=== PATIENT | male | born 1970 | race Two or more races ===

== ENCOUNTER 2016-03-01 10:13 | Inpatient (IN) | payer BC ==
[2016-03-01 10:29] VITALS: BMI 18.6
--- NOTE | 2016-03-01 12:00 | HP ---
CIWA Score - CIWA Score Nausea/Vomitin-No Nausea/No Vomiting Muscle Tremors: 4-Moderate,w/Arms Extend Anxiety: 4-Mod. Anxious/Guarded Agitation: 4-Moderately Restless Paroxysmal Sweats: 3 Orientation: 0-Oriented Tacttile Disturbances: 0-None Auditory Disturbances: 0-None Visual Disturbances: 0-None Headache: 0-None Present CIWA-Ar Total Score: 15 Admission ROS BHS - HPI Chief Complaint: I want to stop using and go to rehab. Allergies/Adverse Reactions: Allergies Allergy/AdvReac Type Severity Reaction Status Date / Time No Known Allergies Allergy Verified 03/01/16 11:36 History of Present Illness: pt is a 46yr old male with a history of alcohol and benzodiazapine dependence seeking detox for treatment. Exam Limitations: No Limitations - Ebola screening Have you traveled outside of the country in the last 21 days: No Have you had contact with anyone from an Ebola affected area: No Have you been sick,other than usual withdrawal symptoms: No Do you have a fever: No - Review of Systems Constitutional: Chills, Diaphoresis, Loss of Appetite, Night Sweats, Changes in sleep, Unintentional Wgt. Loss EENT: reports: No Symptoms Reported Respiratory: reports: No Symptoms reported Cardiac: reports: No Symptoms Reported GI: reports: Poor Appetite, Poor Fluid Intake : reports: No Symptoms Reported Musculoskeletal: reports: Back Pain, Joint Pain, Muscle Pain Integumentary: reports: Flushing, Sweating Neuro: reports: Headache, Tingling, Tremors Endocrine: reports: Excessive Sweating, Flushing, Intolerance to Cold, Intolerance to Heat Hematology: reports: No Symptoms Reported Psychiatric: reports: Judgement Intact, Mood/Affect Appropiate, Orientated x3, Agitated, Anxious Other Systems: Reviewed and Negative Patient History - Patient Medical History Hx Anemia: No Hx Asthma: No Hx Chronic Obstructive Pulmonary Disease (COPD): No Hx Cancer: No Hx Cardiac Disorders: No Hx Congestive Heart Failure: No Hx Hypertension: No Hx Hypercholesterolemia: No Hx Pacemaker: No HX Cerebrovascular Accident: No Hx Seizures: No Hx Dementia: No Hx Diabetes: No Hx Gastrointestinal Disorders: No Hx Liver Disease: No Hx Genitourinary Disorders: No Hx Sexually Transmitted Disorders: No Hx Renal Disease (ESRD): No Hx Thyroid Disease: No Hx Human Immunodeficiency Virus (HIV): No (negative) Hx Hepatitis C: Yes Hx Depression: No Hx Suicide Attempt: No (denies) Hx Bipolar Disorder: No Hx Schizophrenia: No - Patient Surgical History Past Surgical History: No - PPD History Previous Implant?: Yes Documented Results: Negative w/o proof Implanted On Prior [facility] Admission?: No PPD to be Administered?: Yes - Reproductive History Patient is a Female of Child Bearing Age (11 -55 yrs old): No - Smoking Cessation Smoking history: Current every day smoker Have you smoked in the past 12 months: Yes Aproximately how many cigarettes per day: 20 Hx Chewing Tobacco Use: No Initiated information on smoking cessation: Yes 'Breaking Loose' booklet given: 03/01/16 - Substance & Tx. History Hx Alcohol Use: Yes Hx Substance Use: Yes Substance Use Type: Alcohol, Tranquilizers Hx Substance Use Treatment: No - Substances Abused Alprazolam (Xanax) Route: Oral Frequency: Daily Amount used: 6MG Age of first use: 19 Date of Last Use: 02/29/16 Alcohol Route: Oral Frequency: Daily Amount used: 3 PINTS VODKA Age of first use: 21 Date of Last Use: 02/29/16 Cocaine Route: Injection Frequency: Daily Amount used: $100 Age of first use: 45 Date of Last Use: 02/23/16 Family Disease History - Family Disease History Family Disease History: Diabetes: Mother ( esrd), Other: Father ( esrd) Admission Physical Exam BHS - Vital Signs Vital Signs: Vital Signs - 24 hr 03/01/16 10:27 Temperature 95.4 F L Pulse Rate 67 Respiratory 18 Rate Blood Pressure 117/77 - Physical General Appearance: Yes: Appropriately Dressed, Moderate Distress, Thin, Tremorous, Irritable, Sweating, Anxious HEENTM: Yes: Normal Voice, Nasal Congestion Respiratory: Yes: Chest Non-Tender, Lungs Clear, Normal Breath Sounds, No Respiratory Distress Neck: Yes: No masses,lesions,Nodules Breast: Yes: Within Normal Limits Cardiology: Yes: Regular Rhythm, Regular Rate, S1, S2 Abdominal: Yes: Normal Bowel Sounds, Non Tender, Soft Genitourinary: Yes: Within Normal Limits Back: Yes: Normal Inspection Musculoskeletal: Yes: full range of Motion, Gait Steady Extremities: Yes: Normal Capillary Refill, Normal Inspection, Non-Tender, Tremors Neurological: Yes: Fully Oriented, Alert, Normal Response Integumentary: Yes: Normal Color, Track Kelly Lymphatic: Yes: Within Normal Limits - Diagnostic (1) Alcohol dependence with uncomplicated withdrawal Current Visit: Yes Status: Chronic (2) Methadone maintenance therapy patient Current Visit: Yes Status: Chronic Comment: received 60mg today; pending verification (3) Nicotine dependence Current Visit: Yes Status: Chronic Qualifiers: Nicotine product type: cigarettes Substance use status: uncomplicated Qualified Code(s): F17.210 - Nicotine dependence, cigarettes, uncomplicated (4) Sedative/hypnotic withdrawal without complication Current Visit: Yes Status: Chronic (5) Cocaine dependence Current Visit: Yes Status: Chronic Qualifiers: Substance use status: uncomplicated Qualified Code(s): F14.20 - Cocaine dependence, uncomplicated (6) Weight loss Current Visit: Yes Status: Acute Cleared for Admission [facility] - Detox or Rehab [facility] Level of Care: Medically Managed Detox Regimen/Protocol: Librium [facility] Breath Alcohol Content Breath Alcohol Content: 0 Urine Drug Screen - Results Drug Screen Negative: No Urine Drug Screen Results: MONIKA-Cocaine, OPI-Opiates, BZO-Benzodiazepines, MTD- Methadone, TCA-Tricyclic Antidepress, OXY-Oxycodone
[2016-03-01] MEDS ORDERED: MAG HYDROX/AL HYDROX/SIMETH 30 ML UNIT-DOSE CUP PO PRN (12:05)
[2016-03-01] MEDS ORDERED: hydrOXYzine PAMOATE 50 MG CAPSULE (FP) PO PRN (12:05)
[2016-03-01] MEDS ORDERED: chlordiazePOXIDE HCL 25 MG CAPSULE PO PRN (12:05)
[2016-03-01] MEDS ORDERED: P-EPHED 60MG/TRIPROLIDI 2.5MG TABLET PO PRN (12:05)
[2016-03-01] MEDS ORDERED: guaiFENesin/D-METHORPHAN HB 10 ML UNIT-DOSE CUPS PO PRN (12:05)
[2016-03-01] MEDS ORDERED: MENTHOL/PHENOL 1 EACH UD MM PRN (12:05)
[2016-03-01] MEDS ORDERED: LOPERAMIDE HCL 2 MG CAPSULE PO PRN (12:05)
[2016-03-01] MEDS ORDERED: MAGNESIUM CITRATE 300 ML BOTTLE PO PRN (12:05)
[2016-03-01] MEDS ORDERED: ACETAMINOPHEN 325 MG TABLET (FP) PO PRN (12:05)
[2016-03-01] MEDS ORDERED: NICOTINE POLACRILEX 4 MG GUM BUC PRN (12:05)
[2016-03-01] MEDS ORDERED: MAGNESIUM HYDROX 2400MG/30ML ORAL SUSPENSION 30 ML CUP PO PRN (12:05)
[2016-03-01] MEDS ORDERED: IBUPROFEN 400 MG TABLET (FP) PO PRN (12:05)
[2016-03-01 14:29] LABS: HIV 1 & 2 AB NEGATIVE; HIV 1 AGp24 NEGATIVE
[2016-03-01] MEDS: chlordiazePOXIDE HCL 25 MG CAPSULE PO SCH ×3 (15:05→22:05)
[2016-03-01 16:07] LABS: URINE APPEARANCE CLEAR; URINE BILIRUBIN NEGATIVE (NEGATIVE); URINE BLOOD NEGATIVE (NEGATIVE); URINE COLOR LTYELLOW; URINE GLUCOSE (UA) NEGATIVE (NEGATIVE); URINE KETONE NEGATIVE (NEGATIVE); URINE LEUK ESTERASE NEGATIVE (NEGATIVE); URINE NITRITE NEGATIVE (NEGATIVE); URINE PROTEIN NEGATIVE (NEGATIVE); URINE UROBILINOGEN NEGATIVE E.U./dl (0.2-1.0)
[2016-03-01] MEDS: THIAMINE HCL 100 MG TABLET (FP) PO SCH (22:04)
[2016-03-01] MEDS: diphenhydrAMINE HCL 50 MG CAPSULE PO PRN (22:05)
[2016-03-02] MEDS ORDERED: METHADONE HCL 10 MG TABLET ONE (04:16)
[2016-03-02] MEDS ORDERED: METHADONE HCL 40 MG DISPERSABLE TABLET ONE (04:16)
[2016-03-02] MEDS: chlordiazePOXIDE HCL 25 MG CAPSULE PO SCH ×4 (05:31→21:59)
[2016-03-02] MEDS: METHADONE 40 MG, METHADONE 20 MG PO SCH (05:32)
[2016-03-02] MEDS ORDERED: METHADONE HCL 40 MG DISPERSABLE TABLET PO SCH (06:00)
[2016-03-02] MEDS: PRENATAL VITAMINS W/ FOLIC ACID TABLET (FP) PO SCH (10:03)
[2016-03-02] MEDS: NICOTINE 21 MG/24 HOURS TOPICAL PATCH TD SCH (10:04)
[2016-03-02 10:38] LABS: MCH 31.4 pg (25.7-33.7); MCHC 34.2 g/dl (32.0-35.9); MEAN CELL VOLUME 91.7 fl (80-96); MEAN PLT VOLUME 9.8 fl (7.5-11.1); PLATELET COUNT 175 K/MM3 (134-434); RDW 14.1 % (11.9-15.9); WHITE BLOOD COUNT 3.7 K/mm3 (4.0-10.0)
[2016-03-02 10:43] LABS: ALBUMIN 3.6 g/dl (3.4-5.0); ALK PHOS 71 U/L (45-117); ANION GAP 2 (8-16); BILIRUBIN,TOTAL 0.4 mg/dL (0.2-1.0); CALCIUM 9.2 mg/dL (8.5-10.1); CO2 32 mmol/L (21-32); CREATININE 0.9 mg/dL (0.7-1.3); GLUCOSE,RANDOM 83 mg/dL (74-106); SGOT/AST 57 U/L (15-37); SGPT/ALT 60 U/L (12-78); TOT PROT 7.4 g/dl (6.4-8.2)
--- NOTE | 2016-03-02 11:49 | EKG ---
Test Reason : Blood Pressure : / mmHG Vent. Rate : 057 BPM Atrial Rate : 057 BPM P-R Int : 156 ms QRS Dur : 088 ms QT Int : 430 ms P-R-T Axes : 045 083 065 degrees QTc Int : 418 ms SINUS BRADYCARDIA WITH PREMATURE ATRIAL COMPLEXES OTHERWISE NORMAL ECG NO PREVIOUS ECGS AVAILABLE Confirmed by EVE LEVY, SRAVAN ([id number]) on 03/02/2016 11:49:24 AM Referred By: Confirmed By:SRAVAN PRADO MD
[2016-03-02] MEDS ORDERED: INFLUENZA VACCINE 45 MCG/0.5 ML (MDV 16-17) IM ONE (12:00)
--- NOTE | 2016-03-02 15:02 | PN ---
[facility] CIWA - CIWA Score Nausea/Vomitin-No Nausea/No Vomiting Muscle Tremors: 3 Anxiety: 4-Mod. Anxious/Guarded Agitation: 4-Moderately Restless Paroxysmal Sweats: 3 Orientation: 0-Oriented Tacttile Disturbances: 0-None Auditory Disturbances: 0-None Visual Disturbances: 0-None Headache: 0-None Present CIWA-Ar Total Score: 14 BHS Progress Note (SOAP) Subjective: ANXIETY,TREMORS,SWEATING,INTERRUPTED SLEEP,RESTLESS. Objective: 03/02/16 15:02 Vital Signs - 8 hr 03/02/16 03/02/16 09:44 14:10 Temperature 96.2 F L 96.6 F L Pulse Rate 68 63 Respiratory 18 18 Rate Blood Pressure 94/64 115/66 Laboratory Last Values WBC 3.7 K/mm3 (4.0-10.0) L 03/02/16 05:30 RBC 4.39 M/mm3 (4.00-5.60) 03/02/16 05:30 Hgb 13.8 GM/dL (11.7-16.9) 03/02/16 05:30 Hct 40.2 % (35.4-49) 03/02/16 05:30 MCV 91.7 fl (80-96) 03/02/16 05:30 MCHC 34.2 g/dl (32.0-35.9) 03/02/16 05:30 RDW 14.1 % (11.9-15.9) 03/02/16 05:30 Plt Count 175 K/MM3 (134-434) 03/02/16 05:30 MPV 9.8 fl (7.5-11.1) 03/02/16 05:30 Sodium 137 mmol/L (136-145) 03/02/16 05:30 Potassium 4.1 mmol/L (3.5-5.1) 03/02/16 05:30 Chloride 103 mmol/L (98-107) 03/02/16 05:30 Carbon Dioxide 32 mmol/L (21-32) 03/02/16 05:30 Anion Gap 2 (8-16) L 03/02/16 05:30 BUN 13 mg/dL (7-18) 03/02/16 05:30 Creatinine 0.9 mg/dL (0.7-1.3) 03/02/16 05:30 Creat Clearance w eGFR > 60 (>60) 03/02/16 05:30 Random Glucose 83 mg/dL (74-106) 03/02/16 05:30 Calcium 9.2 mg/dL (8.5-10.1) 03/02/16 05:30 Total Bilirubin 0.4 mg/dL (0.2-1.0) 03/02/16 05:30 AST 57 U/L (15-37) H 03/02/16 05:30 ALT 60 U/L (12-78) 03/02/16 05:30 Alkaline Phosphatase 71 U/L (45-117) 03/02/16 05:30 Total Protein 7.4 g/dl (6.4-8.2) 03/02/16 05:30 Albumin 3.6 g/dl (3.4-5.0) 03/02/16 05:30 Urine Color Ltyellow 03/01/16 15:00 Urine Appearance Clear 03/01/16 15:00 Urine pH 6.0 (5.0-8.0) 03/01/16 15:00 Ur Specific [place] 1.013 (1.001-1.035) 03/01/16 15:00 Urine Protein Negative (NEGATIVE) 03/01/16 15:00 Urine Glucose (UA) Negative (NEGATIVE) 03/01/16 15:00 Urine Ketones Negative (NEGATIVE) 03/01/16 15:00 Urine Blood Negative (NEGATIVE) 03/01/16 15:00 Urine Nitrite Negative (NEGATIVE) 03/01/16 15:00 Urine Bilirubin Negative (NEGATIVE) 03/01/16 15:00 Urine Urobilinogen Negative E.U./dl (0.2-1.0) 03/01/16 15:00 Ur Leukocyte Esterase Negative (NEGATIVE) 03/01/16 15:00 RPR Titer Nonreactive (NONREACTIVE) 03/02/16 05:30 HIV 1&2 Antibody Screen Negative 03/01/16 11:45 HIV P24 Antigen Negative 03/01/16 11:45 LABS NOTED Assessment: 03/02/16 15:03 WITHDRAWAL SX. Plan: CONTINUE DETOX
[2016-03-02] MEDS: THIAMINE HCL 100 MG TABLET (FP) PO SCH (21:58)
[2016-03-02] MEDS: diphenhydrAMINE HCL 50 MG CAPSULE PO PRN (21:59)
[2016-03-03] MEDS ORDERED: METHADONE HCL 10 MG TABLET ONE (04:09)
[2016-03-03] MEDS ORDERED: METHADONE HCL 40 MG DISPERSABLE TABLET ONE (04:10)
[2016-03-03] MEDS: METHADONE 40 MG, METHADONE 20 MG PO SCH (05:34)
[2016-03-03] MEDS: chlordiazePOXIDE HCL 25 MG CAPSULE PO SCH (05:35)
[2016-03-03] MEDS: PRENATAL VITAMINS W/ FOLIC ACID TABLET (FP) PO SCH (10:07)
[2016-03-03] MEDS: chlordiazePOXIDE 5 MG CAPSULE PO SCH ×3 (10:07→22:00)
[2016-03-03] MEDS: NICOTINE 21 MG/24 HOURS TOPICAL PATCH TD SCH (10:08)
--- NOTE | 2016-03-03 10:09 | PN ---
S CIWA - CIWA Score Nausea/Vomitin-No Nausea/No Vomiting Muscle Tremors: 3 Anxiety: 4-Mod. Anxious/Guarded Agitation: 4-Moderately Restless Paroxysmal Sweats: 3 Orientation: 0-Oriented Tacttile Disturbances: 0-None Auditory Disturbances: 0-None Visual Disturbances: 0-None Headache: 0-None Present CIWA-Ar Total Score: 14 BHS Progress Note (SOAP) Subjective: ANXIETY,TREMORS,INTERRUPTED SLEEP,RESTLESS,SWEATING. Objective: 03/03/16 10:08 Vital Signs 03/03/16 03/03/16 03/03/16 03:20 06:13 09:51 Temperature 963.5 F H 97.3 F L Pulse Rate 60 69 Respiratory 18 18 18 Rate Blood Pressure 115/78 101/59 Laboratory Tests 03/01/16 03/01/16 03/02/16 11:45 15:00 05:30 WBC 3.7 L RBC 4.39 Hgb 13.8 Hct 40.2 MCV 91.7 MCHC 34.2 RDW 14.1 Plt Count 175 MPV 9.8 Sodium Potassium Chloride Carbon Dioxide Anion Gap BUN Creatinine Creat Clearance w eGFR Random Glucose Calcium Total Bilirubin AST ALT Alkaline Phosphatase Total Protein Albumin Urine Color Ltyellow Urine Appearance Clear Urine pH 6.0 Ur Specific [place] 1.013 Urine Protein Negative Urine Glucose (UA) Negative Urine Ketones Negative Urine Blood Negative Urine Nitrite Negative Urine Bilirubin Negative Urine Urobilinogen Negative Ur Leukocyte Esterase Negative RPR Titer HIV 1&2 Antibody Screen Negative HIV P24 Antigen Negative 03/02/16 03/02/16 05:30 05:30 WBC RBC Hgb Hct MCV MCHC RDW Plt Count MPV Sodium 137 Potassium 4.1 Chloride 103 Carbon Dioxide 32 Anion Gap 2 L BUN 13 Creatinine 0.9 Creat Clearance w eGFR > 60 Random Glucose 83 Calcium 9.2 Total Bilirubin 0.4 AST 57 H ALT 60 Alkaline Phosphatase 71 Total Protein 7.4 Albumin 3.6 Urine Color Urine Appearance Urine pH Ur Specific [place] Urine Protein Urine Glucose (UA) Urine Ketones Urine Blood Urine Nitrite Urine Bilirubin Urine Urobilinogen Ur Leukocyte Esterase RPR Titer Nonreactive HIV 1&2 Antibody Screen HIV P24 Antigen LABS NOTED Assessment: 03/03/16 10:09 WITHDRAWAL SX. Plan: CONTINUE DETOX
[2016-03-03] MEDS: diphenhydrAMINE HCL 50 MG CAPSULE PO PRN (22:00)
[2016-03-03] MEDS: THIAMINE HCL 100 MG TABLET (FP) PO SCH (22:00)
[2016-03-04] MEDS ORDERED: METHADONE HCL 10 MG TABLET ONE (03:38)
[2016-03-04] MEDS ORDERED: METHADONE HCL 40 MG DISPERSABLE TABLET ONE (03:40)
[2016-03-04] MEDS: chlordiazePOXIDE 5 MG CAPSULE PO SCH (05:24)
[2016-03-04] MEDS: METHADONE 40 MG, METHADONE 20 MG PO SCH (05:24)
[2016-03-04 09:30] VITALS: BP 105/70; PULSE 65; TEMP 97.6
[2016-03-04] MEDS ORDERED: chlordiazePOXIDE HCL 10 MG CAPSULE PO SCH (11:00)
--- NOTE | 2016-03-04 15:19 | PN ---
[facility] Progress Note Note: Patient without does not want to complete detox and he needs to get to [facility] program early i AM, advised of risks of not completing program. Patient missy signing out AMA. Laboratory Tests 03/01/16 03/01/16 03/02/16 11:45 15:00 05:30 WBC 3.7 L RBC 4.39 Hgb 13.8 Hct 40.2 MCV 91.7 MCHC 34.2 RDW 14.1 Plt Count 175 MPV 9.8 Sodium Potassium Chloride Carbon Dioxide Anion Gap BUN Creatinine Creat Clearance w eGFR Random Glucose Calcium Total Bilirubin AST ALT Alkaline Phosphatase Total Protein Albumin Urine Color Ltyellow Urine Appearance Clear Urine pH 6.0 Ur Specific [place] 1.013 Urine Protein Negative Urine Glucose (UA) Negative Urine Ketones Negative Urine Blood Negative Urine Nitrite Negative Urine Bilirubin Negative Urine Urobilinogen Negative Ur Leukocyte Esterase Negative RPR Titer HIV 1&2 Antibody Screen Negative HIV P24 Antigen Negative 03/02/16 03/02/16 05:30 05:30 WBC RBC Hgb Hct MCV MCHC RDW Plt Count MPV Sodium 137 Potassium 4.1 Chloride 103 Carbon Dioxide 32 Anion Gap 2 L BUN 13 Creatinine 0.9 Creat Clearance w eGFR > 60 Random Glucose 83 Calcium 9.2 Total Bilirubin 0.4 AST 57 H ALT 60 Alkaline Phosphatase 71 Total Protein 7.4 Albumin 3.6 Urine Color Urine Appearance Urine pH Ur Specific [place] Urine Protein Urine Glucose (UA) Urine Ketones Urine Blood Urine Nitrite Urine Bilirubin Urine Urobilinogen Ur Leukocyte Esterase RPR Titer Nonreactive HIV 1&2 Antibody Screen HIV P24 Antigen Vital Signs - 24 hr 03/03/16 03/03/16 03/04/16 17:25 21:44 00:23 Temperature 97.2 F L 96.8 F L Pulse Rate 84 62 Respiratory 18 18 18 Rate Blood Pressure 121/80 116/70 03/04/16 03/04/16 03/04/16 03:25 06:01 09:28 Temperature 96.7 F L 97.6 F Pulse Rate 57 L 65 Respiratory 18 16 18 Rate Blood Pressure 111/68 105/70 VSS no complaints a/p: patient is signing out AMA, nursing notified
--- NOTE | 2016-03-04 15:21 | DS ---
[facility] Detox Discharge Summary Admission Date: 03/01/16 Discharge Date: 03/04/16 - History Present History: Alcohol Dependence, Cocaine Dependence, Sedative Dependence, MMTP Pertinent Past History: nicotine dependence, recent wt loss - Physical Exam Results Vital Signs: Vital Signs Temperature 97.6 F 03/04/16 09:28 Pulse Rate 65 03/04/16 09:28 Respiratory Rate 18 03/04/16 09:28 Blood Pressure 105/70 03/04/16 09:28 O2 Sat by Pulse Oximetry (%) Pertinent Admission Physical Exam Findings: withdrawwal sx noted - Treatment Hospital Course: Detox Protocol Followed - Medication Discharge Medications: Ambulatory Orders NK [No Known Home Medication] 03/01/16 - Diagnosis (1) Weight loss Status: Acute (2) Alcohol dependence with uncomplicated withdrawal Status: Acute (3) Cocaine dependence Status: Chronic Qualifiers: Substance use status: uncomplicated Qualified Code(s): F14.20 - Cocaine dependence, uncomplicated (4) Methadone maintenance therapy patient Status: Chronic (5) Nicotine dependence Status: Chronic Qualifiers: Nicotine product type: cigarettes Substance use status: uncomplicated Qualified Code(s): F17.210 - Nicotine dependence, cigarettes, uncomplicated (6) Sedative/hypnotic withdrawal without complication Status: Acute - AMA Did Patient Leave Against Medical Advice: Yes
--- NOTE | 2016-03-04 15:43 | PN ---
S Progress Note (SOAP) Subjective: no complaints Objective: 03/04/16 15:42 Vital Signs - 8 hr 03/04/16 09:28 Temperature 97.6 F Pulse Rate 65 Respiratory 18 Rate Blood Pressure 105/70 Laboratory Tests 03/01/16 03/01/16 03/02/16 11:45 15:00 05:30 WBC 3.7 L RBC 4.39 Hgb 13.8 Hct 40.2 MCV 91.7 MCHC 34.2 RDW 14.1 Plt Count 175 MPV 9.8 Sodium Potassium Chloride Carbon Dioxide Anion Gap BUN Creatinine Creat Clearance w eGFR Random Glucose Calcium Total Bilirubin AST ALT Alkaline Phosphatase Total Protein Albumin Urine Color Ltyellow Urine Appearance Clear Urine pH 6.0 Ur Specific [place] 1.013 Urine Protein Negative Urine Glucose (UA) Negative Urine Ketones Negative Urine Blood Negative Urine Nitrite Negative Urine Bilirubin Negative Urine Urobilinogen Negative Ur Leukocyte Esterase Negative RPR Titer HIV 1&2 Antibody Screen Negative HIV P24 Antigen Negative 03/02/16 03/02/16 05:30 05:30 WBC RBC Hgb Hct MCV MCHC RDW Plt Count MPV Sodium 137 Potassium 4.1 Chloride 103 Carbon Dioxide 32 Anion Gap 2 L BUN 13 Creatinine 0.9 Creat Clearance w eGFR > 60 Random Glucose 83 Calcium 9.2 Total Bilirubin 0.4 AST 57 H ALT 60 Alkaline Phosphatase 71 Total Protein 7.4 Albumin 3.6 Urine Color Urine Appearance Urine pH Ur Specific [place] Urine Protein Urine Glucose (UA) Urine Ketones Urine Blood Urine Nitrite Urine Bilirubin Urine Urobilinogen Ur Leukocyte Esterase RPR Titer Nonreactive HIV 1&2 Antibody Screen HIV P24 Antigen Assessment: 03/04/16 15:43 no signs of withdrawal Plan: medically stable, may be discharged prior to completing detox so that he can filler picker methadone in AM.
== END 2016-03-04 09:21 | disposition home or self-care (01) | DRG 773 ==
LOC: YASAS 10:13 → Y3N 12:49
PROVIDERS: ADMIT Internal Medicine; ATTEND Internal Medicine
PROC: HZ2ZZZZ Detoxification Services for Substance Abuse Treatment (ICD-10-PCS; principal; 2016-03-01)
DX: F13.230 Sedative, hypnotic or anxiolytic dependence with withdrawal, uncomplicated (principal); F11.20 Opioid dependence, uncomplicated; F10.230 Alcohol dependence with withdrawal, uncomplicated; F14.20 Cocaine dependence, uncomplicated; F17.210 Nicotine dependence, cigarettes, uncomplicated; Z87.898 Personal history of other specified conditions
CPT/HCPCS: 36415; 80053; 81003; 85027; 86593; 87389; 93005; 93010

== ENCOUNTER 2016-05-25 10:04 | Inpatient (IN) | payer OTHER ==
[2016-05-25 11:06] VITALS: BMI 19.6
--- NOTE | 2016-05-25 12:13 | HP ---
CIWA Score - CIWA Score Nausea/Vomitin Muscle Tremors: 3 Anxiety: 3 Agitation: 3 Paroxysmal Sweats: 2 Orientation: 0-Oriented Tacttile Disturbances: 2-Mild Itch/Numbness/Burn Auditory Disturbances: 2-Mild Harshness/Frighten Visual Disturbances: 2-Mild Sensitivity Headache: 2-Mild CIWA-Ar Total Score: 22 Admission ROS BHS - HPI Chief Complaint: i need help to stop using alcohol,xanax,cocaine,k2,withdrawal symptom,last detox [facility] 03/01/16 to 03/04/16 mmtp 60 mgs/day last medicated today longest period of sobriety 5 years bipolar disorder weight loss nicotine dependence several admissions in detox and rehab before Allergies/Adverse Reactions: Allergies Allergy/AdvReac Type Severity Reaction Status Date / Time No Known Allergies Allergy Verified 05/25/16 12:12 - Ebola screening Have you traveled outside of the country in the last 21 days: No Have you had contact with anyone from an Ebola affected area: No Have you been sick,other than usual withdrawal symptoms: No - Review of Systems Constitutional: Chills, Diaphoresis, Loss of Appetite, Malaise, Night Sweats, Changes in sleep, Weakness, Unintentional Wgt. Loss EENT: reports: Tearing, Nose Congestion Respiratory: reports: No Symptoms reported Cardiac: reports: Palpitations GI: reports: Diarrhea, Nausea, Vomiting, Abdominal cramping : reports: No Symptoms Reported Musculoskeletal: reports: Back Pain, Muscle Pain Integumentary: reports: Dryness Neuro: reports: Headache, Tremors Endocrine: reports: No Symptoms Reported Hematology: reports: No Symptoms Reported Psychiatric: reports: Judgement Intact, Mood/Affect Appropiate, Orientated x3 ( bipolar disorder), Depressed Patient History - Patient Medical History Hx Anemia: No Hx Asthma: No Hx Chronic Obstructive Pulmonary Disease (COPD): No Hx Cancer: No Hx Cardiac Disorders: No Hx Congestive Heart Failure: No Hx Hypertension: No Hx Hypercholesterolemia: No Hx Pacemaker: No HX Cerebrovascular Accident: No Hx Seizures: No Hx Dementia: No Hx Diabetes: No Hx Gastrointestinal Disorders: No Hx Liver Disease: No Hx Genitourinary Disorders: No Hx Sexually Transmitted Disorders: No Hx Renal Disease (ESRD): No Hx Thyroid Disease: No Hx Human Immunodeficiency Virus (HIV): No (negative last 03/01) Hx Hepatitis C: Yes (under the care of pmd) Hx Depression: No Hx Suicide Attempt: No (denies) Hx Bipolar Disorder: Yes Hx Schizophrenia: No Other Medical History: no suicidal,no homicidal - Patient Surgical History Past Surgical History: No - PPD History Documented Results: Negative w/proof Implanted On Prior [facility] Admission?: Yes Date: 03/03/16 Results: 0 mm PPD to be Administered?: No - Smoking Cessation Smoking history: Current every day smoker Have you smoked in the past 12 months: Yes Aproximately how many cigarettes per day: 20 Hx Chewing Tobacco Use: No Initiated information on smoking cessation: Yes 'Breaking Loose' booklet given: 05/25/16 - Substance & Tx. History Hx Alcohol Use: Yes Hx Substance Use: Yes Substance Use Type: Alcohol, Cocaine, Tranquilizers - Substances Abused Alcohol-vodka/beer Route: Oral Frequency: Daily Amount used: 2 pts./1-6 pk Age of first use: 17 Date of Last Use: 05/23/16 K2 Route: Smoking Frequency: 1-2 times per week Amount used: 1 blunt Age of first use: 46 Date of Last Use: 05/25/16 Family Disease History - Family Disease History Family Disease History: Diabetes: Mother ( esrd), Other: Father ( esrd) Admission Physical Exam S - Vital Signs Vital Signs: Vital Signs - 24 hr 05/25/16 11:03 Temperature 97 F L Pulse Rate 105 H Respiratory 20 Rate Blood Pressure 102/58 - Physical General Appearance: Yes: Moderate Distress, Tremorous, Irritable, Sweating, Anxious HEENTM: Yes: Normal ENT Inspection, Pharynx Normal, Nasal Congestion Respiratory: Yes: Lungs Clear, Normal Breath Sounds, No Respiratory Distress Neck: Yes: Within Normal Limits, Supple, Trachea in good position Breast: Yes: Within Normal Limits Cardiology: Yes: Within Normal Limits, Regular Rhythm, Regular Rate, S1, S2 Abdominal: Yes: Within Normal Limits, Normal Bowel Sounds, Non Tender, Flat, Soft Genitourinary: Yes: Within Normal Limits Back: Yes: Muscle Spasm Musculoskeletal: Yes: Within Normal Limits, full range of Motion, Back pain, Muscle Pain Extremities: Yes: Within Normal Limits, Normal Inspection, Normal Range of Motion, Tremors 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 intact, Fully Oriented, Alert, Motor Strength 5/5 Integumentary: Yes: Dry Lymphatic: Yes: Within Normal Limits - Diagnostic (1) Alcohol dependence with uncomplicated withdrawal Current Visit: Yes Status: Acute (2) Sedative/hypnotic withdrawal without complication Current Visit: Yes Status: Acute (3) Weight loss Current Visit: No Status: Acute (4) Cocaine dependence Current Visit: Yes Status: Chronic Qualifiers: Substance use status: uncomplicated Qualified Code(s): F14.20 - Cocaine dependence, uncomplicated (5) Methadone maintenance therapy patient Current Visit: No Status: Chronic Comment: received 60mg today; pending verification (6) Nicotine dependence Current Visit: Yes Status: Acute Qualifiers: Nicotine product type: cigarettes Substance use status: uncomplicated Qualified Code(s): F17.210 - Nicotine dependence, cigarettes, uncomplicated (7) Hepatitis C Current Visit: Yes Status: Acute Cleared for Admission S - Detox or Rehab [facility] Level of Care: Medically Managed Detox Regimen/Protocol: Valium BHS Breath Alcohol Content Breath Alcohol Content: 0 Urine Drug Screen - Results Drug Screen Negative: No Urine Drug Screen Results: THC-Marijuana, MONIKA-Cocaine, MTD-Methadone
[2016-05-25] MEDS ORDERED: guaiFENesin/D-METHORPHAN HB 10 ML UNIT-DOSE CUPS PO PRN (12:21)
[2016-05-25] MEDS ORDERED: LOPERAMIDE HCL 2 MG CAPSULE PO PRN (12:21)
[2016-05-25] MEDS ORDERED: diphenhydrAMINE HCL 50 MG CAPSULE PO PRN (12:21)
[2016-05-25] MEDS ORDERED: IBUPROFEN 400 MG TABLET (FP) PO PRN (12:21)
[2016-05-25] MEDS ORDERED: ACETAMINOPHEN 325 MG TABLET (FP) PO PRN (12:21)
[2016-05-25] MEDS ORDERED: hydrOXYzine PAMOATE 50 MG CAPSULE (FP) PO PRN (12:21)
[2016-05-25] MEDS ORDERED: MAGNESIUM HYDROX 2400MG/30ML ORAL SUSPENSION 30 ML CUP PO PRN (12:21)
[2016-05-25] MEDS ORDERED: MAGNESIUM CITRATE 300 ML BOTTLE PO PRN (12:21)
[2016-05-25] MEDS ORDERED: MENTHOL/PHENOL 1 EACH UD MM PRN (12:21)
[2016-05-25] MEDS ORDERED: MAG HYDROX/AL HYDROX/SIMETH 30 ML UNIT-DOSE CUP PO PRN (12:21)
[2016-05-25] MEDS ORDERED: P-EPHED 60MG/TRIPROLIDI 2.5MG TABLET PO PRN (12:21)
[2016-05-25] MEDS ORDERED: diazePAM 5 MG TABLET PO ONE (12:49)
[2016-05-25] MEDS: NICOTINE 21 MG/24 HOURS TOPICAL PATCH TD SCH (13:14)
[2016-05-25] MEDS: diazePAM 5 MG TABLET PO SCH ×2 (14:19→22:11)
--- NOTE | 2016-05-25 15:19 | CONSULT ---
[facility] Psychiatric Consult - Data Date of interview: 05/25/16 Admission source: [facility] Identifying data: Readmission to [facility] for this 46 y/o male seeking detox treatment for alcohol,cocaine,marijuana and sedative/anxiolytic dependence.Patient is ,a father of two,domiciled,unemployed and supported on SSI benefits. Substance Abuse History: - Smoking Cessation. Smoking history: Current every day smoker. Have you smoked in the past 12 months: Yes. Aproximately how many cigarettes per day: 20. Hx Chewing Tobacco Use: No. Initiated information on smoking cessation: Yes. 'Breaking Loose' booklet given: 05/25/16. - Substance & Tx. History. Hx Alcohol Use: Yes. Hx Substance Use: Yes. Substance Use Type : Alcohol, Cocaine, Tranquilizers. Confirmed by patient. Medical History: Hepatitis C. Psychiatric History: Diagnosed with Bipolar Disorder.Maintained on zyprexa 15 mg /hs + ambien 10 mg/hs.Mr Gibbs sees a psychiatrist at the [facility] in the [place].No history of psychiatric hospitalizations.Currently on methadone maintenance (60 mg/day).Patient admits to a history of one suicide attempt five years ago (overdose with medications). Physical/Sexual Abuse/Trauma History: Patient denies. Additional Comment: Urine Drug Screen Results: THC-Marijuana, MONIKA-Cocaine, MTD- Methadone.Noted. Mental Status Exam - Mental Status Exam Alert and Oriented to: Time, Place, Person Cognitive Function: Good Mood: Nervous, Anxious, Apprehensive, Hopeful Affect: Mood Congruent Patient Behavior: Fatigued, Appropriate, Cooperative Speech Pattern: Clear, Appropriate Voice Loudness: Normal Thought Process: Goal Oriented Thought Disorder: Not Present Hallucinations: Denies Suicidal Ideation: Denies Homicidal Ideation: Denies Sleep: Poorly, Difficulty falling asleep Appetite: Good Muscle strength/Tone: Normal Gait/Station: Normal Psychiatric Findings - Problem List ([place] 1, 2,3) (1) Alcohol dependence with uncomplicated withdrawal Current Visit: Yes Status: Acute (2) Opioid dependence on agonist therapy Current Visit: Yes Status: Acute (3) Sedative/hypnotic withdrawal without complication Current Visit: Yes Status: Acute (4) Cocaine dependence Current Visit: Yes Status: Chronic Qualifiers: Substance use status: uncomplicated Qualified Code(s): F14.20 - Cocaine dependence, uncomplicated (5) Marijuana dependence Current Visit: Yes Status: Acute (6) Nicotine dependence Current Visit: Yes Status: Acute Qualifiers: Nicotine product type: cigarettes Substance use status: uncomplicated Qualified Code(s): F17.210 - Nicotine dependence, cigarettes, uncomplicated (7) Substance induced mood disorder Current Visit: Yes Status: Acute (8) Hepatitis C Current Visit: Yes Status: Acute (9) Insomnia Current Visit: Yes Status: Acute - Initial Treatment Plan Initial Treatment Plan: Psychoeducation.Detoxfication.Medications : zyprexa 15 mg po hs + ambien 10 mg po hs.Side effects/benefits discussed with patient.Made aware of risk for metabolic syndrome,cardiovascular adverse events and parasomnias.He agrees to follow this careplan.Observation.
[2016-05-25 17:03] LABS: URINE APPEARANCE CLEAR; URINE BILIRUBIN NEGATIVE (NEGATIVE); URINE BLOOD NEGATIVE (NEGATIVE); URINE COLOR YELLOW; URINE GLUCOSE (UA) NEGATIVE (NEGATIVE); URINE KETONE NEGATIVE (NEGATIVE); URINE NITRITE NEGATIVE (NEGATIVE); URINE PROTEIN NEGATIVE (NEGATIVE); URINE UROBILINOGEN NEGATIVE E.U./dl (0.2-1.0)
[2016-05-25 17:04] LABS: URINE LEUK ESTERASE TRACE (NEGATIVE)
[2016-05-25 17:08] LABS: URINE MUCUS RARE; URINE RBC 1 /hpf (0-3); URINE WBC 8 /hpf (3-5)
[2016-05-25] MEDS: diazePAM 5 MG TABLET PO PRN (19:25)
[2016-05-25] MEDS: OLANZapine 7.5 MG TABLET PO SCH (22:11)
[2016-05-25] MEDS: THIAMINE HCL 100 MG TABLET (FP) PO SCH (22:11)
[2016-05-25] MEDS: ZOLPIDEM TARTRATE 10 MG TABLET (PARK CARE ONLY) PO PRN (22:11)
[2016-05-26] MEDS ORDERED: METHADONE HCL 40 MG DISPERSABLE TABLET ONE (05:54)
[2016-05-26] MEDS ORDERED: METHADONE HCL 10 MG TABLET ONE (05:54)
[2016-05-26] MEDS: diazePAM 5 MG TABLET PO SCH ×3 (05:55→22:12)
[2016-05-26] MEDS: METHADONE 40 MG, METHADONE 20 MG PO SCH (05:55)
[2016-05-26] MEDS ORDERED: METHADONE HCL 10 MG TABLET PO SCH (06:00)
[2016-05-26 09:55] LABS: MCH 31.2 pg (25.7-33.7); MCHC 34.2 g/dl (32.0-35.9); MEAN CELL VOLUME 91.3 fl (80-96); MEAN PLT VOLUME 9.8 fl (7.5-11.1); PLATELET COUNT 195 K/MM3 (134-434); RDW 13.4 % (11.9-15.9); WHITE BLOOD COUNT 5.4 K/mm3 (4.0-10.0)
[2016-05-26] MEDS: NICOTINE 21 MG/24 HOURS TOPICAL PATCH TD SCH (10:14)
[2016-05-26] MEDS: PRENATAL VITAMINS W/ FOLIC ACID TABLET (FP) PO SCH (10:15)
[2016-05-26] MEDS: diazePAM 5 MG TABLET PO PRN (10:15)
--- NOTE | 2016-05-26 10:19 | PN ---
S CIWA - CIWA Score Nausea/Vomitin Muscle Tremors: 3 Anxiety: 3 Agitation: 2 Paroxysmal Sweats: 1-Minimal Palms Moist Orientation: 0-Oriented Tacttile Disturbances: 1-Very Mild Itch/Numbness Auditory Disturbances: 1-Very Mild Visual Disturbances: 1-Very Mild Sensitivity Headache: 2-Mild CIWA-Ar Total Score: 17 BHS Progress Note (SOAP) Subjective: alert,irritable,anxious,interrupted sleep,tremor,pain in the body Objective: 05/26/16 10:17 Vital Signs Temperature 98.1 F 05/26/16 06:43 Pulse Rate 59 L 05/26/16 09:55 Respiratory Rate 18 05/26/16 09:55 Blood Pressure 124/80 05/26/16 09:55 O2 Sat by Pulse Oximetry (%) ekg sinus bradycardia.inverted t in v3 no chest pain,no sob,no dizziness Laboratory Last Values WBC 5.4 K/mm3 (4.0-10.0) D 05/26/16 06:00 RBC 4.44 M/mm3 (4.00-5.60) 05/26/16 06:00 Hgb 13.9 GM/dL (11.7-16.9) 05/26/16 06:00 Hct 40.5 % (35.4-49) 05/26/16 06:00 MCV 91.3 fl (80-96) 05/26/16 06:00 MCHC 34.2 g/dl (32.0-35.9) 05/26/16 06:00 RDW 13.4 % (11.9-15.9) 05/26/16 06:00 Plt Count 195 K/MM3 (134-434) 05/26/16 06:00 MPV 9.8 fl (7.5-11.1) 05/26/16 06:00 Urine Color Yellow 05/25/16 15:00 Urine Appearance Clear 05/25/16 15:00 Urine pH 5.0 (5.0-8.0) 05/25/16 15:00 Ur Specific [place] 1.024 (1.001-1.035) 05/25/16 15:00 Urine Protein Negative (NEGATIVE) 05/25/16 15:00 Urine Glucose (UA) Negative (NEGATIVE) 05/25/16 15:00 Urine Ketones Negative (NEGATIVE) 05/25/16 15:00 Urine Blood Negative (NEGATIVE) 05/25/16 15:00 Urine Nitrite Negative (NEGATIVE) 05/25/16 15:00 Urine Bilirubin Negative (NEGATIVE) 05/25/16 15:00 Urine Urobilinogen Negative E.U./dl (0.2-1.0) 05/25/16 15:00 Ur Leukocyte Esterase Trace (NEGATIVE) H 05/25/16 15:00 Urine RBC 1 /hpf (0-3) 05/25/16 15:00 Urine WBC 8 /hpf (3-5) 05/25/16 15:00 Ur Epithelial Cells Rare /hpf (FEW) 05/25/16 15:00 Urine Mucus Rare 05/25/16 15:00 labs pending Assessment: 05/26/16 10:18 withdrawal symptom Plan: continue detox
[2016-05-26 10:25] LABS: ALBUMIN 3.9 g/dl (3.4-5.0); ALK PHOS 78 U/L (45-117); ANION GAP 9 (8-16); BILIRUBIN,TOTAL 0.6 mg/dL (0.2-1.0); CALCIUM 9.1 mg/dL (8.5-10.1); CO2 30 mmol/L (21-32); COCKROFT - GAULT 88.23; GLUCOSE,RANDOM 58 mg/dL (74-106); SGOT/AST 86 U/L (15-37); SGPT/ALT 94 U/L (12-78); TOT PROT 8.3 g/dl (6.4-8.2)
--- NOTE | 2016-05-26 11:49 | EKG ---
Test Reason : Blood Pressure : / mmHG Vent. Rate : 050 BPM Atrial Rate : 050 BPM P-R Int : 166 ms QRS Dur : 096 ms QT Int : 510 ms P-R-T Axes : 029 083 071 degrees QTc Int : 464 ms SINUS BRADYCARDIA NONSPECIFIC ST AND T WAVE ABNORMALITY PROLONGED QT ABNORMAL ECG WHEN COMPARED WITH ECG OF 01-MAR-2016 15:18, PREMATURE ATRIAL COMPLEXES ARE NO LONGER PRESENT T WAVE INVERSION NOW EVIDENT IN ANTERIOR LEADS Confirmed by ROSARIO LEVY, CYN ([id number]) on 05/26/2016 11:49:31 AM Referred By: Confirmed By:CYN PONCE MD
[2016-05-26] MEDS: THIAMINE HCL 100 MG TABLET (FP) PO SCH (22:12)
[2016-05-26] MEDS: OLANZapine 7.5 MG TABLET PO SCH (22:12)
[2016-05-27] MEDS ORDERED: METHADONE HCL 40 MG DISPERSABLE TABLET ONE (04:23)
[2016-05-27] MEDS ORDERED: METHADONE HCL 10 MG TABLET ONE (04:24)
[2016-05-27] MEDS: METHADONE 40 MG, METHADONE 20 MG PO SCH (05:11)
[2016-05-27] MEDS: diazePAM 5 MG TABLET PO PRN ×3 (05:14→18:33)
[2016-05-27] MEDS: PRENATAL VITAMINS W/ FOLIC ACID TABLET (FP) PO SCH (09:38)
[2016-05-27] MEDS: diazePAM 5 MG TABLET PO SCH ×2 (09:38→22:24)
[2016-05-27] MEDS: NICOTINE 21 MG/24 HOURS TOPICAL PATCH TD SCH (09:39)
--- NOTE | 2016-05-27 10:10 | PN ---
[facility] CIWA - CIWA Score Nausea/Vomitin Muscle Tremors: 3 Anxiety: 3 Agitation: 2 Paroxysmal Sweats: 1-Minimal Palms Moist Orientation: 0-Oriented Tacttile Disturbances: 1-Very Mild Itch/Numbness Auditory Disturbances: 1-Very Mild Visual Disturbances: 1-Very Mild Sensitivity Headache: 2-Mild CIWA-Ar Total Score: 17 BHS Progress Note (SOAP) Subjective: ALERT,IRRITABLE,ANXIOUS,INTERRUPTED SLEEP,TREMOR Objective: 05/27/16 10:08 Vital Signs Temperature 96.6 F L 05/27/16 06:00 Pulse Rate 58 L 05/27/16 06:00 Respiratory Rate 18 05/27/16 06:00 Blood Pressure 137/90 05/27/16 06:00 O2 Sat by Pulse Oximetry (%) Laboratory Last Values WBC 5.4 K/mm3 (4.0-10.0) D 05/26/16 06:00 RBC 4.44 M/mm3 (4.00-5.60) 05/26/16 06:00 Hgb 13.9 GM/dL (11.7-16.9) 05/26/16 06:00 Hct 40.5 % (35.4-49) 05/26/16 06:00 MCV 91.3 fl (80-96) 05/26/16 06:00 MCHC 34.2 g/dl (32.0-35.9) 05/26/16 06:00 RDW 13.4 % (11.9-15.9) 05/26/16 06:00 Plt Count 195 K/MM3 (134-434) 05/26/16 06:00 MPV 9.8 fl (7.5-11.1) 05/26/16 06:00 Sodium 141 mmol/L (136-145) 05/26/16 06:00 Potassium 3.9 mmol/L (3.5-5.1) 05/26/16 06:00 Chloride 102 mmol/L (98-107) 05/26/16 06:00 Carbon Dioxide 30 mmol/L (21-32) 05/26/16 06:00 Anion Gap 9 (8-16) 05/26/16 06:00 BUN 15 mg/dL (7-18) 05/26/16 06:00 Creatinine 1.0 mg/dL (0.7-1.3) 05/26/16 06:00 Creat Clearance w eGFR > 60 (>60) 05/26/16 06:00 Random Glucose 58 mg/dL (74-106) L D 05/26/16 06:00 Calcium 9.1 mg/dL (8.5-10.1) 05/26/16 06:00 Total Bilirubin 0.6 mg/dL (0.2-1.0) D 05/26/16 06:00 AST 86 U/L (15-37) H D 05/26/16 06:00 ALT 94 U/L (12-78) H D 05/26/16 06:00 Alkaline Phosphatase 78 U/L (45-117) 05/26/16 06:00 Total Protein 8.3 g/dl (6.4-8.2) H 05/26/16 06:00 Albumin 3.9 g/dl (3.4-5.0) 05/26/16 06:00 Urine Color Yellow 05/25/16 15:00 Urine Appearance Clear 05/25/16 15:00 Urine pH 5.0 (5.0-8.0) 05/25/16 15:00 Ur Specific [place] 1.024 (1.001-1.035) 05/25/16 15:00 Urine Protein Negative (NEGATIVE) 05/25/16 15:00 Urine Glucose (UA) Negative (NEGATIVE) 05/25/16 15:00 Urine Ketones Negative (NEGATIVE) 05/25/16 15:00 Urine Blood Negative (NEGATIVE) 05/25/16 15:00 Urine Nitrite Negative (NEGATIVE) 05/25/16 15:00 Urine Bilirubin Negative (NEGATIVE) 05/25/16 15:00 Urine Urobilinogen Negative E.U./dl (0.2-1.0) 05/25/16 15:00 Ur Leukocyte Esterase Trace (NEGATIVE) H 05/25/16 15:00 Urine RBC 1 /hpf (0-3) 05/25/16 15:00 Urine WBC 8 /hpf (3-5) 05/25/16 15:00 Ur Epithelial Cells Rare /hpf (FEW) 05/25/16 15:00 Urine Mucus Rare 05/25/16 15:00 RPR Titer Nonreactive (NONREACTIVE) 05/26/16 06:00 Assessment: 04/14/17 10:09 WITHDRAWAL SYMPTOM Plan: CONTINUE DETOX,GLUCOSE 58,WILL DO BGM DAILY
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
[2016-05-27] MEDS: OLANZapine 7.5 MG TABLET PO SCH (22:24)
[2016-05-27] MEDS: THIAMINE HCL 100 MG TABLET (FP) PO SCH (22:24)
[2016-05-27] MEDS: ZOLPIDEM TARTRATE 10 MG TABLET (PARK CARE ONLY) PO PRN (22:25)
[2016-05-28] MEDS ORDERED: METHADONE HCL 10 MG TABLET ONE (04:59)
[2016-05-28] MEDS ORDERED: METHADONE HCL 40 MG DISPERSABLE TABLET ONE (04:59)
[2016-05-28] MEDS: METHADONE 40 MG, METHADONE 20 MG PO SCH (05:52)
[2016-05-28] MEDS: diazePAM 5 MG TABLET PO PRN (05:54)
[2016-05-28] MEDS: PRENATAL VITAMINS W/ FOLIC ACID TABLET (FP) PO SCH (10:33)
[2016-05-28] MEDS: diazePAM 5 MG TABLET PO SCH ×2 (10:33→22:26)
[2016-05-28] MEDS: NICOTINE 21 MG/24 HOURS TOPICAL PATCH TD SCH (10:33)
--- NOTE | 2016-05-28 15:24 | PN ---
BHS Progress Note (SOAP) Subjective: Sweating, Tremors, H/A, Back Ache, Interrupted sleep. Objective: PT. A & O X 2 (DISORIENTED ABOUT CURRENT LOCATION). PT. OBSERVED AMBULATING ON UNIT. 05/28/16 15:22 Vital Signs Temperature 97 F L 05/28/16 13:28 Pulse Rate 79 05/28/16 13:28 Respiratory Rate 20 05/28/16 13:28 Blood Pressure 135/78 05/28/16 13:28 O2 Sat by Pulse Oximetry (%) Laboratory Last Values WBC 5.4 K/mm3 (4.0-10.0) D 05/26/16 06:00 RBC 4.44 M/mm3 (4.00-5.60) 05/26/16 06:00 Hgb 13.9 GM/dL (11.7-16.9) 05/26/16 06:00 Hct 40.5 % (35.4-49) 05/26/16 06:00 MCV 91.3 fl (80-96) 05/26/16 06:00 MCHC 34.2 g/dl (32.0-35.9) 05/26/16 06:00 RDW 13.4 % (11.9-15.9) 05/26/16 06:00 Plt Count 195 K/MM3 (134-434) 05/26/16 06:00 MPV 9.8 fl (7.5-11.1) 05/26/16 06:00 Sodium 141 mmol/L (136-145) 05/26/16 06:00 Potassium 3.9 mmol/L (3.5-5.1) 05/26/16 06:00 Chloride 102 mmol/L (98-107) 05/26/16 06:00 Carbon Dioxide 30 mmol/L (21-32) 05/26/16 06:00 Anion Gap 9 (8-16) 05/26/16 06:00 BUN 15 mg/dL (7-18) 05/26/16 06:00 Creatinine 1.0 mg/dL (0.7-1.3) 05/26/16 06:00 Creat Clearance w eGFR > 60 (>60) 05/26/16 06:00 POC Glucometer 111 UNITS (()) 05/28/16 05:51 Random Glucose 58 mg/dL (74-106) L D 05/26/16 06:00 Calcium 9.1 mg/dL (8.5-10.1) 05/26/16 06:00 Total Bilirubin 0.6 mg/dL (0.2-1.0) D 05/26/16 06:00 AST 86 U/L (15-37) H D 05/26/16 06:00 ALT 94 U/L (12-78) H D 05/26/16 06:00 Alkaline Phosphatase 78 U/L (45-117) 05/26/16 06:00 Total Protein 8.3 g/dl (6.4-8.2) H 05/26/16 06:00 Albumin 3.9 g/dl (3.4-5.0) 05/26/16 06:00 Urine Color Yellow 05/25/16 15:00 Urine Appearance Clear 05/25/16 15:00 Urine pH 5.0 (5.0-8.0) 05/25/16 15:00 Ur Specific [place] 1.024 (1.001-1.035) 05/25/16 15:00 Urine Protein Negative (NEGATIVE) 05/25/16 15:00 Urine Glucose (UA) Negative (NEGATIVE) 05/25/16 15:00 Urine Ketones Negative (NEGATIVE) 05/25/16 15:00 Urine Blood Negative (NEGATIVE) 05/25/16 15:00 Urine Nitrite Negative (NEGATIVE) 05/25/16 15:00 Urine Bilirubin Negative (NEGATIVE) 05/25/16 15:00 Urine Urobilinogen Negative E.U./dl (0.2-1.0) 05/25/16 15:00 Ur Leukocyte Esterase Trace (NEGATIVE) H 05/25/16 15:00 Urine RBC 1 /hpf (0-3) 05/25/16 15:00 Urine WBC 8 /hpf (3-5) 05/25/16 15:00 Ur Epithelial Cells Rare /hpf (FEW) 05/25/16 15:00 Urine Mucus Rare 05/25/16 15:00 RPR Titer Nonreactive (NONREACTIVE) 05/26/16 06:00 LABS NOTED. Assessment: 05/28/16 15:23 WITHDRAWAL SYMPTOMS. Plan: CONTINUE DETOX. ADVISED PATIENT TO FOLLOW-UP WITH [facility] / REHAB MEDICAL PROVIDER AFTER DISCHARGE FROM DETOX FOR GENERAL MEDICAL ASSESSMENT AND FOR ABNORMAL ADMISSION LAB VALUES.
[2016-05-28] MEDS: THIAMINE HCL 100 MG TABLET (FP) PO SCH (22:26)
[2016-05-28] MEDS: OLANZapine 7.5 MG TABLET PO SCH (22:26)
[2016-05-29] MEDS ORDERED: METHADONE HCL 40 MG DISPERSABLE TABLET ONE (02:31)
[2016-05-29] MEDS ORDERED: METHADONE HCL 10 MG TABLET ONE (02:31)
[2016-05-29] MEDS: METHADONE 40 MG, METHADONE 20 MG PO SCH (05:36)
[2016-05-29] MEDS ORDERED: diazePAM 5 MG TABLET PO SCH (10:00)
[2016-05-29] MEDS: PRENATAL VITAMINS W/ FOLIC ACID TABLET (FP) PO SCH (10:22)
[2016-05-29] MEDS: NICOTINE 21 MG/24 HOURS TOPICAL PATCH TD SCH (10:22)
--- NOTE | 2016-05-29 11:32 | PN ---
BHS Progress Note (SOAP) Subjective: nausea, sweats, interrupetd sleep, anxiety, tremors Objective: 05/29/16 11:31 Vital Signs - 8 hr 05/29/16 05/29/16 06:11 10:23 Temperature 96.5 F L 96 F L Pulse Rate 71 69 Respiratory 16 18 Rate Blood Pressure 115/66 102/75 Laboratory Tests 05/25/16 05/26/16 05/26/16 15:00 06:00 06:00 WBC 5.4 D RBC 4.44 Hgb 13.9 Hct 40.5 MCV 91.3 MCHC 34.2 RDW 13.4 Plt Count 195 MPV 9.8 Sodium 141 Potassium 3.9 Chloride 102 Carbon Dioxide 30 Anion Gap 9 BUN 15 Creatinine 1.0 Creat Clearance w eGFR > 60 POC Glucometer Random Glucose 58 L D Calcium 9.1 Total Bilirubin 0.6 D AST 86 H D ALT 94 H D Alkaline Phosphatase 78 Total Protein 8.3 H Albumin 3.9 Urine Color Yellow Urine Appearance Clear Urine pH 5.0 Ur Specific [place] 1.024 Urine Protein Negative Urine Glucose (UA) Negative Urine Ketones Negative Urine Blood Negative Urine Nitrite Negative Urine Bilirubin Negative Urine Urobilinogen Negative Ur Leukocyte Esterase Trace H Urine RBC 1 Urine WBC 8 Ur Epithelial Cells Rare Urine Mucus Rare RPR Titer 05/26/16 05/28/16 05/29/16 06:00 05:51 05:34 WBC RBC Hgb Hct MCV MCHC RDW Plt Count MPV Sodium Potassium Chloride Carbon Dioxide Anion Gap BUN Creatinine Creat Clearance w eGFR POC Glucometer 111 105 Random Glucose Calcium Total Bilirubin AST ALT Alkaline Phosphatase Total Protein Albumin Urine Color Urine Appearance Urine pH Ur Specific [place] Urine Protein Urine Glucose (UA) Urine Ketones Urine Blood Urine Nitrite Urine Bilirubin Urine Urobilinogen Ur Leukocyte Esterase Urine RBC Urine WBC Ur Epithelial Cells Urine Mucus RPR Titer Nonreactive elevated lfts Assessment: 05/29/16 11:31 withdrawal sx Plan: cont detox, fluids, encourae ambulation
[2016-05-29 17:39] LABS: URINE APPEARANCE CLEAR; URINE BILIRUBIN NEGATIVE (NEGATIVE); URINE BLOOD NEGATIVE (NEGATIVE); URINE COLOR YELLOW; URINE GLUCOSE (UA) NEGATIVE (NEGATIVE); URINE KETONE NEGATIVE (NEGATIVE); URINE NITRITE NEGATIVE (NEGATIVE); URINE PROTEIN NEGATIVE (NEGATIVE); URINE UROBILINOGEN NEGATIVE E.U./dl (0.2-1.0)
[2016-05-29 17:41] LABS: URINE LEUK ESTERASE TRACE (NEGATIVE)
[2016-05-29 17:44] LABS: URINE MUCUS RARE; URINE RBC 1 /hpf (0-3); URINE WBC 6 /hpf (3-5)
[2016-05-29] MEDS: OLANZapine 7.5 MG TABLET PO SCH (22:34)
[2016-05-29] MEDS: THIAMINE HCL 100 MG TABLET (FP) PO SCH (22:34)
[2016-05-30] MEDS ORDERED: METHADONE HCL 10 MG TABLET ONE (03:30)
[2016-05-30] MEDS ORDERED: METHADONE HCL 40 MG DISPERSABLE TABLET ONE (03:30)
[2016-05-30] MEDS: METHADONE 40 MG, METHADONE 20 MG PO SCH (05:46)
[2016-05-30] MEDS: NICOTINE 21 MG/24 HOURS TOPICAL PATCH TD SCH (10:21)
[2016-05-30] MEDS: PRENATAL VITAMINS W/ FOLIC ACID TABLET (FP) PO SCH (10:22)
--- NOTE | 2016-05-30 11:50 | DS ---
[facility] Detox Discharge Summary Admission Date: 05/25/16 Discharge Date: 05/30/16 - History Present History: Alcohol Dependence, Cannabis Dependence, Cocaine Dependence, MMTP Pertinent Past History: Hep C - Physical Exam Results Vital Signs: Vital Signs Temperature 96.9 F L 05/30/16 09:23 Pulse Rate 74 05/30/16 09:23 Respiratory Rate 18 05/30/16 09:23 Blood Pressure 130/88 05/30/16 09:23 O2 Sat by Pulse Oximetry (%) Pertinent Admission Physical Exam Findings: Withdrawal sx. Laboratory Last Values WBC 5.4 K/mm3 (4.0-10.0) D 05/26/16 06:00 RBC 4.44 M/mm3 (4.00-5.60) 05/26/16 06:00 Hgb 13.9 GM/dL (11.7-16.9) 05/26/16 06:00 Hct 40.5 % (35.4-49) 05/26/16 06:00 MCV 91.3 fl (80-96) 05/26/16 06:00 MCHC 34.2 g/dl (32.0-35.9) 05/26/16 06:00 RDW 13.4 % (11.9-15.9) 05/26/16 06:00 Plt Count 195 K/MM3 (134-434) 05/26/16 06:00 MPV 9.8 fl (7.5-11.1) 05/26/16 06:00 Sodium 141 mmol/L (136-145) 05/26/16 06:00 Potassium 3.9 mmol/L (3.5-5.1) 05/26/16 06:00 Chloride 102 mmol/L (98-107) 05/26/16 06:00 Carbon Dioxide 30 mmol/L (21-32) 05/26/16 06:00 Anion Gap 9 (8-16) 05/26/16 06:00 BUN 15 mg/dL (7-18) 05/26/16 06:00 Creatinine 1.0 mg/dL (0.7-1.3) 05/26/16 06:00 Creat Clearance w eGFR > 60 (>60) 05/26/16 06:00 POC Glucometer 112 UNITS (()) 05/30/16 05:44 Random Glucose 58 mg/dL (74-106) L D 05/26/16 06:00 Calcium 9.1 mg/dL (8.5-10.1) 05/26/16 06:00 Total Bilirubin 0.6 mg/dL (0.2-1.0) D 05/26/16 06:00 AST 86 U/L (15-37) H D 05/26/16 06:00 ALT 94 U/L (12-78) H D 05/26/16 06:00 Alkaline Phosphatase 78 U/L (45-117) 05/26/16 06:00 Total Protein 8.3 g/dl (6.4-8.2) H 05/26/16 06:00 Albumin 3.9 g/dl (3.4-5.0) 05/26/16 06:00 Urine Color Yellow 05/29/16 17:29 Urine Appearance Clear 05/29/16 17:29 Urine pH 5.0 (5.0-8.0) 05/29/16 17:29 Ur Specific [place] 1.013 (1.001-1.035) 05/29/16 17:29 Urine Protein Negative (NEGATIVE) 05/29/16 17:29 Urine Glucose (UA) Negative (NEGATIVE) 05/29/16 17:29 Urine Ketones Negative (NEGATIVE) 05/29/16 17:29 Urine Blood Negative (NEGATIVE) 05/29/16 17:29 Urine Nitrite Negative (NEGATIVE) 05/29/16 17:29 Urine Bilirubin Negative (NEGATIVE) 05/29/16 17:29 Urine Urobilinogen Negative E.U./dl (0.2-1.0) 05/29/16 17:29 Ur Leukocyte Esterase Trace (NEGATIVE) H 05/29/16 17:29 Urine RBC 1 /hpf (0-3) 05/29/16 17:29 Urine WBC 6 /hpf (3-5) 05/29/16 17:29 Ur Epithelial Cells Rare /hpf (FEW) 05/29/16 17:29 Urine Mucus Rare 05/29/16 17:29 RPR Titer Nonreactive (NONREACTIVE) 05/26/16 06:00 labs noted - Treatment Hospital Course: Detox Protocol Followed, Detoxed Safely, Responded well, Discharged Condition Good, Rehab Referral Accepted Patient has Accepted a Rehab Referral to: [facility] - Medication Discharge Medications: Ambulatory Orders Olanzapine [Zyprexa] 10 mg PO DAILY 05/25/16 Olanzapine [Zyprexa] 15 mg PO HS #30 tablet 05/25/16 Zolpidem Tartrate [Ambien] 10 mg PO HS 05/25/16 - Diagnosis (1) Alcohol dependence with uncomplicated withdrawal Current Visit: Yes Status: Acute (2) Hepatitis C Current Visit: Yes Status: Acute Qualifiers: Viral hepatitis chronicity: chronic Hepatic coma status: without hepatic coma Qualified Code(s): B18.2 - Chronic viral hepatitis C (3) Insomnia Current Visit: Yes Status: Acute (4) Marijuana dependence Current Visit: Yes Status: Acute (5) Nicotine dependence Current Visit: Yes Status: Acute Qualifiers: Nicotine product type: cigarettes Substance use status: uncomplicated Qualified Code(s): F17.210 - Nicotine dependence, cigarettes, uncomplicated (6) Opioid dependence on agonist therapy Current Visit: Yes Status: Acute (7) Substance induced mood disorder Current Visit: Yes Status: Acute - AMA Did Patient Leave Against Medical Advice: No
[2016-05-30 13:11] VITALS: BP 125/81; PULSE 83; TEMP 96
== END 2016-05-30 15:06 | disposition home or self-care (01) | DRG 773 ==
LOC: YASAS 10:04 → Y6N 12:14 → Y3N 05-27 15:34
PROVIDERS: ADMIT Internal Medicine Addiction Medicine; ATTEND Internal Medicine
PROC: HZ2ZZZZ Detoxification Services for Substance Abuse Treatment (ICD-10-PCS; principal; 2016-05-25)
DX: F10.230 Alcohol dependence with withdrawal, uncomplicated (principal); F11.20 Opioid dependence, uncomplicated; F14.20 Cocaine dependence, uncomplicated; F12.20 Cannabis dependence, uncomplicated; F17.210 Nicotine dependence, cigarettes, uncomplicated; F19.24 Other psychoactive substance dependence with psychoactive substance-induced mood disorder; B18.2 Chronic viral hepatitis C; G47.00 Insomnia, unspecified; R94.5 Abnormal results of liver function studies; S00.11XA Contusion of right eyelid and periocular area, initial encounter; S00.511A Abrasion of lip, initial encounter; Y04.0XXA Assault by unarmed brawl or fight, initial encounter; Y93.9 Activity, unspecified; Y92.9 Unspecified place or not applicable
CPT/HCPCS: 36415; 80053; 81003; 81015; 85027; 86593; 93005; 93010

== ENCOUNTER 2017-01-02 08:37 | Inpatient (IN) | payer OTHER ==
[2017-01-02 10:03] VITALS: BMI 17.8
--- NOTE | 2017-01-02 12:44 | HP ---
CIWA Score - CIWA Score Nausea/Vomitin Muscle Tremors: 3 Anxiety: 3 Agitation: 3 Paroxysmal Sweats: 2 Orientation: 0-Oriented Tacttile Disturbances: 2-Mild Itch/Numbness/Burn Auditory Disturbances: 2-Mild Harshness/Frighten Visual Disturbances: 2-Mild Sensitivity Headache: 2-Mild CIWA-Ar Total Score: 22 Admission ROS BHS - HPI Chief Complaint: i need help to stop using alcohol,xanax,mmtp 60 mgs/day cocaine dependence Allergies/Adverse Reactions: Allergies Allergy/AdvReac Type Severity Reaction Status Date / Time No Known Allergies Allergy Verified 01/02/17 10:43 History of Present Illness: this 46 years old male with alcohol,cocaine and xanax dependence mmtp,seeking detox,last treatment [facility] 11/29 weight loss multiple treatment in the past nicotine dependence longest period of sobriety 5 years - Ebola screening Have you traveled outside of the country in the last 21 days: No Have you had contact with anyone from an Ebola affected area: No Have you been sick,other than usual withdrawal symptoms: No - Review of Systems Constitutional: Loss of Appetite, Malaise, Night Sweats, Changes in sleep, Weakness, Unexplained wgt Loss EENT: reports: Tearing, Nose Congestion Respiratory: reports: No Symptoms reported Cardiac: reports: Palpitations GI: reports: Diarrhea, Nausea, Vomiting, Abdominal cramping : reports: No Symptoms Reported Musculoskeletal: reports: Back Pain, Muscle Pain Integumentary: reports: Dryness Neuro: reports: Headache, Tremors Endocrine: reports: No Symptoms Reported Hematology: reports: No Symptoms Reported Psychiatric: reports: No Sypmtoms Reported Other Systems: Reviewed and Negative Patient History - Patient Medical History Hx Anemia: No Hx Asthma: No Hx Chronic Obstructive Pulmonary Disease (COPD): No Hx Cancer: No Hx Cardiac Disorders: No Hx Congestive Heart Failure: No Hx Hypertension: No Hx Hypercholesterolemia: No Hx Pacemaker: No HX Cerebrovascular Accident: No Hx Seizures: No Hx Dementia: No Hx Diabetes: No Hx Gastrointestinal Disorders: No Hx Liver Disease: No Hx Genitourinary Disorders: No Hx Sexually Transmitted Disorders: No Hx Renal Disease (ESRD): No Hx Thyroid Disease: No Hx Human Immunodeficiency Virus (HIV): No (negative last 03/01) Hx Hepatitis C: Yes (under the care of pmd) Hx Depression: Yes Hx Suicide Attempt: No Hx Bipolar Disorder: Yes Hx Schizophrenia: No Other Medical History: no suicidal,no homicidal - Patient Surgical History Past Surgical History: No Hx Neurologic Surgery: No Hx Cataract Extraction: No Hx Cardiac Surgery: No Hx Lung Surgery: No Hx Breast Surgery: No Hx Breast Biopsy: No Hx Abdominal Surgery: No Hx Appendectomy: No Hx Cholecystectomy: No Hx Genitourinary Surgery: No Hx Section: No Hx Orthopedic Surgery: No Anesthesia Reaction: No - PPD History Previous Implant?: Yes Documented Results: Negative w/proof Implanted On Prior [facility] Admission?: Yes Date: 03/03/16 Results: 0 mm PPD to be Administered?: No - Smoking Cessation Smoking history: Current every day smoker Have you smoked in the past 12 months: Yes Aproximately how many cigarettes per day: 20 Hx Chewing Tobacco Use: No Initiated information on smoking cessation: Yes 'Breaking Loose' booklet given: 01/02/17 - Substance & Tx. History Hx Alcohol Use: Yes Hx Substance Use: Yes Substance Use Type: Alcohol, Cocaine, Tranquilizers Hx Substance Use Treatment: Yes ([facility] 11/29) - Substances Abused Cocaine Route: Injection Frequency: Daily Amount used: $200 Age of first use: 44 Date of Last Use: 12/31/16 Heroin Route: Injection Frequency: 1-2 times per week Amount used: 3 bags Age of first use: 21 Date of Last Use: 12/31/16 Alcohol-vodka/beer Route: Oral Frequency: Daily Amount used: 2 qts./1-6 pk. Age of first use: 21 Date of Last Use: 01/01/17 Xanax Route: Oral Frequency: Daily Amount used: 6 mg. Age of first use: 41 Date of Last Use: 12/31/16 Family Disease History - Family Disease History Family Disease History: Diabetes: Mother ( esrd), Other: Father ( esrd) Admission Physical Exam BHS - Vital Signs Vital Signs: Vital Signs - 24 hr 01/02/17 10:01 Temperature 96.1 F L Pulse Rate 113 H Respiratory 20 Rate Blood Pressure 111/62 - Physical General Appearance: Yes: Moderate Distress, Tremorous, Irritable, Sweating, Anxious HEENTM: Yes: Normocephalic, ILIR, Pharynx Normal, Tm's normal Respiratory: Yes: Lungs Clear, Normal Breath Sounds, No Respiratory Distress Neck: Yes: Within Normal Limits, Supple, Trachea in good position Breast: Yes: Within Normal Limits Cardiology: Yes: Within Normal Limits, Regular Rhythm, Regular Rate, S1, S2 Abdominal: Yes: Within Normal Limits, Normal Bowel Sounds, Non Tender, Soft Genitourinary: Yes: Within Normal Limits Back: Yes: Muscle Spasm Musculoskeletal: Yes: full range of Motion, Back pain, Muscle Pain Extremities: Yes: Within Normal Limits, Normal Range of Motion, Tremors Neurological: Yes: wallcovering texturer II-XII NML intact, Alert, Motor Strength 5/5 Integumentary: Yes: Dry Lymphatic: Yes: Within Normal Limits - Diagnostic (1) Alcohol dependence with uncomplicated withdrawal Current Visit: No Status: Acute (2) Hepatitis C Current Visit: No Status: Acute Qualifiers: Viral hepatitis chronicity: chronic Hepatic coma status: without hepatic coma Qualified Code(s): B18.2 - Chronic viral hepatitis C (3) Insomnia Current Visit: No Status: Acute (4) Nicotine dependence Current Visit: No Status: Acute Qualifiers: Nicotine product type: cigarettes Substance use status: uncomplicated Qualified Code(s): F17.210 - Nicotine dependence, cigarettes, uncomplicated (5) Opioid dependence on agonist therapy Current Visit: No Status: Acute (6) Sedative/hypnotic withdrawal without complication Current Visit: No Status: Acute (7) Weight loss Current Visit: No Status: Acute (8) Cocaine dependence Current Visit: No Status: Chronic Qualifiers: Substance use status: uncomplicated Qualified Code(s): F14.20 - Cocaine dependence, uncomplicated (9) Methadone maintenance therapy patient Current Visit: No Status: Chronic Comment: received 60mg today; pending verification Cleared for Admission [facility] - Detox or Rehab [facility] Level of Care: Medically Managed Detox Regimen/Protocol: Valium [facility] Breath Alcohol Content Breath Alcohol Content: 0 Urine Drug Screen - Results Drug Screen Negative: No Urine Drug Screen Results: MONIKA-Cocaine, OPI-Opiates, MTD-Methadone
[2017-01-02] MEDS ORDERED: hydrOXYzine PAMOATE 25 MG CAPSULE (FP) PO PRN (13:08)
[2017-01-02] MEDS ORDERED: MENTHOL/PHENOL 1 EACH UD MM PRN (13:08)
[2017-01-02] MEDS ORDERED: P-EPHED 60MG/TRIPROLIDI 2.5MG TABLET PO PRN (13:08)
[2017-01-02] MEDS ORDERED: MAGNESIUM CITRATE 300 ML BOTTLE PO PRN (13:08)
[2017-01-02] MEDS ORDERED: LOPERAMIDE HCL 2 MG CAPSULE PO PRN (13:08)
[2017-01-02] MEDS ORDERED: ACETAMINOPHEN 325 MG TABLET (FP) PO PRN (13:08)
[2017-01-02] MEDS ORDERED: IBUPROFEN 400 MG TABLET (FP) PO PRN (13:08)
[2017-01-02] MEDS ORDERED: MAGNESIUM HYDROX 2400MG/30ML ORAL SUSPENSION 30 ML CUP PO PRN (13:08)
[2017-01-02] MEDS ORDERED: diazePAM 5 MG TABLET PO ONE (13:16)
[2017-01-02] MEDS: NICOTINE 21 MG/24 HOURS TOPICAL PATCH TD SCH (14:03)
[2017-01-02] MEDS: diazePAM 5 MG TABLET PO SCH ×2 (14:03→22:09)
[2017-01-02 15:02] LABS: HIV 1 & 2 AB NEGATIVE; HIV 1 AGp24 NEGATIVE
--- NOTE | 2017-01-02 16:50 | CONSULT ---
[facility] Psychiatric Consult - Data Date of interview: 01/02/17 Admission source: [facility] Identifying data: Another admission to [facility] for this 46 y/o male seeking detox treatment on for alcohol,cocaine and xanax dependence.Patient is ,a father of two,domiciled,unemployed and supported on SSI benefits. Substance Abuse History: Mr Gibbs admits to active use of axanax,cocaine and alcohol as detailed in [facility] report. Smoking history: Current every day smoker. Have you smoked in the past 12 months: Yes. Aproximately how many cigarettes per day: 20. Hx Chewing Tobacco Use: No. Initiated information on smoking cessation: Yes. 'Breaking Loose' booklet given: 01/02/17. - Substance & Tx. History. Hx Alcohol Use: Yes. Hx Substance Use: Yes. Substance Use Type: Alcohol, Cocaine, Tranquilizers. Hx Substance Use Treatment: Yes ([facility] 11/29). - Substances Abused. Cocaine. Route: Injection. Frequency: Daily. Amount used: $200. Age of first use: 44. Date of Last Use: 12/31/16. Heroin. Route: Injection. Frequency: 1-2 times per week. Amount used: 3 bags. Age of first use: 21. Date of Last Use: 12/31/16. Alcohol-vodka/beer. Route: Oral. Frequency: Daily. Amount used: 2 qts./1-6 pk. Age of first use: 21. Date of Last Use: 01/01/17. Xanax. Route: Oral. Frequency: Daily. Amount used: 6 mg. Age of first use: 41. Date of Last Use: 12/31/16 Medical History: Hepatitis C. Psychiatric History: Diagnosed with Bipolar Disorder.Still prescribed zyprexa 15 mg/hs + ambien 10 mg/hs.Mr Gibbs used to see a psychiatrist,Dr Musa,at the [facility] in the [place].No OPD care since his psychiatrist left the facility (past two months).Now in search of another outpatient program.Patient denies history of psychiatric hospitalizations.Currently on methadone maintenance (60 mg/day).Patient admits to a history of one suicide attempt five years ago (overdose with medications). Physical/Sexual Abuse/Trauma History: No reported history of abuse. Additional Comment: Urine Drug Screen Results: MONIKA-Cocaine, OPI-Opiates, MTD- Methadone.Noted. Mental Status Exam - Mental Status Exam Alert and Oriented to: Time, Place, Person Cognitive Function: Good Patient Appearance: Well Groomed Mood: Nervous, Withdrawn, Anxious Affect: Mood Congruent Patient Behavior: Fatigued, Appropriate, Cooperative Speech Pattern: Clear Voice Loudness: Normal Thought Process: Goal Oriented Thought Disorder: Not Present Hallucinations: Denies Suicidal Ideation: Denies Homicidal Ideation: Denies Insight/Judgement: Poor Sleep: Poorly, Difficulty falling asleep Appetite: Good Muscle strength/Tone: Normal Gait/Station: Normal Psychiatric Findings - Problem List ([place] 1, 2,3) (1) Alcohol dependence with uncomplicated withdrawal Current Visit: Yes Status: Acute (2) Opioid dependence on agonist therapy Current Visit: No Status: Acute (3) Sedative/hypnotic withdrawal without complication Current Visit: Yes Status: Acute (4) Cocaine dependence Current Visit: Yes Status: Acute Qualifiers: Substance use status: uncomplicated Qualified Code(s): F14.20 - Cocaine dependence, uncomplicated (5) Nicotine dependence Current Visit: Yes Status: Acute Qualifiers: Nicotine product type: cigarettes Substance use status: uncomplicated Qualified Code(s): F17.210 - Nicotine dependence, cigarettes, uncomplicated (6) Substance induced mood disorder Current Visit: Yes Status: Acute (7) Bipolar disorder Current Visit: Yes Status: Chronic Comment: As per self-report.On medications.Known to [facility]. (8) Insomnia Current Visit: Yes Status: Acute - Initial Treatment Plan Initial Treatment Plan: Psychoeducation.Detoxification.Medications : zyprexa 10 mg po hs + ambien 10 mg po hs prn.Side effects/benefits of each medication are discussed with the patient.He agrees with this careplan.Observation.
[2017-01-02 17:36] LABS: URINE APPEARANCE TURBID; URINE BILIRUBIN NEGATIVE (NEGATIVE); URINE BLOOD NEGATIVE (NEGATIVE); URINE COLOR YELLOW; URINE GLUCOSE (UA) NEGATIVE (NEGATIVE); URINE KETONE NEGATIVE (NEGATIVE); URINE NITRITE NEGATIVE (NEGATIVE); URINE PROTEIN NEGATIVE (NEGATIVE); URINE UROBILINOGEN NEGATIVE mg/dL (0.2-1.0)
[2017-01-02] MEDS: diazePAM 5 MG TABLET PO PRN (18:16)
[2017-01-02] MEDS: ZOLPIDEM TARTRATE 10 MG TABLET (PARK CARE ONLY) PO PRN (22:09)
[2017-01-02] MEDS: THIAMINE HCL 100 MG TABLET (FP) PO SCH (22:09)
[2017-01-02] MEDS: OLANZapine 10 MG TABLET PO SCH (22:09)
[2017-01-02 22:15] LABS: URINE LEUK ESTERASE Negative (NEGATIVE)
[2017-01-03] MEDS: diazePAM 5 MG TABLET PO PRN ×4 (02:47→19:02)
[2017-01-03] MEDS: guaiFENesin/D-METHORPHAN HB 10 ML UNIT-DOSE CUPS PO PRN (02:47)
[2017-01-03] MEDS ORDERED: METHADONE HCL 10 MG TABLET ONE (05:02)
[2017-01-03] MEDS ORDERED: METHADONE HCL 40 MG DISPERSABLE TABLET ONE (05:03)
[2017-01-03] MEDS: diazePAM 5 MG TABLET PO SCH ×3 (05:21→22:03)
[2017-01-03] MEDS: METHADONE 40 MG, METHADONE 20 MG PO SCH (05:21)
[2017-01-03] MEDS ORDERED: METHADONE HCL 40 MG DISPERSABLE TABLET PO SCH (06:00)
[2017-01-03 10:01] LABS: MCH 29.8 pg (25.7-33.7); MCHC 33.1 g/dl (32.0-35.9); MEAN CELL VOLUME 90.2 fl (80-96); PLATELET COUNT 243 K/MM3 (134-434); RDW 14.2 % (11.9-15.9); WHITE BLOOD COUNT 5.7 K/mm3 (4.0-10.0)
[2017-01-03] MEDS: NICOTINE 21 MG/24 HOURS TOPICAL PATCH TD SCH (10:28)
[2017-01-03] MEDS: PRENATAL VITAMINS W/ FOLIC ACID TABLET (FP) PO SCH (10:28)
[2017-01-03 10:54] LABS: ALBUMIN 3.6 g/dl (3.4-5.0); ALK PHOS 73 U/L (45-117); ANION GAP 7 (8-16); BILIRUBIN,TOTAL 0.6 mg/dL (0.2-1.0); CALCIUM 9.1 mg/dL (8.5-10.1); CO2 27 mmol/L (21-32); CREATININE 0.9 mg/dL (0.7-1.3); GLUCOSE,RANDOM 113 mg/dL (74-106); SGOT/AST 79 U/L (15-37); SGPT/ALT 65 U/L (12-78); TOT PROT 7.7 g/dl (6.4-8.2)
[2017-01-03] MEDS ORDERED: cloNIDine HCL 0.1 MG TABLET PO ONE (10:55)
[2017-01-03] MEDS ORDERED: FLU VACCINE QUAD 60 MCG/0.5 ML (MDV 17-18) IM ONE (12:00)
--- NOTE | 2017-01-03 12:57 | PN ---
[facility] CIWA - CIWA Score Nausea/Vomitin Muscle Tremors: None Anxiety: 5 Agitation: 5 Paroxysmal Sweats: No Perspiration Orientation: 0-Oriented Tacttile Disturbances: 3-Moderate Itch/Numb/Burn Auditory Disturbances: 0-None Visual Disturbances: 0-None Headache: 3-Moderate CIWA-Ar Total Score: 21 S Progress Note (SOAP) Subjective: Body Aches, Interrupted Sleep, Diarrhea, Anxious, Agitated, H/A, Vomiting. Objective: PT. A & O X 3, OBSERVED AMBULATING ON UNIT. NO ACUTE DISTRESS. 01/03/17 12:53 Vital Signs Temperature 97.5 F L 01/03/17 10:00 Pulse Rate 60 01/03/17 10:00 Respiratory Rate 18 01/03/17 10:00 Blood Pressure 106/70 01/03/17 10:00 O2 Sat by Pulse Oximetry (%) Laboratory Tests 01/02/17 01/02/17 01/03/17 12:00 13:44 06:00 WBC 5.7 RBC 4.62 Hgb 13.8 Hct 41.7 MCV 90.2 MCH 29.8 MCHC 33.1 RDW 14.2 Plt Count 243 D MPV 10.0 Sodium Potassium Chloride Carbon Dioxide Anion Gap BUN Creatinine Creat Clearance w eGFR Random Glucose Calcium Total Bilirubin AST ALT Alkaline Phosphatase Total Protein Albumin Urine Color Yellow Urine Appearance Turbid Urine pH 7.0 D Ur Specific [place] 1.016 Urine Protein Negative Urine Glucose (UA) Negative Urine Ketones Negative Urine Blood Negative Urine Nitrite Negative Urine Bilirubin Negative Urine Urobilinogen Negative Ur Leukocyte Esterase Negative RPR Titer HIV 1&2 Antibody Screen Negative HIV P24 Antigen Negative 01/03/17 01/03/17 06:00 06:00 WBC RBC Hgb Hct MCV MCH MCHC RDW Plt Count MPV Sodium 139 Potassium 4.2 Chloride 105 Carbon Dioxide 27 Anion Gap 7 L BUN 13 Creatinine 0.9 Creat Clearance w eGFR > 60 Random Glucose 113 H D Calcium 9.1 Total Bilirubin 0.6 AST 79 H ALT 65 D Alkaline Phosphatase 73 Total Protein 7.7 Albumin 3.6 Urine Color Urine Appearance Urine pH Ur Specific [place] Urine Protein Urine Glucose (UA) Urine Ketones Urine Blood Urine Nitrite Urine Bilirubin Urine Urobilinogen Ur Leukocyte Esterase RPR Titer Nonreactive HIV 1&2 Antibody Screen HIV P24 Antigen LABS NOTED. Assessment: 11/21/17 12:54 WITHDRAWAL SYMPTOMS. Plan: CONTINUE DETOX. INCREASE DAILY PO FLUID INTAKE. CLONIDINE, 0.1 MG PO X 1 FOR DETOX SYMPTOMS. PRN FLEXERIL PO FOR BODY ACHES / MUSCLE SPASMS. REPEAT AST ON 01/05/2017 FOR ELEVATED ADMISSION LEVEL.
[2017-01-03] MEDS: MAG HYDROX/AL HYDROX/SIMETH 30 ML UNIT-DOSE CUP PO PRN (13:13)
--- NOTE | 2017-01-03 13:20 | EKG ---
Test Reason : Blood Pressure : / mmHG Vent. Rate : 052 BPM Atrial Rate : 052 BPM P-R Int : 160 ms QRS Dur : 094 ms QT Int : 430 ms P-R-T Axes : 063 086 076 degrees QTc Int : 399 ms SINUS BRADYCARDIA RIGHT AXIS DEVIATION WHEN COMPARED WITH ECG OF 25-MAY-2016 12:32, NONSPECIFIC T WAVE ABNORMALITY NO LONGER EVIDENT IN INFERIOR LEADS T WAVE INVERSION NO LONGER EVIDENT IN ANTERIOR LEADS QT HAS SHORTENED CLINICAL CORRELATION IS RECOMMENDED Confirmed by RIKY REMY MD ([id number]) on 01/03/2017 1:19:35 PM Referred By: Confirmed By:RIKY REMY MD
[2017-01-03] MEDS: CYCLOBENZAPRINE HCL 10 MG TABLET (FP) PO PRN ×2 (14:47→22:03)
[2017-01-03] MEDS: ZOLPIDEM TARTRATE 10 MG TABLET (PARK CARE ONLY) PO PRN (22:03)
[2017-01-03] MEDS: OLANZapine 10 MG TABLET PO SCH (22:03)
[2017-01-03] MEDS: THIAMINE HCL 100 MG TABLET (FP) PO SCH (22:03)
[2017-01-04] MEDS ORDERED: METHADONE HCL 10 MG TABLET ONE (04:54)
[2017-01-04] MEDS ORDERED: METHADONE HCL 40 MG DISPERSABLE TABLET ONE (04:55)
[2017-01-04] MEDS: METHADONE 40 MG, METHADONE 20 MG PO SCH (05:21)
[2017-01-04] MEDS: diazePAM 5 MG TABLET PO PRN ×2 (05:39→17:22)
[2017-01-04] MEDS: NICOTINE 21 MG/24 HOURS TOPICAL PATCH TD SCH (10:38)
[2017-01-04] MEDS: diazePAM 5 MG TABLET PO SCH ×2 (10:38→22:05)
[2017-01-04] MEDS: PRENATAL VITAMINS W/ FOLIC ACID TABLET (FP) PO SCH (10:38)
[2017-01-04] MEDS: guaiFENesin/D-METHORPHAN HB 10 ML UNIT-DOSE CUPS PO PRN ×2 (11:02→23:30)
--- NOTE | 2017-01-04 11:19 | PN ---
S CIWA - CIWA Score Nausea/Vomitin Muscle Tremors: 2 Anxiety: 4-Mod. Anxious/Guarded Agitation: 4-Moderately Restless Paroxysmal Sweats: No Perspiration Orientation: 2-Disoriented Date<2 days Tacttile Disturbances: 1-Very Mild Itch/Numbness Auditory Disturbances: 0-None Visual Disturbances: 0-None Headache: 0-None Present CIWA-Ar Total Score: 18 B[facility] Progress Note (SOAP) Subjective: Tremors, Fatigue, Body Aches, Anxious, Vomiting, Interrupted Sleep. Objective: PT. A & O X 2 (UNCERTAIN ABOUT DAY / DATE). PT. OBSERVED AMBULATING ON UNIT. NO ACUTE DISTRESS. 01/04/17 11:17 Vital Signs Temperature 96.2 F L 01/04/17 09:42 Pulse Rate 61 01/04/17 09:42 Respiratory Rate 18 01/04/17 09:42 Blood Pressure 104/73 01/04/17 09:42 O2 Sat by Pulse Oximetry (%) Laboratory Tests 01/02/17 01/02/17 01/03/17 12:00 13:44 06:00 WBC 5.7 RBC 4.62 Hgb 13.8 Hct 41.7 MCV 90.2 MCH 29.8 MCHC 33.1 RDW 14.2 Plt Count 243 D MPV 10.0 Sodium Potassium Chloride Carbon Dioxide Anion Gap BUN Creatinine Creat Clearance w eGFR Random Glucose Calcium Total Bilirubin AST ALT Alkaline Phosphatase Total Protein Albumin Urine Color Yellow Urine Appearance Turbid Urine pH 7.0 D Ur Specific [place] 1.016 Urine Protein Negative Urine Glucose (UA) Negative Urine Ketones Negative Urine Blood Negative Urine Nitrite Negative Urine Bilirubin Negative Urine Urobilinogen Negative Ur Leukocyte Esterase Negative RPR Titer HIV 1&2 Antibody Screen Negative HIV P24 Antigen Negative 01/03/17 01/03/17 06:00 06:00 WBC RBC Hgb Hct MCV MCH MCHC RDW Plt Count MPV Sodium 139 Potassium 4.2 Chloride 105 Carbon Dioxide 27 Anion Gap 7 L BUN 13 Creatinine 0.9 Creat Clearance w eGFR > 60 Random Glucose 113 H D Calcium 9.1 Total Bilirubin 0.6 AST 79 H ALT 65 D Alkaline Phosphatase 73 Total Protein 7.7 Albumin 3.6 Urine Color Urine Appearance Urine pH Ur Specific [place] Urine Protein Urine Glucose (UA) Urine Ketones Urine Blood Urine Nitrite Urine Bilirubin Urine Urobilinogen Ur Leukocyte Esterase RPR Titer Nonreactive HIV 1&2 Antibody Screen HIV P24 Antigen LABS NOTED. Assessment: 01/04/17 11:18 WITHDRAWAL SYMPTOMS. Plan: CONTINUE DETOX. INCREASE DAILY PO FLUID INTAKE.
[2017-01-04] MEDS: BACITRACIN 0.9 GM PACKET TP SCH ×2 (14:05→22:04)
[2017-01-04] MEDS: CYCLOBENZAPRINE HCL 10 MG TABLET (FP) PO PRN (22:04)
[2017-01-04] MEDS: THIAMINE HCL 100 MG TABLET (FP) PO SCH (22:04)
[2017-01-04] MEDS: ZOLPIDEM TARTRATE 10 MG TABLET (PARK CARE ONLY) PO PRN (22:04)
[2017-01-04] MEDS: OLANZapine 10 MG TABLET PO SCH (22:05)
[2017-01-05] MEDS: diazePAM 5 MG TABLET PO PRN ×2 (01:35→07:53)
[2017-01-05] MEDS ORDERED: METHADONE HCL 10 MG TABLET ONE (03:34)
[2017-01-05] MEDS ORDERED: METHADONE HCL 40 MG DISPERSABLE TABLET ONE (03:34)
[2017-01-05] MEDS: MAG HYDROX/AL HYDROX/SIMETH 30 ML UNIT-DOSE CUP PO PRN (04:44)
[2017-01-05] MEDS: METHADONE 40 MG, METHADONE 20 MG PO SCH (05:46)
[2017-01-05 10:29] LABS: SGOT/AST 77 U/L (15-37); SGPT/ALT 78 U/L (12-78)
[2017-01-05] MEDS: NICOTINE 21 MG/24 HOURS TOPICAL PATCH TD SCH (10:51)
[2017-01-05] MEDS: PRENATAL VITAMINS W/ FOLIC ACID TABLET (FP) PO SCH (10:51)
[2017-01-05] MEDS: BACITRACIN 0.9 GM PACKET TP SCH ×2 (10:51→22:22)
[2017-01-05] MEDS: diazePAM 5 MG TABLET PO SCH ×2 (10:52→22:22)
--- NOTE | 2017-01-05 14:32 | PN ---
[facility] Progress Note (SOAP) Subjective: Interrupted Sleep, Vomiting, Fatigue, Anxious, Body Aches. Objective: PT. A & O X 2 (UNCERTAIN ABOUT CURRENT LOCATION). PT. OBSERVED AMBULATING ON UNIT. NO ACUTE DISTRESS. 01/05/17 14:29 Vital Signs Temperature 97.6 F 01/05/17 08:54 Pulse Rate 82 01/05/17 08:54 Respiratory Rate 18 01/05/17 08:54 Blood Pressure 122/75 01/05/17 08:54 O2 Sat by Pulse Oximetry (%) Laboratory Tests 01/02/17 01/02/17 01/03/17 12:00 13:44 06:00 WBC 5.7 RBC 4.62 Hgb 13.8 Hct 41.7 MCV 90.2 MCH 29.8 MCHC 33.1 RDW 14.2 Plt Count 243 D MPV 10.0 Sodium Potassium Chloride Carbon Dioxide Anion Gap BUN Creatinine Creat Clearance w eGFR Random Glucose Calcium Total Bilirubin AST ALT Alkaline Phosphatase [place]ia Total Protein Albumin Urine Color Yellow Urine Appearance Turbid Urine pH 7.0 D Ur Specific [place] 1.016 Urine Protein Negative Urine Glucose (UA) Negative Urine Ketones Negative Urine Blood Negative Urine Nitrite Negative Urine Bilirubin Negative Urine Urobilinogen Negative Ur Leukocyte Esterase Negative RPR Titer HIV 1&2 Antibody Screen Negative HIV P24 Antigen Negative 01/03/17 01/03/17 01/05/17 06:00 06:00 07:40 WBC RBC Hgb Hct MCV MCH MCHC RDW Plt Count MPV Sodium 139 Potassium 4.2 Chloride 105 Carbon Dioxide 27 Anion Gap 7 L BUN 13 Creatinine 0.9 Creat Clearance w eGFR > 60 Random Glucose 113 H D Calcium 9.1 Total Bilirubin 0.6 AST 79 H 77 H ALT 65 D 78 Alkaline Phosphatase 73 Ammonia Total Protein 7.7 Albumin 3.6 Urine Color Urine Appearance Urine pH Ur Specific [place] Urine Protein Urine Glucose (UA) Urine Ketones Urine Blood Urine Nitrite Urine Bilirubin Urine Urobilinogen Ur Leukocyte Esterase RPR Titer Nonreactive HIV 1&2 Antibody Screen HIV P24 Antigen 01/05/17 09:00 WBC RBC Hgb Hct MCV MCH MCHC RDW Plt Count MPV Sodium Potassium Chloride Carbon Dioxide Anion Gap BUN Creatinine Creat Clearance w eGFR Random Glucose Calcium Total Bilirubin AST ALT Alkaline Phosphatase Ammonia 20.3 Total Protein Albumin Urine Color Urine Appearance Urine pH Ur Specific [place] Urine Protein Urine Glucose (UA) Urine Ketones Urine Blood Urine Nitrite Urine Bilirubin Urine Urobilinogen Ur Leukocyte Esterase RPR Titer HIV 1&2 Antibody Screen HIV P24 Antigen LABS NOTED. RESULT OF [place]MONIA LEVEL NOTED. 01/05/17 14:30 Assessment: 01/05/17 14:30 WITHDRAWAL SYMPTOMS. Plan: CONTINUE DETOX. INCREASE DAILY PO FLUID INTAKE.
[2017-01-05] MEDS ORDERED: ZOLPIDEM TARTRATE 10 MG TABLET (PARK CARE ONLY) PO PRN (16:48)
[2017-01-05] MEDS: OLANZapine 10 MG TABLET PO SCH (22:22)
[2017-01-05] MEDS: THIAMINE HCL 100 MG TABLET (FP) PO SCH (22:22)
[2017-01-06] MEDS ORDERED: METHADONE HCL 10 MG TABLET ONE (04:51)
[2017-01-06] MEDS ORDERED: METHADONE HCL 40 MG DISPERSABLE TABLET ONE (04:52)
[2017-01-06] MEDS: METHADONE 40 MG, METHADONE 20 MG PO SCH (05:21)
[2017-01-06] MEDS ORDERED: diazePAM 5 MG TABLET PO SCH (10:00)
[2017-01-06 10:18] VITALS: BP 115/75; PULSE 87; TEMP 96.2
[2017-01-06] MEDS: NICOTINE 21 MG/24 HOURS TOPICAL PATCH TD SCH (10:45)
[2017-01-06] MEDS: BACITRACIN 0.9 GM PACKET TP SCH (10:45)
[2017-01-06] MEDS: PRENATAL VITAMINS W/ FOLIC ACID TABLET (FP) PO SCH (10:45)
--- NOTE | 2017-01-06 12:39 | DS ---
[facility] Detox Discharge Summary Admission Date: 01/02/17 Discharge Date: 01/06/17 - History Present History: Alcohol Dependence, Cocaine Dependence, Opioid Dependence, Sedative Dependence, MMTP Additional Comments: PATIENT GOING TO [facility] FOR AFTERCARE. PATIENT WAS DISCHARGED FROM DETOX UNIT IN STABLE MEDICAL CONDITION. Pertinent Past History: Depression, Bipolar Disorder, Hep C, Weight Loss, Nicotine Dependence, Insomnia , MMTP. - Physical Exam Results Vital Signs: Vital Signs Temperature 96.2 F L 01/06/17 10:00 Pulse Rate 87 01/06/17 10:00 Respiratory Rate 18 01/06/17 10:00 Blood Pressure 115/75 01/06/17 10:00 O2 Sat by Pulse Oximetry (%) Pertinent Admission Physical Exam Findings: WITHDRAWAL SYMPTOMS. Laboratory Tests 01/02/17 01/02/17 01/03/17 12:00 13:44 06:00 WBC 5.7 RBC 4.62 Hgb 13.8 Hct 41.7 MCV 90.2 MCH 29.8 MCHC 33.1 RDW 14.2 Plt Count 243 D MPV 10.0 Sodium Potassium Chloride Carbon Dioxide Anion Gap BUN Creatinine Creat Clearance w eGFR Random Glucose Calcium Total Bilirubin AST ALT Alkaline Phosphatase [place]ia Total Protein Albumin Urine Color Yellow Urine Appearance Turbid Urine pH 7.0 D Ur Specific [place] 1.016 Urine Protein Negative Urine Glucose (UA) Negative Urine Ketones Negative Urine Blood Negative Urine Nitrite Negative Urine Bilirubin Negative Urine Urobilinogen Negative Ur Leukocyte Esterase Negative RPR Titer HIV 1&2 Antibody Screen Negative HIV P24 Antigen Negative 01/03/17 01/03/17 01/05/17 06:00 06:00 07:40 WBC RBC Hgb Hct MCV MCH MCHC RDW Plt Count MPV Sodium 139 Potassium 4.2 Chloride 105 Carbon Dioxide 27 Anion Gap 7 L BUN 13 Creatinine 0.9 Creat Clearance w eGFR > 60 Random Glucose 113 H D Calcium 9.1 Total Bilirubin 0.6 AST 79 H 77 H ALT 65 D 78 Alkaline Phosphatase 73 Ammonia Total Protein 7.7 Albumin 3.6 Urine Color Urine Appearance Urine pH Ur Specific [place] Urine Protein Urine Glucose (UA) Urine Ketones Urine Blood Urine Nitrite Urine Bilirubin Urine Urobilinogen Ur Leukocyte Esterase RPR Titer Nonreactive HIV 1&2 Antibody Screen HIV P24 Antigen 01/05/17 09:00 WBC RBC Hgb Hct MCV MCH MCHC RDW Plt Count MPV Sodium Potassium Chloride Carbon Dioxide Anion Gap BUN Creatinine Creat Clearance w eGFR Random Glucose Calcium Total Bilirubin AST ALT Alkaline Phosphatase [place]ia 20.3 Total Protein Albumin Urine Color Urine Appearance Urine pH Ur Specific [place] Urine Protein Urine Glucose (UA) Urine Ketones Urine Blood Urine Nitrite Urine Bilirubin Urine Urobilinogen Ur Leukocyte Esterase RPR Titer HIV 1&2 Antibody Screen HIV P24 Antigen LABS NOTED. - Treatment Hospital Course: Detox Protocol Followed, Detoxed Safely, Responded well, Discharged Condition Good, Rehab Referral Accepted Patient has Accepted a Rehab Referral to: [facility]. - Medication Discharge Medications: Ambulatory Orders Olanzapine [Zyprexa] 15 mg PO HS #30 tablet 05/25/16 - Diagnosis (1) Alcohol dependence with uncomplicated withdrawal Current Visit: Yes Status: Acute (2) Cocaine dependence Current Visit: Yes Status: Acute Qualifiers: Substance use status: uncomplicated Qualified Code(s): F14.20 - Cocaine dependence, uncomplicated (3) Opioid dependence on agonist therapy Current Visit: Yes Status: Chronic (4) Methadone maintenance therapy patient Current Visit: Yes Status: Chronic (5) Sedative/hypnotic withdrawal without complication Current Visit: Yes Status: Acute (6) Insomnia Current Visit: Yes Status: Acute Qualifiers: Insomnia type: unspecified Qualified Code(s): G47.00 - Insomnia, unspecified (7) Nicotine dependence Current Visit: Yes Status: Acute Qualifiers: Nicotine product type: cigarettes Substance use status: uncomplicated Qualified Code(s): F17.210 - Nicotine dependence, cigarettes, uncomplicated (8) Substance induced mood disorder Current Visit: Yes Status: Acute (9) Bipolar disorder Current Visit: Yes Status: Chronic (10) Hepatitis C Current Visit: No Status: Acute Qualifiers: Viral hepatitis chronicity: chronic Hepatic coma status: without hepatic coma Qualified Code(s): B18.2 - Chronic viral hepatitis C (11) Weight loss Current Visit: No Status: Acute - AMA Did Patient Leave Against Medical Advice: No
== END 2017-01-06 12:59 | disposition other institution (70) | DRG 773 ==
LOC: YASAS 08:37 → Y3N 12:32
PROVIDERS: ADMIT Internal Medicine; ATTEND Internal Medicine
PROC: HZ2ZZZZ Detoxification Services for Substance Abuse Treatment (ICD-10-PCS; principal; 2017-01-02)
DX: F13.230 Sedative, hypnotic or anxiolytic dependence with withdrawal, uncomplicated (principal); F10.230 Alcohol dependence with withdrawal, uncomplicated; F11.20 Opioid dependence, uncomplicated; F14.20 Cocaine dependence, uncomplicated; F17.210 Nicotine dependence, cigarettes, uncomplicated; F19.24 Other psychoactive substance dependence with psychoactive substance-induced mood disorder; F31.9 Bipolar disorder, unspecified; G47.00 Insomnia, unspecified; B18.2 Chronic viral hepatitis C; Z87.898 Personal history of other specified conditions
CPT/HCPCS: 36415; 80053; 81003; 82140; 84450; 84460; 85027; 86593; 87389; 90688; 93005; 93010

== ENCOUNTER 2017-01-06 13:05 | Inpatient (IN) | payer OTHER ==
--- NOTE | 2017-01-06 13:13 | HP ---
[facility] Rehab Assess/Revision - Admission History Admitted to Rehab from: [facility] Date of Admission to Rehab: 01/06/2017 - Vital signs Vital Signs: NOTED; STABLE. - Findings Detox History & Physical reviewed: Yes Concur with findings: Yes Comments/Additional Findings: PATIENT'S MEDICAL / MEDICATION HISTORY REVIEWED PRIOR TO DISCHARGE FROM DETOX UNIT. PATIENT WAS DISCHARGED FROM DETOX UNIT TO BE TAKEN TO REHAB UNIT IN STABLE MEDICAL CONDTION. Inpatient Rehab Admission - Initial Determination Are CD services needed?: Yes Free of communicable disease: Yes Not in need of hospitalization: Yes - Rehab Admission Criteria Previous failed treatment: Yes Comorbidities: Yes Patient is meeting Inpatient Rehab admission criteria:: Yes
[2017-01-06] MEDS ORDERED: P-EPHED 60MG/TRIPROLIDI 2.5MG TABLET PO PRN (13:17)
[2017-01-06] MEDS ORDERED: hydrOXYzine PAMOATE 25 MG CAPSULE (FP) PO PRN (13:17)
[2017-01-06] MEDS ORDERED: IBUPROFEN 400 MG TABLET (FP) PO PRN (13:17)
[2017-01-06] MEDS ORDERED: guaiFENesin/D-METHORPHAN HB 10 ML UNIT-DOSE CUPS PO PRN (13:17)
[2017-01-06] MEDS ORDERED: MENTHOL/PHENOL 1 EACH UD MM PRN (13:17)
[2017-01-06] MEDS ORDERED: LOPERAMIDE HCL 2 MG CAPSULE PO PRN (13:17)
[2017-01-06] MEDS ORDERED: MAGNESIUM HYDROX 2400MG/30ML ORAL SUSPENSION 30 ML CUP PO PRN (13:17)
[2017-01-06] MEDS ORDERED: MAGNESIUM CITRATE 300 ML BOTTLE PO PRN (13:17)
--- NOTE | 2017-01-06 15:15 | HP ---
Psychiatrist Admission - Data Date of interview: 01/06/17 Admission source: 3N Identifying data: This is the first 5N inpatient rehabilitation admission for this 46 year old male father of 2(26 and 16) he is domiciled, unemployed supported on SSI. Medical History: Hep C, smokes cigaretts 1 PPD. On MMTP 60 mg daily. Psychiatric History: Reports was diagnosed with Bipolar disorder, he reports two psychiatric hospitalizations at [facility] in [place] in 's, sees the psychiatrist at [facility] in the [place] and currently on Zyprexa 15 mg po hs and Ambien 10 mg po hs, seen by and continue meds, reports 5 years ago od with medications. Physical/Sexual Abuse/Trauma History: denies history of sexual, physical and verbal abuse. Allergies/Adverse Reactions: Allergies Allergy/AdvReac Type Severity Reaction Status Date / Time No Known Allergies Allergy Verified 01/06/17 13:28 Date of last physical exam: 01/01/17 Concur with the findings of this exam: Yes - Substance Abuse/Tx History Hx Alcohol Use: Yes (started first at age of 21, daily 2 qtr vodka, 1-2 pk beer) Hx Substance Use: Yes Substance Use Type: Cocaine ($200 daily ), Tranquilizers (xaxan up to 6 mg daily ) Hx Substance Use Treatment: Yes Mental Status Exam - Mental Status Exam Alert and Oriented to: Time, Place, Person Cognitive Function: Good Patient Appearance: Well Groomed Mood: Sad, Anxious Affect: Constricted Patient Behavior: Appropriate, Cooperative Speech Pattern: Clear, Appropriate Voice Loudness: Normal Thought Process: Intact, Goal Oriented Thought Disorder: Not Present Hallucinations: Denies Suicidal Ideation: Denies Homicidal Ideation: Denies Insight/Judgement: Fair Sleep: Poorly, Difficulty falling asleep Appetite: Poor, Weight loss (30 lbs over few months) Psychiatric Findings - Problem List ([place] 1, 2,3) (1) Cocaine dependence Current Visit: No Status: Acute Qualifiers: Substance use status: uncomplicated Qualified Code(s): F14.20 - Cocaine dependence, uncomplicated (2) Hepatitis C Current Visit: No Status: Acute Qualifiers: Viral hepatitis chronicity: chronic Hepatic coma status: without hepatic coma Qualified Code(s): B18.2 - Chronic viral hepatitis C (3) Marijuana dependence Current Visit: No Status: Acute (4) Nicotine dependence Current Visit: No Status: Acute Qualifiers: Nicotine product type: cigarettes Substance use status: uncomplicated Qualified Code(s): F17.210 - Nicotine dependence, cigarettes, uncomplicated (5) Bipolar disorder Current Visit: No Status: Chronic Comment: As per self-report.On medications.Known to [facility]. (6) Opioid dependence on agonist therapy Current Visit: No Status: Chronic (7) Alcohol dependence Current Visit: Yes Status: Acute - Initial Treatment Plan Initial Treatment Plan: will continue Zyprexa 15 mg po hs , add Belsomra(side- effects /benefits discussed) 10 mg po hs , contineu to monitor rpogress.
[2017-01-06] MEDS: MAG HYDROX/AL HYDROX/SIMETH 30 ML UNIT-DOSE CUP PO PRN (17:34)
[2017-01-06] MEDS: OLANZapine 7.5 MG TABLET PO SCH (21:26)
[2017-01-06] MEDS: THIAMINE HCL 100 MG TABLET (FP) PO SCH (21:26)
[2017-01-06] MEDS: SUVOREXANT 10 MG TABLET PO SCH (21:28)
[2017-01-07] MEDS ORDERED: METHADONE HCL 10 MG TABLET PO SCH (06:00)
[2017-01-07] MEDS ORDERED: METHADONE HCL 40 MG DISPERSABLE TABLET ONE (06:12)
[2017-01-07] MEDS ORDERED: METHADONE HCL 10 MG TABLET ONE (06:13)
[2017-01-07] MEDS: METHADONE 40 MG, METHADONE 20 MG PO SCH (06:38)
[2017-01-07] MEDS: PRENATAL VITAMINS W/ FOLIC ACID TABLET (FP) PO SCH (10:06)
[2017-01-07] MEDS: NICOTINE 21 MG/24 HOURS TOPICAL PATCH TD SCH (10:06)
[2017-01-07] MEDS ORDERED: PNEUMOC 13-VAL CONJ-DIP CRM/PF 0.5 ML DISP.SYRIN IM ONE (12:00)
[2017-01-07] MEDS ORDERED: PNEUMOCOCCAL 23 VACCINE 0.5 ML VIAL IM ONE (12:00)
[2017-01-07] MEDS: ACETAMINOPHEN 325 MG TABLET (FP) PO PRN (15:33)
[2017-01-07] MEDS: SUVOREXANT 10 MG TABLET PO SCH (21:21)
[2017-01-07] MEDS: THIAMINE HCL 100 MG TABLET (FP) PO SCH (21:21)
[2017-01-07] MEDS: OLANZapine 7.5 MG TABLET PO SCH (21:21)
[2017-01-08] MEDS ORDERED: METHADONE HCL 40 MG DISPERSABLE TABLET ONE (03:11)
[2017-01-08] MEDS ORDERED: METHADONE HCL 10 MG TABLET ONE (03:11)
[2017-01-08] MEDS: METHADONE 40 MG, METHADONE 20 MG PO SCH (06:40)
[2017-01-08] MEDS: PRENATAL VITAMINS W/ FOLIC ACID TABLET (FP) PO SCH (10:07)
[2017-01-08] MEDS: NICOTINE 21 MG/24 HOURS TOPICAL PATCH TD SCH (10:08)
[2017-01-08 11:47] LABS: HIV 1 & 2 AB NEGATIVE; HIV 1 AGp24 NEGATIVE
[2017-01-08] MEDS: MAG HYDROX/AL HYDROX/SIMETH 30 ML UNIT-DOSE CUP PO PRN (14:33)
[2017-01-08] MEDS: ACETAMINOPHEN 325 MG TABLET (FP) PO PRN (14:35)
[2017-01-08] MEDS: OLANZapine 7.5 MG TABLET PO SCH (21:23)
[2017-01-08] MEDS: THIAMINE HCL 100 MG TABLET (FP) PO SCH (21:23)
[2017-01-08] MEDS: SUVOREXANT 10 MG TABLET PO SCH (21:23)
[2017-01-09] MEDS ORDERED: METHADONE HCL 10 MG TABLET ONE (03:43)
[2017-01-09] MEDS ORDERED: METHADONE HCL 40 MG DISPERSABLE TABLET ONE (03:44)
[2017-01-09] MEDS: METHADONE 40 MG, METHADONE 20 MG PO SCH (06:05)
[2017-01-09] MEDS: PRENATAL VITAMINS W/ FOLIC ACID TABLET (FP) PO SCH (09:53)
[2017-01-09] MEDS: NICOTINE 21 MG/24 HOURS TOPICAL PATCH TD SCH (09:53)
[2017-01-09] MEDS: ACETAMINOPHEN 325 MG TABLET (FP) PO PRN (14:41)
[2017-01-09] MEDS: SUVOREXANT 10 MG TABLET PO SCH (21:29)
[2017-01-09] MEDS: OLANZapine 7.5 MG TABLET PO SCH (21:29)
[2017-01-09] MEDS: THIAMINE HCL 100 MG TABLET (FP) PO SCH (21:29)
[2017-01-10] MEDS ORDERED: METHADONE HCL 10 MG TABLET ONE (05:05)
[2017-01-10] MEDS ORDERED: METHADONE HCL 40 MG DISPERSABLE TABLET ONE (05:05)
[2017-01-10] MEDS: METHADONE 40 MG, METHADONE 20 MG PO SCH (06:29)
[2017-01-10] MEDS: PRENATAL VITAMINS W/ FOLIC ACID TABLET (FP) PO SCH (10:15)
[2017-01-10] MEDS: HYDROCHLOROTHIAZIDE 12.5 MG CAPSULE (FP) PO SCH (10:15)
[2017-01-10] MEDS: NICOTINE 21 MG/24 HOURS TOPICAL PATCH TD SCH (10:16)
[2017-01-10] MEDS: MAG HYDROX/AL HYDROX/SIMETH 30 ML UNIT-DOSE CUP PO PRN (14:35)
[2017-01-10] MEDS: OLANZapine 7.5 MG TABLET PO SCH (21:26)
[2017-01-10] MEDS: THIAMINE HCL 100 MG TABLET (FP) PO SCH (21:26)
[2017-01-10] MEDS: SUVOREXANT 10 MG TABLET PO SCH (21:26)
[2017-01-11] MEDS ORDERED: METHADONE HCL 10 MG TABLET ONE (03:07)
[2017-01-11] MEDS ORDERED: METHADONE HCL 40 MG DISPERSABLE TABLET ONE (03:08)
[2017-01-11] MEDS: METHADONE 40 MG, METHADONE 20 MG PO SCH (06:27)
[2017-01-11] MEDS: PRENATAL VITAMINS W/ FOLIC ACID TABLET (FP) PO SCH (10:27)
[2017-01-11] MEDS: HYDROCHLOROTHIAZIDE 12.5 MG CAPSULE (FP) PO SCH (10:27)
[2017-01-11] MEDS: NICOTINE 21 MG/24 HOURS TOPICAL PATCH TD SCH (10:27)
[2017-01-11] MEDS: OLANZapine 7.5 MG TABLET PO SCH (21:17)
[2017-01-11] MEDS: THIAMINE HCL 100 MG TABLET (FP) PO SCH (21:18)
[2017-01-11] MEDS: SUVOREXANT 10 MG TABLET PO SCH (21:19)
[2017-01-12] MEDS ORDERED: METHADONE HCL 10 MG TABLET ONE (03:09)
[2017-01-12] MEDS ORDERED: METHADONE HCL 40 MG DISPERSABLE TABLET ONE (03:09)
[2017-01-12] MEDS: METHADONE 40 MG, METHADONE 20 MG PO SCH (06:17)
[2017-01-12 06:48] VITALS: TEMP 97.4
[2017-01-12 08:44] VITALS: BP 116/67; PULSE 81
[2017-01-12] MEDS: NICOTINE 21 MG/24 HOURS TOPICAL PATCH TD SCH (10:00)
[2017-01-12] MEDS: PRENATAL VITAMINS W/ FOLIC ACID TABLET (FP) PO SCH (10:00)
[2017-01-12] MEDS: HYDROCHLOROTHIAZIDE 12.5 MG CAPSULE (FP) PO SCH (10:00)
--- NOTE | 2017-01-12 15:19 | PN ---
Psychiatric Progress Note Vital Signs: Vital Signs Period Temp Pulse Resp BP Sys/Kaplan Pulse Ox Last 24 Hr 97.4 F 78-81 18-18 97-116/67-76 Date of Session: 01/12/17 Chief Complaint:: " I am leaving" HPI: Patient is a 46 year old male who was admitted on 01/06 to address his cocaine, cannabis, alcohol , opioid dependence comorbid Bipolar disorder. ROS: Hep C Current Medications: Active Medications Generic Name Dose Route Start Last Admin Trade Name Freq PRN Reason Stop Dose Admin Acetaminophen 650 mg 01/06/17 13:17 01/09/17 14:41 Tylenol - PO 650 mg Q4H PRN Administration FEVER OR PAIN Al Hydroxide/Mg Hydroxide 30 ml 01/06/17 13:17 01/10/17 14:35 Mylanta Oral Suspension - PO 30 ml Q6H PRN Administration DYSPEPSIA Eucalyptus/Menthol/Phenol/Sorbitol 1 each 01/06/17 13:17 01/07/17 15:35 Cepastat Lozenge - MM 1 each Q4H PRN Administration SORE THROAT Guaifenesin 10 ml 01/06/17 13:17 01/07/17 15:34 Robitussin Dm - PO 10 ml Q6H PRN Administration COUGH Hydrochlorothiazide 12.5 mg 01/10/17 10:00 01/12/17 10:00 Hctz - PO 12.5 mg DAILY STEPHY Administration Hydroxyzine Pamoate 25 mg 01/06/17 13:17 Vistaril - PO Q4H PRN AGITATION Loperamide HCl 4 mg 01/06/17 13:17 Imodium - PO Q6H PRN DIARRHEA Magnesium Citrate 300 ml 01/06/17 13:17 Citroma - PO Q48H PRN CONSTIPATION Magnesium Hydroxide 30 ml 01/06/17 13:17 Milk Of Magnesia - PO DAILY PRN CONSTIPATION Methadone HCl 40 mg/ Methadone 60 mg 01/07/17 06:00 01/12/17 06:17 HCl 20 mg PO 60 mg DAILY@0600 STEPHY Administration Nicotine 21 mg 01/07/17 10:00 01/12/17 10:00 Nicoderm Patch - TD 21 mg DAILY STEPHY Administration Olanzapine 15 mg 01/06/17 22:00 01/11/17 21:17 Zyprexa - PO 15 mg HS STEPHY Administration Multivit/Folic Acid/Iron 1 tab 01/07/17 10:00 01/12/17 10:00 Vitamins (Sjr) - PO 1 tab DAILY STEPHY Administration Pseudoephedrine/Triprolidine 1 combo 01/06/17 13:17 Actifed - PO TID PRN NASAL CONGESTION Thiamine HCl 100 mg 01/06/17 22:00 01/11/17 21:18 Vitamin B1 - PO 100 mg HS STEPHY Administration Current Side Effect: No Lab tests ordered: No Lab tests reviewed: Yes Provider note:: Met with the patient to explore reasons to terminate his treatment at this time, 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 Patient's scripts for Zyprexa 15 mg po hs e-transferred to his pharmacy, patient appears stable for ama. Total face to face time:: 15 Mental Status Exam - Mental Status Exam Alert and Oriented to: Time, Place, Person Cognitive Function: Grossly Intact Patient Appearance: Well Groomed Mood: Anxious Affect: Appropriate, Mood Congruent Patient Behavior: Appropriate, Cooperative Speech Pattern: Clear, Appropriate Voice Loudness: Normal Thought Process: Goal Oriented Thought Disorder: Not Present Hallucinations: Denies Suicidal Ideation: Denies Homicidal Ideation: Denies Insight/Judgement: Fair Sleep: Fair Appetite: Fair Muscle strength/Tone: Normal Gait/Station: Normal Psychiatric Treatment Plan - Problem List (1) Cocaine dependence Qualifiers: Substance use status: uncomplicated Qualified Code(s): F14.20 - Cocaine dependence, uncomplicated (2) Hepatitis C Qualifiers: Viral hepatitis chronicity: chronic Hepatic coma status: without hepatic coma Qualified Code(s): B18.2 - Chronic viral hepatitis C (4) Nicotine dependence Qualifiers: Nicotine product type: cigarettes Substance use status: uncomplicated Qualified Code(s): F17.210 - Nicotine dependence, cigarettes, uncomplicated (5) Bipolar disorder Comment: As per self-report.On medications.Known to [facility].
== END 2017-01-12 15:30 | disposition left against medical advice (07) | DRG 770 ==
LOC: YASAS 13:05 → Y5N 13:06
PROVIDERS: ADMIT Psychiatry & Neurology Psychiatry; ATTEND Psychiatry & Neurology Psychiatry
PROC: HZ42ZZZ Group Counseling for Substance Abuse Treatment, Cognitive-Behavioral (ICD-10-PCS; principal; 2017-01-06)
DX: F10.20 Alcohol dependence, uncomplicated (principal); F11.20 Opioid dependence, uncomplicated; F14.20 Cocaine dependence, uncomplicated; F12.20 Cannabis dependence, uncomplicated; F17.210 Nicotine dependence, cigarettes, uncomplicated; F31.9 Bipolar disorder, unspecified; B18.2 Chronic viral hepatitis C
CPT/HCPCS: 36415; 87389; 90732; G0009

== ENCOUNTER 2017-02-19 09:33 | Inpatient (IN) | payer OTHER ==
[2017-02-19 09:42] VITALS: BMI 19.3
--- NOTE | 2017-02-19 10:05 | HP ---
CIWA Score - CIWA Score Nausea/Vomitin Muscle Tremors: 3 Anxiety: 3 Agitation: 3 Paroxysmal Sweats: 2 Orientation: 0-Oriented Tacttile Disturbances: 2-Mild Itch/Numbness/Burn Auditory Disturbances: 2-Mild Harshness/Frighten Visual Disturbances: 0-None Headache: 2-Mild CIWA-Ar Total Score: 20 Admission ROS BHS - HPI Chief Complaint: i need help to stop drinking alcohol,cocaine,marijuana and xanax Allergies/Adverse Reactions: Allergies Allergy/AdvReac Type Severity Reaction Status Date / Time No Known Allergies Allergy Verified 02/19/17 10:26 History of Present Illness: this 46 years old male with alcohol,cocaine,marijuana,xanax,seeking detox,last treatment 01/02/17 to 01/06/17 [facility]hab not completed in rehab syncope alcohol related mmtp 30 mgs/day,last medicated today nicotine dependence longest period of sobriety 5 years - Ebola screening Have you traveled outside of the country in the last 21 days: No Have you had contact with anyone from an Ebola affected area: No Have you been sick,other than usual withdrawal symptoms: No - Review of Systems Constitutional: Loss of Appetite, Malaise, Night Sweats, Changes in sleep, Weakness, Unintentional Wgt. Loss EENT: reports: Nose Congestion Respiratory: reports: No Symptoms reported Cardiac: reports: No Symptoms Reported GI: reports: Diarrhea, Nausea, Vomiting, Abdominal cramping : reports: No Symptoms Reported Musculoskeletal: reports: Back Pain, Muscle Pain Integumentary: reports: Dryness Neuro: reports: Headache, Tremors Endocrine: reports: No Symptoms Reported Hematology: reports: No Symptoms Reported Psychiatric: reports: No Sypmtoms Reported Patient History - Patient Medical History Hx Anemia: No Hx Asthma: No Hx Chronic Obstructive Pulmonary Disease (COPD): No Hx Cancer: No Hx Cardiac Disorders: No Hx Congestive Heart Failure: No Hx Hypertension: No Hx Hypercholesterolemia: No Hx Pacemaker: No HX Cerebrovascular Accident: No Hx Seizures: No Hx Dementia: No Hx Diabetes: No Hx Gastrointestinal Disorders: No Hx Liver Disease: No Hx Genitourinary Disorders: No Hx Sexually Transmitted Disorders: No Hx Renal Disease (ESRD): No Hx Thyroid Disease: No Hx Human Immunodeficiency Virus (HIV): No (negative last 03/01) Hx Hepatitis C: Yes (under the care of pmd) Hx Depression: Yes Hx Suicide Attempt: No Hx Bipolar Disorder: Yes Hx Schizophrenia: No Other Medical History: no suicidal,no homicidal - Patient Surgical History Past Surgical History: No Hx Neurologic Surgery: No Hx Cataract Extraction: No Hx Cardiac Surgery: No Hx Lung Surgery: No Hx Breast Surgery: No Hx Breast Biopsy: No Hx Abdominal Surgery: No Hx Appendectomy: No Hx Cholecystectomy: No Hx Genitourinary Surgery: No Hx Section: No Hx Orthopedic Surgery: No Anesthesia Reaction: No - PPD History Previous Implant?: Yes Implanted On Prior [facility] Admission?: Yes Date: 03/03/16 Results: 0 mm PPD to be Administered?: Yes - Smoking Cessation Smoking history: Current every day smoker Have you smoked in the past 12 months: Yes Aproximately how many cigarettes per day: 20 Hx Chewing Tobacco Use: No Initiated information on smoking cessation: Yes 'Breaking Loose' booklet given: 02/19/17 - Substance & Tx. History Hx Alcohol Use: Yes Hx Substance Use: Yes Substance Use Type: Alcohol, Cocaine, Marijuana, Tranquilizers Hx Substance Use Treatment: Yes ([facility] 01/02/17 to 01/06/17) - Substances Abused Alcohol Route: Oral Frequency: Daily Amount used: 3 quarts of vodka/4 of 40 ozs of beer Age of first use: 19 Date of Last Use: 02/18/17 Cocaine Route: Injection Frequency: Daily Amount used: 100$ Age of first use: 46 Date of Last Use: 02/18/17 Marijuana/Hashish Route: Smoking Frequency: Daily Amount used: 20$ Age of first use: 16 Date of Last Use: 02/18/17 Alprazolam (Xanax) Route: Oral Frequency: 3-6 times per week (4 mgs) Amount used: 4 mgs Age of first use: 45 Date of Last Use: 02/17/17 Family Disease History - Family Disease History Family Disease History: Diabetes: Mother ( esrd), Other: Father ( esrd) Admission Physical Exam S - Vital Signs Vital Signs: Vital Signs - 24 hr 02/19/17 09:34 Temperature 96.7 F L Pulse Rate 65 Respiratory 18 Rate Blood Pressure 128/84 - Physical General Appearance: Yes: Moderate Distress, Tremorous, Irritable, Sweating, Anxious HEENTM: Yes: Normal ENT Inspection, ILIR, Pharynx Normal Respiratory: Yes: Within Normal Limits, Lungs Clear, Normal Breath Sounds, No Respiratory Distress Neck: Yes: Within Normal Limits, Supple, Trachea in good position Breast: Yes: Within Normal Limits Cardiology: Yes: Within Normal Limits, Regular Rhythm, Regular Rate, S1, S2 Abdominal: Yes: Within Normal Limits, Normal Bowel Sounds, Non Tender, Flat, Soft Genitourinary: Yes: Within Normal Limits Back: Yes: Muscle Spasm Extremities: Yes: Within Normal Limits, Normal Range of Motion, Tremors Neurological: Yes: shank burnisher II-XII NML intact, Fully Oriented, Alert, Motor Strength 5/5 Integumentary: Yes: Dry, Track Kelly Lymphatic: Yes: Within Normal Limits - Diagnostic (1) Alcohol dependence with uncomplicated withdrawal Current Visit: No Status: Acute (2) Cocaine dependence Current Visit: No Status: Acute Qualifiers: Substance use status: uncomplicated Qualified Code(s): F14.20 - Cocaine dependence, uncomplicated (3) Hepatitis C Current Visit: No Status: Acute Qualifiers: Viral hepatitis chronicity: chronic Hepatic coma status: without hepatic coma Qualified Code(s): B18.2 - Chronic viral hepatitis C (4) Marijuana dependence Current Visit: No Status: Acute (5) Nicotine dependence Current Visit: No Status: Acute Qualifiers: Nicotine product type: cigarettes Substance use status: uncomplicated Qualified Code(s): F17.210 - Nicotine dependence, cigarettes, uncomplicated (6) Sedative/hypnotic withdrawal without complication Current Visit: No Status: Acute (7) Weight loss Current Visit: No Status: Acute (8) Bipolar disorder Current Visit: No Status: Chronic Comment: As per self-report.On medications.Known to [facility] clinic. (9) Methadone maintenance therapy patient Current Visit: No Status: Chronic Comment: received 60mg today; pending verification Cleared for Admission S - Detox or Rehab [facility] Level of Care: Medically Managed Detox Regimen/Protocol: Valium S Breath Alcohol Content Breath Alcohol Content: 0 Urine Drug Screen - Results Drug Screen Negative: No Urine Drug Screen Results: THC-Marijuana, MONIKA-Cocaine, BZO-Benzodiazepines, MTD- Methadone
[2017-02-19] MEDS ORDERED: IBUPROFEN 400 MG TABLET (FP) PO PRN (10:18)
[2017-02-19] MEDS ORDERED: MENTHOL/PHENOL 1 EACH UD MM PRN (10:18)
[2017-02-19] MEDS ORDERED: diazePAM 5 MG TABLET PO ONE (10:18)
[2017-02-19] MEDS ORDERED: MAGNESIUM HYDROX 2400MG/30ML ORAL SUSPENSION 30 ML CUP PO PRN (10:18)
[2017-02-19] MEDS ORDERED: ACETAMINOPHEN 325 MG TABLET (FP) PO PRN (10:18)
[2017-02-19] MEDS ORDERED: MAGNESIUM CITRATE 300 ML BOTTLE PO PRN (10:18)
[2017-02-19] MEDS ORDERED: LOPERAMIDE HCL 2 MG CAPSULE PO PRN (10:18)
[2017-02-19] MEDS ORDERED: P-EPHED 60MG/TRIPROLIDI 2.5MG TABLET PO PRN (10:18)
[2017-02-19] MEDS ORDERED: guaiFENesin/D-METHORPHAN HB 10 ML UNIT-DOSE CUPS PO PRN (10:18)
[2017-02-19] MEDS ORDERED: hydrOXYzine PAMOATE 50 MG CAPSULE (FP) PO PRN (10:18)
[2017-02-19] MEDS: diazePAM 5 MG TABLET PO SCH ×2 (14:03→22:25)
[2017-02-19] MEDS: NICOTINE 21 MG/24 HOURS TOPICAL PATCH TD SCH (14:03)
[2017-02-19 16:20] LABS: URINE APPEARANCE SLCLOUDY; URINE BILIRUBIN NEGATIVE (NEGATIVE); URINE BLOOD NEGATIVE (NEGATIVE); URINE COLOR YELLOW; URINE GLUCOSE (UA) NEGATIVE (NEGATIVE); URINE KETONE NEGATIVE (NEGATIVE); URINE LEUK ESTERASE NEGATIVE (NEGATIVE); URINE NITRITE NEGATIVE (NEGATIVE); URINE PROTEIN NEGATIVE (NEGATIVE)
[2017-02-19] MEDS: diazePAM 5 MG TABLET PO PRN (17:10)
[2017-02-19] MEDS: THIAMINE HCL 100 MG TABLET (FP) PO SCH (22:25)
[2017-02-20] MEDS: diazePAM 5 MG TABLET PO SCH ×3 (05:37→22:23)
[2017-02-20] MEDS: METHADONE HCL 10 MG TABLET PO SCH (08:28)
[2017-02-20 10:12] LABS: HEMATOCRIT 44.2 % (35.4-49); HEMOGLOBIN 14.4 GM/dL (11.7-16.9); MCH 30.1 pg (25.7-33.7); MCHC 32.6 g/dl (32.0-35.9); MEAN CELL VOLUME 92.5 fl (80-96); MEAN PLT VOLUME 9.8 fl (7.5-11.1); PLATELET COUNT 220 K/MM3 (134-434); RBC 4.78 M/mm3 (4.00-5.60); RDW 14.6 % (11.9-15.9); WHITE BLOOD COUNT 5.3 K/mm3 (4.0-10.0)
[2017-02-20 10:14] LABS: CHLORIDE 103 mmol/L (98-107); POTASSIUM 4.9 mmol/L (3.5-5.1); SODIUM 138 mmol/L (136-145)
[2017-02-20] MEDS: diazePAM 5 MG TABLET PO PRN ×2 (10:22→17:10)
[2017-02-20] MEDS: PRENATAL VITAMINS W/ FOLIC ACID TABLET (FP) PO SCH (10:22)
[2017-02-20] MEDS: NICOTINE 21 MG/24 HOURS TOPICAL PATCH TD SCH (10:23)
[2017-02-20 10:25] LABS: ALBUMIN 3.2 g/dl (3.4-5.0); ALK PHOS 70 U/L (45-117); ANION GAP 4 (8-16); BILIRUBIN,TOTAL 0.5 mg/dL (0.2-1.0); BLOOD UREA NITROGEN 17 mg/dL (7-18); CALCIUM 8.5 mg/dL (8.5-10.1); CO2 31 mmol/L (21-32); CREATININE 0.9 mg/dL (0.7-1.3); GLUCOSE,RANDOM 84 mg/dL (74-106); SGOT/AST 60 U/L (15-37); SGPT/ALT 68 U/L (12-78); TOT PROT 7.2 g/dl (6.4-8.2)
--- NOTE | 2017-02-20 10:55 | CONSULT ---
[facility] Psychiatric Consult - Data Date of interview: 02/20/17 Admission source: [facility] Identifying data: Readmission to [facility] for this 46 y/o male seeking detox treatment on for alcohol,cocaine,marihuana and xanax dependence.Patient is ,a father of two,domiciled,unemployed and supported on SSI benefits. Substance Abuse History: Discussed in this session.Confirmed by patient.See details in current [facility] report : Smoking history: Current every day smoker. Have you smoked in the past 12 months: Yes. Aproximately how many cigarettes per day: 20. Hx Chewing Tobacco Use: No. Initiated information on smoking cessation: Yes. 'Breaking Loose' booklet given: 02/19/17. - Substance & Tx. History. Hx Alcohol Use: Yes. Hx Substance Use: Yes. Substance Use Type: Alcohol, Cocaine, Marijuana, Tranquilizers. Hx Substance Use Treatment: Yes ( [facility] 01/02/17 to 01/06/17). - Substances Abused. Alcohol. Route: Oral. Frequency: Daily. Amount used: 3 quarts of vodka/4 of 40 ozs of beer. Age of first use: 19. Date of Last Use: 02/18/17. Cocaine. Route: Injection. Frequency: Daily. Amount used: 100$. Age of first use: 46. Date of Last Use: 02/18/17. Marijuana/Hashish. Route: Smoking. Frequency: Daily. Amount used: 20$. Age of first use: 16. Date of Last Use: 02/18/17. Alprazolam ( Xanax). Route: Oral. Frequency: 3-6 times per week (4 mgs). Amount used: 4 mgs. Age of first use: 45. Date of Last Use: 02/17/17 Medical History: Hepatitis C. Psychiatric History: No changes in longitudinal history.Patient admits to one psychiatric hospitalization,at age 26,at [facility] ( retained for two months).Diagnosed with Bipolar Disorder.Mr Gibbs declares non- adherence to OPD care for past four months (neglected to follow with aftercare following discharge from [facility] in December 2016).Formerly known to Dr Musa ([facility] in the [place]).Used to be prescribed zyprexa 15 mg/hs + ambien 10 mg/hs.Mr Gibbs used to see a psychiatrist,Dr Musa,at the [facility] in the [place].Currently on methadone maintenance (30 mg/day ) at the [facility] program in the [place].History of one suicide attempt five years ago (overdose with medications). Physical/Sexual Abuse/Trauma History: Patient denies. Additional Comment: Urine Drug Screen Results: THC-Marijuana, MONIKA-Cocaine, BZO- Benzodiazepines, MTD-Methadone.Noted. Mental Status Exam - Mental Status Exam Alert and Oriented to: Time, Place, Person Cognitive Function: Good Patient Appearance: Well Groomed Mood: Hopeful, Euthymic Affect: Appropriate, Normal Range Patient Behavior: Cooperative Speech Pattern: Clear, Appropriate Voice Loudness: Normal Thought Process: Intact, Goal Oriented Thought Disorder: Not Present Hallucinations: Denies Suicidal Ideation: Denies Homicidal Ideation: Denies Insight/Judgement: Poor Sleep: Poorly, Difficulty falling asleep Appetite: Good Muscle strength/Tone: Normal Gait/Station: Normal Psychiatric Findings - Problem List ([place] 1, 2,3) (1) Alcohol dependence with uncomplicated withdrawal Current Visit: Yes Status: Acute (2) Opioid dependence on agonist therapy Current Visit: Yes Status: Chronic (3) Sedative/hypnotic withdrawal without complication Current Visit: Yes Status: Acute (4) Cocaine dependence Current Visit: Yes Status: Acute Qualifiers: Substance use status: uncomplicated Qualified Code(s): F14.20 - Cocaine dependence, uncomplicated (5) Marijuana dependence Current Visit: Yes Status: Acute (6) Nicotine dependence Current Visit: Yes Status: Acute Qualifiers: Nicotine product type: cigarettes Substance use status: uncomplicated Qualified Code(s): F17.210 - Nicotine dependence, cigarettes, uncomplicated (7) Substance induced mood disorder Current Visit: Yes Status: Acute (8) Bipolar disorder Current Visit: Yes Status: Chronic Comment: As per self-report.Known to [facility] clinic.Totally non-adherent to OPD care and medications. (9) Insomnia Current Visit: Yes Status: Acute Qualifiers: Insomnia type: unspecified Qualified Code(s): G47.00 - Insomnia, unspecified - Initial Treatment Plan Initial Treatment Plan: Psychoeducation.Old records revisited.Sleep hygiene.Detoxification in progress.Medications resumed as follows : zyprexa 10 mg po hs + ambien 10 mg hs prn.Side effects/benefits of both drugs are discussed with the patient.Consent (verbal) given.Observation.
--- NOTE | 2017-02-20 12:15 | PN ---
[facility] CIWA - CIWA Score Nausea/Vomitin-No Nausea/No Vomiting Muscle Tremors: 5 Anxiety: 4-Mod. Anxious/Guarded Agitation: 4-Moderately Restless Paroxysmal Sweats: 4-Forehead w/Sweat Beads Orientation: 0-Oriented Tacttile Disturbances: 1-Very Mild Itch/Numbness Auditory Disturbances: 0-None Visual Disturbances: 0-None Headache: 0-None Present CIWA-Ar Total Score: 18 BHS Progress Note (SOAP) Subjective: Agitated, anxious, angry, tremor, interrupted sleep Objective: 02/20/17 12:13 Last Vital Signs Temp Pulse Resp BP Pulse Ox 96.0 F L 73 18 135/87 02/20/17 11:07 02/20/17 11:07 02/20/17 11:07 02/20/17 11:07 Laboratory Tests 02/19/17 02/20/17 02/20/17 15:30 07:00 07:00 WBC RBC Hgb Hct MCV MCH MCHC RDW Plt Count MPV Sodium 138 Potassium 4.9 Chloride 103 Carbon Dioxide 31 Anion Gap 4 L BUN 17 D Creatinine 0.9 Creat Clearance w eGFR > 60 Random Glucose 84 D Calcium 8.5 Total Bilirubin 0.5 AST 60 H D ALT 68 Alkaline Phosphatase 70 Total Protein 7.2 Albumin 3.2 L Urine Color Yellow Urine Appearance Slcloudy Urine pH 6.0 Ur Specific [place] 1.027 Urine Protein Negative Urine Glucose (UA) Negative Urine Ketones Negative Urine Blood Negative Urine Nitrite Negative Urine Bilirubin Negative Urine Urobilinogen 2.0 Ur Leukocyte Esterase Negative RPR Titer Nonreactive HIV 1&2 Antibody Screen HIV P24 Antigen 02/20/17 02/20/17 07:00 08:00 WBC 5.3 RBC 4.78 Hgb 14.4 Hct 44.2 MCV 92.5 MCH 30.1 MCHC 32.6 RDW 14.6 Plt Count 220 MPV 9.8 Sodium Potassium Chloride Carbon Dioxide Anion Gap BUN Creatinine Creat Clearance w eGFR Random Glucose Calcium Total Bilirubin AST ALT Alkaline Phosphatase Total Protein Albumin Urine Color Urine Appearance Urine pH Ur Specific [place] Urine Protein Urine Glucose (UA) Urine Ketones Urine Blood Urine Nitrite Urine Bilirubin Urine Urobilinogen Ur Leukocyte Esterase RPR Titer HIV 1&2 Antibody Screen Negative HIV P24 Antigen Negative Labs noted Assessment: 02/20/17 12:14 Withdrawal symptoms Plan: Continue detox Encouraged to drink lots of water for hydration
--- NOTE | 2017-02-20 12:46 | EKG ---
Test Reason : Blood Pressure : / mmHG Vent. Rate : 059 BPM Atrial Rate : 059 BPM P-R Int : 148 ms QRS Dur : 086 ms QT Int : 436 ms P-R-T Axes : 051 086 073 degrees QTc Int : 431 ms SINUS BRADYCARDIA WITH SINUS ARRHYTHMIA OTHERWISE NORMAL ECG WHEN COMPARED WITH ECG OF 02-JAN-2017 15:16, NO SIGNIFICANT CHANGE WAS FOUND Confirmed by JUAN MANUEL LUNA MD ([id number]) on 02/20/2017 12:46:09 PM Referred By: Confirmed By:JUAN MANUEL LUNA MD
[2017-02-20] MEDS: MAG HYDROX/AL HYDROX/SIMETH 30 ML UNIT-DOSE CUP PO PRN (18:27)
[2017-02-20] MEDS: THIAMINE HCL 100 MG TABLET (FP) PO SCH (22:23)
[2017-02-20] MEDS: ZOLPIDEM TARTRATE 10 MG TABLET (PARK CARE ONLY) PO PRN (22:23)
[2017-02-20] MEDS: OLANZapine 10 MG TABLET PO SCH (22:23)
[2017-02-21] MEDS: METHADONE HCL 10 MG TABLET PO SCH (05:35)
[2017-02-21] MEDS: diazePAM 5 MG TABLET PO SCH ×2 (10:54→22:12)
[2017-02-21] MEDS: NICOTINE 21 MG/24 HOURS TOPICAL PATCH TD SCH (10:54)
[2017-02-21] MEDS: PRENATAL VITAMINS W/ FOLIC ACID TABLET (FP) PO SCH (10:54)
--- NOTE | 2017-02-21 12:49 | PN ---
S CIWA - CIWA Score Nausea/Vomitin Muscle Tremors: 3 Anxiety: 4-Mod. Anxious/Guarded Agitation: 4-Moderately Restless Paroxysmal Sweats: 2 Orientation: 0-Oriented Tacttile Disturbances: 0-None Auditory Disturbances: 0-None Visual Disturbances: 0-None Headache: 0-None Present CIWA-Ar Total Score: 18 BHS Progress Note (SOAP) Subjective: Sweating, chills, n/v, interrupted sleep, diarrhea Objective: 02/21/17 12:48 Last Vital Signs Temp Pulse Resp BP Pulse Ox 96.6 F L 68 18 105/70 02/21/17 10:00 02/21/17 10:00 02/21/17 10:00 02/21/17 10:00 Laboratory Tests 02/19/17 02/20/17 02/20/17 15:30 07:00 07:00 WBC RBC Hgb Hct MCV MCH MCHC RDW Plt Count MPV Sodium 138 Potassium 4.9 Chloride 103 Carbon Dioxide 31 Anion Gap 4 L BUN 17 D Creatinine 0.9 Creat Clearance w eGFR > 60 Random Glucose 84 D Calcium 8.5 Total Bilirubin 0.5 AST 60 H D ALT 68 Alkaline Phosphatase 70 Total Protein 7.2 Albumin 3.2 L Urine Color Yellow Urine Appearance Slcloudy Urine pH 6.0 Ur Specific [place] 1.027 Urine Protein Negative Urine Glucose (UA) Negative Urine Ketones Negative Urine Blood Negative Urine Nitrite Negative Urine Bilirubin Negative Urine Urobilinogen 2.0 Ur Leukocyte Esterase Negative RPR Titer Nonreactive HIV 1&2 Antibody Screen HIV P24 Antigen 02/20/17 02/20/17 07:00 08:00 WBC 5.3 RBC 4.78 Hgb 14.4 Hct 44.2 MCV 92.5 MCH 30.1 MCHC 32.6 RDW 14.6 Plt Count 220 MPV 9.8 Sodium Potassium Chloride Carbon Dioxide Anion Gap BUN Creatinine Creat Clearance w eGFR Random Glucose Calcium Total Bilirubin AST ALT Alkaline Phosphatase Total Protein Albumin Urine Color Urine Appearance Urine pH Ur Specific [place] Urine Protein Urine Glucose (UA) Urine Ketones Urine Blood Urine Nitrite Urine Bilirubin Urine Urobilinogen Ur Leukocyte Esterase RPR Titer HIV 1&2 Antibody Screen Negative HIV P24 Antigen Negative Labs noted Assessment: 02/21/17 12:49 Withdrawal symptoms Plan: Continue detox
[2017-02-21] MEDS: MAG HYDROX/AL HYDROX/SIMETH 30 ML UNIT-DOSE CUP PO PRN (17:20)
[2017-02-21] MEDS ORDERED: ONDANSETRON *ODT* 4 MG TABLET SL ONE (18:15)
[2017-02-21] MEDS: RANITIDINE HCL 150 MG TABLET (FP) PO SCH (22:12)
[2017-02-21] MEDS: THIAMINE HCL 100 MG TABLET (FP) PO SCH (22:12)
[2017-02-21] MEDS: ZOLPIDEM TARTRATE 10 MG TABLET (PARK CARE ONLY) PO PRN (22:13)
[2017-02-21] MEDS: OLANZapine 10 MG TABLET PO SCH (22:13)
[2017-02-22] MEDS: METHADONE HCL 10 MG TABLET PO SCH (05:48)
[2017-02-22] MEDS: PRENATAL VITAMINS W/ FOLIC ACID TABLET (FP) PO SCH (10:17)
[2017-02-22] MEDS: NICOTINE 21 MG/24 HOURS TOPICAL PATCH TD SCH (10:18)
[2017-02-22] MEDS: RANITIDINE HCL 150 MG TABLET (FP) PO SCH ×2 (10:18→22:23)
[2017-02-22] MEDS: diazePAM 5 MG TABLET PO SCH ×2 (10:18→22:23)
--- NOTE | 2017-02-22 14:40 | PN ---
S Progress Note (SOAP) Subjective: ANXIETY,SWEATS,FATIGUE. PT C/O BUMPING HIS 3RD LEFT TOE ON A CHAIR WHILE GETTING UP IN THE DAYROOM TV AREA. PT DENIED ANY MAJOR DISCOMFORT. Objective: 02/22/17 14:48 Vital Signs Temperature 98.4 F 02/22/17 13:13 Pulse Rate 67 02/22/17 13:13 Respiratory Rate 18 02/22/17 13:13 Blood Pressure 110/71 02/22/17 13:13 O2 Sat by Pulse Oximetry (%) Laboratory Last Values WBC 5.3 K/mm3 (4.0-10.0) 02/20/17 08:00 RBC 4.78 M/mm3 (4.00-5.60) 02/20/17 08:00 Hgb 14.4 GM/dL (11.7-16.9) 02/20/17 08:00 Hct 44.2 % (35.4-49) 02/20/17 08:00 MCV 92.5 fl (80-96) 02/20/17 08:00 MCH 30.1 pg (25.7-33.7) 02/20/17 08:00 MCHC 32.6 g/dl (32.0-35.9) 02/20/17 08:00 RDW 14.6 % (11.9-15.9) 02/20/17 08:00 Plt Count 220 K/MM3 (134-434) 02/20/17 08:00 MPV 9.8 fl (7.5-11.1) 02/20/17 08:00 Sodium 138 mmol/L (136-145) 02/20/17 07:00 Potassium 4.9 mmol/L (3.5-5.1) 02/20/17 07:00 Chloride 103 mmol/L (98-107) 02/20/17 07:00 Carbon Dioxide 31 mmol/L (21-32) 02/20/17 07:00 Anion Gap 4 (8-16) L 02/20/17 07:00 BUN 17 mg/dL (7-18) D 02/20/17 07:00 Creatinine 0.9 mg/dL (0.7-1.3) 02/20/17 07:00 Creat Clearance w eGFR > 60 (>60) 02/20/17 07:00 Random Glucose 84 mg/dL (74-106) D 02/20/17 07:00 Calcium 8.5 mg/dL (8.5-10.1) 02/20/17 07:00 Total Bilirubin 0.5 mg/dL (0.2-1.0) 02/20/17 07:00 AST 60 U/L (15-37) H D 02/20/17 07:00 ALT 68 U/L (12-78) 02/20/17 07:00 Alkaline Phosphatase 70 U/L (45-117) 02/20/17 07:00 Total Protein 7.2 g/dl (6.4-8.2) 02/20/17 07:00 Albumin 3.2 g/dl (3.4-5.0) L 02/20/17 07:00 Urine Color Yellow 02/19/17 15:30 Urine Appearance Slcloudy 02/19/17 15:30 Urine pH 6.0 (5.0-8.0) 02/19/17 15:30 Ur Specific [place] 1.027 (1.001-1.035) 02/19/17 15:30 Urine Protein Negative (NEGATIVE) 02/19/17 15:30 Urine Glucose (UA) Negative (NEGATIVE) 02/19/17 15:30 Urine Ketones Negative (NEGATIVE) 02/19/17 15:30 Urine Blood Negative (NEGATIVE) 02/19/17 15:30 Urine Nitrite Negative (NEGATIVE) 02/19/17 15:30 Urine Bilirubin Negative (NEGATIVE) 02/19/17 15:30 Urine Urobilinogen 2.0 mg/dL (0.2-1.0) 02/19/17 15:30 Ur Leukocyte Esterase Negative (NEGATIVE) 02/19/17 15:30 RPR Titer Nonreactive (NONREACTIVE) 02/20/17 07:00 HIV 1&2 Antibody Screen Negative 02/20/17 07:00 HIV P24 Antigen Negative 02/20/17 07:00 LEFT 3RD TOE: ABRASION ON DORSAL ASPECT. NO SWELLING NOTED. ACTIVE ROM TO JOINT. Assessment: 02/22/17 14:49 WITHDRAWAL SX Plan: CONTINUE DETOX
[2017-02-22] MEDS ORDERED: MIRTAZAPINE 15 MG TABLET (FP) PO SCH (22:00)
[2017-02-22] MEDS: THIAMINE HCL 100 MG TABLET (FP) PO SCH (22:22)
[2017-02-22] MEDS: ZOLPIDEM TARTRATE 10 MG TABLET (PARK CARE ONLY) PO PRN (22:22)
[2017-02-22] MEDS: OLANZapine 10 MG TABLET PO SCH (22:23)
[2017-02-23] MEDS: METHADONE HCL 10 MG TABLET PO SCH (06:10)
[2017-02-23 06:33] VITALS: BP 135/78; PULSE 75; TEMP 96.5
[2017-02-23] MEDS ORDERED: diazePAM 5 MG TABLET PO SCH (10:00)
--- NOTE | 2017-02-23 12:45 | DS ---
[facility] Detox Discharge Summary Admission Date: 02/19/17 Discharge Date: 02/23/17 - History Present History: Alcohol Dependence, Cannabis Dependence, Cocaine Dependence, Sedative Dependence, MMTP - Physical Exam Results Vital Signs: Vital Signs Temperature 96.5 F L 02/23/17 06:32 Pulse Rate 75 02/23/17 06:32 Respiratory Rate 18 02/23/17 06:32 Blood Pressure 135/78 02/23/17 06:32 O2 Sat by Pulse Oximetry (%) - Treatment Hospital Course: Detox Protocol Followed, Detoxed Safely, Responded well, Discharged Condition Good Patient has Accepted a Rehab Referral to: [facility] IOP - Medication Discharge Medications: Ambulatory Orders Olanzapine [Zyprexa -] 10 mg PO DAILY #30 tablet 02/20/17 - Diagnosis (1) Abrasion foot/toe Status: Acute (2) Alcohol dependence Status: Acute (3) Cocaine dependence Status: Chronic Qualifiers: Substance use status: uncomplicated Qualified Code(s): F14.20 - Cocaine dependence, uncomplicated (4) Hepatitis C Status: Chronic Qualifiers: Viral hepatitis chronicity: chronic Hepatic coma status: without hepatic coma Qualified Code(s): B18.2 - Chronic viral hepatitis C (5) Insomnia Status: Chronic Qualifiers: Insomnia type: unspecified Qualified Code(s): G47.00 - Insomnia, unspecified (6) Marijuana dependence Status: Chronic (7) Sedative/hypnotic withdrawal without complication Status: Acute (8) Weight loss Status: Acute (9) Bipolar disorder Status: Chronic (10) Methadone maintenance therapy patient Status: Chronic (11) Nicotine dependence Status: Chronic Qualifiers: Nicotine product type: cigarettes Substance use status: uncomplicated Qualified Code(s): F17.210 - Nicotine dependence, cigarettes, uncomplicated - AMA Did Patient Leave Against Medical Advice: No
== END 2017-02-23 09:10 | disposition home or self-care (01) | DRG 773 ==
LOC: YASAS 09:33 → Y3N 10:22
PROVIDERS: ADMIT Internal Medicine; ATTEND Internal Medicine
PROC: HZ2ZZZZ Detoxification Services for Substance Abuse Treatment (ICD-10-PCS; principal; 2017-02-19)
DX: F11.20 Opioid dependence, uncomplicated (principal); F13.230 Sedative, hypnotic or anxiolytic dependence with withdrawal, uncomplicated; F10.20 Alcohol dependence, uncomplicated; F14.20 Cocaine dependence, uncomplicated; F12.20 Cannabis dependence, uncomplicated; F17.210 Nicotine dependence, cigarettes, uncomplicated; F31.9 Bipolar disorder, unspecified; G47.00 Insomnia, unspecified; B18.2 Chronic viral hepatitis C; R63.4 Abnormal weight loss; Z68.1 Body mass index [BMI] 19.9 or less, adult; S90.819A Abrasion, unspecified foot, initial encounter; X58.XXXA Exposure to other specified factors, initial encounter; Y93.89 Activity, other specified; Y92.89 Other specified places as the place of occurrence of the external cause; Y99.8 Other external cause status
CPT/HCPCS: 36415; 80053; 81003; 85027; 86593; 87389; 93005; 93010

== ENCOUNTER 2017-04-06 08:19 | Inpatient (IN) | payer OTHER ==
[2017-04-06 09:41] VITALS: BMI 20.4
--- NOTE | 2017-04-06 11:01 | HP ---
CIWA Score - CIWA Score Nausea/Vomitin-No Nausea/No Vomiting Muscle Tremors: 4-Moderate,w/Arms Extend Anxiety: 4-Mod. Anxious/Guarded Agitation: 4-Moderately Restless Paroxysmal Sweats: 3 Orientation: 0-Oriented Tacttile Disturbances: 0-None Auditory Disturbances: 0-None Visual Disturbances: 0-None Headache: 0-None Present CIWA-Ar Total Score: 15 Admission ROS BHS - HPI Chief Complaint: I want and get better. Allergies/Adverse Reactions: Allergies Allergy/AdvReac Type Severity Reaction Status Date / Time No Known Allergies Allergy Verified 04/06/17 09:59 History of Present Illness: pt is a 47yr old male with a history of alcohol and xanax dependence seeking detox for treatment. Exam Limitations: No Limitations - Ebola screening Have you traveled outside of the country in the last 21 days: No (N) Have you had contact with anyone from an Ebola affected area: No Have you been sick,other than usual withdrawal symptoms: No Do you have a fever: No - Review of Systems Constitutional: Chills, Loss of Appetite, Night Sweats, Changes in sleep, Unintentional Wgt. Loss EENT: reports: Nose Congestion Respiratory: reports: No Symptoms reported Cardiac: reports: Syncope GI: reports: Diarrhea, Nausea, Poor Appetite, Poor Fluid Intake, Indigestion : reports: No Symptoms Reported Musculoskeletal: reports: Back Pain Integumentary: reports: Flushing, Sweating Neuro: reports: Headache, Tingling, Tremors Endocrine: reports: Excessive Sweating, Flushing, Intolerance to Cold, Intolerance to Heat Hematology: reports: No Symptoms Reported Psychiatric: reports: Judgement Intact, Mood/Affect Appropiate, Orientated x3, Agitated, Anxious Other Systems: Reviewed and Negative Patient History - Patient Medical History Hx Anemia: No Hx Asthma: No Hx Chronic Obstructive Pulmonary Disease (COPD): No Hx Cancer: No Hx Cardiac Disorders: No Hx Congestive Heart Failure: No Hx Hypertension: No Hx Hypercholesterolemia: No Hx Pacemaker: No HX Cerebrovascular Accident: No Hx Seizures: No Hx Dementia: No Hx Diabetes: No Hx Gastrointestinal Disorders: No Hx Liver Disease: No Hx Genitourinary Disorders: No Hx Sexually Transmitted Disorders: No Hx Renal Disease (ESRD): No Hx Thyroid Disease: No Hx Human Immunodeficiency Virus (HIV): No (negative last 03/01) Hx Hepatitis C: Yes (under the care of pmd/ received tx) Hx Depression: Yes Hx Suicide Attempt: No (denies) Hx Bipolar Disorder: Yes Hx Schizophrenia: No - Patient Surgical History Past Surgical History: No Hx Neurologic Surgery: No Hx Cataract Extraction: No Hx Cardiac Surgery: No Hx Lung Surgery: No Hx Breast Surgery: No Hx Breast Biopsy: No Hx Abdominal Surgery: No Hx Appendectomy: No Hx Cholecystectomy: No Hx Genitourinary Surgery: No Hx Section: No Hx Orthopedic Surgery: No Anesthesia Reaction: No - PPD History Previous Implant?: Yes Documented Results: Negative w/proof Implanted On Prior [facility] Admission?: Yes Date: 03/03/16 Results: 0 mm PPD to be Administered?: No - Reproductive History Patient is a Female of Child Bearing Age (11 -55 yrs old): No - Smoking Cessation Smoking history: Current every day smoker Have you smoked in the past 12 months: Yes Aproximately how many cigarettes per day: 20 Hx Chewing Tobacco Use: No Initiated information on smoking cessation: Yes 'Breaking Loose' booklet given: 04/06/17 - Substance & Tx. History Hx Alcohol Use: Yes Hx Substance Use: Yes Substance Use Type: Alcohol, Cocaine Hx Substance Use Treatment: Yes (last detox 02/2016) - Substances Abused Alcohol Route: Oral Frequency: Daily Amount used: 1 qt vodka Age of first use: 19 Date of Last Use: 04/05/17 Alprazolam (Xanax) Route: Oral Frequency: Daily Amount used: 4mg Age of first use: 41 Date of Last Use: 04/02/17 Cocaine Route: Injection Frequency: Daily Amount used: $100 Age of first use: 45 Date of Last Use: 04/05/17 Heroin Route: Injection Frequency: Daily Amount used: 1 bag Age of first use: 18 Date of Last Use: 04/06/17 Marijuana/Hashish Route: Smoking Frequency: Daily Amount used: 1 bag Age of first use: 16 Date of Last Use: 04/05/17 Family Disease History - Family Disease History Family Disease History: Diabetes: Mother ( esrd), Other: Father ( esrd) Admission Physical Exam BHS - Vital Signs Vital Signs: Vital Signs - 24 hr 04/06/17 09:25 Temperature 97.3 F L Pulse Rate 77 Respiratory 16 Rate Blood Pressure 177/77 - Physical General Appearance: Yes: Appropriately Dressed, Moderate Distress, Tremorous, Irritable, Sweating, Anxious HEENTM: Yes: Normal Voice, Nasal Congestion, Rhinorrhea Respiratory: Yes: Lungs Clear, Normal Breath Sounds, No Respiratory Distress Neck: Yes: No masses,lesions,Nodules Breast: Yes: Within Normal Limits Cardiology: Yes: Regular Rhythm, Regular Rate, S1, S2 Abdominal: Yes: Normal Bowel Sounds, Non Tender, Soft Genitourinary: Yes: Within Normal Limits Back: Yes: Normal Inspection Musculoskeletal: Yes: full range of Motion, Back pain Extremities: Yes: Normal Inspection, Non-Tender, Tremors Neurological: Yes: Fully Oriented, Alert, Normal Response Integumentary: Yes: Normal Color, Track Kelly Lymphatic: Yes: Within Normal Limits - Diagnostic (1) Alcohol dependence with uncomplicated withdrawal Current Visit: Yes Status: Chronic (2) Sedative/hypnotic withdrawal without complication Current Visit: Yes Status: Chronic (3) Cocaine dependence Current Visit: Yes Status: Chronic Qualifiers: Substance use status: uncomplicated (4) Hepatitis C Current Visit: Yes Status: Chronic Qualifiers: Viral hepatitis chronicity: chronic Hepatic coma status: without hepatic coma Qualified Code(s): B18.2 - Chronic viral hepatitis C (5) Marijuana dependence Current Visit: Yes Status: Chronic Comment: pt methadone was verifed his last dose of 40mg was on 04/03/17. pt will have in methadone increased starting with 20mg until he reaches his 40mg and will need to return back to his mmtp. (6) Methadone maintenance therapy patient Current Visit: Yes Status: Chronic Comment: received 60mg today; pending verification (7) Nicotine dependence Current Visit: Yes Status: Chronic Qualifiers: Nicotine product type: cigarettes Substance use status: uncomplicated Qualified Code(s): F17.210 - Nicotine dependence, cigarettes, uncomplicated Cleared for Admission S - Detox or Rehab [facility] Level of Care: Medically Managed Detox Regimen/Protocol: Librium [facility] Breath Alcohol Content Breath Alcohol Content: 0 Urine Drug Screen - Results Drug Screen Negative: No Urine Drug Screen Results: THC-Marijuana, MONIKA-Cocaine, OPI-Opiates, BZO- Benzodiazepines, MTD-Methadone
[2017-04-06] MEDS ORDERED: MAGNESIUM HYDROX 2400MG/30ML ORAL SUSPENSION 30 ML CUP PO PRN (11:02)
[2017-04-06] MEDS ORDERED: hydrOXYzine PAMOATE 50 MG CAPSULE (FP) PO PRN (11:02)
[2017-04-06] MEDS ORDERED: P-EPHED 60MG/TRIPROLIDI 2.5MG TABLET PO PRN (11:02)
[2017-04-06] MEDS ORDERED: MAGNESIUM CITRATE 300 ML BOTTLE PO PRN (11:02)
[2017-04-06] MEDS ORDERED: chlordiazePOXIDE HCL 25 MG CAPSULE PO PRN (11:02)
[2017-04-06] MEDS ORDERED: guaiFENesin/D-METHORPHAN HB 10 ML UNIT-DOSE CUPS PO PRN (11:02)
[2017-04-06] MEDS ORDERED: MENTHOL/PHENOL 1 EACH UD MM PRN (11:02)
[2017-04-06] MEDS ORDERED: ACETAMINOPHEN 325 MG TABLET (FP) PO PRN (11:02)
[2017-04-06] MEDS ORDERED: IBUPROFEN 400 MG TABLET (FP) PO PRN (11:02)
[2017-04-06] MEDS ORDERED: NICOTINE POLACRILEX 4 MG GUM BUC PRN (11:02)
[2017-04-06] MEDS ORDERED: chlordiazePOXIDE HCL 25 MG CAPSULE PO ONE (11:23)
[2017-04-06] MEDS ORDERED: METHADONE HCL 10 MG TABLET PO ONE (11:26)
--- NOTE | 2017-04-06 14:13 | CONSULT ---
[facility] Psychiatric Consult - Data Date of interview: 04/06/17 Admission source: [facility] Identifying data: Pt. is a 47 year old male, father of two, employed, and on SSI and SSD. This is one of multiple admissions for patients. Pt. admitted to for cocaine, opiate, benzodiazepine and cannabis dependence. Substance Abuse History: Following information confirmed with Mr. Gibbs: - Smoking Cessation. Smoking history: Current every day smoker. Have you smoked in the past 12 months: Yes. Aproximately how many cigarettes per day: 20. Hx Chewing Tobacco Use: No. Initiated information on smoking cessation: Yes. ' Breaking Loose' booklet given: 04/06/17. - Substance & Tx. History. Hx Alcohol Use: Yes. Hx Substance Use: Yes. Substance Use Type: Alcohol, Cocaine. Hx Substance Use Treatment: Yes (last detox 02/2016). - Substances Abused. Alcohol. Route: Oral. Frequency: Daily. Amount used: 1 qt vodka. Age of first use: 19. Date of Last Use: 04/05/17. Alprazolam (Xanax). Route: Oral. Frequency: Daily. Amount used: 4mg. Age of first use: 41. Date of Last Use: 04/02/17. Cocaine. Route: Injection. Frequency: Daily. Amount used: $100. Age of first use: 45. Date of Last Use: 04/05/17. Heroin. Route: Injection. Frequency: Daily. Amount used: 1 bag. Age of first use: 18. Date of Last Use: 04/06/17. Marijuana/Hashish. Route: Smoking. Frequency: Daily. Amount used: 1 bag. Age of first use: 16. Date of Last Use: 04/05/17 Medical History: Hep C Psychiatric History: Patient's first encounter with a psychiatrist was at the age of 21 after mother admitted patient to [facility] in [place]. Pt. was then diagnosed with Bipolar disorder. Pt. reports no other admission after the age of 21. Pt. was seeing a psychiatrist approximately five months ago at the [facility] and states he was prescribed zyprexa, seroquel, xanax, and ambien. Pt. was discharge from [facility] on 03/02 and did not seek outpatient care. Claims he picked up his prescription after discharge, took his medications, but just recently completed his 30 day supply of medications. Pt. requesting to restart zyprexa and ambien. Pt. denies h/o suicide attempt. Physical/Sexual Abuse/Trauma History: Denies. Mental Status Exam - Mental Status Exam Alert and Oriented to: Time, Place, Person Cognitive Function: Good Patient Appearance: Well Groomed Mood: Hopeful Affect: Appropriate Patient Behavior: Appropriate, Cooperative Speech Pattern: Clear, Appropriate Voice Loudness: Normal Thought Process: Goal Oriented Thought Disorder: Not Present Hallucinations: Denies Suicidal Ideation: Denies Homicidal Ideation: Denies Insight/Judgement: Poor Sleep: Poorly Appetite: Fair Muscle strength/Tone: Normal Gait/Station: Normal Psychiatric Findings - Problem List ([place] 1, 2,3) (1) Alcohol dependence with uncomplicated withdrawal Current Visit: Yes Status: Chronic (2) Cocaine dependence Current Visit: Yes Status: Chronic Qualifiers: Substance use status: uncomplicated Qualified Code(s): F14.20 - Cocaine dependence, uncomplicated (3) Marijuana dependence Current Visit: Yes Status: Chronic Comment: pt methadone was verifed his last dose of 40mg was on 04/03/17. pt will have in methadone increased starting with 20mg until he reaches his 40mg and will need to return back to his mmtp. (4) Sedative/hypnotic withdrawal without complication Current Visit: Yes Status: Chronic (5) Bipolar disorder Current Visit: Yes Status: Chronic Comment: Agreeable to restarting zyprexa 5mg. Pt. with a history of nonadherence to medications and Outpatient psychiatric care. (6) Opioid dependence on agonist therapy Current Visit: Yes Status: Chronic - Initial Treatment Plan Initial Treatment Plan: Psychoeducation provided. Detoxification in progress. Zyprexa 5mg qhs (reduce dosage. Last took zyprea 10mg 1-2 weeks ago) +Ambien 10mg qhs ordered. Benefits and side effects discussed. Verbal consent given. Will continue to monitor patient.
[2017-04-06] MEDS: chlordiazePOXIDE HCL 25 MG CAPSULE PO SCH ×2 (17:20→22:08)
[2017-04-06 18:09] LABS: URINE APPEARANCE CLEAR; URINE BILIRUBIN NEGATIVE (NEGATIVE); URINE BLOOD NEGATIVE (NEGATIVE); URINE COLOR YELLOW; URINE GLUCOSE (UA) NEGATIVE (NEGATIVE); URINE KETONE NEGATIVE (NEGATIVE); URINE LEUK ESTERASE NEGATIVE (NEGATIVE); URINE NITRITE NEGATIVE (NEGATIVE); URINE PROTEIN NEGATIVE (NEGATIVE); URINE UROBILINOGEN NEGATIVE mg/dL (0.2-1.0)
[2017-04-06] MEDS ORDERED: OLANZapine 5 MG TABLET PO SCH (22:00)
[2017-04-06] MEDS: THIAMINE HCL 100 MG TABLET (FP) PO SCH (22:08)
[2017-04-06] MEDS: ZOLPIDEM TARTRATE 10 MG TABLET (PARK CARE ONLY) PO PRN (22:10)
[2017-04-06] MEDS: MAG HYDROX/AL HYDROX/SIMETH 30 ML UNIT-DOSE CUP PO PRN (22:38)
[2017-04-07] MEDS: chlordiazePOXIDE HCL 25 MG CAPSULE PO SCH ×4 (05:03→22:06)
[2017-04-07] MEDS ORDERED: METHADONE HCL 10 MG TABLET PO SCH (06:00)
[2017-04-07] MEDS ORDERED: METHADONE HCL 10 MG TABLET PO ONE (06:00)
[2017-04-07] MEDS: NICOTINE 21 MG/24 HOURS TOPICAL PATCH TD SCH (10:07)
[2017-04-07] MEDS: PRENATAL VITAMINS W/ FOLIC ACID TABLET (FP) PO SCH (10:08)
[2017-04-07 10:23] LABS: HEMATOCRIT 41.4 % (35.4-49); HEMOGLOBIN 13.8 GM/dL (11.7-16.9); MCH 30.3 pg (25.7-33.7); MCHC 33.2 g/dl (32.0-35.9); MEAN CELL VOLUME 91.1 fl (80-96); MEAN PLT VOLUME 10.7 fl (7.5-11.1); PLATELET COUNT 169 K/MM3 (134-434); RBC 4.55 M/mm3 (4.00-5.60); RDW 14.2 % (11.9-15.9); WHITE BLOOD COUNT 7.9 K/mm3 (4.0-10.0)
[2017-04-07 10:30] LABS: CHLORIDE 103 mmol/L (98-107); POTASSIUM 4.4 mmol/L (3.5-5.1); SODIUM 141 mmol/L (136-145)
[2017-04-07 10:52] LABS: ALBUMIN 3.9 g/dl (3.4-5.0); ALK PHOS 84 U/L (45-117); ANION GAP 11 (8-16); BILIRUBIN,TOTAL 0.5 mg/dL (0.2-1.0); BLOOD UREA NITROGEN 19 mg/dL (7-18); CALCIUM 9.2 mg/dL (8.5-10.1); CO2 27 mmol/L (21-32); CREATININE 1.1 mg/dL (0.7-1.3); GLUCOSE,RANDOM 93 mg/dL (74-106); SGOT/AST 69 U/L (15-37); SGPT/ALT 91 U/L (12-78); TOT PROT 8.1 g/dl (6.4-8.2)
--- NOTE | 2017-04-07 12:40 | PN ---
[facility] CIWA - CIWA Score Nausea/Vomitin-No Nausea/No Vomiting Muscle Tremors: 2 Anxiety: 5 Agitation: 4-Moderately Restless Paroxysmal Sweats: 2 Orientation: 0-Oriented Tacttile Disturbances: 3-Moderate Itch/Numb/Burn Auditory Disturbances: 0-None Visual Disturbances: 0-None Headache: 0-None Present CIWA-Ar Total Score: 16 S Progress Note (SOAP) Subjective: Stomach Cramping, Anxious, Fatigue, Tremors. Objective: PT. A & O X 3, OBSERVED AMBULATING ON UNIT. NO ACUTE DISTRESS. 04/07/17 12:39 Vital Signs Temperature 96.8 F L 04/07/17 09:31 Pulse Rate 59 L 04/07/17 09:31 Respiratory Rate 18 04/07/17 09:31 Blood Pressure 108/69 04/07/17 09:31 O2 Sat by Pulse Oximetry (%) Laboratory Tests 04/06/17 04/06/17 04/07/17 10:40 16:00 06:00 WBC 7.9 D RBC 4.55 Hgb 13.8 Hct 41.4 MCV 91.1 MCH 30.3 MCHC 33.2 RDW 14.2 Plt Count 169 D MPV 10.7 Sodium Potassium Chloride Carbon Dioxide Anion Gap BUN Creatinine Creat Clearance w eGFR Random Glucose Calcium Total Bilirubin AST ALT Alkaline Phosphatase Total Protein Albumin Urine Color Yellow Urine Appearance Clear Urine pH 6.0 Ur Specific [place] 1.023 Urine Protein Negative Urine Glucose (UA) Negative Urine Ketones Negative Urine Blood Negative Urine Nitrite Negative Urine Bilirubin Negative Urine Urobilinogen Negative Ur Leukocyte Esterase Negative HIV 1&2 Antibody Screen Negative HIV P24 Antigen Negative 04/07/17 06:00 WBC RBC Hgb Hct MCV MCH MCHC RDW Plt Count MPV Sodium 141 Potassium 4.4 Chloride 103 Carbon Dioxide 27 Anion Gap 11 BUN 19 H Creatinine 1.1 D Creat Clearance w eGFR > 60 Random Glucose 93 Calcium 9.2 Total Bilirubin 0.5 AST 69 H ALT 91 H D Alkaline Phosphatase 84 Total Protein 8.1 Albumin 3.9 D Urine Color Urine Appearance Urine pH Ur Specific [place] Urine Protein Urine Glucose (UA) Urine Ketones Urine Blood Urine Nitrite Urine Bilirubin Urine Urobilinogen Ur Leukocyte Esterase HIV 1&2 Antibody Screen HIV P24 Antigen LABS NOTED. RPR RESULT PENDING. 04/07/17 12:39 Assessment: 02/23/18 12:39 WITHDRAWAL SYMPTOMS. Plan: CONTINUE DETOX.
[2017-04-07] MEDS: MAG HYDROX/AL HYDROX/SIMETH 30 ML UNIT-DOSE CUP PO PRN ×2 (17:45→22:46)
--- NOTE | 2017-04-07 18:21 | PN ---
[facility] Progress Note Note: Psychiatry Attending's note (follow-up) : Approached by patient. Issue : complaint of dysphoria. Requests increase dose of olanzapine. " I used to be on 10-15 mg a day." Chart reviewed. 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 Patient is already known to me from past admissions. Zyprexa 10 mg po hs.Ordered. Patient reminded of risk of metabolic syndrome. Side-effects/benefits discussed with patient. Mr Gibbs is in agreement with this careplan.
[2017-04-07] MEDS: OLANZapine 10 MG TABLET PO SCH (22:06)
[2017-04-07] MEDS: THIAMINE HCL 100 MG TABLET (FP) PO SCH (22:06)
[2017-04-07] MEDS: ZOLPIDEM TARTRATE 10 MG TABLET (PARK CARE ONLY) PO PRN (22:06)
[2017-04-08] MEDS: METHADONE HCL 40 MG DISPERSABLE TABLET PO SCH (05:58)
[2017-04-08] MEDS: chlordiazePOXIDE HCL 25 MG CAPSULE PO SCH ×2 (05:58→10:07)
[2017-04-08] MEDS: NICOTINE 21 MG/24 HOURS TOPICAL PATCH TD SCH (10:06)
[2017-04-08] MEDS: PRENATAL VITAMINS W/ FOLIC ACID TABLET (FP) PO SCH (10:06)
[2017-04-08] MEDS: LOPERAMIDE HCL 2 MG CAPSULE PO PRN ×2 (10:07→17:41)
--- NOTE | 2017-04-08 14:32 | PN ---
[facility] CIWA - CIWA Score Nausea/Vomitin-No Nausea/No Vomiting Muscle Tremors: None Anxiety: 4-Mod. Anxious/Guarded Agitation: 4-Moderately Restless Paroxysmal Sweats: 3 Orientation: 0-Oriented Tacttile Disturbances: 3-Moderate Itch/Numb/Burn Auditory Disturbances: 0-None Visual Disturbances: 2-Mild Sensitivity Headache: 0-None Present CIWA-Ar Total Score: 16 S Progress Note (SOAP) Subjective: Anxious, Stomach Cramping, Fatigue, Sweating. Objective: PT. A & O X 3, OBSERVED AMBULATING ON UNIT. NO ACUTE DISTRESS. 04/08/17 14:45 Vital Signs Temperature 97.1 F L 04/08/17 13:00 Pulse Rate 63 04/08/17 13:00 Respiratory Rate 18 04/08/17 13:00 Blood Pressure 121/73 04/08/17 13:00 O2 Sat by Pulse Oximetry (%) Laboratory Tests 04/06/17 04/06/17 04/07/17 10:40 16:00 06:00 WBC 7.9 D RBC 4.55 Hgb 13.8 Hct 41.4 MCV 91.1 MCH 30.3 MCHC 33.2 RDW 14.2 Plt Count 169 D MPV 10.7 Sodium Potassium Chloride Carbon Dioxide Anion Gap BUN Creatinine Creat Clearance w eGFR Random Glucose Calcium Total Bilirubin AST ALT Alkaline Phosphatase Total Protein Albumin Urine Color Yellow Urine Appearance Clear Urine pH 6.0 Ur Specific [place] 1.023 Urine Protein Negative Urine Glucose (UA) Negative Urine Ketones Negative Urine Blood Negative Urine Nitrite Negative Urine Bilirubin Negative Urine Urobilinogen Negative Ur Leukocyte Esterase Negative RPR Titer HIV 1&2 Antibody Screen Negative HIV P24 Antigen Negative 04/07/17 04/07/17 06:00 06:00 WBC RBC Hgb Hct MCV MCH MCHC RDW Plt Count MPV Sodium 141 Potassium 4.4 Chloride 103 Carbon Dioxide 27 Anion Gap 11 BUN 19 H Creatinine 1.1 D Creat Clearance w eGFR > 60 Random Glucose 93 Calcium 9.2 Total Bilirubin 0.5 AST 69 H ALT 91 H D Alkaline Phosphatase 84 Total Protein 8.1 Albumin 3.9 D Urine Color Urine Appearance Urine pH Ur Specific [place] Urine Protein Urine Glucose (UA) Urine Ketones Urine Blood Urine Nitrite Urine Bilirubin Urine Urobilinogen Ur Leukocyte Esterase RPR Titer Nonreactive HIV 1&2 Antibody Screen HIV P24 Antigen LABS NOTED. Assessment: 04/08/17 14:46 WITHDRAWAL SYMPTOMS. Plan: CONTINUE DETOX. INCREASE DAILY PO FLUID INTAKE.
[2017-04-08] MEDS: chlordiazePOXIDE 5 MG CAPSULE PO SCH ×2 (17:38→22:18)
[2017-04-08] MEDS: ZOLPIDEM TARTRATE 10 MG TABLET (PARK CARE ONLY) PO PRN (22:18)
[2017-04-08] MEDS: OLANZapine 10 MG TABLET PO SCH (22:19)
[2017-04-08] MEDS: THIAMINE HCL 100 MG TABLET (FP) PO SCH (22:19)
[2017-04-09] MEDS: chlordiazePOXIDE 5 MG CAPSULE PO SCH ×2 (05:52→10:30)
[2017-04-09] MEDS: METHADONE HCL 40 MG DISPERSABLE TABLET PO SCH (05:53)
[2017-04-09] MEDS: PRENATAL VITAMINS W/ FOLIC ACID TABLET (FP) PO SCH (10:30)
[2017-04-09] MEDS: NICOTINE 21 MG/24 HOURS TOPICAL PATCH TD SCH (10:30)
--- NOTE | 2017-04-09 11:31 | PN ---
[facility] Progress Note (SOAP) Subjective: tremors shakes Objective: 04/09/17 11:28 ambulating steadily A & O x 3 Assessment: 04/09/17 11:29 withdrawal sx Plan: continue detox
[2017-04-09] MEDS: chlordiazePOXIDE HCL 10 MG CAPSULE PO SCH ×2 (17:15→22:04)
[2017-04-09] MEDS: ZOLPIDEM TARTRATE 10 MG TABLET (PARK CARE ONLY) PO PRN (21:58)
[2017-04-09] MEDS: THIAMINE HCL 100 MG TABLET (FP) PO SCH (22:04)
[2017-04-09] MEDS: OLANZapine 10 MG TABLET PO SCH (22:04)
[2017-04-10] MEDS: chlordiazePOXIDE HCL 10 MG CAPSULE PO SCH (05:07)
[2017-04-10] MEDS: METHADONE HCL 40 MG DISPERSABLE TABLET PO SCH (05:07)
[2017-04-10 06:00] VITALS: BP 125/78; PULSE 66; TEMP 96.1
[2017-04-10] MEDS: MAG HYDROX/AL HYDROX/SIMETH 30 ML UNIT-DOSE CUP PO PRN (07:46)
--- NOTE | 2017-04-10 11:00 | DS ---
[facility] Detox Discharge Summary Admission Date: 04/06/17 - History Pertinent Past History: Hep c On MMTP - Physical Exam Results Vital Signs: Vital Signs Temperature 96.1 F L 04/10/17 06:00 Pulse Rate 66 04/10/17 06:00 Respiratory Rate 18 04/10/17 06:00 Blood Pressure 125/78 04/10/17 06:00 O2 Sat by Pulse Oximetry (%) Pertinent Admission Physical Exam Findings: withdrawal sx - Treatment Hospital Course: Detox Protocol Followed, Detoxed Safely, Responded well, Discharged Condition Good, Rehab Referral Accepted Patient has Accepted a Rehab Referral to: O/P as arranged with counselor - Medication Discharge Medications: Ambulatory Orders NK [No Known Home Medication] 04/06/17 - Diagnosis (1) Alcohol dependence with uncomplicated withdrawal Status: Acute (2) Cocaine dependence Status: Chronic Qualifiers: Substance use status: uncomplicated Qualified Code(s): F14.20 - Cocaine dependence, uncomplicated (3) Hepatitis C Status: Chronic Qualifiers: Viral hepatitis chronicity: chronic Hepatic coma status: without hepatic coma Qualified Code(s): B18.2 - Chronic viral hepatitis C (4) Methadone maintenance therapy patient Status: Chronic (5) Nicotine dependence Status: Chronic Qualifiers: Nicotine product type: cigarettes Substance use status: uncomplicated Qualified Code(s): F17.210 - Nicotine dependence, cigarettes, uncomplicated (6) Sedative/hypnotic withdrawal without complication Status: Chronic - AMA Did Patient Leave Against Medical Advice: No
--- NOTE | 2017-04-11 13:39 | EKG ---
Test Reason : Blood Pressure : / mmHG Vent. Rate : 062 BPM Atrial Rate : 062 BPM P-R Int : 176 ms QRS Dur : 102 ms QT Int : 412 ms P-R-T Axes : 060 083 070 degrees QTc Int : 418 ms NORMAL SINUS RHYTHM NORMAL ECG WHEN COMPARED WITH ECG OF 19-FEB-2017 12:53, NO SIGNIFICANT CHANGE WAS FOUND Confirmed by MD Brown Daniel ([id number]) on 04/11/2017 1:39:00 PM Referred By: Confirmed By:Clayton Brown MD
== END 2017-04-10 09:08 | disposition home or self-care (01) | DRG 773 ==
LOC: YASAS 08:19 → Y3N 11:14
PROVIDERS: ADMIT Internal Medicine; ATTEND Internal Medicine
PROC: HZ2ZZZZ Detoxification Services for Substance Abuse Treatment (ICD-10-PCS; principal; 2017-04-06)
DX: F11.20 Opioid dependence, uncomplicated (principal); F13.20 Sedative, hypnotic or anxiolytic dependence, uncomplicated; F10.230 Alcohol dependence with withdrawal, uncomplicated; F14.20 Cocaine dependence, uncomplicated; F17.210 Nicotine dependence, cigarettes, uncomplicated; F31.9 Bipolar disorder, unspecified; B18.2 Chronic viral hepatitis C
CPT/HCPCS: 36415; 80053; 81003; 85027; 86593; 87389; 93005; 93010

== ENCOUNTER 2017-09-08 12:22 | Inpatient (IN) | payer OTHER ==
[2017-09-08 12:34] VITALS: BMI 19.2
--- NOTE | 2017-09-08 14:37 | HP ---
CIWA Score - CIWA Score Nausea/Vomitin Muscle Tremors: 3 Anxiety: 3 Agitation: 3 Paroxysmal Sweats: 1-Minimal Palms Moist Orientation: 0-Oriented Tacttile Disturbances: 1-Very Mild Itch/Numbness Auditory Disturbances: 1-Very Mild Visual Disturbances: 0-None Headache: 2-Mild CIWA-Ar Total Score: 17 Admission ROS BHS - HPI Chief Complaint: i need help to stop drinking alcohol,cocaine,marijuana,xanax,mmpt 50 mgs/day, lat medicated today Allergies/Adverse Reactions: Allergies Allergy/AdvReac Type Severity Reaction Status Date / Time No Known Allergies Allergy Verified 09/08/17 14:30 History of Present Illness: this 47 years old male with alcohol,cocaine,marijuana,xanax dependence,seeking detox,withdrawal symptom,last detox syncope alcohol related nicotine dependence weight loss anxiety,depression,insomnia multiple admissions to detox but keep relapsing longest period of sobriety 5 years hepatitis c treated Exam Limitations: No Limitations - Ebola screening Have you traveled outside of the country in the last 21 days: No Have you had contact with anyone from an Ebola affected area: No Have you been sick,other than usual withdrawal symptoms: No Do you have a fever: No - Review of Systems Constitutional: Loss of Appetite, Malaise, Night Sweats, Changes in sleep, Weakness, Unintentional Wgt. Loss EENT: reports: Tearing, Nose Congestion Respiratory: reports: No Symptoms reported Cardiac: reports: No Symptoms Reported GI: reports: Diarrhea, Nausea, Vomiting, Abdominal cramping : reports: No Symptoms Reported Musculoskeletal: reports: Back Pain, Muscle Pain Integumentary: reports: Dryness Neuro: reports: Headache, Tremors Endocrine: reports: No Symptoms Reported Hematology: reports: No Symptoms Reported Psychiatric: reports: No Sypmtoms Reported, Judgement Intact, Mood/Affect Appropiate, Orientated x3, Anxious, Depressed (insomnia) Patient History - Patient Medical History Hx Anemia: No Hx Asthma: No Hx Chronic Obstructive Pulmonary Disease (COPD): No Hx Cancer: No Hx Cardiac Disorders: No Hx Congestive Heart Failure: No Hx Hypertension: No Hx Hypercholesterolemia: No Hx Pacemaker: No HX Cerebrovascular Accident: No Hx Seizures: No Hx Dementia: No Hx Diabetes: No Hx Gastrointestinal Disorders: No Hx Liver Disease: No Hx Genitourinary Disorders: No Hx Sexually Transmitted Disorders: No Hx Renal Disease (ESRD): No Hx Thyroid Disease: No Hx Human Immunodeficiency Virus (HIV): No (negative last 06/30) Hx Hepatitis C: Yes (treated ) Hx Depression: Yes Hx Suicide Attempt: No (no si at this time) Hx Bipolar Disorder: Yes Hx Schizophrenia: No Other Medical History: no suicidal,no homicidal - Patient Surgical History Past Surgical History: No Hx Neurologic Surgery: No Hx Cataract Extraction: No Hx Cardiac Surgery: No Hx Lung Surgery: No Hx Breast Surgery: No Hx Breast Biopsy: No Hx Abdominal Surgery: No Hx Appendectomy: No Hx Cholecystectomy: No Hx Genitourinary Surgery: No Hx Section: No Hx Orthopedic Surgery: No Anesthesia Reaction: No - PPD History Previous Implant?: Yes Date: 06/01/17 Results: 0 mm PPD to be Administered?: Yes - Smoking Cessation Smoking history: Current every day smoker Have you smoked in the past 12 months: Yes Aproximately how many cigarettes per day: 20 Hx Chewing Tobacco Use: No Initiated information on smoking cessation: Yes 'Breaking Loose' booklet given: 09/08/17 - Substance & Tx. History Hx Alcohol Use: Yes Hx Substance Use: Yes Substance Use Type: Alcohol, Cocaine, Marijuana Hx Substance Use Treatment: Yes ([facility] 05/30/17 to 06/02/17) Family Disease History - Family Disease History Family Disease History: Diabetes: Mother ( esrd), Other: Father ( esrd) Admission Physical Exam S - Vital Signs Vital Signs: Vital Signs - 24 hr 09/08/17 12:33 Temperature 97.0 F L Pulse Rate 53 L Respiratory 18 Rate Blood Pressure 114/74 - Physical General Appearance: Yes: Moderate Distress, Tremorous, Irritable, Sweating, Anxious HEENTM: Yes: Normal ENT Inspection, Pharynx Normal Respiratory: Yes: Lungs Clear, Normal Breath Sounds, No Respiratory Distress Neck: Yes: No masses,lesions,Nodules, Supple, Trachea in good position Breast: Yes: Within Normal Limits Cardiology: Yes: Within Normal Limits, Regular Rhythm, S1, S2 Abdominal: Yes: Within Normal Limits, Normal Bowel Sounds, Non Tender, Flat, Soft Genitourinary: Yes: Within Normal Limits Back: Yes: Muscle Spasm Musculoskeletal: Yes: Within Normal Limits, Joint Stiffness, Muscle Pain Extremities: Yes: Within Normal Limits, Normal Range of Motion, Tremors 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 NML intact, Alert, Motor Strength 5/5 Integumentary: Yes: Dry Lymphatic: Yes: Within Normal Limits - Diagnostic (1) Alcohol dependence with uncomplicated withdrawal Current Visit: No Status: Acute (2) Cocaine dependence Current Visit: No Status: Acute Qualifiers: Substance use status: uncomplicated Qualified Code(s): F14.20 - Cocaine dependence, uncomplicated (3) Dehydration Current Visit: No Status: Acute (4) Insomnia Current Visit: No Status: Acute Qualifiers: Insomnia type: unspecified Qualified Code(s): G47.00 - Insomnia, unspecified (5) Marijuana dependence Current Visit: No Status: Acute (6) Nicotine dependence Current Visit: No Status: Acute Qualifiers: Nicotine product type: cigarettes Substance use status: in withdrawal Qualified Code(s): F17.213 - Nicotine dependence, cigarettes, with withdrawal (7) Weight loss Current Visit: No Status: Acute (8) Bipolar disorder Current Visit: No Status: Chronic Qualifiers: Active/Remission status: remission status unspecified Qualified Code(s): F31.9 - Bipolar disorder, unspecified Comment: (9) Hepatitis C Current Visit: No Status: Chronic Qualifiers: Viral hepatitis chronicity: chronic Hepatic coma status: without hepatic coma Qualified Code(s): B18.2 - Chronic viral hepatitis C (10) Opioid dependence on agonist therapy Current Visit: No Status: Chronic Cleared for Admission [facility] - Detox or Rehab [facility] Level of Care: Medically Managed Detox Regimen/Protocol: Valium [facility] Breath Alcohol Content Breath Alcohol Content: 0 Urine Drug Screen - Results Drug Screen Negative: No Urine Drug Screen Results: THC-Marijuana, MONIKA-Cocaine, OPI-Opiates, MTD- Methadone
[2017-09-08] MEDS ORDERED: ACETAMINOPHEN 325 MG TABLET (FP) PO PRN (14:54)
[2017-09-08] MEDS ORDERED: guaiFENesin/D-METHORPHAN HB 10 ML UNIT-DOSE CUPS PO PRN (14:54)
[2017-09-08] MEDS ORDERED: LOPERAMIDE HCL 2 MG CAPSULE PO PRN (14:54)
[2017-09-08] MEDS ORDERED: IBUPROFEN 400 MG TABLET (FP) PO PRN (14:54)
[2017-09-08] MEDS ORDERED: MAGNESIUM CITRATE 300 ML BOTTLE PO PRN (14:54)
[2017-09-08] MEDS ORDERED: MAGNESIUM HYDROX 2400MG/30ML ORAL SUSPENSION 30 ML CUP PO PRN (14:54)
[2017-09-08] MEDS ORDERED: MENTHOL/PHENOL 1 EACH UD MM PRN (14:54)
[2017-09-08] MEDS ORDERED: hydrOXYzine PAMOATE 25 MG CAPSULE (FP) PO PRN (14:54)
[2017-09-08] MEDS ORDERED: P-EPHED 60MG/TRIPROLIDI 2.5MG TABLET PO PRN (14:54)
[2017-09-08] MEDS ORDERED: diazePAM 5 MG TABLET PO ONE (15:15)
[2017-09-08] MEDS: NICOTINE 21 MG/24 HOURS TOPICAL PATCH TD SCH (15:53)
[2017-09-08] MEDS: diazePAM 5 MG TABLET PO PRN (20:10)
--- NOTE | 2017-09-08 21:29 | PN ---
S Progress Note Note: Patient accidentally scratched self on (R) neck. No bleeding. Slight itching. Florencio start bacitracin BID. Notify provider for increased tenderness or discharge from area.
[2017-09-08] MEDS: MAG HYDROX/AL HYDROX/SIMETH 30 ML UNIT-DOSE CUP PO PRN (21:53)
[2017-09-08] MEDS ORDERED: MELATONIN 5 MG TABLETS PO PRN (22:00)
[2017-09-08] MEDS: BACITRACIN 15 GM TUBE TOPICAL OINTMENT TP SCH (22:30)
[2017-09-08] MEDS: THIAMINE HCL 100 MG TABLET (FP) PO SCH (22:30)
[2017-09-08] MEDS: diazePAM 5 MG TABLET PO SCH (22:30)
[2017-09-09] MEDS: diazePAM 5 MG TABLET PO PRN ×4 (00:33→20:34)
[2017-09-09] MEDS: diazePAM 5 MG TABLET PO SCH ×3 (05:57→22:14)
[2017-09-09] MEDS ORDERED: METHADONE HCL 10 MG TABLET PO SCH (07:45)
[2017-09-09] MEDS ORDERED: METHADONE HCL 10 MG TABLET ONE (08:21)
[2017-09-09] MEDS ORDERED: METHADONE HCL 40 MG DISPERSABLE TABLET ONE (08:22)
[2017-09-09] MEDS: METHADONE 40 MG, METHADONE 10 MG PO SCH (08:29)
[2017-09-09] MEDS: PRENATAL VITAMINS W/ FOLIC ACID TABLET (FP) PO SCH (10:09)
[2017-09-09] MEDS: NICOTINE 21 MG/24 HOURS TOPICAL PATCH TD SCH (10:09)
[2017-09-09 10:10] LABS: HEMOGLOBIN 14.5 GM/dL (11.7-16.9); MCH 31.5 pg (25.7-33.7); MCHC 34.4 g/dl (32.0-35.9); MEAN CELL VOLUME 91.5 fl (80-96); MEAN PLT VOLUME 10.1 fl (7.5-11.1); PLATELET COUNT 191 K/MM3 (134-434); RBC 4.59 M/mm3 (4.00-5.60); RDW 14.1 % (11.9-15.9); WHITE BLOOD COUNT 7.3 K/mm3 (4.0-10.0)
[2017-09-09] MEDS ORDERED: BACITRACIN 0.9 GM PACKET ONE (10:10)
[2017-09-09] MEDS: BACITRACIN 15 GM TUBE TOPICAL OINTMENT TP SCH ×2 (10:11→22:14)
[2017-09-09 10:25] LABS: URINE APPEARANCE SLCLOUDY; URINE BILIRUBIN NEGATIVE (<2.0 mg/dL); URINE COLOR YELLOW; URINE GLUCOSE (UA) NEGATIVE (NEGATIVE); URINE KETONE NEGATIVE (NEGATIVE); URINE LEUK ESTERASE NEGATIVE (NEGATIVE); URINE NITRITE NEGATIVE (NEGATIVE); URINE PROTEIN NEGATIVE (NEGATIVE); URINE UROBILINOGEN NEGATIVE mg/dL (0.2-1.0)
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
[2017-09-09 10:40] LABS: ANION GAP 5 (8-16); BILIRUBIN,TOTAL 0.3 mg/dL (0.2-1.0); BLOOD UREA NITROGEN 19 mg/dL (7-18); CHLORIDE 102 mmol/L (98-107); CO2 31 mmol/L (21-32); GLUCOSE,RANDOM 103 mg/dL (74-106); POTASSIUM 4.2 mmol/L (3.5-5.1); SGOT/AST 69 U/L (15-37); SGPT/ALT 74 U/L (12-78); SODIUM 138 mmol/L (136-145); TOT PROT 8.3 g/dl (6.4-8.2)
[2017-09-09 10:41] LABS: ALK PHOS 81 U/L (45-117); CALCIUM 9.2 mg/dL (8.5-10.1); CREATININE 1.1 mg/dL (0.7-1.3)
--- NOTE | 2017-09-09 15:49 | PN ---
[facility] CIWA - CIWA Score Nausea/Vomitin-No Nausea/No Vomiting Muscle Tremors: 2 Anxiety: 6 Agitation: 5 Paroxysmal Sweats: 3 Orientation: 0-Oriented Tacttile Disturbances: 3-Moderate Itch/Numb/Burn Auditory Disturbances: 0-None Visual Disturbances: 0-None Headache: 0-None Present CIWA-Ar Total Score: 19 S Progress Note (SOAP) Subjective: Sweating, Anxious, Agitated, Tremors. Objective: PATIENT A & O X 3, OBSERVED AMBULATING ON UNIT. 09/09/17 15:27 Vital Signs Temperature 96.9 F L 09/09/17 14:35 Pulse Rate 60 09/09/17 14:35 Respiratory Rate 19 09/09/17 14:35 Blood Pressure 109/70 09/09/17 14:35 O2 Sat by Pulse Oximetry (%) Laboratory Tests 09/09/17 09/09/17 09/09/17 05:30 05:30 05:30 WBC 7.3 RBC 4.59 Hgb 14.5 Hct 42.0 MCV 91.5 MCH 31.5 MCHC 34.4 RDW 14.1 Plt Count 191 MPV 10.1 Sodium 138 Potassium 4.2 Chloride 102 Carbon Dioxide 31 Anion Gap 5 L BUN 19 H Creatinine 1.1 Creat Clearance w eGFR > 60 Random Glucose 103 Calcium 9.2 Total Bilirubin 0.3 AST 69 H D ALT 74 D Alkaline Phosphatase 81 Total Protein 8.3 H Albumin 4.0 Urine Color Urine Appearance Urine pH Ur Specific [place] Urine Protein Urine Glucose (UA) Urine Ketones Urine Blood Urine Nitrite Urine Bilirubin Urine Urobilinogen Ur Leukocyte Esterase RPR Titer Nonreactive 09/09/17 05:50 WBC RBC Hgb Hct MCV MCH MCHC RDW Plt Count MPV Sodium Potassium Chloride Carbon Dioxide Anion Gap BUN Creatinine Creat Clearance w eGFR Random Glucose Calcium Total Bilirubin AST ALT Alkaline Phosphatase Total Protein Albumin Urine Color Yellow Urine Appearance Slcloudy Urine pH 7.0 D Ur Specific [place] 1.023 Urine Protein Negative Urine Glucose (UA) Negative Urine Ketones Negative Urine Blood Negative Urine Nitrite Negative Urine Bilirubin Negative Urine Urobilinogen Negative Ur Leukocyte Esterase Negative RPR Titer LABS NOTED. Assessment: 09/09/17 15:28 WITHDRAWAL SYMPTOMS. Plan: CONTINUE DETOX. PATIENT APPEARED QUITE ANXIOUS AND AGITATED AND OBSERVED DISPLAYING VERBALLY CONFRONTATIONAL BEHAVIOR WITH BOTH OTHER PATIENTS AND WITH STAFF MEMBERS. PATIENT IS A CLIENT AT [facility], WHICH IS CLOSED ON SUNDAYS. INSPECTOR BRAKE LINING, COUNSELING, AND STAFF ANIMAL CONTROL SPECIALIST MET WITH PATIENT TO GIVE VERBAL WARNING THAT IF AGGRESSIVE AND CONFRONTATIONAL BEHAVIOR CONTINUES, HE WILL THEN BE DISCHARGED FROM DETOX UNIT. PATIENT VERBALIZED UNDERSTANDING OF INSTRUCTIONS.
[2017-09-09] MEDS: THIAMINE HCL 100 MG TABLET (FP) PO SCH (22:13)
[2017-09-09] MEDS: OLANZapine 10 MG TABLET PO SCH (22:14)
[2017-09-09] MEDS: ZOLPIDEM TARTRATE 5 MG TABLET PO PRN (22:14)
[2017-09-10] MEDS ORDERED: METHADONE HCL 10 MG TABLET ONE (05:00)
[2017-09-10] MEDS ORDERED: METHADONE HCL 40 MG DISPERSABLE TABLET ONE (05:01)
[2017-09-10] MEDS: METHADONE 40 MG, METHADONE 10 MG PO SCH (05:33)
[2017-09-10] MEDS: diazePAM 5 MG TABLET PO SCH ×2 (10:06→22:03)
[2017-09-10] MEDS: NICOTINE 21 MG/24 HOURS TOPICAL PATCH TD SCH (10:06)
[2017-09-10] MEDS: PRENATAL VITAMINS W/ FOLIC ACID TABLET (FP) PO SCH (10:06)
[2017-09-10] MEDS: BACITRACIN 0.9 GM PACKET TP SCH ×2 (11:22→22:03)
--- NOTE | 2017-09-10 16:49 | PN ---
S CIWA - CIWA Score Nausea/Vomitin-Mild Nausea/No Vomiting Muscle Tremors: 1-None Visible, but [place] Anxiety: 1-Mildly Anxious Agitation: 1-Slight > Activity Paroxysmal Sweats: 1-Minimal Palms Moist Orientation: 0-Oriented Tacttile Disturbances: 0-None Auditory Disturbances: 0-None Visual Disturbances: 0-None Headache: 0-None Present CIWA-Ar Total Score: 5 [facility] Progress Note (SOAP) Subjective: pt states he is fine. Objective: 09/10/17 16:48 Vital Signs - 24 hr 09/09/17 09/09/17 09/10/17 18:20 22:32 00:30 Temperature 96.9 F L 97.1 F L Pulse Rate 58 L 53 L Respiratory 18 16 18 Rate Blood Pressure 114/78 117/76 09/10/17 09/10/17 09/10/17 03:30 06:31 09:07 Temperature 98.7 F 97.1 F L Pulse Rate 69 50 L Respiratory 16 18 18 Rate Blood Pressure 111/61 117/74 09/10/17 13:19 Temperature 97.0 F L Pulse Rate 50 L Respiratory 18 Rate Blood Pressure 104/67 Laboratory Tests 09/09/17 09/09/17 09/09/17 05:30 05:30 05:30 WBC 7.3 RBC 4.59 Hgb 14.5 Hct 42.0 MCV 91.5 MCH 31.5 MCHC 34.4 RDW 14.1 Plt Count 191 MPV 10.1 Sodium 138 Potassium 4.2 Chloride 102 Carbon Dioxide 31 Anion Gap 5 L BUN 19 H Creatinine 1.1 Creat Clearance w eGFR > 60 Random Glucose 103 Calcium 9.2 Total Bilirubin 0.3 AST 69 H D ALT 74 D Alkaline Phosphatase 81 Total Protein 8.3 H Albumin 4.0 Urine Color Urine Appearance Urine pH Ur Specific [place] Urine Protein Urine Glucose (UA) Urine Ketones Urine Blood Urine Nitrite Urine Bilirubin Urine Urobilinogen Ur Leukocyte Esterase RPR Titer Nonreactive 09/09/17 05:50 WBC RBC Hgb Hct MCV MCH MCHC RDW Plt Count MPV Sodium Potassium Chloride Carbon Dioxide Anion Gap BUN Creatinine Creat Clearance w eGFR Random Glucose Calcium Total Bilirubin AST ALT Alkaline Phosphatase Total Protein Albumin Urine Color Yellow Urine Appearance Slcloudy Urine pH 7.0 D Ur Specific [place] 1.023 Urine Protein Negative Urine Glucose (UA) Negative Urine Ketones Negative Urine Blood Negative Urine Nitrite Negative Urine Bilirubin Negative Urine Urobilinogen Negative Ur Leukocyte Esterase Negative RPR Titer increased liver enzymes, nl VS Assessment: 09/10/17 16:48 47 years old male with alcohol,cocaine,marijuana,xanax dependence,on detox Plan: continue detox protocol, on methadone maintenance
[2017-09-10] MEDS: diazePAM 5 MG TABLET PO PRN (17:28)
[2017-09-10] MEDS: OLANZapine 10 MG TABLET PO SCH (22:03)
[2017-09-10] MEDS: THIAMINE HCL 100 MG TABLET (FP) PO SCH (22:03)
[2017-09-10] MEDS: ZOLPIDEM TARTRATE 5 MG TABLET PO PRN (22:04)
[2017-09-11] MEDS: MAG HYDROX/AL HYDROX/SIMETH 30 ML UNIT-DOSE CUP PO PRN (01:04)
[2017-09-11] MEDS ORDERED: METHADONE HCL 40 MG DISPERSABLE TABLET ONE (04:31)
[2017-09-11] MEDS ORDERED: METHADONE HCL 10 MG TABLET ONE (04:31)
[2017-09-11] MEDS: CYCLOBENZAPRINE HCL 10 MG TABLET (FP) PO PRN ×2 (05:16→13:11)
[2017-09-11] MEDS: METHADONE 40 MG, METHADONE 10 MG PO SCH (05:16)
[2017-09-11] MEDS: BACITRACIN 0.9 GM PACKET TP SCH ×2 (10:21→22:18)
[2017-09-11] MEDS: PRENATAL VITAMINS W/ FOLIC ACID TABLET (FP) PO SCH (10:21)
[2017-09-11] MEDS: diazePAM 5 MG TABLET PO SCH ×2 (10:21→22:18)
[2017-09-11] MEDS: NICOTINE 21 MG/24 HOURS TOPICAL PATCH TD SCH (10:21)
--- NOTE | 2017-09-11 11:10 | EKG ---
Test Reason : Blood Pressure : / mmHG Vent. Rate : 051 BPM Atrial Rate : 051 BPM P-R Int : 146 ms QRS Dur : 102 ms QT Int : 442 ms P-R-T Axes : 023 082 066 degrees QTc Int : 407 ms SINUS BRADYCARDIA T WAVE ABNORMALITY, CONSIDER ANTERIOR ISCHEMIA ABNORMAL ECG WHEN COMPARED WITH ECG OF 30-MAY-2017 15:14, NO SIGNIFICANT CHANGE WAS FOUND Confirmed by JUAN MANUEL LUNA MD ([id number]) on 09/11/2017 11:10:09 AM Referred By: Confirmed By:JUAN MANUEL LUNA MD
--- NOTE | 2017-09-11 11:43 | PN ---
[facility] Progress Note (SOAP) Subjective: PT IS OOB AMBULATING ON HALLWAY. ALERT O X 3. REPORTS LESS ANXIETY AND IRRITABILITY AND DETOX PROCEEDING WELL. Objective: 09/11/17 11:42 Vital Signs 09/11/17 09/11/17 06:15 09:08 Temperature 96.9 F L 96.4 F L Pulse Rate 63 61 Respiratory 18 18 Rate Blood Pressure 118/77 124/78 Laboratory Tests 09/09/17 09/09/17 09/09/17 05:30 05:30 05:30 WBC 7.3 RBC 4.59 Hgb 14.5 Hct 42.0 MCV 91.5 MCH 31.5 MCHC 34.4 RDW 14.1 Plt Count 191 MPV 10.1 Sodium 138 Potassium 4.2 Chloride 102 Carbon Dioxide 31 Anion Gap 5 L BUN 19 H Creatinine 1.1 Creat Clearance w eGFR > 60 Random Glucose 103 Calcium 9.2 Total Bilirubin 0.3 AST 69 H D ALT 74 D Alkaline Phosphatase 81 Total Protein 8.3 H Albumin 4.0 Urine Color Urine Appearance Urine pH Ur Specific [place] Urine Protein Urine Glucose (UA) Urine Ketones Urine Blood Urine Nitrite Urine Bilirubin Urine Urobilinogen Ur Leukocyte Esterase RPR Titer Nonreactive 09/09/17 05:50 WBC RBC Hgb Hct MCV MCH MCHC RDW Plt Count MPV Sodium Potassium Chloride Carbon Dioxide Anion Gap BUN Creatinine Creat Clearance w eGFR Random Glucose Calcium Total Bilirubin AST ALT Alkaline Phosphatase Total Protein Albumin Urine Color Yellow Urine Appearance Slcloudy Urine pH 7.0 D Ur Specific [place] 1.023 Urine Protein Negative Urine Glucose (UA) Negative Urine Ketones Negative Urine Blood Negative Urine Nitrite Negative Urine Bilirubin Negative Urine Urobilinogen Negative Ur Leukocyte Esterase Negative RPR Titer Assessment: 09/11/17 11:43 WITHDRAWAL SX Plan: CONTINUE DETOX
[2017-09-11] MEDS: THIAMINE HCL 100 MG TABLET (FP) PO SCH (22:18)
[2017-09-11] MEDS: OLANZapine 10 MG TABLET PO SCH (22:18)
[2017-09-11] MEDS: ZOLPIDEM TARTRATE 5 MG TABLET PO PRN (22:18)
[2017-09-12] MEDS ORDERED: METHADONE HCL 40 MG DISPERSABLE TABLET ONE (04:21)
[2017-09-12] MEDS ORDERED: METHADONE HCL 10 MG TABLET ONE (04:21)
[2017-09-12] MEDS: METHADONE 40 MG, METHADONE 10 MG PO SCH (05:11)
[2017-09-12 06:20] VITALS: BP 110/77; PULSE 67; TEMP 97.1
[2017-09-12] MEDS ORDERED: diazePAM 5 MG TABLET PO SCH (10:00)
--- NOTE | 2017-09-12 13:22 | PN ---
[facility] Progress Note (SOAP) Subjective: DETOX COMPLETED. ALERT O X 3, NAD. PT REPORTS HAS PMD, DR OLIVIA(PT NOT SURE OF SPELLING) AT ALL [facility] [place] [address] FOR MEDICAL CARE. Objective: 09/12/17 13:21 Vital Signs 09/12/17 06:19 Temperature 97.1 F L Pulse Rate 67 Respiratory 18 Rate Blood Pressure 110/77 Laboratory Tests 09/09/17 09/09/17 09/09/17 05:30 05:30 05:30 WBC 7.3 RBC 4.59 Hgb 14.5 Hct 42.0 MCV 91.5 MCH 31.5 MCHC 34.4 RDW 14.1 Plt Count 191 MPV 10.1 Sodium 138 Potassium 4.2 Chloride 102 Carbon Dioxide 31 Anion Gap 5 L BUN 19 H Creatinine 1.1 Creat Clearance w eGFR > 60 Random Glucose 103 Calcium 9.2 Total Bilirubin 0.3 AST 69 H D ALT 74 D Alkaline Phosphatase 81 Total Protein 8.3 H Albumin 4.0 Urine Color Urine Appearance Urine pH Ur Specific [place] Urine Protein Urine Glucose (UA) Urine Ketones Urine Blood Urine Nitrite Urine Bilirubin Urine Urobilinogen Ur Leukocyte Esterase RPR Titer Nonreactive 09/09/17 05:50 WBC RBC Hgb Hct MCV MCH MCHC RDW Plt Count MPV Sodium Potassium Chloride Carbon Dioxide Anion Gap BUN Creatinine Creat Clearance w eGFR Random Glucose Calcium Total Bilirubin AST ALT Alkaline Phosphatase Total Protein Albumin Urine Color Yellow Urine Appearance Slcloudy Urine pH 7.0 D Ur Specific [place] 1.023 Urine Protein Negative Urine Glucose (UA) Negative Urine Ketones Negative Urine Blood Negative Urine Nitrite Negative Urine Bilirubin Negative Urine Urobilinogen Negative Ur Leukocyte Esterase Negative RPR Titer Assessment: 09/12/17 13:21 MEDICALLY STABLE Plan: D/C PT TODAY. FOLLOW UP WITH AFTERCARE AT [facility].
--- NOTE | 2017-09-12 13:24 | DS ---
[facility] Detox Discharge Summary Admission Date: 09/08/17 Discharge Date: 09/12/17 - History Present History: Alcohol Dependence, MMTP Additional Comments: DETOX COMPLETED. ALERT O X 3. F/U WTH PMD AT ALL MED FOR MEDICAL MANAGEMENT NEEDED. Pertinent Past History: PLEASE SEE DX BELOW. - Physical Exam Results Vital Signs: Vital Signs Temperature 97.1 F L 09/12/17 06:19 Pulse Rate 67 09/12/17 06:19 Respiratory Rate 18 09/12/17 06:19 Blood Pressure 110/77 09/12/17 06:19 O2 Sat by Pulse Oximetry (%) - Treatment Hospital Course: Detox Protocol Followed, Detoxed Safely, Responded well, Discharged Condition Good, Rehab Referral Accepted Patient has Accepted a Rehab Referral to: [facility] - Medication Discharge Medications: Ambulatory Orders NK [No Known Home Medication] 04/06/17 - Diagnosis (1) Alcohol dependence with uncomplicated withdrawal Status: Acute (2) Cocaine dependence Status: Acute Qualifiers: Substance use status: uncomplicated Qualified Code(s): F14.20 - Cocaine dependence, uncomplicated (3) Dehydration Status: Acute (4) Marijuana dependence Status: Acute (5) Nicotine dependence Status: Acute Qualifiers: Nicotine product type: cigarettes Substance use status: in withdrawal Qualified Code(s): F17.213 - Nicotine dependence, cigarettes, with withdrawal (6) Hepatitis C Status: Chronic Qualifiers: Viral hepatitis chronicity: chronic Hepatic coma status: without hepatic coma Qualified Code(s): B18.2 - Chronic viral hepatitis C (7) Methadone maintenance therapy patient Status: Chronic - AMA Did Patient Leave Against Medical Advice: No
== END 2017-09-12 09:05 | disposition home or self-care (01) | DRG 773 ==
LOC: YASAS 12:22 → Y3N 14:39
PROVIDERS: ADMIT Surgery; ATTEND Surgery
PROC: HZ2ZZZZ Detoxification Services for Substance Abuse Treatment (ICD-10-PCS; principal; 2017-09-08)
DX: F10.230 Alcohol dependence with withdrawal, uncomplicated (principal); F13.230 Sedative, hypnotic or anxiolytic dependence with withdrawal, uncomplicated; F14.20 Cocaine dependence, uncomplicated; F12.20 Cannabis dependence, uncomplicated; F11.20 Opioid dependence, uncomplicated; F17.213 Nicotine dependence, cigarettes, with withdrawal; F31.9 Bipolar disorder, unspecified; G47.00 Insomnia, unspecified; E86.0 Dehydration; R63.4 Abnormal weight loss; Z68.1 Body mass index [BMI] 19.9 or less, adult; Z91.14 Patient's other noncompliance with medication regimen
CPT/HCPCS: 36415; 80053; 81003; 85027; 86593; 93005; 93010

== ENCOUNTER 2017-11-23 12:59 | Inpatient (IN) | payer OTHER ==
[2017-11-23 13:16] VITALS: BMI 18.9
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
[2017-11-23] MEDS ORDERED: NICOTINE POLACRILEX 2 MG GUM BC PRN (16:32)
[2017-11-23] MEDS ORDERED: MAGNESIUM CITRATE 300 ML BOTTLE PO PRN (16:32)
[2017-11-23] MEDS ORDERED: MAGNESIUM HYDROX 2400MG/30ML ORAL SUSPENSION 30 ML CUP PO PRN (16:32)
[2017-11-23] MEDS ORDERED: guaiFENesin/D-METHORPHAN HB 10 ML UNIT-DOSE CUPS PO PRN (16:32)
[2017-11-23] MEDS ORDERED: P-EPHED 60MG/TRIPROLIDI 2.5MG TABLET PO PRN (16:32)
[2017-11-23] MEDS ORDERED: ACETAMINOPHEN 325 MG TABLET (FP) PO PRN (16:32)
[2017-11-23] MEDS ORDERED: MENTHOL/PHENOL 1 EACH UD MM PRN (16:32)
[2017-11-23] MEDS ORDERED: LOPERAMIDE HCL 2 MG CAPSULE PO PRN (16:32)
[2017-11-23] MEDS ORDERED: IBUPROFEN 400 MG TABLET (FP) PO PRN (16:32)
[2017-11-23] MEDS ORDERED: METHADONE HCL 10 MG TABLET (FOR DETOX USE ONLY) PO ONE ×2 (17:15→23:00)
[2017-11-23] MEDS: diazePAM 5 MG TABLET PO PRN ×2 (18:12→22:08)
[2017-11-23] MEDS: CEPHALEXIN MONOHYDRATE 250 MG CAPSULE (FP) PO SCH ×2 (19:04→23:14)
[2017-11-23] MEDS ORDERED: MELATONIN 5 MG TABLETS PO PRN (22:00)
[2017-11-23] MEDS: THIAMINE HCL 100 MG TABLET (FP) PO SCH (22:08)
[2017-11-24] MEDS: hydrOXYzine PAMOATE 50 MG CAPSULE (FP) PO PRN ×2 (02:52→09:44)
[2017-11-24] MEDS: CEPHALEXIN MONOHYDRATE 250 MG CAPSULE (FP) PO SCH ×4 (05:53→23:09)
[2017-11-24] MEDS: diazePAM 5 MG TABLET PO PRN ×4 (06:01→19:49)
[2017-11-24] MEDS: BACITRACIN 0.9 GM PACKET TP SCH (09:42)
[2017-11-24] MEDS: PRENATAL VITAMINS W/ FOLIC ACID TABLET (FP) PO SCH (09:43)
[2017-11-24] MEDS: NICOTINE 21 MG/24 HOURS TOPICAL PATCH TD SCH (09:44)
[2017-11-24] MEDS ORDERED: METHADONE HCL 10 MG TABLET (FOR DETOX USE ONLY) PO ONE (10:00)
[2017-11-24 10:09] LABS: HEMATOCRIT 41.9 % (35.4-49); HEMOGLOBIN 14.1 GM/dL (11.7-16.9); MCH 30.3 pg (25.7-33.7); MCHC 33.5 g/dl (32.0-35.9); MEAN CELL VOLUME 90.3 fl (80-96); MEAN PLT VOLUME 9.5 fl (7.5-11.1); PLATELET COUNT 179 K/MM3 (134-434); RBC 4.64 M/mm3 (4.00-5.60); RDW 13.8 % (11.9-15.9); WHITE BLOOD COUNT 5.6 K/mm3 (4.0-10.0)
--- NOTE | 2017-11-24 10:15 | EKG ---
Test Reason : Blood Pressure : / mmHG Vent. Rate : 057 BPM Atrial Rate : 057 BPM P-R Int : 136 ms QRS Dur : 088 ms QT Int : 434 ms P-R-T Axes : 028 083 069 degrees QTc Int : 422 ms POOR DATA QUALITY, INTERPRETATION MAY BE ADVERSELY AFFECTED SINUS BRADYCARDIA OTHERWISE NORMAL ECG WHEN COMPARED WITH ECG OF 08-SEP-2017 15:38, NO SIGNIFICANT CHANGE WAS FOUND Confirmed by ALEX GUERRERO MD ([id number]) on 11/24/2017 10:15:13 AM Referred By: Confirmed By:ALEX GUERRERO MD
[2017-11-24 10:23] LABS: URINE APPEARANCE SLCLOUDY; URINE BILIRUBIN NEGATIVE (<2.0 mg/dL); URINE COLOR YELLOW; URINE GLUCOSE (UA) NEGATIVE (NEGATIVE); URINE KETONE NEGATIVE (NEGATIVE); URINE LEUK ESTERASE 3+ (NEGATIVE); URINE NITRITE NEGATIVE (NEGATIVE); URINE PROTEIN NEGATIVE (NEGATIVE); URINE UROBILINOGEN NEGATIVE mg/dL (0.2-1.0)
[2017-11-24 10:34] LABS: CALCIUM OXALATE CRYSTALS FEW /hpf (NONE SEEN); URINE MUCUS RARE
[2017-11-24 10:51] LABS: ALBUMIN 3.3 g/dl (3.4-5.0); ALK PHOS 74 U/L (45-117); ANION GAP 7 MMOL/L (8-16); BILIRUBIN,TOTAL 0.4 mg/dL (0.2-1); BLOOD UREA NITROGEN 10 mg/dL (7-18); CALCIUM 8.7 mg/dL (8.5-10.1); CHLORIDE 104 mmol/L (98-107); CO2 29 mmol/L (21-32); CREATININE 0.8 mg/dL (0.55-1.3); GLUCOSE,RANDOM 89 mg/dL (74-106); POTASSIUM 3.6 mmol/L (3.5-5.1); SGOT/AST 47 U/L (15-37); SGPT/ALT 47 U/L (13-61); SODIUM 141 mmol/L (136-145)
--- NOTE | 2017-11-24 11:43 | PN ---
BHS COWS - Scale Resting Pulse: 0= [place] 80 or Below Sweatin=Flushed/Facial Moisture Restless Observation: 1= Difficult to Sit Still Pupil Size: 2= Moderately Dilated Bone or Joint Aches: 2= Severe Diffuse Aches Runny Nose/ Eye Tearin= None GI Upset > 30mins: 2= Nausea/Diarrhea Tremor Observation of Outstretched Hands: 2= Slight Tremor Visible Yawning Observation: 0= None Anxiety or Irritability: 2=Irritable/Anxious Goose Flesh Skin: 0=Smooth Skin COWS Score: 13 BHS Progress Note (SOAP) Subjective: PATIENT C/O ANXIETY/IRRITABLE, SHAKES AND NAUSEA/DIARRHEA. Objective: 11/24/17 11:40 Laboratory Tests 11/24/17 11/24/17 11/24/17 07:00 07:00 07:00 WBC 5.6 RBC 4.64 Hgb 14.1 Hct 41.9 MCV 90.3 MCH 30.3 MCHC 33.5 RDW 13.8 Plt Count 179 MPV 9.5 Sodium 141 Potassium 3.6 Chloride 104 Carbon Dioxide 29 Anion Gap 7 L BUN 10 Creatinine 0.8 Creat Clearance w eGFR > 60 Random Glucose 89 Calcium 8.7 Total Bilirubin 0.4 AST 47 H ALT 47 Alkaline Phosphatase 74 Total Protein 7.0 Albumin 3.3 L Urine Color Urine Appearance Urine pH Ur Specific [place] Urine Protein Urine Glucose (UA) Urine Ketones Urine Blood Urine Nitrite Urine Bilirubin Urine Urobilinogen Ur Leukocyte Esterase Urine WBC (Auto) Urine RBC (Auto) Calcium Oxalate Crystal Urine Mucus HIV 1&2 Antibody Screen Negative HIV P24 Antigen Negative 11/24/17 08:00 WBC RBC Hgb Hct MCV MCH MCHC RDW Plt Count MPV Sodium Potassium Chloride Carbon Dioxide Anion Gap BUN Creatinine Creat Clearance w eGFR Random Glucose Calcium Total Bilirubin AST ALT Alkaline Phosphatase Total Protein Albumin Urine Color Yellow Urine Appearance Slcloudy Urine pH 6.0 Ur Specific [place] 1.012 Urine Protein Negative Urine Glucose (UA) Negative Urine Ketones Negative Urine Blood Negative Urine Nitrite Negative Urine Bilirubin Negative Urine Urobilinogen Negative Ur Leukocyte Esterase 3+ H Urine WBC (Auto) 221 Urine RBC (Auto) 6 Calcium Oxalate Crystal Few Urine Mucus Rare HIV 1&2 Antibody Screen HIV P24 Antigen Laboratory Tests 11/24/17 11/24/17 11/24/17 07:00 07:00 07:00 WBC 5.6 RBC 4.64 Hgb 14.1 Hct 41.9 MCV 90.3 MCH 30.3 MCHC 33.5 RDW 13.8 Plt Count 179 MPV 9.5 Sodium 141 Potassium 3.6 Chloride 104 Carbon Dioxide 29 Anion Gap 7 L BUN 10 Creatinine 0.8 Creat Clearance w eGFR > 60 Random Glucose 89 Calcium 8.7 Total Bilirubin 0.4 AST 47 H ALT 47 Alkaline Phosphatase 74 Total Protein 7.0 Albumin 3.3 L Urine Color Urine Appearance Urine pH Ur Specific [place] Urine Protein Urine Glucose (UA) Urine Ketones Urine Blood Urine Nitrite Urine Bilirubin Urine Urobilinogen Ur Leukocyte Esterase Urine WBC (Auto) Urine RBC (Auto) Calcium Oxalate Crystal Urine Mucus HIV 1&2 Antibody Screen Negative HIV P24 Antigen Negative 11/24/17 08:00 WBC RBC Hgb Hct MCV MCH MCHC RDW Plt Count MPV Sodium Potassium Chloride Carbon Dioxide Anion Gap BUN Creatinine Creat Clearance w eGFR Random Glucose Calcium Total Bilirubin AST ALT Alkaline Phosphatase Total Protein Albumin Urine Color Yellow Urine Appearance Slcloudy Urine pH 6.0 Ur Specific [place] 1.012 Urine Protein Negative Urine Glucose (UA) Negative Urine Ketones Negative Urine Blood Negative Urine Nitrite Negative Urine Bilirubin Negative Urine Urobilinogen Negative Ur Leukocyte Esterase 3+ H Urine WBC (Auto) 221 Urine RBC (Auto) 6 Calcium Oxalate Crystal Few Urine Mucus Rare HIV 1&2 Antibody Screen HIV P24 Antigen Vital Signs Temperature 97.5 F L 11/24/17 06:01 Pulse Rate 64 11/24/17 10:03 Respiratory Rate 18 11/24/17 10:03 Blood Pressure 123/83 11/24/17 10:03 O2 Sat by Pulse Oximetry (%) SKIN WARM AND MOIST EXT +TREMORS ALERT AND ORIENTED X 3 PATIENT ANXIOUS, PACING IN HALLWAY 11/24/17 11:44 Assessment: 11/24/17 11:41 WITHDRAWAL SYNDROME Plan: CONTINUE DETOX ORDERED ENCOURAGE ORAL FLUIDS CONTINUE TO MONITOR
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
--- NOTE | 2017-11-24 15:01 | PN ---
S Progress Note Note: NOTIFIED BY RN PATIENT C/O BODY ACHES/PAIN. PATIENT IRRITABLE AND RESTLESS. WILL ORDER FLEXERIL 10MG PO TID PRN. CONTINUE TO MONITOR CLINICALLY.
[2017-11-24] MEDS: CYCLOBENZAPRINE HCL 10 MG TABLET (FP) PO PRN ×2 (15:02→22:13)
[2017-11-24] MEDS: MAG HYDROX/AL HYDROX/SIMETH 30 ML UNIT-DOSE CUP PO PRN (17:29)
[2017-11-24] MEDS: ZOLPIDEM TARTRATE 10 MG TABLET (PARK CARE ONLY) PO PRN (22:13)
[2017-11-24] MEDS: OLANZapine 10 MG TABLET PO SCH (22:13)
[2017-11-24] MEDS: THIAMINE HCL 100 MG TABLET (FP) PO SCH (22:13)
[2017-11-25] MEDS: diazePAM 5 MG TABLET PO PRN ×3 (05:03→16:30)
[2017-11-25] MEDS: CEPHALEXIN MONOHYDRATE 250 MG CAPSULE (FP) PO SCH ×3 (05:04→18:28)
[2017-11-25] MEDS: BACITRACIN 0.9 GM PACKET TP SCH (09:50)
[2017-11-25] MEDS: NICOTINE 21 MG/24 HOURS TOPICAL PATCH TD SCH (09:50)
[2017-11-25] MEDS: PRENATAL VITAMINS W/ FOLIC ACID TABLET (FP) PO SCH (09:50)
[2017-11-25] MEDS: MAG HYDROX/AL HYDROX/SIMETH 30 ML UNIT-DOSE CUP PO PRN (09:50)
[2017-11-25] MEDS ORDERED: METHADONE HCL 5 MG TABLET (FOR DETOX USE ONLY) PO ONE (10:00)
--- NOTE | 2017-11-25 13:01 | PN ---
S CIWA - CIWA Score Nausea/Vomitin Muscle Tremors: 2 Anxiety: 2 Agitation: 2 Paroxysmal Sweats: 1-Minimal Palms Moist Orientation: 0-Oriented Tacttile Disturbances: 1-Very Mild Itch/Numbness Auditory Disturbances: 1-Very Mild Visual Disturbances: 1-Very Mild Sensitivity Headache: 2-Mild CIWA-Ar Total Score: 14 BHS COWS - Scale Resting Pulse: 0= [place] 80 or Below Sweatin= Chills/Flushing Restless Observation: 3= Extraneous Movement Pupil Size: 1= Pupils >than Normal Bone or Joint Aches: 2= Severe Diffuse Aches Runny Nose/ Eye Tearin= Nasal Congestion GI Upset > 30mins: 2= Nausea/Diarrhea Tremor Observation of Outstretched Hands: 2= Slight Tremor Visible Yawning Observation: 1= 1-2x During Session Anxiety or Irritability: 2=Irritable/Anxious Goose Flesh Skin: 0=Smooth Skin COWS Score: 15 BHS Progress Note (SOAP) Subjective: alert,irritable,anxious,interrupted sleep,tremor,pain in the body and back Objective: 11/25/17 12:58 Vital Signs Temperature 96.6 F L 11/25/17 09:59 Pulse Rate 61 11/25/17 09:59 Respiratory Rate 18 11/25/17 09:59 Blood Pressure 155/98 11/25/17 09:59 O2 Sat by Pulse Oximetry (%) ekg sinus bradycardia 57/min no chest pain,no sob,no dizziness Laboratory Last Values WBC 5.6 K/mm3 (4.0-10.0) 11/24/17 07:00 RBC 4.64 M/mm3 (4.00-5.60) 11/24/17 07:00 Hgb 14.1 GM/dL (11.7-16.9) 11/24/17 07:00 Hct 41.9 % (35.4-49) 11/24/17 07:00 MCV 90.3 fl (80-96) 11/24/17 07:00 MCH 30.3 pg (25.7-33.7) 11/24/17 07:00 MCHC 33.5 g/dl (32.0-35.9) 11/24/17 07:00 RDW 13.8 % (11.9-15.9) 11/24/17 07:00 Plt Count 179 K/MM3 (134-434) 11/24/17 07:00 MPV 9.5 fl (7.5-11.1) 11/24/17 07:00 Sodium 141 mmol/L (136-145) 11/24/17 07:00 Potassium 3.6 mmol/L (3.5-5.1) 11/24/17 07:00 Chloride 104 mmol/L (98-107) 11/24/17 07:00 Carbon Dioxide 29 mmol/L (21-32) 11/24/17 07:00 Anion Gap 7 MMOL/L (8-16) L 11/24/17 07:00 BUN 10 mg/dL (7-18) 11/24/17 07:00 Creatinine 0.8 mg/dL (0.55-1.3) 11/24/17 07:00 Creat Clearance w eGFR > 60 (>60) 11/24/17 07:00 Random Glucose 89 mg/dL (74-106) 11/24/17 07:00 Calcium 8.7 mg/dL (8.5-10.1) 11/24/17 07:00 Total Bilirubin 0.4 mg/dL (0.2-1) 11/24/17 07:00 AST 47 U/L (15-37) H 11/24/17 07:00 ALT 47 U/L (13-61) 11/24/17 07:00 Alkaline Phosphatase 74 U/L (45-117) 11/24/17 07:00 Total Protein 7.0 g/dl (6.4-8.2) 11/24/17 07:00 Albumin 3.3 g/dl (3.4-5.0) L 11/24/17 07:00 Urine Color Yellow 11/24/17 08:00 Urine Appearance Slcloudy 11/24/17 08:00 Urine pH 6.0 (5.0-8.0) 11/24/17 08:00 Ur Specific [place] 1.012 (1.010-1.035) 11/24/17 08:00 Urine Protein Negative (NEGATIVE) 11/24/17 08:00 Urine Glucose (UA) Negative (NEGATIVE) 11/24/17 08:00 Urine Ketones Negative (NEGATIVE) 11/24/17 08:00 Urine Blood Negative (NEGATIVE) 11/24/17 08:00 Urine Nitrite Negative (NEGATIVE) 11/24/17 08:00 Urine Bilirubin Negative (<2.0 mg/dL) 11/24/17 08:00 Urine Urobilinogen Negative mg/dL (0.2-1.0) 11/24/17 08:00 Ur Leukocyte Esterase 3+ (NEGATIVE) H 11/24/17 08:00 Urine WBC (Auto) 221 /hpf (3-5) 11/24/17 08:00 Urine RBC (Auto) 6 /hpf (0-3) 11/24/17 08:00 Calcium Oxalate Crystal Few /hpf (NONE SEEN) 11/24/17 08:00 Urine Mucus Rare 11/24/17 08:00 RPR Titer Nonreactive (NONREACTIVE) 11/24/17 07:00 HIV 1&2 Antibody Screen Negative 11/24/17 07:00 HIV P24 Antigen Negative 11/24/17 07:00 Assessment: 11/25/17 13:01 withdrawal symptom Plan: continue detox,on keflex 250 mgs po q6hrs for uit,fluid
[2017-11-25] MEDS: CYCLOBENZAPRINE HCL 10 MG TABLET (FP) PO PRN (22:17)
[2017-11-25] MEDS: OLANZapine 10 MG TABLET PO SCH (22:17)
[2017-11-25] MEDS: ZOLPIDEM TARTRATE 10 MG TABLET (PARK CARE ONLY) PO PRN (22:17)
[2017-11-25] MEDS: THIAMINE HCL 100 MG TABLET (FP) PO SCH (22:17)
[2017-11-26] MEDS: CEPHALEXIN MONOHYDRATE 250 MG CAPSULE (FP) PO SCH ×5 (00:21→23:52)
[2017-11-26] MEDS: diazePAM 5 MG TABLET PO PRN (09:41)
[2017-11-26] MEDS: PRENATAL VITAMINS W/ FOLIC ACID TABLET (FP) PO SCH (09:41)
[2017-11-26] MEDS: NICOTINE 21 MG/24 HOURS TOPICAL PATCH TD SCH (09:42)
[2017-11-26] MEDS: BACITRACIN 0.9 GM PACKET TP SCH (09:42)
[2017-11-26] MEDS ORDERED: METHADONE HCL 5 MG TABLET (FOR DETOX USE ONLY) PO ONE (10:00)
--- NOTE | 2017-11-26 12:00 | PN ---
BHS Progress Note (SOAP) Subjective: Body ache, diarrhea, tremor, chills, interrupted sleep Objective: 11/26/17 11:55 Last Vital Signs Temp Pulse Resp BP Pulse Ox 98.2 F 82 16 152/98 11/26/17 09:26 11/26/17 09:26 11/26/17 09:26 11/26/17 09:26 Elevated b/p noted, most likely from anxiety Laboratory Tests 11/24/17 11/24/17 11/24/17 07:00 07:00 07:00 WBC 5.6 RBC 4.64 Hgb 14.1 Hct 41.9 MCV 90.3 MCH 30.3 MCHC 33.5 RDW 13.8 Plt Count 179 MPV 9.5 Sodium 141 Potassium 3.6 Chloride 104 Carbon Dioxide 29 Anion Gap 7 L BUN 10 Creatinine 0.8 Creat Clearance w eGFR > 60 Random Glucose 89 Calcium 8.7 Total Bilirubin 0.4 AST 47 H ALT 47 Alkaline Phosphatase 74 Total Protein 7.0 Albumin 3.3 L Urine Color Urine Appearance Urine pH Ur Specific [place] Urine Protein Urine Glucose (UA) Urine Ketones Urine Blood Urine Nitrite Urine Bilirubin Urine Urobilinogen Ur Leukocyte Esterase Urine WBC (Auto) Urine RBC (Auto) Calcium Oxalate Crystal Urine Mucus RPR Titer Nonreactive HIV 1&2 Antibody Screen HIV P24 Antigen 11/24/17 11/24/17 07:00 08:00 WBC RBC Hgb Hct MCV MCH MCHC RDW Plt Count MPV Sodium Potassium Chloride Carbon Dioxide Anion Gap BUN Creatinine Creat Clearance w eGFR Random Glucose Calcium Total Bilirubin AST ALT Alkaline Phosphatase Total Protein Albumin Urine Color Yellow Urine Appearance Slcloudy Urine pH 6.0 Ur Specific [place] 1.012 Urine Protein Negative Urine Glucose (UA) Negative Urine Ketones Negative Urine Blood Negative Urine Nitrite Negative Urine Bilirubin Negative Urine Urobilinogen Negative Ur Leukocyte Esterase 3+ H Urine WBC (Auto) 221 Urine RBC (Auto) 6 Calcium Oxalate Crystal Few Urine Mucus Rare RPR Titer HIV 1&2 Antibody Screen Negative HIV P24 Antigen Negative Labs reviewed: abnormal UA 11/26/17 11:57 Assessment: 11/26/17 11:56 Withdrawal sxs Noted with elevated blood pressure (denies HTN) and abnormal UA Plan: Continue detox Elevated blood pressure: most likely related to anxiety, start clonidine 0.1mg PO Q8hr prn, encouraged relaxation techniques (deep breathing, watching TV, socializing with peers/staff etc), encouraged prn vistaril Abnormal UA: encouraged PO water intake, repeat UA
[2017-11-26] MEDS: cloNIDine HCL 0.1 MG TABLET PO PRN ×2 (12:24→21:55)
[2017-11-26] MEDS: ONDANSETRON *ODT* 4 MG TABLET SL PRN (18:51)
[2017-11-26] MEDS: THIAMINE HCL 100 MG TABLET (FP) PO SCH (21:55)
[2017-11-26] MEDS: CYCLOBENZAPRINE HCL 10 MG TABLET (FP) PO PRN (21:55)
[2017-11-26] MEDS: OLANZapine 10 MG TABLET PO SCH (21:55)
[2017-11-26] MEDS: ZOLPIDEM TARTRATE 10 MG TABLET (PARK CARE ONLY) PO PRN (21:55)
[2017-11-27] MEDS: CEPHALEXIN MONOHYDRATE 250 MG CAPSULE (FP) PO SCH ×4 (05:13→23:18)
[2017-11-27] MEDS: PRENATAL VITAMINS W/ FOLIC ACID TABLET (FP) PO SCH (09:24)
[2017-11-27] MEDS: cloNIDine HCL 0.1 MG TABLET PO PRN (09:24)
[2017-11-27] MEDS: CYCLOBENZAPRINE HCL 10 MG TABLET (FP) PO PRN ×2 (09:24→21:50)
[2017-11-27] MEDS: NICOTINE 21 MG/24 HOURS TOPICAL PATCH TD SCH (09:24)
[2017-11-27] MEDS: hydrOXYzine PAMOATE 50 MG CAPSULE (FP) PO PRN (09:26)
[2017-11-27] MEDS: BACITRACIN 0.9 GM PACKET TP SCH (09:56)
[2017-11-27] MEDS ORDERED: METHADONE HCL 10 MG TABLET (FOR DETOX USE ONLY) PO ONE (10:00)
--- NOTE | 2017-11-27 10:05 | PN ---
S Progress Note Note: c/o of nausea, decrease appetite, interrupted sleep Vital Signs Temperature 98.0 F 11/27/17 09:04 Pulse Rate 80 11/27/17 09:04 Respiratory Rate 18 11/27/17 09:04 Blood Pressure 189/108 H 11/27/17 09:04 O2 Sat by Pulse Oximetry (%) Laboratory Last Values WBC 5.6 K/mm3 (4.0-10.0) 11/24/17 07:00 RBC 4.64 M/mm3 (4.00-5.60) 11/24/17 07:00 Hgb 14.1 GM/dL (11.7-16.9) 11/24/17 07:00 Hct 41.9 % (35.4-49) 11/24/17 07:00 MCV 90.3 fl (80-96) 11/24/17 07:00 MCH 30.3 pg (25.7-33.7) 11/24/17 07:00 MCHC 33.5 g/dl (32.0-35.9) 11/24/17 07:00 RDW 13.8 % (11.9-15.9) 11/24/17 07:00 Plt Count 179 K/MM3 (134-434) 11/24/17 07:00 MPV 9.5 fl (7.5-11.1) 11/24/17 07:00 Sodium 141 mmol/L (136-145) 11/24/17 07:00 Potassium 3.6 mmol/L (3.5-5.1) 11/24/17 07:00 Chloride 104 mmol/L (98-107) 11/24/17 07:00 Carbon Dioxide 29 mmol/L (21-32) 11/24/17 07:00 Anion Gap 7 MMOL/L (8-16) L 11/24/17 07:00 BUN 10 mg/dL (7-18) 11/24/17 07:00 Creatinine 0.8 mg/dL (0.55-1.3) 11/24/17 07:00 Creat Clearance w eGFR > 60 (>60) 11/24/17 07:00 Random Glucose 89 mg/dL (74-106) 11/24/17 07:00 Calcium 8.7 mg/dL (8.5-10.1) 11/24/17 07:00 Total Bilirubin 0.4 mg/dL (0.2-1) 11/24/17 07:00 AST 47 U/L (15-37) H 11/24/17 07:00 ALT 47 U/L (13-61) 11/24/17 07:00 Alkaline Phosphatase 74 U/L (45-117) 11/24/17 07:00 Total Protein 7.0 g/dl (6.4-8.2) 11/24/17 07:00 Albumin 3.3 g/dl (3.4-5.0) L 11/24/17 07:00 Urine Color Yellow 11/24/17 08:00 Urine Appearance Slcloudy 11/24/17 08:00 Urine pH 6.0 (5.0-8.0) 11/24/17 08:00 Ur Specific [place] 1.012 (1.010-1.035) 11/24/17 08:00 Urine Protein Negative (NEGATIVE) 11/24/17 08:00 Urine Glucose (UA) Negative (NEGATIVE) 11/24/17 08:00 Urine Ketones Negative (NEGATIVE) 11/24/17 08:00 Urine Blood Negative (NEGATIVE) 11/24/17 08:00 Urine Nitrite Negative (NEGATIVE) 11/24/17 08:00 Urine Bilirubin Negative (<2.0 mg/dL) 11/24/17 08:00 Urine Urobilinogen Negative mg/dL (0.2-1.0) 11/24/17 08:00 Ur Leukocyte Esterase 3+ (NEGATIVE) H 11/24/17 08:00 Urine WBC (Auto) 221 /hpf (3-5) 11/24/17 08:00 Urine RBC (Auto) 6 /hpf (0-3) 11/24/17 08:00 Calcium Oxalate Crystal Few /hpf (NONE SEEN) 11/24/17 08:00 Urine Mucus Rare 11/24/17 08:00 RPR Titer Nonreactive (NONREACTIVE) 11/24/17 07:00 HIV 1&2 Antibody Screen Negative 11/24/17 07:00 HIV P24 Antigen Negative 11/24/17 07:00 Aox3 no distress no adventitious breath sounds full ROM ambulating in the unit withdrawal sx increase fluids continue Ensure PO BID continue detox continue to monitor
[2017-11-27 15:23] LABS: URINE APPEARANCE SLCLOUDY; URINE BILIRUBIN NEGATIVE (<2.0 mg/dL); URINE COLOR YELLOW; URINE GLUCOSE (UA) NEGATIVE (NEGATIVE); URINE KETONE NEGATIVE (NEGATIVE); URINE LEUK ESTERASE 3+ (NEGATIVE); URINE NITRITE NEGATIVE (NEGATIVE); URINE PROTEIN NEGATIVE (NEGATIVE); URINE UROBILINOGEN NEGATIVE mg/dL (0.2-1.0)
[2017-11-27 15:30] LABS: EPI CELLS RARE /HPF (FEW); URINE HYALINE CAST 3 /lpf; URINE MUCUS RARE
[2017-11-27] MEDS: THIAMINE HCL 100 MG TABLET (FP) PO SCH (21:50)
[2017-11-27] MEDS: OLANZapine 10 MG TABLET PO SCH (21:50)
[2017-11-27] MEDS: ZOLPIDEM TARTRATE 10 MG TABLET (PARK CARE ONLY) PO PRN (21:50)
[2017-11-27] MEDS: ONDANSETRON *ODT* 4 MG TABLET SL PRN (23:20)
[2017-11-28] MEDS ORDERED: METHADONE HCL 5 MG TABLET (FOR DETOX USE ONLY) PO ONE (06:00)
[2017-11-28] MEDS: CEPHALEXIN MONOHYDRATE 250 MG CAPSULE (FP) PO SCH (06:05)
[2017-11-28] MEDS: CYCLOBENZAPRINE HCL 10 MG TABLET (FP) PO PRN (06:10)
[2017-11-28 06:19] VITALS: BP 117/78; PULSE 61; TEMP 96.8
--- NOTE | 2017-11-28 10:29 | DS ---
[facility] Detox Discharge Summary Admission Date: 11/23/17 Discharge Date: 11/28/17 - History Present History: Opioid Dependence - Physical Exam Results Vital Signs: Vital Signs Temperature 96.8 F L 11/28/17 06:18 Pulse Rate 61 11/28/17 06:18 Respiratory Rate 18 11/28/17 06:18 Blood Pressure 117/78 11/28/17 06:18 O2 Sat by Pulse Oximetry (%) Pertinent Admission Physical Exam Findings: PATIENT TOLERATED DETOX WITHOUT ADVERSE EVENT. CLINICALLY STABLE. DENIES SI/HI. PATIENT ENCOURAGED TO ATTEND GROUP MEETINGS TO PREVENT RELAPSE AND TO SEEK MEDICAL ATTENTION IF WITHDRAWAL SYMPTOMS OCCUR. DISCHARGE INSTRUCTIONS PROVIDED TO PATIENT BY STAFF. - Treatment Hospital Course: Detox Protocol Followed, Detoxed Safely, Responded well, Discharged Condition Good - Medication Discharge Medications: Ambulatory Orders Olanzapine [Zyprexa -] 10 mg PO HS #30 tablet 11/25/17 - Diagnosis (1) Opioid dependence with withdrawal Status: Resolved (2) Cocaine dependence Status: Chronic Qualifiers: Substance use status: uncomplicated Qualified Code(s): F14.20 - Cocaine dependence, uncomplicated (3) Marijuana dependence Status: Chronic (4) Nicotine dependence Status: Chronic Qualifiers: Nicotine product type: cigarettes Substance use status: in withdrawal Qualified Code(s): F17.213 - Nicotine dependence, cigarettes, with withdrawal - AMA Did Patient Leave Against Medical Advice: No
== END 2017-11-28 06:45 | disposition home or self-care (01) | DRG 773 ==
LOC: YASAS 12:59 → Y3N 16:53
PROC: HZ2ZZZZ Detoxification Services for Substance Abuse Treatment (ICD-10-PCS; principal; 2017-11-23)
DX: F11.23 Opioid dependence with withdrawal (principal); F13.230 Sedative, hypnotic or anxiolytic dependence with withdrawal, uncomplicated; F14.20 Cocaine dependence, uncomplicated; F12.20 Cannabis dependence, uncomplicated; F17.210 Nicotine dependence, cigarettes, uncomplicated; F31.9 Bipolar disorder, unspecified; B18.2 Chronic viral hepatitis C; R03.0 Elevated blood-pressure reading, without diagnosis of hypertension; R82.90 Unspecified abnormal findings in urine; N39.0 Urinary tract infection, site not specified; R00.1 Bradycardia, unspecified; Z91.14 Patient's other noncompliance with medication regimen; Z87.891 Personal history of nicotine dependence
CPT/HCPCS: 36415; 80053; 81003; 81015; 85027; 86593; 87389; 93005; 93010; J0735; Q0162

== ENCOUNTER 2018-01-18 14:10 | Inpatient (IN) | payer OTHER ==
[2018-01-18 14:45] VITALS: BMI 19.5
--- NOTE | 2018-01-18 17:38 | HP ---
CIWA Score Nausea/Vomitin-Mild Nausea/No Vomiting Muscle Tremors: 2 Anxiety: 2 Agitation: 1-Slight > Activity Paroxysmal Sweats: 2 Orientation: 0-Oriented Tacttile Disturbances: 1-Very Mild Itch/Numbness Auditory Disturbances: 1-Very Mild Visual Disturbances: 2-Mild Sensitivity Headache: 1-Very Mild CIWA-Ar Total Score: 13 - Admission Criteria OASAS Guidelines: Admission for Medically Managed Detox: Requires at least one of the followin. CIWA greater than 12 2. Seizures within the past 24 hours 3. Delirium tremens within the past 24 hours 4. Hallucinations within the past 24 hours 5. Acute intervention needed for co occurring medical disorder 6. Acute intervention needed for co occurring psychiatric disorder 7. Severe withdrawal that cannot be handled at a lower level of care (continued vomiting, continued diarrhea, abnormal vital signs) requiring intravenous medication and/or fluids 8. Admission ROS [facility] Chief Complaint: WITHDRAWAL SYMPTOMS Allergies/Adverse Reactions: Allergies Allergy/AdvReac Type Severity Reaction Status Date / Time No Known Allergies Allergy Verified 11/23/17 16:17 History of Present Illness: 47 Y.O. MAN WITH HISTORY OF ALCOHOL, COCAINE AND MARIJUANA DEPENDENCE IS HERE FOR DETOX. HE HAS HAD MULTIPLE ADMISSIONS HERE WITH THE LAST BEING ON 11/2017. HE IS CURRENTLY ENROLLED IN [facility] AND STATE HE WAS LAST MEDICATED TODAY AT 40MG OF METHADONE. Exam Limitations: No Limitations - Ebola screening Have you traveled outside of the country in the last 21 days: No Have you had contact with anyone from an Ebola affected area: No Have you been sick,other than usual withdrawal symptoms: No Do you have a fever: No - Review of Systems Constitutional: Loss of Appetite, Night Sweats, Unintentional Wgt. Loss EENT: reports: No Symptoms Reported Respiratory: reports: No Symptoms reported Cardiac: reports: No Symptoms Reported GI: reports: No Symptoms Reported : reports: No Symptoms Reported Musculoskeletal: reports: No Symptoms Reported Integumentary: reports: No Symptoms Reported Neuro: reports: No Symptoms reported Endocrine: reports: No Symptoms Reported Hematology: reports: No Symptoms Reported Psychiatric: reports: Orientated x3 Other Systems: Reviewed and Negative Patient History - Patient Medical History Hx Anemia: No Hx Asthma: No Hx Chronic Obstructive Pulmonary Disease (COPD): No Hx Cancer: No Hx Cardiac Disorders: No Hx Congestive Heart Failure: No Hx Hypertension: No Hx Hypercholesterolemia: No Hx Pacemaker: No HX Cerebrovascular Accident: No Hx Seizures: No Hx Dementia: No Hx Diabetes: No Hx Gastrointestinal Disorders: No Hx Liver Disease: No Hx Genitourinary Disorders: No Hx Sexually Transmitted Disorders: No Hx Renal Disease (ESRD): No Hx Thyroid Disease: No Hx Human Immunodeficiency Virus (HIV): No (Negative last 12/31) Hx Hepatitis C: Yes (Treated ) Hx Depression: Yes Hx Suicide Attempt: No Hx Bipolar Disorder: Yes Hx Schizophrenia: No - Patient Surgical History Past Surgical History: No Hx Neurologic Surgery: No Hx Cataract Extraction: No Hx Cardiac Surgery: No Hx Lung Surgery: No Hx Breast Surgery: No Hx Breast Biopsy: No Hx Abdominal Surgery: No Hx Appendectomy: No Hx Cholecystectomy: No Hx Genitourinary Surgery: No Hx Section: No Hx Orthopedic Surgery: No Anesthesia Reaction: No - PPD History Previous Implant?: Yes Documented Results: Negative w/proof Implanted On Prior R Admission?: Yes Date: 06/01/17 Results: 0 mm PPD to be Administered?: No - Reproductive History Patient is a Female of Child Bearing Age (11 -55 yrs old): No - Smoking Cessation Smoking history: Current every day smoker Have you smoked in the past 12 months: Yes Aproximately how many cigarettes per day: 20 Hx Chewing Tobacco Use: No Initiated information on smoking cessation: Yes 'Breaking Loose' booklet given: 01/18/18 - Substance & Tx. History Hx Alcohol Use: Yes Hx Substance Use: Yes Substance Use Type: Alcohol, Cocaine, Marijuana Hx Substance Use Treatment: Yes (Detox: 11/2017) - Substances Abused Alcohol Route: Inhalation Frequency: 3-6 times per week Amount used: 2 qts of liquor Age of first use: 40 Date of Last Use: 01/17/18 Cocaine Route: Injection Frequency: Daily Amount used: $300 Age of first use: 43 Date of Last Use: 01/18/18 Marijuana/Hashish Route: Inhalation Frequency: Daily Amount used: $20 Age of first use: 16 Date of Last Use: 01/17/18 Family Disease History - Family Disease History Family Disease History: Diabetes: Mother ( esrd), Other: Father ( esrd) Admission Physical Exam [facility] - Vital Signs Vital Signs: Vital Signs - 24 hr 01/18/18 14:42 Temperature 96.7 F L Pulse Rate 69 Respiratory 17 Rate Blood Pressure 95/57 L - Physical General Appearance: Yes: Disheveled, Thin, Irritable, Sweating, Anxious HEENTM: Yes: Hearing grossly Normal, Normal ENT Inspection, Normocephalic Respiratory: Yes: Chest Non-Tender, Lungs Clear, Normal Breath Sounds, No Respiratory Distress, No Accessory Muscle Use Neck: Yes: No masses,lesions,Nodules, Trachea in good position Breast: Yes: Breast Exam Deferred Cardiology: Yes: Regular Rhythm, Regular Rate Abdominal: Yes: Normal Bowel Sounds, Non Tender Genitourinary: Yes: Within Normal Limits Back: Yes: Normal Inspection Musculoskeletal: Yes: Within Normal Limits Extremities: Yes: Within Normal Limits Neurological: Yes: Within Normal Limits, Alert, Normal Mood/Affect, Normal Response Integumentary: Yes: Normal Color, Dry, Warm Lymphatic: Yes: Within Normal Limits - Diagnostic (1) Alcohol dependence with uncomplicated withdrawal Current Visit: Yes Status: Chronic (2) Opioid dependence on agonist therapy Current Visit: Yes Status: Chronic (3) Weight loss Current Visit: Yes Status: Acute (4) Cocaine dependence Current Visit: Yes Status: Chronic Qualifiers: Substance use status: uncomplicated Qualified Code(s): F14.20 - Cocaine dependence, uncomplicated (5) Hepatitis C Current Visit: No Status: Chronic Qualifiers: Viral hepatitis chronicity: chronic Hepatic coma status: without hepatic coma Qualified Code(s): B18.2 - Chronic viral hepatitis C Comment: TREATED (6) Marijuana dependence Current Visit: Yes Status: Chronic (7) Nicotine dependence Current Visit: Yes Status: Chronic Qualifiers: Nicotine product type: cigarettes Substance use status: in withdrawal Qualified Code(s): F17.213 - Nicotine dependence, cigarettes, with withdrawal Cleared for Admission [facility] - Detox or Rehab [facility] Level of Care: Medically Managed Detox Regimen/Protocol: Valium [facility] Breath Alcohol Content Breath Alcohol Content: 0 Urine Drug Screen - Results Drug Screen Negative: No Urine Drug Screen Results: THC-Marijuana, MONIKA-Cocaine, MTD-Methadone, FEN- Fentanyl
[2018-01-18] MEDS ORDERED: IBUPROFEN 400 MG TABLET (FP) PO PRN (17:43)
[2018-01-18] MEDS ORDERED: LOPERAMIDE HCL 2 MG CAPSULE PO PRN (17:43)
[2018-01-18] MEDS ORDERED: MAG HYDROX/AL HYDROX/SIMETH 30 ML UNIT-DOSE CUP PO PRN (17:43)
[2018-01-18] MEDS ORDERED: MAGNESIUM CITRATE 300 ML BOTTLE PO PRN (17:43)
[2018-01-18] MEDS ORDERED: P-EPHED 60MG/TRIPROLIDI 2.5MG TABLET PO PRN (17:43)
[2018-01-18] MEDS ORDERED: guaiFENesin/D-METHORPHAN HB 10 ML UNIT-DOSE CUPS PO PRN (17:43)
[2018-01-18] MEDS ORDERED: MENTHOL/PHENOL 1 EACH UD MM PRN (17:43)
[2018-01-18] MEDS ORDERED: MAGNESIUM HYDROX 2400MG/30ML ORAL SUSPENSION 30 ML CUP PO PRN (17:43)
[2018-01-18] MEDS ORDERED: ACETAMINOPHEN 325 MG TABLET (FP) PO PRN (17:43)
[2018-01-18] MEDS ORDERED: diazePAM 5 MG TABLET PO ONE (18:45)
[2018-01-18] MEDS: hydrOXYzine PAMOATE 50 MG CAPSULE (FP) PO PRN (22:02)
[2018-01-18] MEDS: diazePAM 5 MG TABLET PO SCH (22:02)
[2018-01-18] MEDS: THIAMINE HCL 100 MG TABLET (FP) PO SCH (22:02)
[2018-01-18] MEDS: MELATONIN 5 MG TABLETS PO PRN (22:02)
[2018-01-19] MEDS: diazePAM 5 MG TABLET PO SCH ×3 (07:18→22:00)
[2018-01-19] MEDS: METHADONE HCL 40 MG DISPERSABLE TABLET PO SCH (09:20)
[2018-01-19] MEDS: PRENATAL VITAMINS W/ FOLIC ACID TABLET (FP) PO SCH (09:21)
[2018-01-19] MEDS: diazePAM 5 MG TABLET PO PRN ×2 (09:21→16:48)
[2018-01-19 10:09] LABS: HEMATOCRIT 41.4 % (35.4-49); HEMOGLOBIN 14.4 GM/dL (11.7-16.9); MCH 31.5 pg (25.7-33.7); MCHC 34.8 g/dl (32.0-35.9); MEAN CELL VOLUME 90.5 fl (80-96); MEAN PLT VOLUME 9.8 fl (7.5-11.1); PLATELET COUNT 214 K/MM3 (134-434); RBC 4.57 M/mm3 (4.00-5.60); RDW 14.5 % (11.9-15.9); WHITE BLOOD COUNT 5.4 K/mm3 (4.0-10.0)
[2018-01-19 10:27] LABS: ALBUMIN 3.2 g/dl (3.4-5.0); ALK PHOS 68 U/L (45-117); ANION GAP 7 MMOL/L (8-16); BILIRUBIN,TOTAL 0.9 mg/dL (0.2-1); BLOOD UREA NITROGEN 14 mg/dL (7-18); CALCIUM 8.5 mg/dL (8.5-10.1); CHLORIDE 104 mmol/L (98-107); CO2 29 mmol/L (21-32); CREATININE 0.9 mg/dL (0.55-1.3); GLUCOSE,RANDOM 88 mg/dL (74-106); POTASSIUM 4.1 mmol/L (3.5-5.1); SGOT/AST 43 U/L (15-37); SGPT/ALT 48 U/L (13-61); SODIUM 139 mmol/L (136-145); TOT PROT 6.8 g/dl (6.4-8.2)
--- NOTE | 2018-01-19 11:32 | PN ---
[facility] CIWA - CIWA Score Nausea/Vomitin-No Nausea/No Vomiting Muscle Tremors: None Anxiety: 4-Mod. Anxious/Guarded Agitation: 4-Moderately Restless Paroxysmal Sweats: 2 Orientation: 0-Oriented Tacttile Disturbances: 2-Mild Itch/Numbness/Burn Auditory Disturbances: 0-None Visual Disturbances: 0-None Headache: 0-None Present CIWA-Ar Total Score: 12 BHS Progress Note (SOAP) Subjective: PATIENT C/O ANXIETY/RESTLESSNESS, SLEEP DISTURBANCE AND SWEATING Objective: 01/19/18 11:30 Vital Signs Temperature 97.1 F L 01/19/18 09:14 Pulse Rate 65 01/19/18 09:14 Respiratory Rate 18 01/19/18 09:14 Blood Pressure 137/91 01/19/18 09:14 O2 Sat by Pulse Oximetry (%) Laboratory Tests 01/19/18 01/19/18 06:30 06:30 WBC 5.4 RBC 4.57 Hgb 14.4 Hct 41.4 MCV 90.5 MCH 31.5 MCHC 34.8 RDW 14.5 Plt Count 214 MPV 9.8 Sodium 139 Potassium 4.1 Chloride 104 Carbon Dioxide 29 Anion Gap 7 L BUN 14 Creatinine 0.9 Creat Clearance w eGFR > 60 Random Glucose 88 Calcium 8.5 Total Bilirubin 0.9 AST 43 H ALT 48 Alkaline Phosphatase 68 Total Protein 6.8 Albumin 3.2 L PE: ALERT AND ORIENTED X 3 SKIN WARM AND MOIST EXT FULL ROM, NO EDEMA AMB AD JUNE ANXIOUS AND GUARDED Assessment: 01/19/18 11:31 WITHDRAWAL SX Plan: CONTINUE DETOX ENCOURAGE ORAL FLUIDS CONTINUE TO MONITOR CLINICALLY
[2018-01-19] MEDS: hydrOXYzine PAMOATE 50 MG CAPSULE (FP) PO PRN (22:00)
[2018-01-19] MEDS: THIAMINE HCL 100 MG TABLET (FP) PO SCH (22:00)
[2018-01-20] MEDS: METHADONE HCL 40 MG DISPERSABLE TABLET PO SCH (05:43)
[2018-01-20] MEDS: diazePAM 5 MG TABLET PO PRN ×2 (05:43→17:29)
[2018-01-20] MEDS ORDERED: PANTOPRAZOLE SOD 40 MG SUSPENSION PACKET PO ONE (07:26)
[2018-01-20] MEDS ORDERED: PANTOPRAZOLE 40 MG TABLET (FP) PO ONE (07:35)
[2018-01-20] MEDS: diazePAM 5 MG TABLET PO SCH ×2 (10:12→22:03)
[2018-01-20] MEDS: PRENATAL VITAMINS W/ FOLIC ACID TABLET (FP) PO SCH (10:12)
--- NOTE | 2018-01-20 11:23 | PN ---
S CIWA - CIWA Score Nausea/Vomitin-No Nausea/No Vomiting Muscle Tremors: 4-Moderate,w/Arms Extend Anxiety: 5 Agitation: 4-Moderately Restless Paroxysmal Sweats: 1-Minimal Palms Moist Orientation: 0-Oriented Tacttile Disturbances: 0-None Auditory Disturbances: 0-None Visual Disturbances: 0-None Headache: 0-None Present CIWA-Ar Total Score: 14 BHS Progress Note (SOAP) Subjective: ANXIETY, RESTLESSNESS, IRRITABILITY, INTERMITTENT SLEEP. Objective: 01/20/18 12:49 Vital Signs 01/20/18 01/20/18 06:20 09:53 Temperature 96.9 F L 97.9 F Pulse Rate 58 L 80 Respiratory 18 20 Rate Blood Pressure 138/80 100/61 Laboratory Tests 01/19/18 01/19/18 01/19/18 06:30 06:30 06:30 WBC 5.4 RBC 4.57 Hgb 14.4 Hct 41.4 MCV 90.5 MCH 31.5 MCHC 34.8 RDW 14.5 Plt Count 214 MPV 9.8 Sodium 139 Potassium 4.1 Chloride 104 Carbon Dioxide 29 Anion Gap 7 L BUN 14 Creatinine 0.9 Creat Clearance w eGFR > 60 Random Glucose 88 Calcium 8.5 Total Bilirubin 0.9 AST 43 H ALT 48 Alkaline Phosphatase 68 Total Protein 6.8 Albumin 3.2 L RPR Titer Nonreactive HIV 1&2 Antibody Screen HIV P24 Antigen 01/19/18 06:30 WBC RBC Hgb Hct MCV MCH MCHC RDW Plt Count MPV Sodium Potassium Chloride Carbon Dioxide Anion Gap BUN Creatinine Creat Clearance w eGFR Random Glucose Calcium Total Bilirubin AST ALT Alkaline Phosphatase Total Protein Albumin RPR Titer HIV 1&2 Antibody Screen Negative HIV P24 Antigen Negative Assessment: 01/20/18 12:49 WITHDRAWAL SX Plan: CONTINUE DETOX INCREASE PO FLUIDS
[2018-01-20] MEDS: THIAMINE HCL 100 MG TABLET (FP) PO SCH (22:03)
[2018-01-20] MEDS: MELATONIN 5 MG TABLETS PO PRN (22:03)
[2018-01-21] MEDS: diazePAM 5 MG TABLET PO PRN (05:53)
[2018-01-21] MEDS: METHADONE HCL 40 MG DISPERSABLE TABLET PO SCH (05:53)
[2018-01-21] MEDS: diazePAM 5 MG TABLET PO SCH ×2 (10:18→23:38)
[2018-01-21] MEDS: PRENATAL VITAMINS W/ FOLIC ACID TABLET (FP) PO SCH (10:18)
--- NOTE | 2018-01-21 16:34 | PN ---
[facility] Progress Note (SOAP) Subjective: Agitated, irritable, anxious Objective: 01/21/18 16:32 Last Vital Signs Temp Pulse Resp BP Pulse Ox 98.4 F 59 L 20 122/68 01/21/18 14:46 01/21/18 14:46 01/21/18 14:46 01/21/18 14:46 Laboratory Tests 01/19/18 01/19/18 01/19/18 06:30 06:30 06:30 WBC 5.4 RBC 4.57 Hgb 14.4 Hct 41.4 MCV 90.5 MCH 31.5 MCHC 34.8 RDW 14.5 Plt Count 214 MPV 9.8 Sodium 139 Potassium 4.1 Chloride 104 Carbon Dioxide 29 Anion Gap 7 L BUN 14 Creatinine 0.9 Creat Clearance w eGFR > 60 Random Glucose 88 Calcium 8.5 Total Bilirubin 0.9 AST 43 H ALT 48 Alkaline Phosphatase 68 Total Protein 6.8 Albumin 3.2 L RPR Titer Nonreactive HIV 1&2 Antibody Screen HIV P24 Antigen 01/19/18 06:30 WBC RBC Hgb Hct MCV MCH MCHC RDW Plt Count MPV Sodium Potassium Chloride Carbon Dioxide Anion Gap BUN Creatinine Creat Clearance w eGFR Random Glucose Calcium Total Bilirubin AST ALT Alkaline Phosphatase Total Protein Albumin RPR Titer HIV 1&2 Antibody Screen Negative HIV P24 Antigen Negative Labs reviewed Assessment: 01/21/18 16:32 Withdrawal symptoms Plan: Continue detox Encouraged PO water intake Patient is scheduled for discharge tomorrow and is requesting admission to [facility] rehab
--- NOTE | 2018-01-21 21:25 | DS ---
[facility] Summary Admission Date: 01/18/18 Discharge Date: 01/21/18 - History Additional Comments: Patient was angry that Angela.Shayy in room 368A refused to trade his ice cream and spit on his clothes. He is being discharged involuntarily as per Ms. Ramila King (Cost And Sales Record Supervisor ) with authorization from Ms. Stephenie Landeros. Lee was led off the floor for disorderly conduct. Pertinent Past History: HTN, Insomnia, Hep C, Alcohol dependence, opiate dependence, - Physical Exam Results Vital Signs: Vital Signs Temperature 96.6 F L 01/21/18 18:00 Pulse Rate 66 01/21/18 18:00 Respiratory Rate 16 01/21/18 18:00 Blood Pressure 97/63 01/21/18 18:00 O2 Sat by Pulse Oximetry (%) Pertinent Admission Physical Exam Findings: Opiate and alcohol withdrawal symptoms - Medication Discharge Medications: Ambulatory Orders NK [No Known Home Medication] 01/18/18 - Diagnosis (1) Alcohol dependence with uncomplicated withdrawal Current Visit: Yes Status: Chronic (2) Opioid dependence on agonist therapy Current Visit: Yes Status: Chronic (3) Cocaine dependence Current Visit: Yes Status: Chronic Qualifiers: Substance use status: uncomplicated Qualified Code(s): F14.20 - Cocaine dependence, uncomplicated (4) Hepatitis C Current Visit: Yes Status: Chronic Qualifiers: Viral hepatitis chronicity: chronic Hepatic coma status: without hepatic coma Qualified Code(s): B18.2 - Chronic viral hepatitis C (5) Marijuana dependence Current Visit: Yes Status: Chronic (6) Methadone maintenance therapy patient Current Visit: Yes Status: Chronic (7) Nicotine dependence Current Visit: Yes Status: Chronic Qualifiers: Nicotine product type: cigarettes Substance use status: in withdrawal Qualified Code(s): F17.213 - Nicotine dependence, cigarettes, with withdrawal (8) Dehydration Current Visit: No Status: Chronic (9) Substance induced mood disorder Current Visit: No Status: Chronic (10) Sedative/hypnotic withdrawal without complication Current Visit: Yes Status: Chronic (11) Synthetic cannabinoid abuse Current Visit: No Status: Chronic (12) Opioid dependence with withdrawal Current Visit: Yes Status: Resolved - AMA Did Patient Leave Against Medical Advice: No (INVOLUNTARY DISCHARGE FOR DISORDERLY CONDUCT)
[2018-01-21 21:45] VITALS: BP 104/63; PULSE 64; TEMP 97.6
--- NOTE | 2018-01-21 21:56 | PN ---
[facility] Progress Note Note: Patient was angry that S.A in room 368A refused to trade his ice cream and spit on his clothes. He is being discharged involuntarily as per Ms. Ramila King (Refrigerator Glazier ) with authorization from Ms. Stephenie Landeros. Lee was led off the floor for disorderly conduct prior to my arrival on the unit
[2018-01-21] MEDS: THIAMINE HCL 100 MG TABLET (FP) PO SCH (23:38)
[2018-01-22] MEDS ORDERED: diazePAM 5 MG TABLET PO SCH (10:00)
== END 2018-01-21 21:15 | disposition left against medical advice (07) | DRG 773 ==
LOC: YASAS 14:10 → Y3N 18:25
PROC: HZ2ZZZZ Detoxification Services for Substance Abuse Treatment (ICD-10-PCS; principal; 2018-01-18)
DX: F10.230 Alcohol dependence with withdrawal, uncomplicated (principal); F13.230 Sedative, hypnotic or anxiolytic dependence with withdrawal, uncomplicated; F14.20 Cocaine dependence, uncomplicated; F12.20 Cannabis dependence, uncomplicated; F11.20 Opioid dependence, uncomplicated; F17.213 Nicotine dependence, cigarettes, with withdrawal; F31.9 Bipolar disorder, unspecified; F19.24 Other psychoactive substance dependence with psychoactive substance-induced mood disorder; E86.0 Dehydration; G47.00 Insomnia, unspecified; I10 Essential (primary) hypertension; R63.4 Abnormal weight loss; Z68.1 Body mass index [BMI] 19.9 or less, adult; Z86.19 Personal history of other infectious and parasitic diseases; F91.8 Other conduct disorders; Z91.19 Patient's noncompliance with other medical treatment and regimen
CPT/HCPCS: 36415; 80053; 85027; 86593; 87389

== ENCOUNTER 2018-02-19 12:23 | Inpatient (IN) | payer OTHER ==
[2018-02-19 12:44] VITALS: BMI 17.5
--- NOTE | 2018-02-19 16:19 | HP ---
CIWA Score - Admission Criteria OASAS Guidelines: Admission for Medically Managed Detox: Requires at least one of the followin. CIWA greater than 12 2. Seizures within the past 24 hours 3. Delirium tremens within the past 24 hours 4. Hallucinations within the past 24 hours 5. Acute intervention needed for co occurring medical disorder 6. Acute intervention needed for co occurring psychiatric disorder 7. Severe withdrawal that cannot be handled at a lower level of care (continued vomiting, continued diarrhea, abnormal vital signs) requiring intravenous medication and/or fluids 8. Admission ROS S - HPI Chief Complaint: Rehab for cocaine 47 yo with h/o cured HCV, opioid use on MAT-methadone, last use of heroin 3 days ago, here for rehab services for cocaine- uses $200/day of cocaine IV MAT- 40mg methadone/day alcohol- denies denies other illicit drug use Denies med problems DUR- shows no controlled substances Allergies/Adverse Reactions: Allergies Allergy/AdvReac Type Severity Reaction Status Date / Time No Known Allergies Allergy Verified 02/19/18 15:29 Exam Limitations: No Limitations - Ebola screening Have you traveled outside of the country in the last 21 days: No Have you had contact with anyone from an Ebola affected area: No Have you been sick,other than usual withdrawal symptoms: No Do you have a fever: No - Review of Systems Constitutional: No Symptoms Reported EENT: reports: No Symptoms Reported Respiratory: reports: No Symptoms reported Cardiac: reports: No Symptoms Reported GI: reports: No Symptoms Reported : reports: No Symptoms Reported Musculoskeletal: reports: No Symptoms Reported Integumentary: reports: No Symptoms Reported Neuro: reports: No Symptoms reported Endocrine: reports: No Symptoms Reported Hematology: reports: No Symptoms Reported Psychiatric: reports: No Sypmtoms Reported Other Systems: Reviewed and Negative Patient History - Patient Medical History Hx Anemia: No Hx Asthma: No Hx Chronic Obstructive Pulmonary Disease (COPD): No Hx Cancer: No Hx Cardiac Disorders: No Hx Congestive Heart Failure: No Hx Hypertension: No Hx Hypercholesterolemia: No Hx Pacemaker: No HX Cerebrovascular Accident: No Hx Seizures: No Hx Dementia: No Hx Diabetes: No Hx Gastrointestinal Disorders: No Hx Liver Disease: No Hx Genitourinary Disorders: No Hx Sexually Transmitted Disorders: No Hx Renal Disease (ESRD): No Hx Thyroid Disease: No Hx Human Immunodeficiency Virus (HIV): No (Negative last 12/31) Hx Hepatitis C: Yes (Treated ) Hx Depression: No Hx Suicide Attempt: No Hx Bipolar Disorder: Yes Hx Schizophrenia: No - Patient Surgical History Past Surgical History: No Hx Neurologic Surgery: No Hx Cataract Extraction: No Hx Cardiac Surgery: No Hx Lung Surgery: No Hx Breast Surgery: No Hx Breast Biopsy: No Hx Abdominal Surgery: No Hx Appendectomy: No Hx Cholecystectomy: No Hx Genitourinary Surgery: No Hx Section: No Hx Orthopedic Surgery: No Anesthesia Reaction: No - PPD History Previous Implant?: Yes Documented Results: Negative w/proof Implanted On Prior [facility] Admission?: Yes Date: 06/01/17 Results: 0 mm - Smoking Cessation Smoking history: Current every day smoker Have you smoked in the past 12 months: Yes Aproximately how many cigarettes per day: 10 Hx Chewing Tobacco Use: No Initiated information on smoking cessation: Yes 'Breaking Loose' booklet given: 02/19/18 - Substance & Tx. History Hx Alcohol Use: Yes (none recently) Hx Substance Use: Yes Substance Use Type: Cocaine, Prescribed Hx Substance Use Treatment: Yes (last here 01/2018) - Substances Abused Cocaine Route: Injection Frequency: Daily Amount used: $200 Age of first use: 43 Date of Last Use: 02/16/18 Heroin Route: Injection Frequency: 1-3 times last 30 days Amount used: 1 bag Age of first use: 27 Date of Last Use: 02/16/18 Family Disease History - Family Disease History Family Disease History: Diabetes: Mother ( esrd), Other: Father ( esrd) Admission Physical Exam [facility] - Vital Signs Vital Signs: Vital Signs - 24 hr 02/19/18 12:42 Temperature 96.6 F L Pulse Rate 59 L Respiratory 20 Rate Blood Pressure 125/66 - Physical General Appearance: Yes: Within Normal Limits, Thin HEENTM: Yes: Within Normal Limits, EOMI, Normal Voice Respiratory: Yes: Within Normal Limits, Lungs Clear Neck: Yes: Within Normal Limits, Supple Cardiology: Yes: Within Normal Limits, Regular Rate Abdominal: Yes: Within Normal Limits, Flat Genitourinary: Yes: Within Normal Limits Back: Yes: Within Normal Limits Musculoskeletal: Yes: Within Normal Limits Extremities: Yes: Within Normal Limits Neurological: Yes: Within Normal Limits, generator rebuilder II-XII NML intact, Fully Oriented, Alert, Motor Strength 5/5 Integumentary: Yes: Within Normal Limits, Track Kelly (upper extr) Lymphatic: Yes: Within Normal Limits - Diagnostic (1) Cocaine dependence Current Visit: No Status: Chronic Qualifiers: Substance use status: uncomplicated Qualified Code(s): F14.20 - Cocaine dependence, uncomplicated (2) Methadone maintenance therapy patient Current Visit: No Status: Chronic (3) Nicotine dependence Current Visit: No Status: Chronic Qualifiers: Nicotine product type: cigarettes Substance use status: in withdrawal Qualified Code(s): F17.213 - Nicotine dependence, cigarettes, with withdrawal (4) Opioid dependence on agonist therapy Current Visit: No Status: Chronic Cleared for Admission S - Detox or Rehab Claeared for Rehab Admission: Yes S Breath Alcohol Content Breath Alcohol Content: 0 Urine Drug Screen - Results Drug Screen Negative: No Urine Drug Screen Results: MONIKA-Cocaine, OPI-Opiates Inpatient Rehab Admission - Initial Determination Are CD services needed?: Yes Free of communicable disease: Yes Not in need of hospitalization: Yes - Rehab Admission Criteria Previous failed treatment: Yes Poor recovery environment: Yes Comorbidities: No Lacks judgement: No Patient is meeting Inpatient Rehab admission criteria:: Yes (multiple admissions to detox)
[2018-02-19] MEDS ORDERED: ACETAMINOPHEN 325 MG TABLET (FP) PO PRN (16:21)
[2018-02-19] MEDS ORDERED: P-EPHED 60MG/TRIPROLIDI 2.5MG TABLET PO PRN (16:21)
[2018-02-19] MEDS ORDERED: MENTHOL/PHENOL 1 EACH UD MM PRN (16:21)
[2018-02-19] MEDS ORDERED: LOPERAMIDE HCL 2 MG CAPSULE PO PRN (16:21)
[2018-02-19] MEDS ORDERED: MAGNESIUM CITRATE 300 ML BOTTLE PO PRN (16:21)
[2018-02-19] MEDS ORDERED: MAG HYDROX/AL HYDROX/SIMETH 30 ML UNIT-DOSE CUP PO PRN (16:21)
[2018-02-19] MEDS ORDERED: IBUPROFEN 400 MG TABLET (FP) PO PRN (16:21)
[2018-02-19] MEDS ORDERED: MAGNESIUM HYDROX 2400MG/30ML ORAL SUSPENSION 30 ML CUP PO PRN (16:21)
[2018-02-19] MEDS: THIAMINE HCL 100 MG TABLET (FP) PO SCH (21:16)
[2018-02-19] MEDS: hydrOXYzine PAMOATE 50 MG CAPSULE (FP) PO PRN (21:18)
[2018-02-19] MEDS: guaiFENesin/D-METHORPHAN HB 10 ML UNIT-DOSE CUPS PO PRN (21:18)
[2018-02-20] MEDS: PRENATAL VITAMINS W/ FOLIC ACID TABLET (FP) PO SCH (10:18)
[2018-02-20] MEDS: NICOTINE 14 MG/24 HOURS TOPICAL PATCH TD SCH (10:18)
[2018-02-20] MEDS ORDERED: METHADONE HCL 40 MG DISPERSABLE TABLET PO ONE (11:10)
[2018-02-20 15:21] LABS: HEMOGLOBIN 14.2 GM/dL (11.7-16.9); MCH 30.2 pg (25.7-33.7); MEAN CELL VOLUME 91.4 fl (80-96); MEAN PLT VOLUME 9.2 fl (7.5-11.1); PLATELET COUNT 234 K/MM3 (134-434); RDW 13.8 % (11.9-15.9); WHITE BLOOD COUNT 5.1 K/mm3 (4.0-10.0)
--- NOTE | 2018-02-20 15:40 | HP ---
Psychiatrist Admission - Data Date of interview: 02/21/18 Admission source: [facility] Identifying data: Patient is a 47 year old but single male, father of two, unemployed, domiciled, and is supported by SSD/SSI. This is one of multiple admissions for patient. Patient admitted to for cocaine dependence. Medical History: Hepatitis C (treated). Psychiatric History: Patient's first psychiatric contact was at the age of 12 after exhibiting restlessness, hyperactive, and aggressive behavior. States his behavior was secondary to the of his sister. Patient reports multiple psychiatric hospitalizations as an adult after his mother reported to the court that he was killing himself due to his drug use. Patient reports hospitalization at [facility]. Patient has been on a medication regiman of zyprexa, ambien and xanac in the past although reports history of medication non-compliance. Patient denies h/o outpatient psychiatric care. Mr. Gibbs is on methadone maintainence of 40mg daily. At present, he reports stable mood but is experiencing difficulty sleeping. Physical/Sexual Abuse/Trauma History: denies. Vital Signs: Vital Signs - 24 hr 02/19/18 02/20/18 02/20/18 18:15 00:30 03:30 Temperature 97.6 F Pulse Rate 61 Respiratory 18 18 18 Rate Blood Pressure 119/76 02/20/18 06:49 Temperature 98.2 F Pulse Rate 52 L Respiratory 18 Rate Blood Pressure 129/80 Allergies/Adverse Reactions: Allergies Allergy/AdvReac Type Severity Reaction Status Date / Time No Known Allergies Allergy Verified 02/19/18 15:29 Date of last physical exam: 02/19/18 Concur with the findings of this exam: Yes - Substance Abuse/Tx History Hx Alcohol Use: No Hx Substance Use: Yes (Cocaine- $200/ daily) Hx Substance Use Treatment: Yes ([facility], [facility]) Mental Status Exam - Mental Status Exam Alert and Oriented to: Time, Place, Person Cognitive Function: Good Patient Appearance: Well Groomed Mood: Euthymic Affect: Appropriate Patient Behavior: Appropriate, Cooperative Speech Pattern: Clear, Appropriate Voice Loudness: Normal Thought Process: Intact, Goal Oriented Thought Disorder: Not Present Hallucinations: Denies Suicidal Ideation: Denies Homicidal Ideation: Denies Insight/Judgement: Poor Sleep: Poorly Appetite: Fair Muscle strength/Tone: Normal Gait/Station: Normal Psychiatric Findings - Problem List ([place] 1, 2,3) (1) Bipolar disorder Current Visit: No Status: Chronic Qualifiers: Active/Remission status: remission status unspecified Qualified Code(s): F31.9 - Bipolar disorder, unspecified Comment: (2) Methadone maintenance therapy patient Current Visit: Yes Status: Chronic (3) Cocaine dependence Current Visit: No Status: Chronic Qualifiers: Substance use status: uncomplicated Qualified Code(s): F14.20 - Cocaine dependence, uncomplicated (4) Nicotine dependence Current Visit: No Status: Chronic Qualifiers: Nicotine product type: cigarettes Substance use status: in withdrawal Qualified Code(s): F17.213 - Nicotine dependence, cigarettes, with withdrawal (5) Substance-induced sleep disorder Current Visit: Yes Status: Acute - Initial Treatment Plan Initial Treatment Plan: Psychoeducation provided. Rehab in progress. Will order Seroquel 50mg qhs for insomnia. Benefits and side effects discussed. Verbal consent given.
[2018-02-20 15:43] LABS: URINE APPEARANCE CLEAR; URINE BILIRUBIN NEGATIVE (<2.0 mg/dL); URINE COLOR LTYELLOW; URINE GLUCOSE (UA) NEGATIVE (NEGATIVE); URINE KETONE NEGATIVE (NEGATIVE); URINE LEUK ESTERASE TRACE (NEGATIVE); URINE NITRITE NEGATIVE (NEGATIVE); URINE PROTEIN NEGATIVE (NEGATIVE); URINE UROBILINOGEN NEGATIVE mg/dL (0.2-1.0)
[2018-02-20 15:48] LABS: ALBUMIN 3.2 g/dl (3.4-5.0); ALK PHOS 68 U/L (45-117); ANION GAP 4 MMOL/L (8-16); BILIRUBIN,TOTAL 0.4 mg/dL (0.2-1); BLOOD UREA NITROGEN 15 mg/dL (7-18); CHLORIDE 103 mmol/L (98-107); CO2 32 mmol/L (21-32); CREATININE 0.9 mg/dL (0.55-1.3); GLUCOSE,RANDOM 76 mg/dL (74-106); POTASSIUM 4.2 mmol/L (3.5-5.1); SGOT/AST 37 U/L (15-37); SGPT/ALT 40 U/L (13-61); SODIUM 138 mmol/L (136-145); TOT PROT 7.2 g/dl (6.4-8.2)
[2018-02-20 15:53] LABS: EPI CELLS RARE /HPF (FEW)
[2018-02-20] MEDS: THIAMINE HCL 100 MG TABLET (FP) PO SCH (21:31)
[2018-02-20] MEDS: guaiFENesin/D-METHORPHAN HB 10 ML UNIT-DOSE CUPS PO PRN (21:31)
[2018-02-20] MEDS: QUEtiapine FUMARATE 50 MG TABLET PO SCH (21:31)
[2018-02-20] MEDS: hydrOXYzine PAMOATE 50 MG CAPSULE (FP) PO PRN (23:32)
[2018-02-21] MEDS: METHADONE HCL 40 MG DISPERSABLE TABLET PO SCH (06:28)
[2018-02-21] MEDS: PRENATAL VITAMINS W/ FOLIC ACID TABLET (FP) PO SCH (10:09)
[2018-02-21] MEDS: NICOTINE 14 MG/24 HOURS TOPICAL PATCH TD SCH (10:09)
[2018-02-21] MEDS: guaiFENesin/D-METHORPHAN HB 10 ML UNIT-DOSE CUPS PO PRN (21:24)
[2018-02-21] MEDS: THIAMINE HCL 100 MG TABLET (FP) PO SCH (21:24)
[2018-02-21] MEDS: QUEtiapine FUMARATE 50 MG TABLET PO SCH (21:24)
[2018-02-21] MEDS: hydrOXYzine PAMOATE 50 MG CAPSULE (FP) PO PRN (21:24)
[2018-02-21] MEDS: MELATONIN 5 MG TABLETS PO PRN (21:24)
[2018-02-22] MEDS: METHADONE HCL 40 MG DISPERSABLE TABLET PO SCH (06:29)
[2018-02-22] MEDS: NICOTINE 14 MG/24 HOURS TOPICAL PATCH TD SCH (10:35)
[2018-02-22] MEDS: PRENATAL VITAMINS W/ FOLIC ACID TABLET (FP) PO SCH (10:36)
[2018-02-22] MEDS: hydrOXYzine PAMOATE 50 MG CAPSULE (FP) PO PRN (21:39)
[2018-02-22] MEDS: QUEtiapine FUMARATE 50 MG TABLET PO SCH (21:39)
[2018-02-22] MEDS: THIAMINE HCL 100 MG TABLET (FP) PO SCH (21:39)
[2018-02-22] MEDS: guaiFENesin/D-METHORPHAN HB 10 ML UNIT-DOSE CUPS PO PRN (21:40)
[2018-02-23] MEDS: METHADONE HCL 40 MG DISPERSABLE TABLET PO SCH (06:23)
[2018-02-23] MEDS: hydrOXYzine PAMOATE 50 MG CAPSULE (FP) PO PRN ×2 (10:32→21:41)
[2018-02-23] MEDS: NICOTINE 14 MG/24 HOURS TOPICAL PATCH TD SCH (10:32)
[2018-02-23] MEDS: PRENATAL VITAMINS W/ FOLIC ACID TABLET (FP) PO SCH (10:32)
--- NOTE | 2018-02-23 12:01 | PN ---
S Progress Note Note: Patient reports sleeping poorly despite taking Seroquel 50 mg po HS. Requests that medication dosage be increased to 100 mg. Therefore Seroquel is increased to 100 mg po HS
[2018-02-23] MEDS: THIAMINE HCL 100 MG TABLET (FP) PO SCH (21:40)
[2018-02-23] MEDS: guaiFENesin/D-METHORPHAN HB 10 ML UNIT-DOSE CUPS PO PRN (21:41)
[2018-02-23] MEDS: QUEtiapine FUMARATE 100 MG TABLET (FP) PO SCH (21:41)
[2018-02-24] MEDS: METHADONE HCL 40 MG DISPERSABLE TABLET PO SCH (06:25)
[2018-02-24] MEDS: NICOTINE 14 MG/24 HOURS TOPICAL PATCH TD SCH (10:06)
[2018-02-24] MEDS: PRENATAL VITAMINS W/ FOLIC ACID TABLET (FP) PO SCH (10:06)
[2018-02-24] MEDS: QUEtiapine FUMARATE 100 MG TABLET (FP) PO SCH (21:44)
[2018-02-24] MEDS: THIAMINE HCL 100 MG TABLET (FP) PO SCH (21:44)
[2018-02-24] MEDS: guaiFENesin/D-METHORPHAN HB 10 ML UNIT-DOSE CUPS PO PRN (21:45)
[2018-02-24] MEDS: hydrOXYzine PAMOATE 50 MG CAPSULE (FP) PO PRN (21:45)
[2018-02-25] MEDS: METHADONE HCL 40 MG DISPERSABLE TABLET PO SCH (06:11)
[2018-02-25] MEDS: NICOTINE 14 MG/24 HOURS TOPICAL PATCH TD SCH (10:00)
[2018-02-25] MEDS: PRENATAL VITAMINS W/ FOLIC ACID TABLET (FP) PO SCH (10:00)
[2018-02-25] MEDS: THIAMINE HCL 100 MG TABLET (FP) PO SCH (21:53)
[2018-02-25] MEDS: QUEtiapine FUMARATE 100 MG TABLET (FP) PO SCH (21:53)
[2018-02-25] MEDS: hydrOXYzine PAMOATE 50 MG CAPSULE (FP) PO PRN (21:54)
[2018-02-25] MEDS: guaiFENesin/D-METHORPHAN HB 10 ML UNIT-DOSE CUPS PO PRN (21:54)
[2018-02-26] MEDS: METHADONE HCL 40 MG DISPERSABLE TABLET PO SCH (06:26)
[2018-02-26] MEDS: NICOTINE 14 MG/24 HOURS TOPICAL PATCH TD SCH (10:32)
[2018-02-26] MEDS: PRENATAL VITAMINS W/ FOLIC ACID TABLET (FP) PO SCH (10:32)
[2018-02-26] MEDS: QUEtiapine FUMARATE 100 MG TABLET (FP) PO SCH (21:25)
[2018-02-26] MEDS: THIAMINE HCL 100 MG TABLET (FP) PO SCH (21:25)
[2018-02-26] MEDS: hydrOXYzine PAMOATE 50 MG CAPSULE (FP) PO PRN (21:26)
[2018-02-26] MEDS: guaiFENesin/D-METHORPHAN HB 10 ML UNIT-DOSE CUPS PO PRN (21:26)
[2018-02-27] MEDS: METHADONE HCL 40 MG DISPERSABLE TABLET PO SCH (06:06)
[2018-02-27] MEDS: PRENATAL VITAMINS W/ FOLIC ACID TABLET (FP) PO SCH (10:09)
[2018-02-27] MEDS: NICOTINE 14 MG/24 HOURS TOPICAL PATCH TD SCH (10:09)
[2018-02-27] MEDS ORDERED: COLLOIDAL OATMEAL 1 BAR EACH TP PRN (10:45)
--- NOTE | 2018-02-27 10:49 | PN ---
[facility] Progress Note Note: C/O RASH AND ITCH TO BOTH SIDES OF WAIST. REQUESTING AVEENO SOAP STATING SOAP IN BATHROOM ITCHING HIS SKIN. Vital Signs - 24 hr 02/27/18 02/27/18 02/27/18 00:30 03:41 07:13 Temperature 97.1 F L Pulse Rate 61 Respiratory 18 18 18 Rate Blood Pressure 96/54 L SKIN:SLIGHT LINE REDNESS FROM PJ. NO RASH SEEN. PLAN:HYDROCORTISONE 1% CREAM DAILY X 5 DAYS AVEENO SOAP DIRECTED
[2018-02-27] MEDS: HYDROCORTISONE 1% TOPICAL CREAM 30 GM TUBE TP SCH (12:01)
[2018-02-27] MEDS: QUEtiapine FUMARATE 100 MG TABLET (FP) PO SCH (21:38)
[2018-02-27] MEDS: THIAMINE HCL 100 MG TABLET (FP) PO SCH (21:38)
[2018-02-27] MEDS: hydrOXYzine PAMOATE 50 MG CAPSULE (FP) PO PRN (21:39)
[2018-02-27] MEDS: guaiFENesin/D-METHORPHAN HB 10 ML UNIT-DOSE CUPS PO PRN (21:39)
[2018-02-28] MEDS: METHADONE HCL 40 MG DISPERSABLE TABLET PO SCH (06:27)
[2018-02-28] MEDS: PRENATAL VITAMINS W/ FOLIC ACID TABLET (FP) PO SCH (09:58)
[2018-02-28] MEDS: HYDROCORTISONE 1% TOPICAL CREAM 30 GM TUBE TP SCH (09:58)
[2018-02-28] MEDS: NICOTINE 14 MG/24 HOURS TOPICAL PATCH TD SCH (09:59)
[2018-02-28] MEDS: QUEtiapine FUMARATE 100 MG TABLET (FP) PO SCH (21:27)
[2018-02-28] MEDS: THIAMINE HCL 100 MG TABLET (FP) PO SCH (21:27)
[2018-02-28] MEDS: MELATONIN 5 MG TABLETS PO PRN (21:27)
[2018-02-28] MEDS: guaiFENesin/D-METHORPHAN HB 10 ML UNIT-DOSE CUPS PO PRN (21:27)
[2018-03-01] MEDS: METHADONE HCL 40 MG DISPERSABLE TABLET PO SCH (06:16)
[2018-03-01] MEDS: PRENATAL VITAMINS W/ FOLIC ACID TABLET (FP) PO SCH (10:19)
[2018-03-01] MEDS: NICOTINE 14 MG/24 HOURS TOPICAL PATCH TD SCH (10:19)
[2018-03-01] MEDS: HYDROCORTISONE 1% TOPICAL CREAM 30 GM TUBE TP SCH (10:20)
[2018-03-01] MEDS: hydrOXYzine PAMOATE 50 MG CAPSULE (FP) PO PRN (21:33)
[2018-03-01] MEDS: THIAMINE HCL 100 MG TABLET (FP) PO SCH (21:33)
[2018-03-01] MEDS: QUEtiapine FUMARATE 100 MG TABLET (FP) PO SCH (21:33)
[2018-03-01] MEDS: guaiFENesin/D-METHORPHAN HB 10 ML UNIT-DOSE CUPS PO PRN (21:33)
[2018-03-02] MEDS: METHADONE HCL 40 MG DISPERSABLE TABLET PO SCH (05:46)
[2018-03-02] MEDS: HYDROCORTISONE 1% TOPICAL CREAM 30 GM TUBE TP SCH (10:08)
[2018-03-02] MEDS: PRENATAL VITAMINS W/ FOLIC ACID TABLET (FP) PO SCH (10:08)
[2018-03-02] MEDS: NICOTINE 14 MG/24 HOURS TOPICAL PATCH TD SCH (10:08)
[2018-03-02] MEDS: MELATONIN 5 MG TABLETS PO PRN (21:35)
[2018-03-02] MEDS: QUEtiapine FUMARATE 100 MG TABLET (FP) PO SCH (21:35)
[2018-03-02] MEDS: THIAMINE HCL 100 MG TABLET (FP) PO SCH (21:35)
[2018-03-02] MEDS: hydrOXYzine PAMOATE 50 MG CAPSULE (FP) PO PRN (21:35)
[2018-03-02] MEDS: guaiFENesin/D-METHORPHAN HB 10 ML UNIT-DOSE CUPS PO PRN (21:36)
[2018-03-03] MEDS: METHADONE HCL 40 MG DISPERSABLE TABLET PO SCH (06:07)
[2018-03-03] MEDS: HYDROCORTISONE 1% TOPICAL CREAM 30 GM TUBE TP SCH (10:00)
[2018-03-03] MEDS: PRENATAL VITAMINS W/ FOLIC ACID TABLET (FP) PO SCH (10:00)
[2018-03-03] MEDS: NICOTINE 14 MG/24 HOURS TOPICAL PATCH TD SCH (10:00)
[2018-03-03] MEDS: QUEtiapine FUMARATE 100 MG TABLET (FP) PO SCH (21:28)
[2018-03-03] MEDS: THIAMINE HCL 100 MG TABLET (FP) PO SCH (21:29)
[2018-03-03] MEDS: guaiFENesin/D-METHORPHAN HB 10 ML UNIT-DOSE CUPS PO PRN (21:29)
[2018-03-03] MEDS: hydrOXYzine PAMOATE 50 MG CAPSULE (FP) PO PRN (21:29)
[2018-03-04] MEDS: METHADONE HCL 40 MG DISPERSABLE TABLET PO SCH (06:03)
[2018-03-04] MEDS: PRENATAL VITAMINS W/ FOLIC ACID TABLET (FP) PO SCH (10:10)
[2018-03-04] MEDS: HYDROCORTISONE 1% TOPICAL CREAM 30 GM TUBE TP SCH (10:10)
[2018-03-04] MEDS: NICOTINE 14 MG/24 HOURS TOPICAL PATCH TD SCH (10:11)
[2018-03-04] MEDS: QUEtiapine FUMARATE 100 MG TABLET (FP) PO SCH (21:28)
[2018-03-04] MEDS: THIAMINE HCL 100 MG TABLET (FP) PO SCH (21:28)
[2018-03-04] MEDS: hydrOXYzine PAMOATE 50 MG CAPSULE (FP) PO PRN (21:29)
[2018-03-04] MEDS: guaiFENesin/D-METHORPHAN HB 10 ML UNIT-DOSE CUPS PO PRN (21:30)
[2018-03-05] MEDS: METHADONE HCL 40 MG DISPERSABLE TABLET PO SCH (06:15)
[2018-03-05] MEDS: PRENATAL VITAMINS W/ FOLIC ACID TABLET (FP) PO SCH (09:57)
[2018-03-05] MEDS: NICOTINE 14 MG/24 HOURS TOPICAL PATCH TD SCH (09:57)
[2018-03-05] MEDS: QUEtiapine FUMARATE 100 MG TABLET (FP) PO SCH (21:37)
[2018-03-05] MEDS: THIAMINE HCL 100 MG TABLET (FP) PO SCH (21:38)
[2018-03-05] MEDS: guaiFENesin/D-METHORPHAN HB 10 ML UNIT-DOSE CUPS PO PRN (21:38)
[2018-03-05] MEDS: hydrOXYzine PAMOATE 50 MG CAPSULE (FP) PO PRN (21:38)
[2018-03-05] MEDS: MELATONIN 5 MG TABLETS PO PRN (21:38)
[2018-03-06] MEDS: METHADONE HCL 40 MG DISPERSABLE TABLET PO SCH (06:10)
[2018-03-06] MEDS: NICOTINE 14 MG/24 HOURS TOPICAL PATCH TD SCH (10:04)
[2018-03-06] MEDS: PRENATAL VITAMINS W/ FOLIC ACID TABLET (FP) PO SCH (10:05)
--- NOTE | 2018-03-06 11:40 | PN ---
Psychiatric Progress Note Vital Signs: Vital Signs Period Temp Pulse Resp BP Sys/Kaplan Pulse Ox Last 24 Hr 98.0 F 58 16-18 133/83 Date of Session: 03/06/18 Chief Complaint:: Discharge Note HPI: Patient addressing Cocaine Dependence comorbid with Opioid Dependence on Agonist Therapy, Nicotine Dependence, Bipolar Disorder and Substance-Induced Sleep Disorder ROS: Hep C treated was medically managed Current Medications: Active Medications Generic Name Dose Route Start Last Admin Trade Name Freq PRN Reason Stop Dose Admin Acetaminophen 650 mg 02/19/18 16:21 Tylenol - PO Q4H PRN FEVER Al Hydroxide/Mg Hydroxide 30 ml 02/19/18 16:21 03/01/18 17:56 Mylanta Oral Suspension - PO 30 ml Q6H PRN Administration DYSPEPSIA Colloidal Oatmeal 1 applic 03/07/18 10:00 Aveeno Soap - TP DAILY STEPHY Eucalyptus/Menthol/Phenol/Sorbitol 1 each 02/19/18 16:21 Cepastat Lozenge - MM Q4H PRN SORE THROAT Guaifenesin 10 ml 02/19/18 16:21 03/05/18 21:38 Robitussin Dm - PO 10 ml Q6H PRN Administration COUGH Hydroxyzine Pamoate 50 mg 02/19/18 16:21 03/05/18 21:38 Vistaril - PO 50 mg Q4H PRN Administration AGITATION Ibuprofen 400 mg 02/19/18 16:21 Motrin - PO Q6H PRN Pain level 4-6 Loperamide HCl 4 mg 02/19/18 16:21 Imodium - PO Q6H PRN DIARRHEA Magnesium Citrate 300 ml 02/19/18 16:21 Citroma - PO Q48H PRN CONSTIPATION Magnesium Hydroxide 30 ml 02/19/18 16:21 Milk Of Magnesia - PO DAILY PRN CONSTIPATION Melatonin 5 mg 02/19/18 22:00 03/05/18 21:38 Melatonin PO 5 mg HS PRN Administration INSOMNIA Methadone HCl 40 mg 03/05/18 06:00 03/06/18 06:10 Dolophine - PO 03/12/18 05:59 40 mg DAILY@0600 STEPHY Administration Multi-Ingredient Lotion 1 applic 03/06/18 10:30 Eucerin (Small Jar) - TP DAILY STEPHY Nicotine 14 mg 02/20/18 10:00 03/06/18 10:04 Nicoderm Patch - TD 14 mg DAILY STEPHY Administration Multivit/Folic Acid/Iron 1 tab 02/20/18 10:00 03/06/18 10:05 Vitamins (Sjr) - PO 1 tab DAILY STEPHY Administration Pseudoephedrine/Triprolidine 1 combo 02/19/18 16:21 Actifed - PO TID PRN NASAL CONGESTION Quetiapine Fumarate 100 mg 02/23/18 22:00 03/05/18 21:37 Seroquel - PO 100 mg HS STEPHY Administration Thiamine HCl 100 mg 02/19/18 22:00 03/05/18 21:38 Vitamin B1 - PO 100 mg HS STEPHY Administration Current Side Effect: No Lab tests ordered: Yes Lab tests reviewed: Yes Provider note:: Patient will complete this program on 03/07/18. He has met his treatment goals and will continue to addres his issues in outpatient treatment at [facility] at [address] [place] [address]. Told appeals writer that from his participation in this program, he has learned to make meetings and get a sponsor. He responded well to Seroquel 100 mg po HS. Script for 30 days supply for that medication is electronically transmitted to [facility] at [address] [place] [address]. He is stable for discharge on 03/07/18 Total face to face time:: 35 Mental Status Exam - Mental Status Exam Alert and Oriented to: Time, Place, Person Cognitive Function: Fair Patient Appearance: Well Groomed Mood: Hopeful, Euthymic Affect: Appropriate Patient Behavior: Cooperative Speech Pattern: Clear Voice Loudness: Normal Thought Process: Intact, Goal Oriented Thought Disorder: Not Present Hallucinations: Denies Suicidal Ideation: Denies Homicidal Ideation: Denies Insight/Judgement: Fair Sleep: Fair Appetite: Good Muscle strength/Tone: Normal Gait/Station: Normal Psychiatric Treatment Plan - Problem List (1) Cocaine dependence Current Visit: No Qualifiers: Substance use status: uncomplicated Qualified Code(s): F14.20 - Cocaine dependence, uncomplicated (2) Opioid dependence on agonist therapy Current Visit: No (3) Nicotine dependence Current Visit: No Qualifiers: Nicotine product type: cigarettes Substance use status: in withdrawal Qualified Code(s): F17.213 - Nicotine dependence, cigarettes, with withdrawal (4) Bipolar disorder Current Visit: No Qualifiers: Active/Remission status: remission status unspecified Qualified Code(s): F31.9 - Bipolar disorder, unspecified Comment: (5) Substance-induced sleep disorder Current Visit: Yes (6) Hepatitis C Current Visit: No Qualifiers: Viral hepatitis chronicity: chronic Hepatic coma status: without hepatic coma Qualified Code(s): B18.2 - Chronic viral hepatitis C Comment: TREATED Initial treatment plan: Patient will be discharged tomorrow and referred back to [facility] for outpatient treatment
[2018-03-06] MEDS: MINERAL OIL/PETROLAT/WATER TOPICAL CREAM 113 GM JAR TP SCH (15:44)
[2018-03-06] MEDS: THIAMINE HCL 100 MG TABLET (FP) PO SCH (21:24)
[2018-03-06] MEDS: QUEtiapine FUMARATE 100 MG TABLET (FP) PO SCH (21:24)
[2018-03-06] MEDS: MELATONIN 5 MG TABLETS PO PRN (21:25)
[2018-03-06] MEDS: hydrOXYzine PAMOATE 50 MG CAPSULE (FP) PO PRN (21:25)
[2018-03-07] MEDS: METHADONE HCL 40 MG DISPERSABLE TABLET PO SCH (06:07)
[2018-03-07 06:48] VITALS: BP 113/72; PULSE 63; TEMP 97.7
[2018-03-07] MEDS: PRENATAL VITAMINS W/ FOLIC ACID TABLET (FP) PO SCH (09:51)
[2018-03-07] MEDS: MINERAL OIL/PETROLAT/WATER TOPICAL CREAM 113 GM JAR TP SCH (09:52)
[2018-03-07] MEDS: NICOTINE 14 MG/24 HOURS TOPICAL PATCH TD SCH (09:52)
[2018-03-07] MEDS ORDERED: COLLOIDAL OATMEAL 1 BAR EACH TP SCH (10:00)
--- NOTE | 2018-03-07 14:39 | PN ---
[facility] Progress Note Note: PT COMPLETED REHAB AND DISCHARGED TODAY. ALERT O X 3. REFERRED TO [facility] AFTERCARE TREATMENT. PT STATES HE HAS PRIMARY CARE WITH [facility] ON [address] [place], [place] AND "CAN'T PRONOUNCE THE NAME" OF HIS DOCTOR. Vital Signs 03/07/18 06:47 Temperature 97.7 F Pulse Rate 63 Respiratory 16 Rate Blood Pressure 113/72 Laboratory Tests 02/19/18 02/20/18 02/20/18 11:45 10:00 10:00 WBC 5.1 RBC 4.70 Hgb 14.2 Hct 43.0 MCV 91.4 MCH 30.2 MCHC 33.0 RDW 13.8 Plt Count 234 MPV 9.2 Sodium 138 Potassium 4.2 Chloride 103 Carbon Dioxide 32 Anion Gap 4 L BUN 15 Creatinine 0.9 Creat Clearance w eGFR > 60 Random Glucose 76 Calcium 9.0 Total Bilirubin 0.4 AST 37 ALT 40 Alkaline Phosphatase 68 Total Protein 7.2 Albumin 3.2 L Urine Color Ltyellow Urine Appearance Clear Urine pH 7.0 Ur Specific [place] 1.011 Urine Protein Negative Urine Glucose (UA) Negative Urine Ketones Negative Urine Blood Negative Urine Nitrite Negative Urine Bilirubin Negative Urine Urobilinogen Negative Ur Leukocyte Esterase Trace Urine WBC (Auto) 16 Urine RBC (Auto) 1 Ur Epithelial Cells Rare RPR Titer HIV 1&2 Antibody Screen HIV P24 Antigen 02/20/18 02/20/18 10:00 10:00 WBC RBC Hgb Hct MCV MCH MCHC RDW Plt Count MPV Sodium Potassium Chloride Carbon Dioxide Anion Gap BUN Creatinine Creat Clearance w eGFR Random Glucose Calcium Total Bilirubin AST ALT Alkaline Phosphatase Total Protein Albumin Urine Color Urine Appearance Urine pH Ur Specific [place] Urine Protein Urine Glucose (UA) Urine Ketones Urine Blood Urine Nitrite Urine Bilirubin Urine Urobilinogen Ur Leukocyte Esterase Urine WBC (Auto) Urine RBC (Auto) Ur Epithelial Cells RPR Titer Nonreactive HIV 1&2 Antibody Screen Negative HIV P24 Antigen Negative NAD PLAN:FOLLOW UP WITH PCP NEEDE FOLLOW UP WITH [facility] TREATMENT RECOMMENDED.
== END 2018-03-07 10:00 | disposition home or self-care (01) | DRG 772 ==
LOC: YASAS 12:23 → Y3W 17:17 → Y5N 18:48
PROVIDERS: ADMIT Psychiatry & Neurology Psychiatry; ATTEND Psychiatry & Neurology Psychiatry
PROC: HZ42ZZZ Group Counseling for Substance Abuse Treatment, Cognitive-Behavioral (ICD-10-PCS; principal; 2018-02-19)
DX: F14.20 Cocaine dependence, uncomplicated (principal); F11.20 Opioid dependence, uncomplicated; F17.213 Nicotine dependence, cigarettes, with withdrawal; F31.9 Bipolar disorder, unspecified; F19.282 Other psychoactive substance dependence with psychoactive substance-induced sleep disorder; B18.2 Chronic viral hepatitis C
CPT/HCPCS: 36415; 80053; 81003; 81015; 85027; 86593; 87389

== ENCOUNTER 2018-04-23 11:04 | Inpatient (IN) | payer OTHER ==
[2018-04-23 12:01] VITALS: BMI 19.1
--- NOTE | 2018-04-23 13:25 | HP ---
CIWA Score Nausea/Vomitin-No Nausea/No Vomiting Muscle Tremors: 3 Anxiety: 3 Agitation: 4-Moderately Restless Paroxysmal Sweats: 2 Orientation: 0-Oriented Tacttile Disturbances: 0-None Auditory Disturbances: 0-None Visual Disturbances: 0-None Headache: 0-None Present CIWA-Ar Total Score: 12 - Admission Criteria OASAS Guidelines: Admission for Medically Managed Detox: Requires at least one of the followin. CIWA greater than 12 2. Seizures within the past 24 hours 3. Delirium tremens within the past 24 hours 4. Hallucinations within the past 24 hours 5. Acute intervention needed for co occurring medical disorder 6. Acute intervention needed for co occurring psychiatric disorder 7. Severe withdrawal that cannot be handled at a lower level of care (continued vomiting, continued diarrhea, abnormal vital signs) requiring intravenous medication and/or fluids 8. Admission ROS [facility] - HPI Chief Complaint: I need to stop using and get my life together. Allergies/Adverse Reactions: Allergies Allergy/AdvReac Type Severity Reaction Status Date / Time No Known Allergies Allergy Verified 02/19/18 15:29 History of Present Illness: pt is a 48yrold male with a long history of alcohol, cocaine dependence seeking detox for treatment. Pt also abuses xanax. pt had a about a month time of sobriety and relapsed recently. pt is on a MMTP program last medicated today with 50mg;pending verification. Exam Limitations: Other - Ebola screening Have you traveled outside of the country in the last 21 days: No Have you had contact with anyone from an Ebola affected area: No Have you been sick,other than usual withdrawal symptoms: No Do you have a fever: No - Review of Systems Constitutional: Chills, Loss of Appetite, Changes in sleep, Unintentional Wgt. Loss EENT: reports: No Symptoms Reported, Nose Congestion Respiratory: reports: No Symptoms reported Cardiac: reports: No Symptoms Reported GI: reports: Diarrhea, Nausea, Poor Appetite, Poor Fluid Intake, Vomiting : reports: No Symptoms Reported Musculoskeletal: reports: No Symptoms Reported Integumentary: reports: Flushing, Sweating Neuro: reports: Tingling, Tremors Endocrine: reports: Excessive Sweating, Flushing, Intolerance to Cold, Intolerance to Heat Hematology: reports: No Symptoms Reported Psychiatric: reports: Judgement Intact, Mood/Affect Appropiate, Orientated x3, Agitated, Anxious Other Systems: Reviewed and Negative Patient History - Patient Medical History Hx Anemia: No Hx Asthma: No Hx Chronic Obstructive Pulmonary Disease (COPD): No Hx Cancer: No Hx Cardiac Disorders: No Hx Congestive Heart Failure: No Hx Hypertension: No Hx Hypercholesterolemia: No Hx Pacemaker: No HX Cerebrovascular Accident: No Hx Seizures: No Hx Dementia: No Hx Diabetes: No Hx Gastrointestinal Disorders: No Hx Liver Disease: No Hx Genitourinary Disorders: No Hx Sexually Transmitted Disorders: No Hx Renal Disease (ESRD): No Hx Thyroid Disease: No Hx Human Immunodeficiency Virus (HIV): No (Negative last 12/31) Hx Hepatitis C: Yes (Treated ) Hx Depression: No Hx Suicide Attempt: No (pt denies) Hx Bipolar Disorder: Yes (pt is not taking any meds) Hx Schizophrenia: No - Patient Surgical History Past Surgical History: No Hx Neurologic Surgery: No Hx Cataract Extraction: No Hx Cardiac Surgery: No Hx Lung Surgery: No Hx Breast Surgery: No Hx Breast Biopsy: No Hx Abdominal Surgery: No Hx Appendectomy: No Hx Cholecystectomy: No Hx Genitourinary Surgery: No Hx Section: No Hx Orthopedic Surgery: No Anesthesia Reaction: No - PPD History Previous Implant?: Yes Documented Results: Negative w/proof Date: 06/01/17 Results: 0 mm PPD to be Administered?: No - Reproductive History Patient is a Female of Child Bearing Age (11 -55 yrs old): No - Smoking Cessation Smoking history: Current every day smoker Have you smoked in the past 12 months: Yes Aproximately how many cigarettes per day: 10 Hx Chewing Tobacco Use: No Initiated information on smoking cessation: Yes 'Breaking Loose' booklet given: 04/23/18 - Substance & Tx. History Hx Alcohol Use: Yes Substance Use Type: Alcohol Hx Substance Use Treatment: Yes (last detox 02/2018) - Substances Abused Alcohol Route: Oral Frequency: Daily Amount used: 2 quartz of vodka/2 six pack beer Age of first use: 21 Date of Last Use: 04/23/18 Alprazolam (Xanax) Route: Oral Frequency: 1-3 times last 30 days Amount used: 4mg Age of first use: 41 Date of Last Use: 04/19/18 Cocaine Route: Injection Frequency: Daily Amount used: $300 Age of first use: 42 Date of Last Use: 04/22/18 Family Disease History - Family Disease History Family Disease History: Diabetes: Mother ( esrd), Other: Father ( esrd) Admission Physical Exam [facility] - Vital Signs Vital Signs: Vital Signs - 24 hr 04/23/18 11:59 Temperature 96.8 F L Pulse Rate 67 Respiratory 17 Rate Blood Pressure 99/51 L - Physical General Appearance: Yes: Moderate Distress, Thin, Tremorous, Irritable, Sweating , Anxious HEENTM: Yes: Normal Voice, Nasal Congestion, Rhinorrhea Respiratory: Yes: Lungs Clear, Normal Breath Sounds, No Respiratory Distress Neck: Yes: No masses,lesions,Nodules Breast: Yes: Within Normal Limits Cardiology: Yes: Regular Rhythm, Regular Rate, S1, S2 Abdominal: Yes: Normal Bowel Sounds, Non Tender, Soft Genitourinary: Yes: Within Normal Limits Back: Yes: Normal Inspection Musculoskeletal: Yes: full range of Motion, Back pain Extremities: Yes: Normal Capillary Refill, Normal Inspection, Non-Tender, Tremors Neurological: Yes: Fully Oriented, Alert, Normal Response Integumentary: Yes: Normal Color, Diaphoresis Lymphatic: Yes: Within Normal Limits - Diagnostic (1) Alcohol dependence with uncomplicated withdrawal Current Visit: Yes Status: Chronic (2) Bipolar disorder Current Visit: Yes Status: Chronic Qualifiers: Active/Remission status: remission status unspecified Qualified Code(s): F31.9 - Bipolar disorder, unspecified Comment: (3) Cocaine dependence Current Visit: Yes Status: Chronic Qualifiers: Substance use status: uncomplicated Qualified Code(s): F14.20 - Cocaine dependence, uncomplicated (4) Hepatitis C Current Visit: Yes Status: Chronic Qualifiers: Viral hepatitis chronicity: chronic Hepatic coma status: without hepatic coma Qualified Code(s): B18.2 - Chronic viral hepatitis C Comment: TREATED (5) Marijuana dependence Current Visit: Yes Status: Chronic (6) Methadone maintenance therapy patient Current Visit: Yes Status: Chronic Comment: pending verification (7) Nicotine dependence Current Visit: Yes Status: Chronic Qualifiers: Nicotine product type: cigarettes Substance use status: uncomplicated Qualified Code(s): F17.210 - Nicotine dependence, cigarettes, uncomplicated (8) Sedative, hypnotic or anxiolytic abuse, uncomplicated Current Visit: Yes Status: Chronic Cleared for Admission [facility] - Detox or Rehab S Level of Care: Medically Managed [facility] Breath Alcohol Content Breath Alcohol Content: 0 Urine Drug Screen - Results Drug Screen Negative: No Urine Drug Screen Results: THC-Marijuana, MONIKA-Cocaine, OPI-Opiates, MTD- Methadone, FEN-Fentanyl Inpatient Rehab Admission - Rehab Decision to Admit Inpatient rehab admission?: No
[2018-04-23] MEDS ORDERED: IBUPROFEN 400 MG TABLET (FP) PO PRN (13:41)
[2018-04-23] MEDS ORDERED: ONDANSETRON *ODT* 4 MG TABLET SL PRN (13:41)
[2018-04-23] MEDS ORDERED: diazePAM 5 MG TABLET PO PRN (13:41)
[2018-04-23] MEDS ORDERED: hydrOXYzine PAMOATE 25 MG CAPSULE (FP) PO PRN (13:41)
[2018-04-23] MEDS ORDERED: NICOTINE POLACRILEX 4 MG GUM BUC PRN (13:41)
[2018-04-23] MEDS ORDERED: BISMUTH SUBSALICYLATE 524 MG/30 ML UD PO PRN (13:41)
[2018-04-23] MEDS ORDERED: MAG HYDROX/AL HYDROX/SIMETH 30 ML UNIT-DOSE CUP PO PRN (13:41)
[2018-04-23] MEDS ORDERED: MAGNESIUM HYDROX 2400MG/30ML ORAL SUSPENSION 30 ML CUP PO PRN (13:41)
[2018-04-23] MEDS ORDERED: MAGNESIUM CITRATE 300 ML BOTTLE PO PRN (13:41)
[2018-04-23] MEDS ORDERED: ACETAMINOPHEN 325 MG TABLET (FP) PO PRN ×2 (13:41)
[2018-04-23] MEDS ORDERED: MENTHOL/PHENOL 1 EACH UD MM PRN (13:41)
[2018-04-23] MEDS ORDERED: diazePAM 5 MG TABLET PO ONE (17:45)
[2018-04-23] MEDS: diazePAM 5 MG TABLET PO SCH (22:02)
[2018-04-23] MEDS: MELATONIN 5 MG TABLETS PO PRN (22:02)
[2018-04-23] MEDS: THIAMINE HCL 100 MG TABLET (FP) PO SCH (22:02)
[2018-04-24] MEDS: diazePAM 5 MG TABLET PO SCH ×2 (05:28→14:33)
[2018-04-24] MEDS ORDERED: METHADONE 40 MG, METHADONE 10 MG PO ONE (10:00)
[2018-04-24] MEDS ORDERED: METHADONE HCL 10 MG TABLET PO ONE (10:00)
[2018-04-24] MEDS: NICOTINE 21 MG/24 HOURS TOPICAL PATCH TD SCH (10:11)
[2018-04-24] MEDS: PRENATAL VITAMINS W/ FOLIC ACID TABLET (FP) PO SCH (10:12)
[2018-04-24] MEDS ORDERED: METHADONE HCL 40 MG DISPERSABLE TABLET ONE (10:14)
[2018-04-24] MEDS ORDERED: METHADONE HCL 10 MG TABLET ONE (10:14)
[2018-04-24 10:21] LABS: ALBUMIN 4.1 g/dl (3.4-5.0); ALK PHOS 77 U/L (45-117); ANION GAP 5 MMOL/L (8-16); BILIRUBIN,TOTAL 0.6 mg/dL (0.2-1); BLOOD UREA NITROGEN 16 mg/dL (7-18); CHLORIDE 104 mmol/L (98-107); CO2 30 mmol/L (21-32); CREATININE 1.1 mg/dL (0.55-1.3); GLUCOSE,RANDOM 64 mg/dL (74-106); POTASSIUM 4.6 mmol/L (3.5-5.1); SGOT/AST 60 U/L (15-37); SGPT/ALT 73 U/L (13-61); SODIUM 139 mmol/L (136-145); TOT PROT 8.6 g/dl (6.4-8.2)
[2018-04-24 10:26] LABS: HEMATOCRIT 42.4 % (35.4-49); HEMOGLOBIN 14.6 GM/dL (11.7-16.9); MCH 31.4 pg (25.7-33.7); MCHC 34.4 g/dl (32.0-35.9); MEAN PLT VOLUME 10.2 fl (7.5-11.1); PLATELET COUNT 185 K/MM3 (134-434); RBC 4.65 M/mm3 (4.00-5.60); RDW 14.3 % (11.9-15.9); WHITE BLOOD COUNT 9.2 K/mm3 (4.0-10.0)
--- NOTE | 2018-04-24 10:51 | PN ---
[facility] CIWA - CIWA Score Nausea/Vomitin-No Nausea/No Vomiting Muscle Tremors: 1-None Visible, but [place] Anxiety: 1-Mildly Anxious Agitation: 1-Slight > Activity Paroxysmal Sweats: 1-Minimal Palms Moist Orientation: 2-Disoriented Date<2 days Tacttile Disturbances: 0-None Auditory Disturbances: 0-None Visual Disturbances: 0-None Headache: 1-Very Mild CIWA-Ar Total Score: 7 S Progress Note (SOAP) Subjective: tremor sweating feeling better in the morning after breakfast ambulate on hallway tolerate food well Objective: 04/24/18 10:50 Vital Signs Temperature 96.0 F L 04/24/18 09:41 Pulse Rate 60 04/24/18 09:41 Respiratory Rate 20 04/24/18 09:41 Blood Pressure 132/85 04/24/18 09:41 O2 Sat by Pulse Oximetry (%) Laboratory Last Values WBC 9.2 K/mm3 (4.0-10.0) 04/24/18 06:00 RBC 4.65 M/mm3 (4.00-5.60) 04/24/18 06:00 Hgb 14.6 GM/dL (11.7-16.9) 04/24/18 06:00 Hct 42.4 % (35.4-49) 04/24/18 06:00 MCV 91.0 fl (80-96) 04/24/18 06:00 MCH 31.4 pg (25.7-33.7) 04/24/18 06:00 MCHC 34.4 g/dl (32.0-35.9) 04/24/18 06:00 RDW 14.3 % (11.9-15.9) 04/24/18 06:00 Plt Count 185 K/MM3 (134-434) D 04/24/18 06:00 MPV 10.2 fl (7.5-11.1) D 04/24/18 06:00 Sodium 139 mmol/L (136-145) 04/24/18 06:00 Potassium 4.6 mmol/L (3.5-5.1) 04/24/18 06:00 Chloride 104 mmol/L (98-107) 04/24/18 06:00 Carbon Dioxide 30 mmol/L (21-32) 04/24/18 06:00 Anion Gap 5 MMOL/L (8-16) L 04/24/18 06:00 BUN 16 mg/dL (7-18) 04/24/18 06:00 Creatinine 1.1 mg/dL (0.55-1.3) 04/24/18 06:00 Creat Clearance w eGFR > 60 (>60) 04/24/18 06:00 Random Glucose 64 mg/dL (74-106) L 04/24/18 06:00 Calcium 9.0 mg/dL (8.5-10.1) 04/24/18 06:00 Total Bilirubin 0.6 mg/dL (0.2-1) 04/24/18 06:00 AST 60 U/L (15-37) H 04/24/18 06:00 ALT 73 U/L (13-61) H 04/24/18 06:00 Alkaline Phosphatase 77 U/L (45-117) 04/24/18 06:00 Total Protein 8.6 g/dl (6.4-8.2) H 04/24/18 06:00 Albumin 4.1 g/dl (3.4-5.0) 04/24/18 06:00 lab noted Assessment: 04/24/18 10:51 alcohol withdrawal sx under weight methadone maintenance treatment program Plan: continue detox methadone 50 mg po daily ensure tid
--- NOTE | 2018-04-24 11:07 | CONSULT ---
[facility] Psychiatric Consult - Data Date of interview: 04/24/18 Admission source: [facility] Identifying data: Patient is a 48 year old single male, father of two, unemployed, domiciled, and supported by [facility]. This is one of multiple admissions for patient. Patient admitted to for alcohol, cocaine, and opiate dependence. Substance Abuse History: - Smoking Cessation. Smoking history: Current every day smoker. Have you smoked in the past 12 months: Yes. Aproximately how many cigarettes per day: 10. Hx Chewing Tobacco Use: No. Initiated information on smoking cessation: Yes. 'Breaking Loose' booklet given: 04/23/18. - Substance & Tx. History. Hx Alcohol Use: Yes. Substance Use Type: Alcohol. Hx Substance Use Treatment: Yes (last detox 02/2018). - Substances Abused. Alcohol. Route: Oral. Frequency: Daily. Amount used: 2 quartz of vodka/2 six pack beer. Age of first use: 21. Date of Last Use: 04/23/18. Alprazolam ( Xanax). Route: Oral. Frequency: 1-3 times last 30 days. Amount used: 4mg. Age of first use: 41. Date of Last Use: 04/19/18. Cocaine. Route: Injection. Frequency: Daily. Amount used: $300. Age of first use: 42. Date of Last Use: 04/22/18 Medical History: Hep C (treated) Psychiatric History: Patient reports h/o two psychiatric hospitalizations, most recently last year at [facility] after hallucinating secondary to K2 usage. His second hospitalization was at [facility] in 2013 after presenting with auditory hallucinations secondary to substance abuse. Mr. Gibbs is receiving outpatient psychiatric care from Dr. Musa at the [facility] in the [place], [place]. He reports medication noncompliance for approximately 4 weeks. States he was prescribed abilify 15mg + Seroquel 100mg. No abilify noted in the records. Patient was discharged from rehab on 03/06/18 with a prescription of 100mg HS. Patient denies h/o suicide attempt. Physical/Sexual Abuse/Trauma History: denies. Mental Status Exam - Mental Status Exam Alert and Oriented to: Time, Place, Person Cognitive Function: Good Patient Appearance: Well Groomed Mood: Euthymic Affect: Mood Congruent Patient Behavior: Talkative Speech Pattern: Appropriate Voice Loudness: Normal Thought Process: Intact, Goal Oriented Thought Disorder: Not Present Hallucinations: Denies Suicidal Ideation: Denies Homicidal Ideation: Denies Insight/Judgement: Poor Sleep: Poorly Appetite: Fair Muscle strength/Tone: Normal Gait/Station: Normal Psychiatric Findings - Problem List ([place] 1, 2,3) (1) Alcohol dependence with uncomplicated withdrawal Current Visit: Yes Status: Acute (2) Cocaine dependence Current Visit: Yes Status: Chronic Qualifiers: Substance use status: uncomplicated Qualified Code(s): F14.20 - Cocaine dependence, uncomplicated (3) Methadone maintenance therapy patient Current Visit: Yes Status: Chronic Comment: pending verification (4) Substance-induced sleep disorder Current Visit: Yes Status: Acute (5) Bipolar disorder Current Visit: Yes Status: Chronic Qualifiers: Active/Remission status: remission status unspecified Qualified Code(s): F31.9 - Bipolar disorder, unspecified Comment: - Initial Treatment Plan Initial Treatment Plan: Psychoeducation provided. Detoxification in progress. Will order Seroquel 100mg HS. Benefits and side effects discussed. Verbal consent given.
[2018-04-24] MEDS ORDERED: chlordiazePOXIDE HCL 25 MG CAPSULE PO PRN (19:42)
--- NOTE | 2018-04-24 19:51 | PN ---
[facility] Progress Note Note: Vital Signs Temperature 96.7 F L 04/24/18 17:46 Pulse Rate 57 L 04/24/18 17:46 Respiratory Rate 18 04/24/18 17:46 Blood Pressure 108/79 04/24/18 17:46 O2 Sat by Pulse Oximetry (%) Patient reported current valium cristiana is making him vomit and nauseous and requested protocol to change to librium, as per patient he is able to tolerate librium better. Protocol changed to Librium. continue to monitor
[2018-04-24] MEDS: THIAMINE HCL 100 MG TABLET (FP) PO SCH (22:07)
[2018-04-24] MEDS: QUEtiapine FUMARATE 100 MG TABLET (FP) PO SCH (22:07)
[2018-04-24] MEDS: MELATONIN 5 MG TABLETS PO PRN (22:07)
[2018-04-24] MEDS: chlordiazePOXIDE HCL 25 MG CAPSULE PO SCH (22:07)
[2018-04-25] MEDS: chlordiazePOXIDE HCL 25 MG CAPSULE PO SCH ×2 (00:25→05:56)
[2018-04-25] MEDS ORDERED: METHADONE HCL 40 MG DISPERSABLE TABLET ONE (04:34)
[2018-04-25] MEDS ORDERED: METHADONE HCL 10 MG TABLET ONE (04:34)
[2018-04-25] MEDS: METHADONE 40 MG, METHADONE 10 MG PO SCH (05:56)
[2018-04-25] MEDS ORDERED: METHADONE HCL 10 MG TABLET PO SCH (06:00)
[2018-04-25] MEDS ORDERED: chlordiazePOXIDE HCL 10 MG CAPSULE PO PRN (09:00)
[2018-04-25] MEDS ORDERED: diazePAM 5 MG TABLET PO SCH (10:00)
[2018-04-25] MEDS: NICOTINE 21 MG/24 HOURS TOPICAL PATCH TD SCH (10:04)
[2018-04-25] MEDS: PRENATAL VITAMINS W/ FOLIC ACID TABLET (FP) PO SCH (10:04)
--- NOTE | 2018-04-25 10:37 | PN ---
S CIWA - CIWA Score Nausea/Vomitin-No Nausea/No Vomiting Muscle Tremors: 1-None Visible, but [place] Anxiety: 1-Mildly Anxious Agitation: 1-Slight > Activity Paroxysmal Sweats: No Perspiration Orientation: 1-Uncertain about Date Tacttile Disturbances: 0-None Auditory Disturbances: 0-None Visual Disturbances: 0-None Headache: 1-Very Mild CIWA-Ar Total Score: 5 [facility] Progress Note (SOAP) Subjective: doing better with valium mild tremor less sweating no headaches Objective: 04/25/18 10:36 Vital Signs Temperature 97.6 F 04/25/18 09:03 Pulse Rate 63 04/25/18 09:03 Respiratory Rate 18 04/25/18 09:03 Blood Pressure 119/78 04/25/18 09:03 O2 Sat by Pulse Oximetry (%) Laboratory Last Values WBC 9.2 K/mm3 (4.0-10.0) 04/24/18 06:00 RBC 4.65 M/mm3 (4.00-5.60) 04/24/18 06:00 Hgb 14.6 GM/dL (11.7-16.9) 04/24/18 06:00 Hct 42.4 % (35.4-49) 04/24/18 06:00 MCV 91.0 fl (80-96) 04/24/18 06:00 MCH 31.4 pg (25.7-33.7) 04/24/18 06:00 MCHC 34.4 g/dl (32.0-35.9) 04/24/18 06:00 RDW 14.3 % (11.9-15.9) 04/24/18 06:00 Plt Count 185 K/MM3 (134-434) D 04/24/18 06:00 MPV 10.2 fl (7.5-11.1) D 04/24/18 06:00 Sodium 139 mmol/L (136-145) 04/24/18 06:00 Potassium 4.6 mmol/L (3.5-5.1) 04/24/18 06:00 Chloride 104 mmol/L (98-107) 04/24/18 06:00 Carbon Dioxide 30 mmol/L (21-32) 04/24/18 06:00 Anion Gap 5 MMOL/L (8-16) L 04/24/18 06:00 BUN 16 mg/dL (7-18) 04/24/18 06:00 Creatinine 1.1 mg/dL (0.55-1.3) 04/24/18 06:00 Creat Clearance w eGFR > 60 (>60) 04/24/18 06:00 Random Glucose 64 mg/dL (74-106) L 04/24/18 06:00 Calcium 9.0 mg/dL (8.5-10.1) 04/24/18 06:00 Total Bilirubin 0.6 mg/dL (0.2-1) 04/24/18 06:00 AST 60 U/L (15-37) H 04/24/18 06:00 ALT 73 U/L (13-61) H 04/24/18 06:00 Alkaline Phosphatase 77 U/L (45-117) 04/24/18 06:00 Total Protein 8.6 g/dl (6.4-8.2) H 04/24/18 06:00 Albumin 4.1 g/dl (3.4-5.0) 04/24/18 06:00 RPR Titer Nonreactive (NONREACTIVE) 04/24/18 06:00 HIV 1&2 Antibody Screen Negative 04/23/18 14:30 HIV P24 Antigen Negative 04/23/18 14:30 lab noted Assessment: 04/25/18 10:36 alcohol withdrawal sx Plan: continue detox
[2018-04-25] MEDS: guaiFENesin 600 MG TABLET.ER (FP) PO SCH ×2 (10:39→22:00)
[2018-04-25] MEDS: chlordiazePOXIDE HCL 10 MG CAPSULE PO SCH ×2 (22:00→22:47)
[2018-04-25] MEDS: MELATONIN 5 MG TABLETS PO PRN (22:00)
[2018-04-25] MEDS: QUEtiapine FUMARATE 100 MG TABLET (FP) PO SCH (22:00)
[2018-04-25] MEDS: THIAMINE HCL 100 MG TABLET (FP) PO SCH (22:00)
[2018-04-26] MEDS ORDERED: METHADONE HCL 40 MG DISPERSABLE TABLET ONE (04:24)
[2018-04-26] MEDS ORDERED: METHADONE HCL 10 MG TABLET ONE (04:24)
[2018-04-26] MEDS: METHADONE 40 MG, METHADONE 10 MG PO SCH (05:09)
[2018-04-26] MEDS: chlordiazePOXIDE HCL 10 MG CAPSULE PO SCH ×2 (05:09→10:19)
[2018-04-26] MEDS ORDERED: diazePAM 5 MG TABLET PO SCH (06:00)
[2018-04-26] MEDS: PRENATAL VITAMINS W/ FOLIC ACID TABLET (FP) PO SCH (10:19)
[2018-04-26] MEDS: guaiFENesin 600 MG TABLET.ER (FP) PO SCH (10:19)
[2018-04-26] MEDS: NICOTINE 21 MG/24 HOURS TOPICAL PATCH TD SCH (10:20)
[2018-04-26 14:27] VITALS: BP 94/64; PULSE 57; TEMP 97.9
--- NOTE | 2018-04-26 15:18 | PN ---
[facility] Progress Note (SOAP) Subjective: Anxious, Sweating. Objective: PATIENT A & O X 3, OBSERVED AMBULATING ON UNIT. IN NO ACUTE DISTRESS. 04/26/18 15:16 Vital Signs Temperature 97.9 F 04/26/18 14:26 Pulse Rate 57 L 04/26/18 14:26 Respiratory Rate 18 04/26/18 14:26 Blood Pressure 94/64 04/26/18 14:26 O2 Sat by Pulse Oximetry (%) Laboratory Tests 04/23/18 04/24/18 04/24/18 14:30 06:00 06:00 WBC 9.2 RBC 4.65 Hgb 14.6 Hct 42.4 MCV 91.0 MCH 31.4 MCHC 34.4 RDW 14.3 Plt Count 185 D MPV 10.2 D Sodium 139 Potassium 4.6 Chloride 104 Carbon Dioxide 30 Anion Gap 5 L BUN 16 Creatinine 1.1 Creat Clearance w eGFR > 60 Random Glucose 64 L Calcium 9.0 Total Bilirubin 0.6 AST 60 H ALT 73 H Alkaline Phosphatase 77 Total Protein 8.6 H Albumin 4.1 RPR Titer HIV 1&2 Antibody Screen Negative HIV P24 Antigen Negative 04/24/18 06:00 WBC RBC Hgb Hct MCV MCH MCHC RDW Plt Count MPV Sodium Potassium Chloride Carbon Dioxide Anion Gap BUN Creatinine Creat Clearance w eGFR Random Glucose Calcium Total Bilirubin AST ALT Alkaline Phosphatase Total Protein Albumin RPR Titer Nonreactive HIV 1&2 Antibody Screen HIV P24 Antigen LABS NOTED. Assessment: 04/26/18 15:16 COMPLETION OF DETOX REGIMEN. 04/26/18 15:16 Plan: PATIENT REPORTS THAT CURRENT WITHDRAWAL SYMPTOMS ARE TOLERABLE AT THIS TIME. BED IS CURRENTLY AVAILABLE AT [facility] ([place], [place]), PATIENT ELECTS TO GO THERE FOR AFTERCARE. THUS, PATIENT GRANTED EARLY DISCHARGE FROM DETOX UNIT.
--- NOTE | 2018-04-26 15:22 | DS ---
[facility] Detox Discharge Summary Admission Date: 04/23/18 Discharge Date: 04/26/18 - History Present History: Alcohol Dependence, Cannabis Dependence, Cocaine Dependence, Opioid Dependence, Sedative Dependence, MMTP Additional Comments: PATIENT REPORTS THAT CURRENT WITHDRAWAL DETOX SYMPTOMS ARE TOLERABLE. SINCE REHAB BED IS CURRENTLY AVAILABLE AT [facility] ([place], [place]) AT THIS TIME, AT PATIENT'S REQUEST, PATIENT GRANTED EARLY DISCHARGE TO GO TO [facility] FOR AFTERCARE. PATIENT WAS DISCHARGED FROM DETOX UNIT TO BE TAKEN OVER TO REHAB UNIT IN STABLE MEDICAL CONDITION. Pertinent Past History: Hep C (Treated) History Of Bipolar Disorder, M.M.T.P., Nicotine Dependence. - Physical Exam Results Vital Signs: Vital Signs Temperature 97.9 F 04/26/18 14:26 Pulse Rate 57 L 04/26/18 14:26 Respiratory Rate 18 04/26/18 14:26 Blood Pressure 94/64 04/26/18 14:26 O2 Sat by Pulse Oximetry (%) Pertinent Admission Physical Exam Findings: WITHDRAWAL SYMPTOMS. Laboratory Tests 04/23/18 04/24/18 04/24/18 14:30 06:00 06:00 WBC 9.2 RBC 4.65 Hgb 14.6 Hct 42.4 MCV 91.0 MCH 31.4 MCHC 34.4 RDW 14.3 Plt Count 185 D MPV 10.2 D Sodium 139 Potassium 4.6 Chloride 104 Carbon Dioxide 30 Anion Gap 5 L BUN 16 Creatinine 1.1 Creat Clearance w eGFR > 60 Random Glucose 64 L Calcium 9.0 Total Bilirubin 0.6 AST 60 H ALT 73 H Alkaline Phosphatase 77 Total Protein 8.6 H Albumin 4.1 RPR Titer HIV 1&2 Antibody Screen Negative HIV P24 Antigen Negative 04/24/18 06:00 WBC RBC Hgb Hct MCV MCH MCHC RDW Plt Count MPV Sodium Potassium Chloride Carbon Dioxide Anion Gap BUN Creatinine Creat Clearance w eGFR Random Glucose Calcium Total Bilirubin AST ALT Alkaline Phosphatase Total Protein Albumin RPR Titer Nonreactive HIV 1&2 Antibody Screen HIV P24 Antigen LABS NOTED. - Treatment Hospital Course: Detox Protocol Followed, Detoxed Safely, Responded well, Discharged Condition Good, Rehab Referral Accepted Patient has Accepted a Rehab Referral to: [facility] ([place], [place]). - Medication Discharge Medications: Ambulatory Orders Methadone [Dolophine -] 50 mg PO DAILY 04/23/18 - Diagnosis (1) Alcohol dependence with uncomplicated withdrawal Current Visit: Yes Status: Acute (2) Substance-induced sleep disorder Current Visit: Yes Status: Acute (3) Bipolar disorder Current Visit: Yes Status: Chronic Qualifiers: Active/Remission status: remission status unspecified Qualified Code(s): F31.9 - Bipolar disorder, unspecified (4) Cocaine dependence Current Visit: Yes Status: Chronic Qualifiers: Substance use status: uncomplicated Qualified Code(s): F14.20 - Cocaine dependence, uncomplicated (5) Hepatitis C Current Visit: Yes Status: Chronic Qualifiers: Viral hepatitis chronicity: chronic Hepatic coma status: without hepatic coma Qualified Code(s): B18.2 - Chronic viral hepatitis C (6) Marijuana dependence Current Visit: Yes Status: Chronic (7) Methadone maintenance therapy patient Current Visit: Yes Status: Chronic (8) Nicotine dependence Current Visit: Yes Status: Chronic Qualifiers: Nicotine product type: cigarettes Substance use status: uncomplicated Qualified Code(s): F17.210 - Nicotine dependence, cigarettes, uncomplicated (9) Sedative, hypnotic or anxiolytic abuse, uncomplicated Current Visit: Yes Status: Chronic - AMA Did Patient Leave Against Medical Advice: No
[2018-04-26] MEDS ORDERED: chlordiazePOXIDE HCL 10 MG CAPSULE PO SCH (22:00)
== END 2018-04-26 14:42 | disposition other institution (70) | DRG 773 ==
LOC: YASAS 11:04 → Y3N 17:29
PROVIDERS: ADMIT Surgery; ATTEND Surgery
PROC: HZ2ZZZZ Detoxification Services for Substance Abuse Treatment (ICD-10-PCS; principal; 2018-04-23)
DX: F10.230 Alcohol dependence with withdrawal, uncomplicated (principal); F11.20 Opioid dependence, uncomplicated; F13.20 Sedative, hypnotic or anxiolytic dependence, uncomplicated; F14.20 Cocaine dependence, uncomplicated; F12.20 Cannabis dependence, uncomplicated; F17.210 Nicotine dependence, cigarettes, uncomplicated; F19.282 Other psychoactive substance dependence with psychoactive substance-induced sleep disorder; F31.9 Bipolar disorder, unspecified; B18.2 Chronic viral hepatitis C; R63.4 Abnormal weight loss; R63.6 Underweight; Z68.1 Body mass index [BMI] 19.9 or less, adult
CPT/HCPCS: 36415; 80053; 85027; 86593; 87389

== ENCOUNTER 2018-04-26 15:01 | Inpatient (IN) | payer OTHER ==
[2018-04-26] MEDS ORDERED: IBUPROFEN 400 MG TABLET (FP) PO PRN (15:26)
[2018-04-26] MEDS ORDERED: MAG HYDROX/AL HYDROX/SIMETH 30 ML UNIT-DOSE CUP PO PRN (15:26)
[2018-04-26] MEDS ORDERED: P-EPHED 60MG/TRIPROLIDI 2.5MG TABLET PO PRN (15:26)
[2018-04-26] MEDS ORDERED: LOPERAMIDE HCL 2 MG CAPSULE PO PRN (15:26)
[2018-04-26] MEDS ORDERED: MAGNESIUM HYDROX 2400MG/30ML ORAL SUSPENSION 30 ML CUP PO PRN (15:26)
[2018-04-26] MEDS ORDERED: NICOTINE POLACRILEX 4 MG GUM BUC PRN (15:26)
[2018-04-26] MEDS ORDERED: ACETAMINOPHEN 325 MG TABLET (FP) PO PRN (15:26)
[2018-04-26] MEDS ORDERED: MAGNESIUM CITRATE 300 ML BOTTLE PO PRN (15:26)
[2018-04-26] MEDS ORDERED: MENTHOL/PHENOL 1 EACH UD MM PRN (15:26)
--- NOTE | 2018-04-26 15:26 | HP ---
ALEE[facility] Rehab Assess/Revision - Admission History Admitted to Rehab from: [facility] Date of Admission to Rehab: 04/26/2018 - Vital signs Vital Signs: NOTED; STABLE. - Findings Detox History & Physical reviewed: Yes Concur with findings: Yes Comments/Additional Findings: PATIENT'S MEDICAL / MEDICATION HISTORY REVIEWED PRIOR TO DISCHARGE FROM DETOX UNIT. PATIENT WAS DISCHARGED FROM DETOX UNIT TO BE TAKEN OVER TO REHAB UNIT IN STABLE MEDICAL CONDITION. Inpatient Rehab Admission - Rehab Decision to Admit Inpatient rehab admission?: Yes - Initial Determination Are CD services needed?: Yes Free of communicable disease: Yes Not in need of hospitalization: Yes - Rehab Admission Criteria Previous failed treatment: Yes Poor recovery environment: No Comorbidities: Yes Lacks judgement: Yes Patient is meeting Inpatient Rehab admission criteria:: Yes
[2018-04-26] MEDS: THIAMINE HCL 100 MG TABLET (FP) PO SCH (21:08)
[2018-04-26] MEDS: MELATONIN 5 MG TABLETS PO PRN (21:08)
[2018-04-26] MEDS: guaiFENesin 200 MG/10 ML 10 ML UNIT-DOSE CUPS PO PRN (21:43)
[2018-04-26] MEDS ORDERED: QUEtiapine FUMARATE 100 MG TABLET (FP) PO SCH (22:00)
[2018-04-27] MEDS ORDERED: METHADONE HCL 10 MG TABLET ONE (04:10)
[2018-04-27] MEDS ORDERED: METHADONE HCL 40 MG DISPERSABLE TABLET ONE (04:10)
[2018-04-27] MEDS ORDERED: METHADONE HCL 10 MG TABLET PO SCH (06:00)
[2018-04-27] MEDS: METHADONE 40 MG, METHADONE 10 MG PO SCH (06:06)
[2018-04-27] MEDS ORDERED: NICOTINE 21 MG/24 HOURS TOPICAL PATCH TD SCH (10:00)
[2018-04-27] MEDS ORDERED: PRENATAL VITAMINS W/ FOLIC ACID TABLET (FP) PO SCH (10:00)
--- NOTE | 2018-04-27 10:27 | CONSULT ---
[facility] Psychiatric Consult - Data Date of interview: 04/27/18 Admission source: Self-referred Identifying data: Mr Gibbs is a 48 years old single male, father of 2 children, unemployed receiving SSI, domiciled seeking inpatient rehab treatment for alcohol, cocaine and benzodiazepine Substance Abuse History: Reports history of alcohol, cocaine and xanax use. Refer to internet ecommerce specialist's summary for further information Medical History: Significant for history of treatment for hepatitis C. Patient is on methadone 50 mg/day([facility]). Smokes 10 cigarettes daily Psychiatric History: Patient reports that his first psychiatric contact was at age 12 for restlessness, hyperactivity and aggressive behavior following the of his sister. He was diagnosed with ADHD but has no recollection of being prescribed medication. Reports that his first psychiatric admission was at age 26 to [facility][note 3] in [place]. He was diagnosed with Bipolar Disorder. Reports multiple subsequent psychiatric admissions to various facilities including [facility], [facility], [facility] and most recently in Winter 2017 to [facility]. Reports receiving psychiatric outpatient treatment at [facility](formerly [facility]) with Dr Musa and he is prescribed Abilify 15 mg/day, Seroquel 200 mg/hs, Klonopin 2 mg BID and Ambien 10 mg/hs. Told aligner typewriter that he has not seen Dr Musa in 3 months and ran out of medication. He saw CAT Thayer on 04/24/18 while in detox in this facility and he was prescribed Seroquel 100 mg/hs. Reports 2 previous suicidal attempts via overdose with medication and self-mutilation. At present, reports feeling depressed and sleeping poorly Physical/Sexual Abuse/Trauma History: Denies history of emotional, physical or sexual abuse as well as DV relationship. No service Additional Comment: Reports history of multiple previous arrests. Denies being on probation at present Mental Status Exam - Mental Status Exam Alert and Oriented to: Time, Place, Person Cognitive Function: Fair Patient Appearance: Well Groomed Mood: Depressed (mildly) Affect: Appropriate Patient Behavior: Cooperative Speech Pattern: Clear Voice Loudness: Normal Thought Process: Intact Thought Disorder: Not Present Hallucinations: Denies Suicidal Ideation: Denies Homicidal Ideation: Denies Insight/Judgement: Fair Sleep: Poorly Appetite: Poor Muscle strength/Tone: Normal Gait/Station: Normal Psychiatric Findings - Problem List (Nerinx 1, 2,3) (1) Bipolar disorder Current Visit: No Status: Chronic Qualifiers: Active/Remission status: remission status unspecified Qualified Code(s): F31.9 - Bipolar disorder, unspecified Comment: (2) Substance induced mood disorder Current Visit: Yes Status: Acute (3) Substance-induced sleep disorder Current Visit: No Status: Acute (4) Alcohol dependence with uncomplicated withdrawal Current Visit: No Status: Acute (5) Cocaine dependence Current Visit: No Status: Acute Qualifiers: Substance use status: uncomplicated Qualified Code(s): F14.20 - Cocaine dependence, uncomplicated (6) Sedative, hypnotic or anxiolytic abuse Current Visit: Yes Status: Acute (7) Opioid dependence on agonist therapy Current Visit: Yes Status: Chronic (8) Nicotine dependence Current Visit: No Status: Chronic Qualifiers: Nicotine product type: cigarettes Substance use status: uncomplicated Qualified Code(s): F17.210 - Nicotine dependence, cigarettes, uncomplicated (9) Hepatitis C Current Visit: No Status: Resolved Qualifiers: Viral hepatitis chronicity: chronic Hepatic coma status: without hepatic coma Qualified Code(s): B18.2 - Chronic viral hepatitis C Comment: TREATED - Initial Treatment Plan Initial Treatment Plan: 1) Start Seroquel 200 mg po HS. 2) Continue inpatient inpatient rehabilitation
[2018-04-27] MEDS: hydrOXYzine PAMOATE 50 MG CAPSULE (FP) PO PRN ×2 (11:00→17:47)
[2018-04-27] MEDS: guaiFENesin 200 MG/10 ML 10 ML UNIT-DOSE CUPS PO PRN (11:42)
[2018-04-27] MEDS ORDERED: MINERAL OIL/PETROLAT/WATER TOPICAL CREAM 113 GM JAR TP SCH (12:15)
[2018-04-27] MEDS: THIAMINE HCL 100 MG TABLET (FP) PO SCH (21:17)
[2018-04-27] MEDS: MELATONIN 5 MG TABLETS PO PRN (21:19)
[2018-04-27] MEDS ORDERED: QUEtiapine FUMARATE 200 MG TABLET PO SCH (22:00)
[2018-04-28] MEDS ORDERED: METHADONE HCL 10 MG TABLET ONE (04:35)
[2018-04-28] MEDS ORDERED: METHADONE HCL 40 MG DISPERSABLE TABLET ONE (04:35)
[2018-04-28] MEDS: METHADONE 40 MG, METHADONE 10 MG PO SCH (06:22)
[2018-04-28 06:49] VITALS: BP 125/76; PULSE 66; TEMP 97.3
== END 2018-04-28 09:02 | disposition left against medical advice (07) | DRG 770 ==
LOC: YASAS 15:01 → Y5N 15:02
PROVIDERS: ADMIT Neuromusculoskeletal Medicine & OMM; ATTEND Neuromusculoskeletal Medicine & OMM
PROC: HZ42ZZZ Group Counseling for Substance Abuse Treatment, Cognitive-Behavioral (ICD-10-PCS; principal; 2018-04-26)
DX: F10.20 Alcohol dependence, uncomplicated (principal); F14.20 Cocaine dependence, uncomplicated; F13.10 Sedative, hypnotic or anxiolytic abuse, uncomplicated; F11.20 Opioid dependence, uncomplicated; F17.210 Nicotine dependence, cigarettes, uncomplicated; F19.282 Other psychoactive substance dependence with psychoactive substance-induced sleep disorder; F19.24 Other psychoactive substance dependence with psychoactive substance-induced mood disorder; F31.9 Bipolar disorder, unspecified; B18.2 Chronic viral hepatitis C

== ENCOUNTER 2018-05-21 13:55 | Inpatient (IN) | payer OTHER ==
[2018-05-21 18:27] VITALS: BMI 19.1
--- NOTE | 2018-05-21 20:52 | HP ---
COWS - Scale Resting Pulse: 0= AK 80 or Below Sweatin= Chills/Flushing Restless Observation: 1= Difficult to Sit Still Pupil Size: 1= Pupils >than Normal Bone or Joint Aches: 2= Severe Diffuse Aches Runny Nose/ Eye Tearin= Nasal Congestion GI Upset > 30mins: 1= Stomach Cramp Tremor Observation: 2= Slight Tremor Visible Yawning Observation: 0= None Anxiety or Irritability: 1=Feels Anxious/Irritable Goose Flesh Skin: 0=Smooth Skin COWS Score: 10 CIWA Score Nausea/Vomitin Muscle Tremors: 2 Anxiety: 3 Agitation: 3 Paroxysmal Sweats: 1-Minimal Palms Moist Orientation: 0-Oriented Tacttile Disturbances: 1-Very Mild Itch/Numbness Auditory Disturbances: 2-Mild Harshness/Frighten Visual Disturbances: 2-Mild Sensitivity Headache: 2-Mild CIWA-Ar Total Score: 18 - Admission Criteria OASAS Guidelines: Admission for Medically Managed Detox: Requires at least one of the followin. CIWA greater than 12 2. Seizures within the past 24 hours 3. Delirium tremens within the past 24 hours 4. Hallucinations within the past 24 hours 5. Acute intervention needed for co occurring medical disorder 6. Acute intervention needed for co occurring psychiatric disorder 7. Severe withdrawal that cannot be handled at a lower level of care (continued vomiting, continued diarrhea, abnormal vital signs) requiring intravenous medication and/or fluids 8. Admission ROS BHS - HPI Chief Complaint: DEPENDENT ON ETOH, COCAINE AND XANAX HE ON 60 MGS. OF MMTP - LAST DOSE YESTERDAY Allergies/Adverse Reactions: Allergies Allergy/AdvReac Type Severity Reaction Status Date / Time No Known Allergies Allergy Verified 05/21/18 18:19 History of Present Illness: THE PT. IS REQUESTING ADMISSION TO THE DETOX UNIT AND CAME FOR H AND PE AND MEDICAL CLEARANCE. Exam Limitations: No Limitations - Ebola screening Have you traveled outside of the country in the last 21 days: No Have you had contact with anyone from an Ebola affected area: No Have you been sick,other than usual withdrawal symptoms: No Do you have a fever: No - Review of Systems Constitutional: See HPI, Loss of Appetite, Malaise EENT: reports: See HPI Respiratory: reports: See HPI Cardiac: reports: See HPI, Syncope GI: reports: See HPI, Nausea, Poor Appetite, Indigestion, Abdominal cramping : reports: See HPI Musculoskeletal: reports: See HPI, Muscle Pain, Muscle Weakness Integumentary: reports: See HPI Neuro: reports: See HPI, Headache, Tremors, Weakness, Unsteady Gait Endocrine: reports: See HPI Hematology: reports: See HPI Psychiatric: reports: Judgement Intact, Orientated x3, Anxious, Depressed Patient History - Patient Medical History Hx Anemia: No Hx Asthma: No Hx Chronic Obstructive Pulmonary Disease (COPD): No Hx Cancer: No Hx Cardiac Disorders: No Hx Congestive Heart Failure: No Hx Hypertension: No Hx Hypercholesterolemia: No Hx Pacemaker: No HX Cerebrovascular Accident: No Hx Seizures: No Hx Dementia: No Hx Diabetes: No Hx Gastrointestinal Disorders: No Hx Liver Disease: No Hx Genitourinary Disorders: No Hx Sexually Transmitted Disorders: No Hx Renal Disease (ESRD): No Hx Thyroid Disease: No Hx Human Immunodeficiency Virus (HIV): No (Negative last 12/31) Hx Hepatitis C: Yes (Treated ) Hx Depression: No Hx Suicide Attempt: No Hx Bipolar Disorder: Yes (IN THE PAST AND NOT REQUIED ANY TREATMENT) Hx Schizophrenia: No - Patient Surgical History Past Surgical History: No Hx Neurologic Surgery: No Hx Cataract Extraction: No Hx Cardiac Surgery: No Hx Lung Surgery: No Hx Breast Surgery: No Hx Breast Biopsy: No Hx Abdominal Surgery: No Hx Appendectomy: No Hx Cholecystectomy: No Hx Genitourinary Surgery: No Hx Section: No Hx Orthopedic Surgery: No Anesthesia Reaction: No - PPD History Date: 06/01/17 Results: 0 mm - Smoking Cessation Smoking history: Current every day smoker Have you smoked in the past 12 months: Yes Aproximately how many cigarettes per day: 10 Hx Chewing Tobacco Use: No Initiated information on smoking cessation: Yes 'Breaking Loose' booklet given: 05/21/18 - Substance & Tx. History Hx Alcohol Use: Yes Hx Substance Use: Yes Substance Use Type: Alcohol, Cocaine, Tranquilizers Hx Substance Use Treatment: Yes - Substances abused Alcohol Substance route: Oral Frequency: Daily Amount used: 2 - 6 packs of beer/ 3 quarts of vodka Age of first use: 40 Date of last use: 05/20/18 Alprazolam (Xanax) Substance route: Oral Frequency: Daily Amount used: 2 mgs. Age of first use: 40 Date of last use: 05/19/18 Cocaine Substance route: Injection Frequency: Daily Amount used: $200/d Age of first use: 42 Date of last use: 05/20/18 Family Disease History - Family Disease History Family Disease History: Diabetes: Mother ( esrd), Other: Father ( esrd) Admission Physical Exam S - Vital Signs Vital Signs: Vital Signs - 24 hr 05/21/18 18:19 Temperature 97.7 F Pulse Rate 59 L Respiratory 18 Rate Blood Pressure 130/89 - Physical General Appearance: Yes: No Apparent Distress, Appropriately Dressed, Thin, Tremorous, Anxious HEENTM: Yes: Hearing grossly Normal, Normocephalic, Normal Voice, ILIR, Pharynx Normal Respiratory: Yes: Chest Non-Tender, Lungs Clear, Normal Breath Sounds, No Respiratory Distress, No Accessory Muscle Use Neck: Yes: No masses,lesions,Nodules, Supple, Trachea in good position Breast: Yes: Breast Exam Deferred, Axillae without masses Cardiology: Yes: Regular Rhythm, S1, S2, Bradycardia Abdominal: Yes: Normal Bowel Sounds, Non Tender, Flat, Soft Back: Yes: Normal Inspection Musculoskeletal: Yes: full range of Motion, Muscle Pain, Muscle weakness Extremities: Yes: Normal Capillary Refill, Normal Range of Motion, Non-Tender, Tremors Neurological: Yes: maintenance controller II-XII NML intact, Fully Oriented, Alert, Depressed Affect Integumentary: Yes: Normal Color, Warm, Moist, Track Kelly Lymphatic: Yes: Within Normal Limits - Diagnostic (1) Alcohol dependence with uncomplicated withdrawal Current Visit: No Status: Chronic (2) Cocaine dependence Current Visit: No Status: Chronic Qualifiers: Substance use status: uncomplicated Qualified Code(s): F14.20 - Cocaine dependence, uncomplicated (3) Methadone maintenance therapy patient Current Visit: No Status: Chronic Comment: pending verification (4) Nicotine dependence Current Visit: No Status: Chronic Qualifiers: Nicotine product type: cigarettes Substance use status: uncomplicated Qualified Code(s): F17.210 - Nicotine dependence, cigarettes, uncomplicated (5) Opioid dependence on agonist therapy Current Visit: No Status: Chronic (6) Sedative, hypnotic or anxiolytic abuse, uncomplicated Current Visit: No Status: Chronic (7) Hepatitis C Current Visit: No Status: Resolved Qualifiers: Viral hepatitis chronicity: chronic Hepatic coma status: without hepatic coma Qualified Code(s): B18.2 - Chronic viral hepatitis C Comment: TREATED Cleared for Admission S - Detox or Rehab [facility] Level of Care: Medically Managed Detox Regimen/Protocol: Librium Inpatient Rehab Admission - Rehab Decision to Admit Inpatient rehab admission?: No
[2018-05-21] MEDS ORDERED: chlordiazePOXIDE HCL 25 MG CAPSULE PO PRN (20:58)
[2018-05-21] MEDS ORDERED: MAG HYDROX/AL HYDROX/SIMETH 30 ML UNIT-DOSE CUP PO PRN (20:58)
[2018-05-21] MEDS ORDERED: MENTHOL/PHENOL 1 EACH UD MM PRN (20:58)
[2018-05-21] MEDS ORDERED: METHOCARBAMOL 500 MG TABLET PO PRN (20:58)
[2018-05-21] MEDS ORDERED: BISMUTH SUBSALICYLATE 524 MG/30 ML UD PO PRN (20:58)
[2018-05-21] MEDS ORDERED: ACETAMINOPHEN 325 MG TABLET (FP) PO PRN ×2 (20:58)
[2018-05-21] MEDS ORDERED: MAGNESIUM CITRATE 300 ML BOTTLE PO PRN (20:58)
[2018-05-21] MEDS ORDERED: MAGNESIUM HYDROX 2400MG/30ML ORAL SUSPENSION 30 ML CUP PO PRN (20:58)
[2018-05-21] MEDS ORDERED: IBUPROFEN 400 MG TABLET (FP) PO PRN (20:58)
[2018-05-21] MEDS ORDERED: hydrOXYzine PAMOATE 25 MG CAPSULE (FP) PO PRN (20:58)
[2018-05-21] MEDS: chlordiazePOXIDE HCL 25 MG CAPSULE PO SCH (22:58)
[2018-05-21] MEDS: MELATONIN 5 MG TABLETS PO PRN (22:58)
[2018-05-21] MEDS: THIAMINE HCL 100 MG TABLET (FP) PO SCH (22:58)
[2018-05-21] MEDS: cloNIDine HCL 0.1 MG TABLET PO PRN (23:00)
[2018-05-22] MEDS: chlordiazePOXIDE HCL 25 MG CAPSULE PO SCH ×4 (06:38→22:13)
[2018-05-22] MEDS ORDERED: METHADONE HCL 10 MG TABLET PO SCH (07:45)
[2018-05-22] MEDS ORDERED: METHADONE HCL 10 MG TABLET ONE (08:12)
[2018-05-22] MEDS ORDERED: METHADONE HCL 40 MG DISPERSABLE TABLET ONE (08:13)
[2018-05-22] MEDS: METHADONE 40 MG, METHADONE 20 MG PO SCH (08:19)
[2018-05-22] MEDS: PRENATAL VITAMINS W/ FOLIC ACID TABLET (FP) PO SCH (10:16)
[2018-05-22] MEDS: NICOTINE 14 MG/24 HOURS TOPICAL PATCH TD SCH (10:16)
[2018-05-22 10:44] LABS: HEMOGLOBIN 14.8 GM/dL (11.7-16.9); MCH 31.4 pg (25.7-33.7); MCHC 34.4 g/dl (32.0-35.9); MEAN CELL VOLUME 91.4 fl (80-96); MEAN PLT VOLUME 9.1 fl (7.5-11.1); PLATELET COUNT 196 K/MM3 (134-434); RBC 4.71 M/mm3 (4.00-5.60); RDW 14.4 % (11.9-15.9); WHITE BLOOD COUNT 6.7 K/mm3 (4.0-10.0)
[2018-05-22 10:46] LABS: ALBUMIN 3.2 g/dl (3.4-5.0); ALK PHOS 60 U/L (45-117); ANION GAP 5 MMOL/L (8-16); BILIRUBIN,TOTAL 0.3 mg/dL (0.2-1); BLOOD UREA NITROGEN 14 mg/dL (7-18); CALCIUM 8.4 mg/dL (8.5-10.1); CHLORIDE 104 mmol/L (98-107); CO2 28 mmol/L (21-32); CREATININE 0.9 mg/dL (0.55-1.3); GLUCOSE,RANDOM 83 mg/dL (74-106); SGOT/AST 57 U/L (15-37); SGPT/ALT 56 U/L (13-61); SODIUM 138 mmol/L (136-145); TOT PROT 7.3 g/dl (6.4-8.2)
--- NOTE | 2018-05-22 13:41 | PN ---
[facility] CIWA - CIWA Score Nausea/Vomitin-Mild Nausea/No Vomiting Muscle Tremors: 3 Anxiety: 4-Mod. Anxious/Guarded Agitation: 2 Paroxysmal Sweats: 1-Minimal Palms Moist Orientation: 2-Disoriented Date<2 days Tacttile Disturbances: 0-None Auditory Disturbances: 0-None Visual Disturbances: 0-None Headache: 0-None Present CIWA-Ar Total Score: 13 BHS Progress Note (SOAP) Subjective: anxious restlessness trouble sleep at night Objective: 05/22/18 13:40 Vital Signs Temperature 96.9 F L 05/22/18 13:20 Pulse Rate 58 L 05/22/18 13:20 Respiratory Rate 18 05/22/18 13:20 Blood Pressure 105/65 05/22/18 13:20 O2 Sat by Pulse Oximetry (%) Laboratory Last Values WBC 6.7 K/mm3 (4.0-10.0) 05/22/18 07:00 RBC 4.71 M/mm3 (4.00-5.60) 05/22/18 07:00 Hgb 14.8 GM/dL (11.7-16.9) 05/22/18 07:00 Hct 43.0 % (35.4-49) 05/22/18 07:00 MCV 91.4 fl (80-96) 05/22/18 07:00 MCH 31.4 pg (25.7-33.7) 05/22/18 07:00 MCHC 34.4 g/dl (32.0-35.9) 05/22/18 07:00 RDW 14.4 % (11.9-15.9) 05/22/18 07:00 Plt Count 196 K/MM3 (134-434) 05/22/18 07:00 MPV 9.1 fl (7.5-11.1) D 05/22/18 07:00 Sodium 138 mmol/L (136-145) 05/22/18 07:00 Potassium 4.0 mmol/L (3.5-5.1) 05/22/18 07:00 Chloride 104 mmol/L (98-107) 05/22/18 07:00 Carbon Dioxide 28 mmol/L (21-32) 05/22/18 07:00 Anion Gap 5 MMOL/L (8-16) L 05/22/18 07:00 BUN 14 mg/dL (7-18) 05/22/18 07:00 Creatinine 0.9 mg/dL (0.55-1.3) 05/22/18 07:00 Creat Clearance w eGFR 90.06 (>60) 05/22/18 07:00 Random Glucose 83 mg/dL (74-106) 05/22/18 07:00 Calcium 8.4 mg/dL (8.5-10.1) L 05/22/18 07:00 Total Bilirubin 0.3 mg/dL (0.2-1) 05/22/18 07:00 AST 57 U/L (15-37) H 05/22/18 07:00 ALT 56 U/L (13-61) 05/22/18 07:00 Alkaline Phosphatase 60 U/L (45-117) 05/22/18 07:00 Total Protein 7.3 g/dl (6.4-8.2) 05/22/18 07:00 Albumin 3.2 g/dl (3.4-5.0) L 05/22/18 07:00 RPR Titer Nonreactive (NONREACTIVE) 05/22/18 07:00 lab noted Assessment: 05/22/18 13:40 withdrawal sx Plan: continue detox
[2018-05-22] MEDS: cloNIDine HCL 0.1 MG TABLET PO PRN (15:25)
[2018-05-22] MEDS ORDERED: hydrOXYzine HCL 25 MG TABLET (FP) PO PRN (18:54)
[2018-05-22] MEDS: QUEtiapine FUMARATE 100 MG TABLET (FP) PO SCH (22:12)
[2018-05-22] MEDS: THIAMINE HCL 100 MG TABLET (FP) PO SCH (22:12)
[2018-05-23] MEDS ORDERED: METHADONE HCL 40 MG DISPERSABLE TABLET ONE (04:32)
[2018-05-23] MEDS ORDERED: METHADONE HCL 10 MG TABLET ONE (04:32)
[2018-05-23] MEDS: chlordiazePOXIDE HCL 25 MG CAPSULE PO SCH ×3 (06:06→17:18)
[2018-05-23] MEDS: METHADONE 40 MG, METHADONE 20 MG PO SCH (06:06)
[2018-05-23] MEDS: PRENATAL VITAMINS W/ FOLIC ACID TABLET (FP) PO SCH (10:03)
[2018-05-23] MEDS: guaiFENesin 200 MG/10 ML 10 ML UNIT-DOSE CUPS PO PRN (10:04)
[2018-05-23] MEDS: NICOTINE 14 MG/24 HOURS TOPICAL PATCH TD SCH (10:04)
--- NOTE | 2018-05-23 13:18 | PN ---
S CIWA - CIWA Score Nausea/Vomitin-Mild Nausea/No Vomiting Muscle Tremors: 2 Anxiety: 2 Agitation: 2 Paroxysmal Sweats: 1-Minimal Palms Moist Orientation: 1-Uncertain about Date Tacttile Disturbances: 0-None Auditory Disturbances: 0-None Visual Disturbances: 0-None Headache: 0-None Present CIWA-Ar Total Score: 9 BHS Progress Note (SOAP) Subjective: right thumb injuried on 05/16/18 treated at the ER 5mm horizontal superficial cut noted at left mid thumb no signs of infection none tender denies pain denies numbness Objective: 05/23/18 13:15 Vital Signs Temperature 97.2 F L 05/23/18 09:36 Pulse Rate 62 05/23/18 09:36 Respiratory Rate 18 05/23/18 09:36 Blood Pressure 105/72 05/23/18 09:36 O2 Sat by Pulse Oximetry (%) Laboratory Last Values WBC 6.7 K/mm3 (4.0-10.0) 05/22/18 07:00 RBC 4.71 M/mm3 (4.00-5.60) 05/22/18 07:00 Hgb 14.8 GM/dL (11.7-16.9) 05/22/18 07:00 Hct 43.0 % (35.4-49) 05/22/18 07:00 MCV 91.4 fl (80-96) 05/22/18 07:00 MCH 31.4 pg (25.7-33.7) 05/22/18 07:00 MCHC 34.4 g/dl (32.0-35.9) 05/22/18 07:00 RDW 14.4 % (11.9-15.9) 05/22/18 07:00 Plt Count 196 K/MM3 (134-434) 05/22/18 07:00 MPV 9.1 fl (7.5-11.1) D 05/22/18 07:00 Sodium 138 mmol/L (136-145) 05/22/18 07:00 Potassium 4.0 mmol/L (3.5-5.1) 05/22/18 07:00 Chloride 104 mmol/L (98-107) 05/22/18 07:00 Carbon Dioxide 28 mmol/L (21-32) 05/22/18 07:00 Anion Gap 5 MMOL/L (8-16) L 05/22/18 07:00 BUN 14 mg/dL (7-18) 05/22/18 07:00 Creatinine 0.9 mg/dL (0.55-1.3) 05/22/18 07:00 Creat Clearance w eGFR 90.06 (>60) 05/22/18 07:00 Random Glucose 83 mg/dL (74-106) 05/22/18 07:00 Calcium 8.4 mg/dL (8.5-10.1) L 05/22/18 07:00 Total Bilirubin 0.3 mg/dL (0.2-1) 05/22/18 07:00 AST 57 U/L (15-37) H 05/22/18 07:00 ALT 56 U/L (13-61) 05/22/18 07:00 Alkaline Phosphatase 60 U/L (45-117) 05/22/18 07:00 Total Protein 7.3 g/dl (6.4-8.2) 05/22/18 07:00 Albumin 3.2 g/dl (3.4-5.0) L 05/22/18 07:00 RPR Titer Nonreactive (NONREACTIVE) 05/22/18 07:00 lab noted Assessment: 05/23/18 13:18 alcohol and benzo withdrawal sx Plan: continue detox
[2018-05-23] MEDS: cloNIDine HCL 0.1 MG TABLET PO PRN (15:30)
[2018-05-23] MEDS: THIAMINE HCL 100 MG TABLET (FP) PO SCH (22:17)
[2018-05-23] MEDS: chlordiazePOXIDE HCL 10 MG CAPSULE PO SCH (22:18)
[2018-05-23] MEDS: QUEtiapine FUMARATE 100 MG TABLET (FP) PO SCH (22:18)
[2018-05-23] MEDS: MELATONIN 5 MG TABLETS PO PRN (22:18)
[2018-05-23] MEDS ORDERED: chlordiazePOXIDE HCL 10 MG CAPSULE PO PRN (23:00)
[2018-05-24] MEDS ORDERED: METHADONE HCL 10 MG TABLET ONE (04:29)
[2018-05-24] MEDS ORDERED: METHADONE HCL 40 MG DISPERSABLE TABLET ONE (04:30)
[2018-05-24] MEDS: METHADONE 40 MG, METHADONE 20 MG PO SCH (05:31)
[2018-05-24] MEDS: chlordiazePOXIDE HCL 10 MG CAPSULE PO SCH ×4 (05:32→22:36)
[2018-05-24] MEDS: PRENATAL VITAMINS W/ FOLIC ACID TABLET (FP) PO SCH (10:06)
[2018-05-24] MEDS: NICOTINE 14 MG/24 HOURS TOPICAL PATCH TD SCH (10:07)
[2018-05-24] MEDS: cloNIDine HCL 0.1 MG TABLET PO PRN (13:35)
--- NOTE | 2018-05-24 14:22 | PN ---
S CIWA - CIWA Score Nausea/Vomitin-No Nausea/No Vomiting Muscle Tremors: 1-None Visible, but [place] Anxiety: 2 Agitation: 1-Slight > Activity Paroxysmal Sweats: 1-Minimal Palms Moist Orientation: 0-Oriented Tacttile Disturbances: 0-None Auditory Disturbances: 0-None Visual Disturbances: 0-None Headache: 0-None Present CIWA-Ar Total Score: 5 BHS Progress Note (SOAP) Subjective: right thumb wound no sign of infection patient denies pain no exudate none tender no erythema skin dry around cut "getting much better" Objective: 05/24/18 14:21 Vital Signs Temperature 96.7 F L 05/24/18 13:22 Pulse Rate 68 05/24/18 13:22 Respiratory Rate 16 05/24/18 13:22 Blood Pressure 122/76 05/24/18 13:22 O2 Sat by Pulse Oximetry (%) Laboratory Last Values WBC 6.7 K/mm3 (4.0-10.0) 05/22/18 07:00 RBC 4.71 M/mm3 (4.00-5.60) 05/22/18 07:00 Hgb 14.8 GM/dL (11.7-16.9) 05/22/18 07:00 Hct 43.0 % (35.4-49) 05/22/18 07:00 MCV 91.4 fl (80-96) 05/22/18 07:00 MCH 31.4 pg (25.7-33.7) 05/22/18 07:00 MCHC 34.4 g/dl (32.0-35.9) 05/22/18 07:00 RDW 14.4 % (11.9-15.9) 05/22/18 07:00 Plt Count 196 K/MM3 (134-434) 05/22/18 07:00 MPV 9.1 fl (7.5-11.1) D 05/22/18 07:00 Sodium 138 mmol/L (136-145) 05/22/18 07:00 Potassium 4.0 mmol/L (3.5-5.1) 05/22/18 07:00 Chloride 104 mmol/L (98-107) 05/22/18 07:00 Carbon Dioxide 28 mmol/L (21-32) 05/22/18 07:00 Anion Gap 5 MMOL/L (8-16) L 05/22/18 07:00 BUN 14 mg/dL (7-18) 05/22/18 07:00 Creatinine 0.9 mg/dL (0.55-1.3) 05/22/18 07:00 Creat Clearance w eGFR 90.06 (>60) 05/22/18 07:00 Random Glucose 83 mg/dL (74-106) 05/22/18 07:00 Calcium 8.4 mg/dL (8.5-10.1) L 05/22/18 07:00 Total Bilirubin 0.3 mg/dL (0.2-1) 05/22/18 07:00 AST 57 U/L (15-37) H 05/22/18 07:00 ALT 56 U/L (13-61) 05/22/18 07:00 Alkaline Phosphatase 60 U/L (45-117) 05/22/18 07:00 Total Protein 7.3 g/dl (6.4-8.2) 05/22/18 07:00 Albumin 3.2 g/dl (3.4-5.0) L 05/22/18 07:00 RPR Titer Nonreactive (NONREACTIVE) 05/22/18 07:00 lab noted Assessment: 05/24/18 14:21 alcohol and benzo withdrawal sx Plan: continue detox
--- NOTE | 2018-05-24 15:21 | DS ---
[facility] Detox Discharge Summary Admission Date: 05/21/18 Discharge Date: 05/24/18 - History Present History: Alcohol Dependence, Sedative Dependence Additional Comments: 48 years old male admitted on 05/21/18 on for alcohol and benzo withdrawal stabilization completed detox regimen aftercare - Physical Exam Results Vital Signs: Vital Signs Temperature 96.7 F L 05/24/18 13:22 Pulse Rate 68 05/24/18 13:22 Respiratory Rate 16 05/24/18 13:22 Blood Pressure 122/76 05/24/18 13:22 O2 Sat by Pulse Oximetry (%) - Treatment Hospital Course: Detox Protocol Followed, Detoxed Safely, Responded well, Discharged Condition Good, Rehab Referral Accepted - Medication Discharge Medications: Ambulatory Orders Methadone [Dolophine -] 60 mg PO DAILY 05/21/18 - AMA Did Patient Leave Against Medical Advice: No
[2018-05-24] MEDS: THIAMINE HCL 100 MG TABLET (FP) PO SCH (22:36)
[2018-05-24] MEDS: guaiFENesin 200 MG/10 ML 10 ML UNIT-DOSE CUPS PO PRN (22:36)
[2018-05-24] MEDS: QUEtiapine FUMARATE 100 MG TABLET (FP) PO SCH (22:36)
[2018-05-25] MEDS ORDERED: METHADONE HCL 40 MG DISPERSABLE TABLET ONE (04:40)
[2018-05-25] MEDS ORDERED: METHADONE HCL 10 MG TABLET ONE (04:40)
[2018-05-25] MEDS: METHADONE 40 MG, METHADONE 20 MG PO SCH (05:18)
[2018-05-25] MEDS: PRENATAL VITAMINS W/ FOLIC ACID TABLET (FP) PO SCH (10:16)
[2018-05-25] MEDS: chlordiazePOXIDE HCL 10 MG CAPSULE PO SCH ×2 (10:16→22:24)
[2018-05-25] MEDS: NICOTINE 14 MG/24 HOURS TOPICAL PATCH TD SCH (10:16)
[2018-05-25] MEDS: cloNIDine HCL 0.1 MG TABLET PO PRN ×2 (12:25→22:28)
--- NOTE | 2018-05-25 14:07 | PN ---
[facility] Progress Note Note: PATIENT ORIGINALLY SCHEDULED FOR DISCHARGE FROM DETOX UNIT TODAY, 05/25/2018. MR. CERRATO WAS INFORMED THAT HE WAS TO GO [facility] ([place], [place]) FOR AFTERCARE. MR. CERRATO VERBALIZED AGREEMENT WITH THIS AFTERCARE PLAN. HOWEVER, DUE TO ADMINISTRATIVE DISCREPANCY PERTAINING TO CURRENT BED AVAILABILITY AT [facility], NO BEDS ARE AVAILABLE AT THIS TIME. SINCE MR. CERRATO WAS ORIGINALLY TOLD THAT HE WOULD BE GOING TO [facility] AND DUE TO CONCERN ABOUT RISK OF RELAPSE, MR. CERRATO WILL BE PERMITTED TO REMAIN AT [facility] (HE WILL BE TRANSFERRED TO [address] FOR TIME BEING UNTIL REHAB BED IS AVAILABLE) FOR TIME BEING. Aníbal KHAN NP
[2018-05-25] MEDS: THIAMINE HCL 100 MG TABLET (FP) PO SCH (22:23)
[2018-05-25] MEDS: MELATONIN 5 MG TABLETS PO PRN (22:28)
[2018-05-26] MEDS: METHADONE 40 MG, METHADONE 20 MG PO SCH (05:16)
[2018-05-26] MEDS ORDERED: METHADONE HCL 40 MG DISPERSABLE TABLET ONE (05:16)
[2018-05-26] MEDS ORDERED: METHADONE HCL 10 MG TABLET ONE (05:16)
[2018-05-26] MEDS: NICOTINE 14 MG/24 HOURS TOPICAL PATCH TD SCH (10:25)
[2018-05-26] MEDS: cloNIDine HCL 0.1 MG TABLET PO PRN ×2 (10:25→18:39)
[2018-05-26] MEDS: PRENATAL VITAMINS W/ FOLIC ACID TABLET (FP) PO SCH (10:25)
--- NOTE | 2018-05-26 11:46 | PN ---
S Progress Note (SOAP) Subjective: Mild fatigue Objective: 05/26/18 11:44 Vital Signs 05/26/18 05/26/18 06:27 10:00 Temperature 97.3 F L 97.3 F L Pulse Rate 60 55 L Respiratory 18 18 Rate Blood Pressure 111/63 110/54 L Laboratory Last Values WBC 6.7 K/mm3 (4.0-10.0) 05/22/18 07:00 RBC 4.71 M/mm3 (4.00-5.60) 05/22/18 07:00 Hgb 14.8 GM/dL (11.7-16.9) 05/22/18 07:00 Hct 43.0 % (35.4-49) 05/22/18 07:00 MCV 91.4 fl (80-96) 05/22/18 07:00 MCH 31.4 pg (25.7-33.7) 05/22/18 07:00 MCHC 34.4 g/dl (32.0-35.9) 05/22/18 07:00 RDW 14.4 % (11.9-15.9) 05/22/18 07:00 Plt Count 196 K/MM3 (134-434) 05/22/18 07:00 MPV 9.1 fl (7.5-11.1) D 05/22/18 07:00 Sodium 138 mmol/L (136-145) 05/22/18 07:00 Potassium 4.0 mmol/L (3.5-5.1) 05/22/18 07:00 Chloride 104 mmol/L (98-107) 05/22/18 07:00 Carbon Dioxide 28 mmol/L (21-32) 05/22/18 07:00 Anion Gap 5 MMOL/L (8-16) L 05/22/18 07:00 BUN 14 mg/dL (7-18) 05/22/18 07:00 Creatinine 0.9 mg/dL (0.55-1.3) 05/22/18 07:00 Creat Clearance w eGFR 90.06 (>60) 05/22/18 07:00 Random Glucose 83 mg/dL (74-106) 05/22/18 07:00 Calcium 8.4 mg/dL (8.5-10.1) L 05/22/18 07:00 Total Bilirubin 0.3 mg/dL (0.2-1) 05/22/18 07:00 AST 57 U/L (15-37) H 05/22/18 07:00 ALT 56 U/L (13-61) 05/22/18 07:00 Alkaline Phosphatase 60 U/L (45-117) 05/22/18 07:00 Total Protein 7.3 g/dl (6.4-8.2) 05/22/18 07:00 Albumin 3.2 g/dl (3.4-5.0) L 05/22/18 07:00 RPR Titer Nonreactive (NONREACTIVE) 05/22/18 07:00 Labs noted Assessment: 05/26/18 11:45 Withdrawal sx resolved, pending discharge to rehab unit Plan: Continue to monitor and ensure safety
[2018-05-26] MEDS: MELATONIN 5 MG TABLETS PO PRN (22:35)
[2018-05-26] MEDS: THIAMINE HCL 100 MG TABLET (FP) PO SCH (22:35)
[2018-05-27] MEDS ORDERED: METHADONE HCL 40 MG DISPERSABLE TABLET ONE (04:37)
[2018-05-27] MEDS ORDERED: METHADONE HCL 10 MG TABLET ONE (04:38)
[2018-05-27] MEDS: METHADONE 40 MG, METHADONE 20 MG PO SCH (06:02)
[2018-05-27] MEDS: PRENATAL VITAMINS W/ FOLIC ACID TABLET (FP) PO SCH (10:24)
[2018-05-27] MEDS: NICOTINE 14 MG/24 HOURS TOPICAL PATCH TD SCH (10:24)
--- NOTE | 2018-05-27 11:46 | PN ---
[facility] Progress Note Note: PATIENT FOR DISCHARGE TODAY BUT NO AVAILABLE REHAB BED THEREFORE D/C HELD UNTIL TOMORROW MORNING DUE TO RELAPSE RISK. PATIENT IS ALERT AND ORIENTED X 3. COMPLETED DETOX REGIMEN. STATES HE FEELS BETTER BUT C/O ANXIETY AND DEPRESSED MOOD. WILL REFER TO PSYCH FOR EVALUATION. CONTINUE TO MONITOR CLINICALLY. Vital Signs Temperature 98.2 F 05/27/18 09:23 Pulse Rate 52 L 05/27/18 09:23 Respiratory Rate 16 05/27/18 09:23 Blood Pressure 97/48 L 05/27/18 09:23 O2 Sat by Pulse Oximetry (%) Laboratory Tests 05/22/18 05/22/18 05/22/18 07:00 07:00 07:00 WBC 6.7 RBC 4.71 Hgb 14.8 Hct 43.0 MCV 91.4 MCH 31.4 MCHC 34.4 RDW 14.4 Plt Count 196 MPV 9.1 D Sodium 138 Potassium 4.0 Chloride 104 Carbon Dioxide 28 Anion Gap 5 L BUN 14 Creatinine 0.9 Creat Clearance w eGFR 90.06 Random Glucose 83 Calcium 8.4 L Total Bilirubin 0.3 AST 57 H ALT 56 Alkaline Phosphatase 60 Total Protein 7.3 Albumin 3.2 L RPR Titer Nonreactive
[2018-05-27] MEDS: cloNIDine HCL 0.1 MG TABLET PO PRN ×2 (17:27→22:03)
[2018-05-27] MEDS: THIAMINE HCL 100 MG TABLET (FP) PO SCH (22:01)
[2018-05-27] MEDS: MELATONIN 5 MG TABLETS PO PRN (22:02)
[2018-05-28] MEDS ORDERED: METHADONE HCL 10 MG TABLET ONE (04:17)
[2018-05-28] MEDS ORDERED: METHADONE HCL 40 MG DISPERSABLE TABLET ONE (04:17)
[2018-05-28] MEDS: METHADONE 40 MG, METHADONE 20 MG PO SCH (05:30)
[2018-05-28 09:48] VITALS: BP 98/59; PULSE 16; TEMP 97.9
--- NOTE | 2018-05-28 10:05 | CONSULT ---
[facility] Psychiatric Consult - Data Date of interview: 05/28/18 Admission source: Self-referred Identifying data: Mr Gibbs is a 48 years old single male, father of 2 children, unemployed receiving SSI, domiciled seeking inpatient rehab treatment for alcohol, cocaine and benzodiazepine Substance Abuse History: Reports history of alcohol, cocaine and xanax use. Refer to workforce development specialist's summary for further information Medical History: Significant for history of treatment for hepatitis C. Patient is on methadone 60 mg/day([facility]). Smokes 10 cigarettes daily Psychiatric History: Patient is well known to va underwriter from a recent admission to this facility on 04/27/18. Historical narrative has remained consistent. He reports that his first psychiatric contact was at age 12 for restlessness, hyperactivity and aggressive behavior following the of his sister. He was diagnosed with ADHD but has no recollection of being prescribed medication. Reports that his first psychiatric admission was at age 26 to [facility] in [place] where he was diagnosed with Bipolar Disorder. Reports multiple subsequent psychiatric admissions to various facilities including [facility], [facility], [facility] and most recently in Winter 2017 to [facility]. Reports receiving psychiatric outpatient treatment at [facility](formerly [facility] with Dr Musa and he was prescribed Abilify 15 mg/day, Seroquel 200 mg/hs, Klonopin 2 mg BID and Ambien 10 mg/hs. Told va underwriter that he has not seen Dr Musa in 4 month. He saw va underwriter on 04/24/18 while in rehab in this facility and he was prescribed Seroquel 200 mg/hs. Claims he did not take medication after being discharged from this facility because he could not filled his script due to being restricted to [facility]. Reports 2 previous suicidal attempts via overdose with medication and self-mutilation. At present, denies experiencing psychotic, manic or depressive symptoms, S/H ideations. However, reports sleeping poorly Physical/Sexual Abuse/Trauma History: Denies history of emotional, physical or sexual abuse as well as DV relationship. No service Additional Comment: Reports history of multiple previous misdemeanor arrests. Denies being on probation at present Mental Status Exam - Mental Status Exam Alert and Oriented to: Time, Place, Person Patient Appearance: Well Groomed Mood: Hopeful, Euthymic Patient Behavior: Cooperative Speech Pattern: Clear Voice Loudness: Normal Thought Process: Intact Thought Disorder: Not Present Suicidal Ideation: Denies Homicidal Ideation: Denies Insight/Judgement: Poor Sleep: Poorly Appetite: Good Muscle strength/Tone: Normal Gait/Station: Normal Psychiatric Findings - Problem List ([place] 1, 2,3) (1) Bipolar disorder Current Visit: No Status: Chronic Qualifiers: Active/Remission status: remission status unspecified Qualified Code(s): F31.9 - Bipolar disorder, unspecified Comment: (2) ADHD (attention deficit hyperactivity disorder) Current Visit: Yes Status: Ruled-out (3) Substance-induced sleep disorder Current Visit: No Status: Acute (4) Alcohol dependence with uncomplicated withdrawal Current Visit: No Status: Acute (5) Cocaine dependence Current Visit: No Status: Acute Qualifiers: Substance use status: uncomplicated Qualified Code(s): F14.20 - Cocaine dependence, uncomplicated (6) Sedative, hypnotic or anxiolytic abuse, uncomplicated Current Visit: No Status: Acute (7) Opioid dependence on agonist therapy Current Visit: No Status: Chronic (8) Nicotine dependence Current Visit: No Status: Chronic Qualifiers: Nicotine product type: cigarettes Substance use status: uncomplicated Qualified Code(s): F17.210 - Nicotine dependence, cigarettes, uncomplicated (9) Hepatitis C Current Visit: No Status: Resolved Qualifiers: Viral hepatitis chronicity: chronic Hepatic coma status: without hepatic coma Qualified Code(s): B18.2 - Chronic viral hepatitis C Comment: TREATED - Initial Treatment Plan Initial Treatment Plan: 1) Resume Seroquel 200 mg po HS. 2) Continue inpatient detoxification
[2018-05-28] MEDS: PRENATAL VITAMINS W/ FOLIC ACID TABLET (FP) PO SCH (10:42)
[2018-05-28] MEDS: NICOTINE 14 MG/24 HOURS TOPICAL PATCH TD SCH (10:43)
--- NOTE | 2018-05-28 13:11 | DS ---
[facility] Detox Discharge Summary Admission Date: 05/21/18 Discharge Date: 05/28/18 - History Present History: Alcohol Dependence, Cocaine Dependence, Opioid Dependence, Sedative Dependence, MMTP Additional Comments: PATIENT GOING TO [facility] ([place], [place]) FOR AFTERCARE. PATIENT WAS DISCHARGED FROM DETOX UNIT TO BE TAKEN OVER TO REHAB UNIT IN STABLE MEDICAL CONDITION. Pertinent Past History: M.M.T.P., Nicotine Dependence, Hep C, History Of Bipolar Disorder, History of Attention Deficit Hyperactivity Disorder (A.D.HJudit). - Physical Exam Results Vital Signs: Vital Signs Temperature 97.9 F 05/28/18 09:47 Pulse Rate 16 L 05/28/18 09:47 Respiratory Rate 18 05/28/18 09:47 Blood Pressure 98/59 L 05/28/18 09:47 O2 Sat by Pulse Oximetry (%) Pertinent Admission Physical Exam Findings: WITHDRAWAL SYMPTOMS. Laboratory Tests 05/22/18 05/22/18 05/22/18 07:00 07:00 07:00 WBC 6.7 RBC 4.71 Hgb 14.8 Hct 43.0 MCV 91.4 MCH 31.4 MCHC 34.4 RDW 14.4 Plt Count 196 MPV 9.1 D Sodium 138 Potassium 4.0 Chloride 104 Carbon Dioxide 28 Anion Gap 5 L BUN 14 Creatinine 0.9 Creat Clearance w eGFR 90.06 Random Glucose 83 Calcium 8.4 L Total Bilirubin 0.3 AST 57 H ALT 56 Alkaline Phosphatase 60 Total Protein 7.3 Albumin 3.2 L RPR Titer Nonreactive LABS NOTED. - Treatment Hospital Course: Detox Protocol Followed, Detoxed Safely, Responded well, Discharged Condition Good, Rehab Referral Accepted Patient has Accepted a Rehab Referral to: [facility] ([place], [place]). - Medication Discharge Medications: Ambulatory Orders Methadone [Dolophine -] 60 mg PO DAILY 05/21/18 - Diagnosis (1) Alcohol dependence with uncomplicated withdrawal Status: Acute (2) Cocaine dependence Status: Acute Qualifiers: Substance use status: uncomplicated Qualified Code(s): F14.20 - Cocaine dependence, uncomplicated (3) Sedative, hypnotic or anxiolytic abuse, uncomplicated Status: Acute (4) Substance-induced sleep disorder Status: Acute (5) Bipolar disorder Status: Chronic Qualifiers: Active/Remission status: remission status unspecified Qualified Code(s): F31.9 - Bipolar disorder, unspecified (6) Methadone maintenance therapy patient Status: Chronic (7) Nicotine dependence Status: Chronic Qualifiers: Nicotine product type: cigarettes Substance use status: uncomplicated Qualified Code(s): F17.210 - Nicotine dependence, cigarettes, uncomplicated (8) Opioid dependence on agonist therapy Status: Chronic (9) Hepatitis C Status: Resolved Qualifiers: Viral hepatitis chronicity: chronic Hepatic coma status: without hepatic coma Qualified Code(s): B18.2 - Chronic viral hepatitis C (10) ADHD (attention deficit hyperactivity disorder) Status: Ruled-out Qualifiers: Attention deficit-hyperactivity disorder type: unspecified Qualified Code(s ): F90.9 - Attention-deficit hyperactivity disorder, unspecified type - AMA Did Patient Leave Against Medical Advice: No
[2018-05-28] MEDS ORDERED: QUEtiapine FUMARATE 200 MG TABLET PO SCH (22:00)
== END 2018-05-28 12:00 | disposition other institution (70) | DRG 773 ==
LOC: YASAS 13:55 → Y3N 22:00 → UNDOADMIN 22:22 → UNDODISIN 05-22 18:27 → Y3N 05-23 15:36 → UNDODISIN 05-25 13:36 → Y6N 05-25 14:42
PROVIDERS: ADMIT Surgery; ATTEND Surgery
PROC: HZ2ZZZZ Detoxification Services for Substance Abuse Treatment (ICD-10-PCS; principal; 2018-05-21)
DX: F10.230 Alcohol dependence with withdrawal, uncomplicated (principal); F13.230 Sedative, hypnotic or anxiolytic dependence with withdrawal, uncomplicated; F14.20 Cocaine dependence, uncomplicated; F12.20 Cannabis dependence, uncomplicated; F11.20 Opioid dependence, uncomplicated; F17.213 Nicotine dependence, cigarettes, with withdrawal; F19.282 Other psychoactive substance dependence with psychoactive substance-induced sleep disorder; F90.9 Attention-deficit hyperactivity disorder, unspecified type; F31.9 Bipolar disorder, unspecified; B18.2 Chronic viral hepatitis C
CPT/HCPCS: 36415; 80053; 85027; 86593; J0735

== ENCOUNTER 2018-05-28 12:12 | Inpatient (IN) | payer OTHER ==
[2018-05-28] MEDS ORDERED: IBUPROFEN 400 MG TABLET (FP) PO PRN (13:23)
[2018-05-28] MEDS ORDERED: LOPERAMIDE HCL 2 MG CAPSULE PO PRN (13:23)
[2018-05-28] MEDS ORDERED: MAGNESIUM CITRATE 300 ML BOTTLE PO PRN (13:23)
[2018-05-28] MEDS ORDERED: MAGNESIUM HYDROX 2400MG/30ML ORAL SUSPENSION 30 ML CUP PO PRN (13:23)
[2018-05-28] MEDS ORDERED: guaiFENesin 200 MG/10 ML 10 ML UNIT-DOSE CUPS PO PRN (13:23)
[2018-05-28] MEDS ORDERED: MENTHOL/PHENOL 1 EACH UD MM PRN (13:23)
[2018-05-28] MEDS ORDERED: MAG HYDROX/AL HYDROX/SIMETH 30 ML UNIT-DOSE CUP PO PRN (13:23)
[2018-05-28] MEDS ORDERED: P-EPHED 60MG/TRIPROLIDI 2.5MG TABLET PO PRN (13:23)
[2018-05-28] MEDS ORDERED: ACETAMINOPHEN 325 MG TABLET (FP) PO PRN (13:23)
--- NOTE | 2018-05-28 13:23 | HP ---
[facility] Rehab Assess/Revision - Admission History Admitted to Rehab from: [facility] Date of Admission to Rehab: 05/28/2018 - Vital signs Vital Signs: Vital Signs Period Temp Pulse Resp BP Sys/Kaplan Pulse Ox Last 24 Hr 97.8 F 53 16 103/56 - Findings Detox History & Physical reviewed: Yes Concur with findings: Yes Comments/Additional Findings: PATIENT'S MEDICAL / MEDICATION HISTORY REVIEWED PRIOR TO DISCHARGE FROM DETOX UNIT. PATIENT WAS DISCHARGED FROM DETOX UNIT TO BE TAKEN OVER TO REHAB UNIT IN STABLE MEDICAL CONDITION. Inpatient Rehab Admission - Rehab Decision to Admit Inpatient rehab admission?: Yes - Initial Determination Are CD services needed?: Yes Free of communicable disease: Yes Not in need of hospitalization: Yes - Rehab Admission Criteria Previous failed treatment: Yes Poor recovery environment: Yes Comorbidities: Yes Lacks judgement: Yes Patient is meeting Inpatient Rehab admission criteria:: Yes
[2018-05-28] MEDS ORDERED: TUBERCULIN PPD 5 TU/0.1ML VIAL ID ONE (15:03)
[2018-05-28] MEDS: QUEtiapine FUMARATE 200 MG TABLET PO SCH (21:52)
[2018-05-28] MEDS: THIAMINE HCL 100 MG TABLET (FP) PO SCH (21:52)
[2018-05-29] MEDS ORDERED: METHADONE HCL 10 MG TABLET PO SCH (06:00)
[2018-05-29] MEDS ORDERED: METHADONE HCL 10 MG TABLET ONE (06:04)
[2018-05-29] MEDS ORDERED: METHADONE HCL 40 MG DISPERSABLE TABLET ONE (06:04)
[2018-05-29] MEDS: METHADONE 40 MG, METHADONE 20 MG PO SCH (06:07)
[2018-05-29] MEDS: NICOTINE 14 MG/24 HOURS TOPICAL PATCH TD SCH (10:28)
[2018-05-29] MEDS: PRENATAL VITAMINS W/ FOLIC ACID TABLET (FP) PO SCH (10:28)
[2018-05-29] MEDS ORDERED: PNEUMOC 13-VAL CONJ-DIP CRM/PF 0.5 ML DISP.SYRIN IM ONE (12:00)
[2018-05-29] MEDS: QUEtiapine FUMARATE 200 MG TABLET PO SCH (21:49)
[2018-05-29] MEDS: THIAMINE HCL 100 MG TABLET (FP) PO SCH (21:49)
[2018-05-30] MEDS ORDERED: METHADONE HCL 10 MG TABLET ONE (04:33)
[2018-05-30] MEDS ORDERED: METHADONE HCL 40 MG DISPERSABLE TABLET ONE (04:33)
[2018-05-30] MEDS: METHADONE 40 MG, METHADONE 20 MG PO SCH (06:22)
[2018-05-30] MEDS: PRENATAL VITAMINS W/ FOLIC ACID TABLET (FP) PO SCH (10:45)
[2018-05-30] MEDS: NICOTINE 14 MG/24 HOURS TOPICAL PATCH TD SCH (10:45)
[2018-05-30] MEDS ORDERED: COLLOIDAL OATMEAL 1 BAR EACH TP PRN (16:15)
[2018-05-30] MEDS: QUEtiapine FUMARATE 200 MG TABLET PO SCH (21:33)
[2018-05-30] MEDS: THIAMINE HCL 100 MG TABLET (FP) PO SCH (21:33)
[2018-05-30] MEDS: MELATONIN 5 MG TABLETS PO PRN (21:33)
[2018-05-31] MEDS ORDERED: METHADONE HCL 40 MG DISPERSABLE TABLET ONE (04:09)
[2018-05-31] MEDS ORDERED: METHADONE HCL 10 MG TABLET ONE (04:09)
[2018-05-31] MEDS: METHADONE 40 MG, METHADONE 20 MG PO SCH (06:07)
[2018-05-31] MEDS: NICOTINE 14 MG/24 HOURS TOPICAL PATCH TD SCH (10:34)
[2018-05-31] MEDS: PRENATAL VITAMINS W/ FOLIC ACID TABLET (FP) PO SCH (10:34)
[2018-05-31] MEDS: MELATONIN 5 MG TABLETS PO PRN (21:43)
[2018-05-31] MEDS: QUEtiapine FUMARATE 200 MG TABLET PO SCH (21:43)
[2018-05-31] MEDS: THIAMINE HCL 100 MG TABLET (FP) PO SCH (21:44)
[2018-06-01] MEDS ORDERED: METHADONE HCL 10 MG TABLET ONE (05:58)
[2018-06-01] MEDS ORDERED: METHADONE HCL 40 MG DISPERSABLE TABLET ONE (05:58)
[2018-06-01] MEDS: METHADONE 40 MG, METHADONE 20 MG PO SCH (06:09)
[2018-06-01] MEDS: PRENATAL VITAMINS W/ FOLIC ACID TABLET (FP) PO SCH (10:26)
[2018-06-01] MEDS: NICOTINE 14 MG/24 HOURS TOPICAL PATCH TD SCH (10:27)
[2018-06-01] MEDS: THIAMINE HCL 100 MG TABLET (FP) PO SCH (21:31)
[2018-06-01] MEDS: QUEtiapine FUMARATE 200 MG TABLET PO SCH (21:31)
[2018-06-01] MEDS: MELATONIN 5 MG TABLETS PO PRN (21:31)
[2018-06-02] MEDS ORDERED: METHADONE HCL 40 MG DISPERSABLE TABLET ONE (05:44)
[2018-06-02] MEDS ORDERED: METHADONE HCL 10 MG TABLET ONE (05:44)
[2018-06-02] MEDS: METHADONE 40 MG, METHADONE 20 MG PO SCH (06:05)
[2018-06-02] MEDS: NICOTINE 14 MG/24 HOURS TOPICAL PATCH TD SCH (10:23)
[2018-06-02] MEDS: PRENATAL VITAMINS W/ FOLIC ACID TABLET (FP) PO SCH (10:23)
[2018-06-02] MEDS: THIAMINE HCL 100 MG TABLET (FP) PO SCH (21:44)
[2018-06-02] MEDS: MELATONIN 5 MG TABLETS PO PRN (21:44)
[2018-06-02] MEDS: QUEtiapine FUMARATE 200 MG TABLET PO SCH (21:44)
[2018-06-03] MEDS ORDERED: METHADONE HCL 10 MG TABLET ONE (04:21)
[2018-06-03] MEDS ORDERED: METHADONE HCL 40 MG DISPERSABLE TABLET ONE (04:21)
[2018-06-03] MEDS: METHADONE 40 MG, METHADONE 20 MG PO SCH (06:10)
[2018-06-03] MEDS: PRENATAL VITAMINS W/ FOLIC ACID TABLET (FP) PO SCH (10:30)
[2018-06-03] MEDS: NICOTINE 14 MG/24 HOURS TOPICAL PATCH TD SCH (10:30)
[2018-06-03] MEDS: THIAMINE HCL 100 MG TABLET (FP) PO SCH (21:19)
[2018-06-03] MEDS: MELATONIN 5 MG TABLETS PO PRN (21:19)
[2018-06-03] MEDS: QUEtiapine FUMARATE 200 MG TABLET PO SCH (21:19)
[2018-06-04] MEDS ORDERED: METHADONE HCL 10 MG TABLET ONE (04:31)
[2018-06-04] MEDS ORDERED: METHADONE HCL 40 MG DISPERSABLE TABLET ONE (04:31)
[2018-06-04] MEDS: METHADONE 40 MG, METHADONE 20 MG PO SCH (05:52)
[2018-06-04] MEDS: NICOTINE 14 MG/24 HOURS TOPICAL PATCH TD SCH (10:54)
[2018-06-04] MEDS: PRENATAL VITAMINS W/ FOLIC ACID TABLET (FP) PO SCH (10:54)
[2018-06-04] MEDS: THIAMINE HCL 100 MG TABLET (FP) PO SCH (21:36)
[2018-06-04] MEDS: QUEtiapine FUMARATE 200 MG TABLET PO SCH (21:36)
[2018-06-04] MEDS: MELATONIN 5 MG TABLETS PO PRN (21:36)
[2018-06-05] MEDS ORDERED: METHADONE HCL 10 MG TABLET ONE (05:50)
[2018-06-05] MEDS ORDERED: METHADONE HCL 40 MG DISPERSABLE TABLET ONE (05:50)
[2018-06-05] MEDS: METHADONE 40 MG, METHADONE 20 MG PO SCH (05:50)
[2018-06-05] MEDS ORDERED: METHADONE HCL 10 MG TABLET PO SCH (06:00)
[2018-06-05] MEDS: NICOTINE 14 MG/24 HOURS TOPICAL PATCH TD SCH (10:58)
[2018-06-05] MEDS: PRENATAL VITAMINS W/ FOLIC ACID TABLET (FP) PO SCH (10:58)
--- NOTE | 2018-06-05 14:04 | PN ---
S Progress Note Note: PT IS REQUESTING FOR HIV TESTING. Vital Signs - 24 hr 06/05/18 06/05/18 06/05/18 00:30 03:30 06:37 Temperature 97.3 F L Pulse Rate 82 Respiratory 18 18 16 Rate Blood Pressure 120/80 A:HEALTH MANAGEMENT PLAN;HIV SCREEN ORDERED TODAY.
[2018-06-05] MEDS ORDERED: COLLOIDAL OATMEAL 1 BAR EACH TP PRN (16:05)
[2018-06-05] MEDS: MELATONIN 5 MG TABLETS PO PRN (21:37)
[2018-06-05] MEDS: QUEtiapine FUMARATE 200 MG TABLET PO SCH (21:37)
[2018-06-05] MEDS: THIAMINE HCL 100 MG TABLET (FP) PO SCH (21:37)
[2018-06-06] MEDS ORDERED: METHADONE HCL 40 MG DISPERSABLE TABLET ONE (03:26)
[2018-06-06] MEDS ORDERED: METHADONE HCL 10 MG TABLET ONE (03:26)
[2018-06-06] MEDS: METHADONE 40 MG, METHADONE 20 MG PO SCH (05:59)
[2018-06-06] MEDS: PRENATAL VITAMINS W/ FOLIC ACID TABLET (FP) PO SCH (09:41)
[2018-06-06] MEDS: NICOTINE 14 MG/24 HOURS TOPICAL PATCH TD SCH (09:42)
[2018-06-06] MEDS: THIAMINE HCL 100 MG TABLET (FP) PO SCH (21:31)
[2018-06-06] MEDS: MELATONIN 5 MG TABLETS PO PRN (21:31)
[2018-06-06] MEDS: QUEtiapine FUMARATE 200 MG TABLET PO SCH (21:31)
[2018-06-07] MEDS ORDERED: METHADONE HCL 10 MG TABLET ONE (04:03)
[2018-06-07] MEDS ORDERED: METHADONE HCL 40 MG DISPERSABLE TABLET ONE (04:04)
[2018-06-07] MEDS: METHADONE 40 MG, METHADONE 20 MG PO SCH (06:08)
[2018-06-07] MEDS: NICOTINE 14 MG/24 HOURS TOPICAL PATCH TD SCH (10:27)
[2018-06-07] MEDS: PRENATAL VITAMINS W/ FOLIC ACID TABLET (FP) PO SCH (10:27)
--- NOTE | 2018-06-07 14:32 | PN ---
S Progress Note Note: Patient is scheduled for discharged tomorrow. script for 30 days supply of Seroquel 200 mg po HS will be electronically transmitted to [facility] at [address] [place] [id number]
[2018-06-07] MEDS: QUEtiapine FUMARATE 200 MG TABLET PO SCH (21:31)
[2018-06-07] MEDS: THIAMINE HCL 100 MG TABLET (FP) PO SCH (21:31)
[2018-06-07] MEDS: MELATONIN 5 MG TABLETS PO PRN (21:31)
[2018-06-08] MEDS ORDERED: METHADONE HCL 40 MG DISPERSABLE TABLET ONE (05:50)
[2018-06-08] MEDS ORDERED: METHADONE HCL 10 MG TABLET ONE (05:50)
[2018-06-08] MEDS: METHADONE 40 MG, METHADONE 20 MG PO SCH (06:04)
[2018-06-08 07:07] VITALS: BP 117/68; PULSE 83; TEMP 97.3
[2018-06-08] MEDS: PRENATAL VITAMINS W/ FOLIC ACID TABLET (FP) PO SCH (09:17)
[2018-06-08] MEDS: NICOTINE 14 MG/24 HOURS TOPICAL PATCH TD SCH (09:17)
--- NOTE | 2018-06-08 12:19 | PN ---
[facility] Progress Note Note: PT COMPLETED REHAB AND DISCHARGED TODAY. PT MET WITH HIS COUNSELOR, UBALDO ANNE AND HAS BEEN REFERRED TO [facility]. PT IS ALSO REFERRED [facility] FOR CONTINUED METHADONE MAINTENANCE. PT REPORTS HE HAS [facility] [address]NAG[place]. PT IS ALERT O X 3. DENIES S/H/I. Home Medications Medication Instructions Recorded Methadone [Dolophine -] 60 mg PO DAILY 05/21/18 Quetiapine Fumarate [Seroquel -] 200 mg PO HS #30 tablet 06/07/18 Vital Signs - 24 hr 06/08/18 06/08/18 06/08/18 00:30 03:30 07:07 Temperature 97.3 F L Pulse Rate 83 Respiratory 18 18 18 Rate Blood Pressure 117/68 Laboratory Tests 06/07/18 07:00 HIV 1&2 Antibody Screen Negative HIV P24 Antigen Negative NAD MEDICALLY STABLE PLAN:D/C PT TODAY FOLLOW UP WITH CD AND MEDICAL MANAGEMENT RECOMMENDED/INDICATED ABOVE.
== END 2018-06-08 10:20 | disposition home or self-care (01) | DRG 772 ==
LOC: YASAS 12:12 → Y5N 12:15
PROVIDERS: ADMIT Neuromusculoskeletal Medicine & OMM; ATTEND Neuromusculoskeletal Medicine & OMM
PROC: HZ42ZZZ Group Counseling for Substance Abuse Treatment, Cognitive-Behavioral (ICD-10-PCS; principal; 2018-05-28)
DX: F10.20 Alcohol dependence, uncomplicated (principal); F13.10 Sedative, hypnotic or anxiolytic abuse, uncomplicated; F14.20 Cocaine dependence, uncomplicated; F11.20 Opioid dependence, uncomplicated; F17.210 Nicotine dependence, cigarettes, uncomplicated
CPT/HCPCS: 36415; 87389

== ENCOUNTER 2018-09-17 16:29 | Inpatient (IN) | payer OTHER | END 2018-09-22 13:00 | disposition other institution (70) | LOC: YASAS 16:29 → Y3N 23:32 ==

== ENCOUNTER 2018-09-22 14:08 | Inpatient (IN) | payer OTHER ==
--- NOTE | 2018-09-22 14:32 | HP ---
[facility]EE[facility] LEVY Rehab Assess/Revision - Admission History Admitted to Rehab from: [facility] Date of Admission to Rehab: 09/22/18 - Vital signs Vital Signs: stable - Findings Detox History & Physical reviewed: Yes Concur with findings: Yes Inpatient Rehab Admission - Rehab Decision to Admit Inpatient rehab admission?: Yes - Initial Determination Are CD services needed?: Yes Free of communicable disease: Yes Not in need of hospitalization: Yes - Rehab Admission Criteria Previous failed treatment: Yes Poor recovery environment: Yes Comorbidities: Yes Lacks judgement: No Patient is meeting Inpatient Rehab admission criteria:: Yes
[2018-09-22] MEDS ORDERED: guaiFENesin 200 MG/10 ML 10 ML UNIT-DOSE CUPS PO PRN (14:40)
[2018-09-22] MEDS ORDERED: MAGNESIUM CITRATE 300 ML BOTTLE PO PRN (14:40)
[2018-09-22] MEDS ORDERED: ACETAMINOPHEN 325 MG TABLET (FP) PO PRN (14:40)
[2018-09-22] MEDS ORDERED: MENTHOL/PHENOL 1 EACH UD MM PRN (14:40)
[2018-09-22] MEDS ORDERED: NICOTINE POLACRILEX 2 MG GUM BUC PRN (14:40)
[2018-09-22] MEDS ORDERED: P-EPHED 60MG/TRIPROLIDI 2.5MG TABLET PO PRN (14:40)
[2018-09-22] MEDS ORDERED: IBUPROFEN 400 MG TABLET (FP) PO PRN (14:40)
[2018-09-22] MEDS ORDERED: MAGNESIUM HYDROX 2400MG/30ML ORAL SUSPENSION 30 ML CUP PO PRN (14:40)
[2018-09-22] MEDS ORDERED: LOPERAMIDE HCL 2 MG CAPSULE PO PRN (14:40)
[2018-09-22] MEDS ORDERED: MAG HYDROX/AL HYDROX/SIMETH 30 ML UNIT-DOSE CUP PO PRN (14:40)
[2018-09-22] MEDS: MELATONIN 5 MG TABLETS PO PRN (21:26)
[2018-09-22] MEDS: THIAMINE HCL 100 MG TABLET (FP) PO SCH (21:26)
[2018-09-22] MEDS: hydrOXYzine PAMOATE 25 MG CAPSULE (FP) PO PRN (21:27)
[2018-09-23] MEDS ORDERED: METHADONE HCL 10 MG TABLET ONE (05:44)
[2018-09-23] MEDS ORDERED: METHADONE HCL 40 MG DISPERSABLE TABLET ONE (05:44)
[2018-09-23] MEDS ORDERED: METHADONE HCL 40 MG DISPERSABLE TABLET PO SCH (06:00)
[2018-09-23] MEDS: METHADONE 80 MG, METHADONE 10 MG PO SCH (06:11)
[2018-09-23] MEDS: PRENATAL VITAMINS W/ FOLIC ACID TABLET (FP) PO SCH (10:14)
[2018-09-23] MEDS: NICOTINE 14 MG/24 HOURS TOPICAL PATCH TD SCH (10:14)
[2018-09-23] MEDS: hydrOXYzine PAMOATE 25 MG CAPSULE (FP) PO PRN ×2 (10:15→21:22)
[2018-09-23] MEDS: LIDOCAINE VISCOUS 2% ORAL/TOP 20 ML UNIT-DOSE CUP MM PRN (15:38)
--- NOTE | 2018-09-23 17:05 | PN ---
[facility]EENA Progress Note Note: Psychiatry Attending's note : Called to enter order for trazodone. Mr Gibbs is known to me from [facility]. See my consult note of 09/20/18. Seroquel 50 mg po hs. Ordered. Consent (verbal) already granted to
[2018-09-23] MEDS: traZODone HCL 50 MG TABLET (FP) PO SCH (21:21)
[2018-09-23] MEDS: MELATONIN 5 MG TABLETS PO PRN (21:21)
[2018-09-23] MEDS: THIAMINE HCL 100 MG TABLET (FP) PO SCH (21:21)
[2018-09-24] MEDS ORDERED: METHADONE HCL 40 MG DISPERSABLE TABLET ONE (02:54)
[2018-09-24] MEDS ORDERED: METHADONE HCL 10 MG TABLET ONE (02:54)
[2018-09-24] MEDS: METHADONE 80 MG, METHADONE 10 MG PO SCH (05:59)
[2018-09-24] MEDS: LIDOCAINE VISCOUS 2% ORAL/TOP 20 ML UNIT-DOSE CUP MM PRN (09:05)
[2018-09-24] MEDS: PRENATAL VITAMINS W/ FOLIC ACID TABLET (FP) PO SCH (10:10)
[2018-09-24] MEDS: NICOTINE 14 MG/24 HOURS TOPICAL PATCH TD SCH (10:11)
[2018-09-24] MEDS ORDERED: COLLOIDAL OATMEAL 1 BAR EACH TP PRN (12:05)
[2018-09-24] MEDS: CHLORHEXIDINE GLUCONATE 118 ML MOUTHWASH MM SCH ×2 (14:45→21:28)
[2018-09-24] MEDS: MELATONIN 5 MG TABLETS PO PRN (21:28)
[2018-09-24] MEDS: traZODone HCL 50 MG TABLET (FP) PO SCH (21:28)
[2018-09-24] MEDS: THIAMINE HCL 100 MG TABLET (FP) PO SCH (21:28)
[2018-09-24] MEDS: hydrOXYzine PAMOATE 25 MG CAPSULE (FP) PO PRN (21:29)
[2018-09-25] MEDS ORDERED: METHADONE HCL 40 MG DISPERSABLE TABLET ONE (05:43)
[2018-09-25] MEDS ORDERED: METHADONE HCL 10 MG TABLET ONE (05:43)
[2018-09-25] MEDS: METHADONE 80 MG, METHADONE 10 MG PO SCH (06:12)
[2018-09-25] MEDS: PRENATAL VITAMINS W/ FOLIC ACID TABLET (FP) PO SCH (10:08)
[2018-09-25] MEDS: CHLORHEXIDINE GLUCONATE 118 ML MOUTHWASH MM SCH ×2 (10:08→22:25)
[2018-09-25] MEDS: NICOTINE 14 MG/24 HOURS TOPICAL PATCH TD SCH (10:09)
[2018-09-25] MEDS: traZODone HCL 50 MG TABLET (FP) PO SCH (21:21)
[2018-09-25] MEDS: THIAMINE HCL 100 MG TABLET (FP) PO SCH (21:21)
[2018-09-25] MEDS: MELATONIN 5 MG TABLETS PO PRN (21:21)
[2018-09-26] MEDS ORDERED: METHADONE HCL 40 MG DISPERSABLE TABLET ONE (05:11)
[2018-09-26] MEDS ORDERED: METHADONE HCL 10 MG TABLET ONE (05:11)
[2018-09-26] MEDS: METHADONE 80 MG, METHADONE 10 MG PO SCH (05:34)
[2018-09-26] MEDS: PRENATAL VITAMINS W/ FOLIC ACID TABLET (FP) PO SCH (10:00)
[2018-09-26] MEDS: NICOTINE 14 MG/24 HOURS TOPICAL PATCH TD SCH (10:00)
[2018-09-26] MEDS: HYDROCORTISONE 1% TOPICAL CREAM 30 GM TUBE TP SCH ×2 (15:48→21:24)
[2018-09-26] MEDS: THIAMINE HCL 100 MG TABLET (FP) PO SCH (21:23)
[2018-09-26] MEDS: MELATONIN 5 MG TABLETS PO PRN (21:23)
[2018-09-26] MEDS: hydrOXYzine PAMOATE 25 MG CAPSULE (FP) PO PRN (21:23)
[2018-09-26] MEDS: traZODone HCL 50 MG TABLET (FP) PO SCH (21:23)
[2018-09-27] MEDS ORDERED: METHADONE HCL 40 MG DISPERSABLE TABLET ONE (05:43)
[2018-09-27] MEDS ORDERED: METHADONE HCL 10 MG TABLET ONE (05:43)
[2018-09-27] MEDS: METHADONE 80 MG, METHADONE 10 MG PO SCH (06:06)
[2018-09-27] MEDS: NICOTINE 14 MG/24 HOURS TOPICAL PATCH TD SCH (10:57)
[2018-09-27] MEDS: PRENATAL VITAMINS W/ FOLIC ACID TABLET (FP) PO SCH (10:57)
[2018-09-27] MEDS: HYDROCORTISONE 1% TOPICAL CREAM 30 GM TUBE TP SCH ×2 (10:58→21:21)
[2018-09-27] MEDS: hydrOXYzine PAMOATE 25 MG CAPSULE (FP) PO PRN (21:20)
[2018-09-27] MEDS: traZODone HCL 50 MG TABLET (FP) PO SCH (21:20)
[2018-09-27] MEDS: MELATONIN 5 MG TABLETS PO PRN (21:20)
[2018-09-27] MEDS: THIAMINE HCL 100 MG TABLET (FP) PO SCH (21:20)
[2018-09-28] MEDS ORDERED: METHADONE HCL 40 MG DISPERSABLE TABLET ONE (05:57)
[2018-09-28] MEDS ORDERED: METHADONE HCL 10 MG TABLET ONE (05:57)
[2018-09-28] MEDS: METHADONE 80 MG, METHADONE 10 MG PO SCH (06:14)
[2018-09-28] MEDS: PRENATAL VITAMINS W/ FOLIC ACID TABLET (FP) PO SCH (10:11)
[2018-09-28] MEDS: NICOTINE 14 MG/24 HOURS TOPICAL PATCH TD SCH (10:11)
[2018-09-28] MEDS: HYDROCORTISONE 1% TOPICAL CREAM 30 GM TUBE TP SCH ×2 (10:12→21:19)
[2018-09-28] MEDS: THIAMINE HCL 100 MG TABLET (FP) PO SCH (21:19)
[2018-09-28] MEDS: traZODone HCL 50 MG TABLET (FP) PO SCH (21:19)
[2018-09-28] MEDS: MELATONIN 5 MG TABLETS PO PRN (21:19)
[2018-09-28] MEDS: hydrOXYzine PAMOATE 25 MG CAPSULE (FP) PO PRN (21:19)
[2018-09-29] MEDS: METHADONE 80 MG, METHADONE 10 MG PO SCH (06:09)
[2018-09-29] MEDS ORDERED: METHADONE HCL 10 MG TABLET ONE (06:09)
[2018-09-29] MEDS ORDERED: METHADONE HCL 40 MG DISPERSABLE TABLET ONE (06:09)
[2018-09-29] MEDS: HYDROCORTISONE 1% TOPICAL CREAM 30 GM TUBE TP SCH ×2 (09:55→21:30)
[2018-09-29] MEDS: PRENATAL VITAMINS W/ FOLIC ACID TABLET (FP) PO SCH (09:55)
[2018-09-29] MEDS: NICOTINE 14 MG/24 HOURS TOPICAL PATCH TD SCH (09:55)
[2018-09-29] MEDS: THIAMINE HCL 100 MG TABLET (FP) PO SCH (21:30)
[2018-09-29] MEDS: MELATONIN 5 MG TABLETS PO PRN (21:30)
[2018-09-29] MEDS: traZODone HCL 50 MG TABLET (FP) PO SCH (21:30)
[2018-09-29] MEDS: hydrOXYzine PAMOATE 25 MG CAPSULE (FP) PO PRN (21:31)
[2018-09-30] MEDS ORDERED: METHADONE HCL 10 MG TABLET ONE (03:53)
[2018-09-30] MEDS ORDERED: METHADONE HCL 40 MG DISPERSABLE TABLET ONE (03:54)
[2018-09-30] MEDS: METHADONE 80 MG, METHADONE 10 MG PO SCH (05:59)
[2018-09-30] MEDS: PRENATAL VITAMINS W/ FOLIC ACID TABLET (FP) PO SCH (10:03)
[2018-09-30] MEDS: HYDROCORTISONE 1% TOPICAL CREAM 30 GM TUBE TP SCH ×2 (10:03→21:53)
[2018-09-30] MEDS: NICOTINE 14 MG/24 HOURS TOPICAL PATCH TD SCH (10:03)
[2018-09-30] MEDS: traZODone HCL 50 MG TABLET (FP) PO SCH (21:51)
[2018-09-30] MEDS: MELATONIN 5 MG TABLETS PO PRN (21:51)
[2018-09-30] MEDS: THIAMINE HCL 100 MG TABLET (FP) PO SCH (21:51)
[2018-09-30] MEDS: hydrOXYzine PAMOATE 25 MG CAPSULE (FP) PO PRN (21:52)
[2018-10-01] MEDS ORDERED: METHADONE HCL 40 MG DISPERSABLE TABLET ONE (05:39)
[2018-10-01] MEDS ORDERED: METHADONE HCL 10 MG TABLET ONE (05:39)
[2018-10-01] MEDS: METHADONE 80 MG, METHADONE 10 MG PO SCH (06:04)
[2018-10-01] MEDS: NICOTINE 14 MG/24 HOURS TOPICAL PATCH TD SCH (09:55)
[2018-10-01] MEDS: PRENATAL VITAMINS W/ FOLIC ACID TABLET (FP) PO SCH (09:55)
[2018-10-01] MEDS: HYDROCORTISONE 1% TOPICAL CREAM 30 GM TUBE TP SCH ×2 (09:56→21:26)
[2018-10-01] MEDS: MELATONIN 5 MG TABLETS PO PRN (21:26)
[2018-10-01] MEDS: traZODone HCL 50 MG TABLET (FP) PO SCH (21:26)
[2018-10-01] MEDS: THIAMINE HCL 100 MG TABLET (FP) PO SCH (21:26)
[2018-10-02] MEDS ORDERED: METHADONE HCL 10 MG TABLET ONE (03:50)
[2018-10-02] MEDS ORDERED: METHADONE HCL 40 MG DISPERSABLE TABLET ONE (03:50)
[2018-10-02] MEDS: METHADONE 80 MG, METHADONE 10 MG PO SCH (06:12)
[2018-10-02 06:34] VITALS: BP 137/68; PULSE 58; TEMP 97.8
--- NOTE | 2018-10-02 09:52 | DS ---
[facility] Rehab Discharge Summary - [facility] Rehab Discharge Summary Admission Date: 09/22/18 Discharge Date: 10/04/18 - History Present History: Alcohol dependence, Cocaine dependence, MMTP ([facility]), Sedative dependence Additional Comments: Pt complete rehab and discharged as scheduled. Reports he has a primary care provider Dr. Muñoz on [address] [place] [address]. Pertinent Past History: hx hep c hx Bipolar disorder Nicotine dependence - Discharge Physical Exam Vital Signs: Vital Signs Temperature 97.8 F 10/02/18 06:33 Pulse Rate 58 L 10/02/18 06:33 Respiratory Rate 18 10/02/18 06:33 Blood Pressure 137/68 10/02/18 06:33 O2 Sat by Pulse Oximetry (%) Pertinent Admission Physical Exam Findings: Laboratory Tests 09/23/18 09/23/18 06:00 08:00 HIV 1&2 Ag/Ab, 4th Gen Non reactive HIV 1&2 Antibody Screen Cancelled HIV P24 Antigen Cancelled General:Alert o x 3, NAD Cardiac: Lungs: Abdomen Extremities/Skin:No edema, no cyanosis; Varicose veins on calves,jhonny. Right>Left - Treatment Discharge Condition: Discharge condition good Hospital Course: Pt responded well and safely to rehab treatment. - Medication Discharge Medications: Ambulatory Orders Methadone [Dolophine -] 60 mg PO DAILY 05/21/18 Quetiapine Fumarate [Seroquel -] 200 mg PO HS #30 tablet 06/07/18 - Medication-Assisted Treatment (MAT) Medication-Assisted Treatment (MAT): No - Discharge Instructions Diet, activity, other medical instructions: Diet:Regular diet Activity: Normal Other medical instructions:follow up with primary care with Dr. muñoz on 10/[address] [place] [address] - Diagnosis (1) Cocaine dependence Status: Chronic Qualifiers: Substance use status: uncomplicated Qualified Code(s): F14.20 - Cocaine dependence, uncomplicated (2) Alcohol dependence Status: Chronic Qualifiers: Substance use status: uncomplicated Qualified Code(s): F10.20 - Alcohol dependence, uncomplicated (3) Methadone maintenance therapy patient Status: Chronic - AMA Did Patient Leave Against Medical Advice: No Additional Comments: Referred to [facility] for CD aftercare
[2018-10-02] MEDS: HYDROCORTISONE 1% TOPICAL CREAM 30 GM TUBE TP SCH (10:00)
[2018-10-02] MEDS: PRENATAL VITAMINS W/ FOLIC ACID TABLET (FP) PO SCH (10:00)
[2018-10-02] MEDS: NICOTINE 14 MG/24 HOURS TOPICAL PATCH TD SCH (10:00)
== END 2018-10-02 10:00 | disposition home or self-care (01) | DRG 772 ==
LOC: YASAS 14:08 → UNDOADMIN 14:10 → Y3W 14:10 → Y5N 16:17
PROVIDERS: ADMIT Neuromusculoskeletal Medicine & OMM; ATTEND Neuromusculoskeletal Medicine & OMM
PROC: HZ42ZZZ Group Counseling for Substance Abuse Treatment, Cognitive-Behavioral (ICD-10-PCS; principal; 2018-09-22)
DX: F10.20 Alcohol dependence, uncomplicated (principal); F11.20 Opioid dependence, uncomplicated; F12.20 Cannabis dependence, uncomplicated; F17.210 Nicotine dependence, cigarettes, uncomplicated
CPT/HCPCS: 36415; 87389